=== PATIENT | female | born 2005 | race Caucasian/White ===

== ENCOUNTER 2025-02-11 01:26 | Emergency (ER) | payer MEDICAID, SELFPAY ==
[2025-02-11 01:27] VITALS: BP 145/76; PULSE 93; RESP 16; TEMP 36.5; O2SAT 99; BMI 35.9
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
[2025-02-11 02:45] VITALS: BP 136/87; PULSE 80; RESP 16; TEMP 36.5; O2SAT 100
== END 2025-02-11 02:48 | disposition home or self-care (01) ==
PROVIDERS: Emergency Provider Emergency Medicine; PCP Family Medicine; Visit Provider Emergency Medicine
DX: F41.9 Anxiety disorder, unspecified (principal); S80.812A Abrasion, left lower leg, initial encounter; Z79.899 Other long term (current) drug therapy; F17.290 Nicotine dependence, other tobacco product, uncomplicated; S00.81XA Abrasion of other part of head, initial encounter; Y09 Assault by unspecified means
CPT/HCPCS: 99282; A4216

== ENCOUNTER 2025-02-24 11:39 | Emergency (ER) | payer MEDICAID, SELFPAY ==
[2025-02-24 11:39] VITALS: BP 118/101; PULSE 111; RESP 14; TEMP 36.1; O2SAT 98; BMI 30.4
--- NOTE | 2025-02-24 11:50 | EKG12_ITS ---
Test Reason : GENERAL Blood Pressure : */* mmHG Vent. Rate : 99 BPM Atrial Rate : 99 BPM P-R Int : 154 ms QRS Dur : 94 ms QT Int : 356 ms P-R-T Axes : 53 -14 44 degrees QTcB Int : 456 ms Normal sinus rhythm Normal ECG Confirmed by Neto Mejia ([id number]), photographic editor KAIN MARTE ([id number]) on 02/25/2025 11:40:36 AM Referred By: Confirmed By: Neto Mejia
--- NOTE | 2025-02-24 11:50 | EKG12_ITS ---
Test Reason : GENERAL Blood Pressure : */* mmHG Vent. Rate : 99 BPM Atrial Rate : 99 BPM P-R Int : 154 ms QRS Dur : 94 ms QT Int : 356 ms P-R-T Axes : 53 -14 44 degrees QTcB Int : 456 ms Normal sinus rhythm Normal ECG Confirmed by Neto Mejia ([id number]), medical editor KAIN MARTE ([id number]) on 02/25/2025 11:40:36 AM Referred By: Confirmed By: Neto Mejia
[2025-02-24] MEDS: Lorazepam 2 MG/ML WCH Syringe IV (12:05)
[2025-02-24 12:38] LABS: Hematocrit 40.4 % (37-47); Hemoglobin 13.7 g/dL (12.0-15.0); Immature Granulocytes Count 0.020 X10^3/uL (0.0-0.0); Mean Corp Hgb Conc 33.9 g/dL (32-36); Mean Corpuscular Volume 85.2 fL (81-99); Mean Platelet Vol. 10.4 fl (6.2-12.0); NRBC Flagged by Analyzer 0 % (0-5); Platelet Count 334 K/mm3 (150-450); RBC Distribution Width CV 13.7 % (11.6-14.6); RBC Distribution Width SD 42.5 fl (35.1-43.9); Red Blood Count 4.74 M/mm3 (4.2-5.4); White Blood Count 9.5 K/mm3 (4.4-11.0)
[2025-02-24 13:05] LABS: Anion Gap 18 (5-15); BUN 3 mg/dL (4-19); BUN/Creat Ratio 5.3 RATIO (10-20); Calcium,Total 9.8 mg/dL (7.6-11.0); Carbon Dioxide 19.2 mmol/L (21.0-32.0); Chloride 104 mmol/L (98-108); Estimated Creatinine Clearance 181.44 ml/min (50-250); Glucose 102 mg/dL (70-99); Potassium 3.7 mmol/L (3.3-5.1)
[2025-02-24 13:39] VITALS: BP 128/90; PULSE 112; RESP 18; O2SAT 99
--- NOTE | 2025-02-24 14:00 | EX.ED.DYSGE1 ---
HPI History of Present Illness Chief Complaint: Anxiety Detail of Chief Complaint: Anxiety, total Baade paresthesia, I cannot breathe Informant: patient Onset/Context/Timing Onset: Hours (Started several hours prior to arrival) Context: Sudden Onset Timing: Continuous Quality: Total body paresthesia, anxiousness, trouble breathing and palpitations Location: Generalized Current Severity: Severe Maximum Severity: Severe Worsened by: After obtaining my history patient informed me that she wants to be honest Relieved by: Nothing Associated Symptoms Associated Symptoms: HPI narrative Narrative Narrative: Patient is a 19-year-old female. She has been drinking heavily on weekends since her sister . Today she became very anxious. She is complain of palpitations, shortness of breath. [id number] she made the comment that I cannot breathe . She has tingling in her upper and lower extremities and perioral. She denies fever, chills night sweats. She denies weight gain or weight loss. She denies heat or cold intolerance. She denies headache. Eye double vision blurred vision loss of vision. She denies chest pressure or tightness. She denies abdominal pain, nausea, vomiting or diarrhea. She denies dysuria, frequency, urgency or hematuria. After I completed my history she informed me that she wanted to be perfectly honest with me . She inform me that she did ecstasy this morning. She has done ecstasy in the past. But she is never felt like this. Prior similar symptoms: No Recent Illness/Hospitalization: No [facility] Medical History Anxiety Home Medications ?Medication ?Instructions ?Recorded ?Last Taken ?Type hydroxyzine pamoate 25 mg capsule 25 mg PO 4X/DAY PRN PRN anxiety 02/24/25 02/23/25 History paroxetine HCl 40 mg tablet 40 mg PO DAILY mood 02/24/25 02/23/25 History Allergy/AdvReac Type Severity Reaction Status Date / Time sulfamethoxazole (From Allergy Rash Verified 02/11/25 01:32 Bactrim) trimethoprim (From Bactrim) Allergy Rash Verified 02/11/25 01:32 Social History Smoking Status: Current every day smoker tobacco type: e-cigarettes ROS ROS ED Constitutional Constitutional ED: Denies chills, fever(s), subjective, sweats or weight loss Eyes Eyes: Denies blurry vision, change in vision or diplopia ENT ENT ED: Denies ear pain, rhinorrhea or sore throat Cardiovascular Cardiovascular: Reports palpitations and racing heartbeat; Denies chest pain, orthopnea or paroxysmal nocturnal dyspnea Respiratory/Chest Respiratory/Chest: Reports dyspnea; Denies cough, dyspnea on exertion, orthopnea or paroxysmal nocturnal dyspnea Gastrointestinal Gastrointestinal: Reports nausea; Denies abdominal pain, diarrhea or vomiting Musculoskeletal Musculoskeletal: Denies arthralgias, back pain or myalgias Integumentary Denies Abrasions or rash Neurologic Neurologic: Reports paresthesias RUE, RLE, LUE and LLE; Denies weakness Psychiatric Psychiatric: Reports anxiety and depression; Denies suicidal ideation or suicidal thoughts Endocrine Endocrinology: Denies cold intolerance or heat intolerance Hematologic/Lymphatic Hematologic/Lymphatic: Reports systems reviewed and no addt'l complaints, except as documented EXAM Physical Exam Const Vital Signs: 02/24/25 11:39 02/24/25 13:39 Temperature 97 F L Temperature Source Temporal Pulse Rate 111 H 112 H Respiratory Rate 14 18 Blood Pressure 118/101 H 128/90 H Blood Pressure Mean 106 102 Pulse Ox 98 99 Oxygen Delivery Method Room Air Positive well nourished and well developed General Appearance ED: well developed; Negative for cyanotic, diaphoretic, NAD or pallor HEENT Reports TM's clear and moist mucous membranes HEENT Narrative: Head is atraumatic and normocephalic. Ears normal. Nares patent. Posterior pharynx erythemic today. Uvula midline. No deviation with protrusion. Patient has bilateral Chvostek sign. Tympanic Membrane ED: Yes TM's clear Eyes PERRL and EOMs intact bilaterally General Eye ED: Negative for pale conjunctiva or scleral icterus Neck no lymphadenopathy, supple and no JVD Chest Wall inspection of chest normal and palpation of chest normal Resp normal respiratory effort and clear to auscultation bilaterally Cardio regular rhythm, S1 normal heart sound, S2 normal heart sound and no murmurs Rate: tachycardic GI normal to inspection, nondistended, normoactive bowel sounds, non-tender, non-distended and no masses; Negative for hepatosplenomegaly Palpation: soft Back/Spine no CVA tenderness Extremity normal to inspection Extremity Narrative: Patient has multiple bruises. She is uncertain how she got the bruises. They do not appear to be new bruises. General Extremety ED: Negative for edema or tenderness General Extremity: Negative for edema Neuro oriented x3, CN's II-XII intact bilaterally and no sensory deficits noted Neuro Narrative: Feroz patient is hyperreflexic with nonsustained clonus at the ankles of 6-10 beats. Sensorium / Orientation: alert Motor Exam: strength 5/5 throughout Psych Mood & Affect: anxious Skin no rashes or lesions noted, no wounds and skin turgor normal Skin Narrative: Multiple bruises and abrasions of varying age lower extremities. General Skin Exam: elasticity normal; Negative for jaundice or pallor MDM MDM MDM Narrative Medical decision making narrative: Patient's symptoms are consistent with hyperventilation most likely due to ecstasy use. Will obtain electrolyte panel to assess calcium and sodium potassium. Will obtain CBC since she appears pale to assess H&H. She was placed on a monitor. She was treated with lorazepam since we do not have IV Valium. Benzodiazepines are considered the drug of choice for treatment of sympathomimetic toxicity. Lab Data Attestation: I reviewed the patient's lab results. Lab results narrative: CBC is unremarkable. Basic metabolic panel reveals a mild anion gap acidosis. Glucose is 102. Labs: Laboratory Results - last 24 hr 02/24/25 12:01 WBC 9.5 RBC 4.74 Hgb 13.7 Hct 40.4 MCV 85.2 MCH 28.9 MCHC 33.9 RDW Std Deviation 42.5 RDW Coeff of Licha 13.7 Plt Count 334 MPV 10.4 Immature Gran % (Auto) 0.200 Neut % (Auto) 67.4 Lymph % (Auto) 27.1 Wetzel % (Auto) 4.4 Eos % (Auto) 0.4 Baso % (Auto) 0.5 Absolute Neuts (auto) 6.4 Absolute Lymphs (auto) 2.56 Nucleated RBC % 0 Sodium 141 Potassium 3.7 Chloride 104 Carbon Dioxide 19.2 L Anion Gap 18 H BUN 3 L Creatinine 0.54 L Estim Creat Clear Calc 181.44 Est GFR (MDRD) Non-Af 134 BUN/Creatinine Ratio 5.3 L Glucose 102 H Calcium 9.8 EKG Initial EKG: Attestation: I personally reviewed and interpreted this EKG as follows: Interpretation: Sinus Rhythm (Rate is 99. The EKG is normal. SD was 154 ms. Cures duration 94 ms. QT duration 3 and 56 ms. [place] is normal.) Treatment and Re-Evaluation :: Patient was reassessed at 1337. She was better. She stated she was offered medicine for anxiety when she was seen here approximately a week ago. Will review her prior records. I reviewed Dr. Tonny Saldaña's note authored February 11. He offered her an Ativan pill in the emergency department. He did not offer her an Ativan prescription. 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
--- NOTE | 2025-02-24 14:19 | CM.ED ---
Social Work SW entered room, introduced self to patient and explained role within [facility]. Patient receptive to visit. Patient stated that she does not currently have a counselor and would be interested establishing services. Counseling list provided to patient along with information for Cynthia Cardona. No further needs identified at this time. Nery Gannon, CAR WORKER, [employer]
--- NOTE | 2025-02-24 14:19 | CM.ED ---
Social Work SW entered room, introduced self to patient and explained role within [facility]. Patient receptive to visit. Patient stated that she does not currently have a counselor and would be interested establishing services. Counseling list provided to patient along with information for Cynthia Cardona. No further needs identified at this time. Nery Gannon, REFERRAL AGENT, [employer]
[2025-02-24 14:29] VITALS: BP 124/79; PULSE 72; RESP 18; TEMP 36.4; O2SAT 99
== END 2025-02-24 14:30 | disposition home or self-care (01) ==
PROVIDERS: Emergency Provider Emergency Medicine; PCP Family Medicine; Visit Provider Emergency Medicine
DX: R06.4 Hyperventilation (principal); F41.9 Anxiety disorder, unspecified; F32.A Depression, unspecified; F15.90 Other stimulant use, unspecified, uncomplicated; R00.0 Tachycardia, unspecified; Z79.899 Other long term (current) drug therapy
CPT/HCPCS: 80048; 85025; 93005; 96374; 99284; A4216

== ENCOUNTER 2025-03-03 21:34 | Emergency (ER) | payer MEDICAID, SELFPAY ==
[2025-03-03 21:34] VITALS: BP 132/92; PULSE 89; RESP 16; TEMP 36.8; O2SAT 98; BMI 31.5
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
[2025-03-03] MEDS: 0.9% Normal Saline (1000mL) 1,000 ML 1000 ML IV (23:00)
[2025-03-03 23:10] LABS: Hematocrit 40.3 % (37-47); Hemoglobin 13.3 g/dL (12.0-15.0); Immature Granulocytes Count 0.060 X10^3/uL (0.0-0.0); Mean Corp Hgb Conc 33.0 g/dL (32-36); Mean Corpuscular Volume 86.5 fL (81-99); Mean Platelet Vol. 10.0 fl (6.2-12.0); NRBC Flagged by Analyzer 0 % (0-5); Platelet Count 345 K/mm3 (150-450); RBC Distribution Width CV 13.6 % (11.6-14.6); RBC Distribution Width SD 43.4 fl (35.1-43.9); Red Blood Count 4.66 M/mm3 (4.2-5.4); White Blood Count 14.0 K/mm3 (4.4-11.0)
[2025-03-03 23:33] LABS: Internal QC Validated? YES +Cl - CLEAR BKGD; Pregnancy, Serum, hCG Quali. NEGATIVE Negative; Record Kit Lot#, Serum Preg. 962302
[2025-03-03 23:37] LABS: Alcohol, Blood (Medical)-Serum < 10.1 mg/dL (<=10.0)
[2025-03-03 23:38] LABS: Anion Gap 14 (5-15); BUN 6 mg/dL (4-19); BUN/Creat Ratio 10.3 RATIO (10-20); Calcium,Total 9.9 mg/dL (7.6-11.0); Carbon Dioxide 23.1 mmol/L (21.0-32.0); Chloride 100 mmol/L (98-108); Estimated Creatinine Clearance 178.27 ml/min (50-250); Glucose 98 mg/dL (70-99); Potassium 3.6 mmol/L (3.3-5.1)
[2025-03-03 23:55] VITALS: BP 126/92; PULSE 85; RESP 16; TEMP 36.6; O2SAT 99
== END 2025-03-04 00:01 | disposition home or self-care (01) ==
PROVIDERS: Emergency Provider Emergency Medicine; PCP Family Medicine; Visit Provider Emergency Medicine
DX: F41.9 Anxiety disorder, unspecified (principal); R20.2 Paresthesia of skin; R06.02 Shortness of breath; F17.290 Nicotine dependence, other tobacco product, uncomplicated
CPT/HCPCS: 80048; 82077; 84703; 85025; 96361; 96374; 99283; A4216

== ENCOUNTER 2025-03-17 00:12 | Emergency (ER) | payer MEDICAID, SELFPAY ==
[2025-03-17 00:13] VITALS: BP 134/94; PULSE 122; RESP 20; TEMP 37; O2SAT 99; BMI 31.2
[2025-03-17] MEDS: hydrOXYzine PAM 25 MG Capsule PO (00:53)
--- NOTE | 2025-03-17 01:16 | EX.ED.VIS.PS ---
HPI HPI - Psych History of Present Illness Chief Complaint: Anxiety Informant: patient Narrative Narrative: Patient is a 19-year-old female with history of anxiety (on paroxetine as well as hydroxyzine as needed) follows with primary care presenting for panic attack. Patient states that she was drinking earlier today and thinks that triggered a panic attack. She started to feel very anxious then started feel like she was getting numb in her face and her hand started to cramp up. She tried to take hydroxyzine however something it spilled in her purse and the pills were all swollen up. She came in for further evaluation because she did not know what else to do. She denies any HI or SI. Lives at home with her mother and states she feel safe at home. No other complaints or concerns at this time. PFSH PFSH Medical History Anxiety Home Medications ?Medication ?Instructions ?Recorded ?Last Taken ?Type hydroxyzine pamoate 25 mg capsule 25 mg PO 4X/DAY PRN PRN anxiety 02/24/25 02/23/25 History paroxetine HCl 40 mg tablet 40 mg PO DAILY mood 02/24/25 02/23/25 History hydroxyzine pamoate 25 mg capsule 25 mg PO Q6H PRN anxiety #20 caps 03/17/25 Unknown Rx (Vistaril) Allergy/AdvReac Type Severity Reaction Status Date / Time sulfamethoxazole (From Allergy Rash Verified 03/17/25 00:12 Bactrim) trimethoprim (From Bactrim) Allergy Rash Verified 03/17/25 00:12 Surgical History Hx of tonsillectomy Social History Smoking Status: Current every day smoker tobacco type: e-cigarettes ROS ROS ED Constitutional Constitutional ED: Denies chills or fever(s) Eyes Eyes: Denies change in vision Cardiovascular Cardiovascular: Denies chest pain Respiratory/Chest Respiratory/Chest: Reports dyspnea Gastrointestinal Gastrointestinal: Denies vomiting Integumentary Denies rash Neurologic Neurologic: Reports paresthesias; Denies weakness Psychiatric Psychiatric: Reports anxiety; Denies suicidal ideation or suicidal thoughts EXAM Physical Exam Const Vital Signs: 03/17/25 00:13 03/17/25 02:26 Temperature 98.6 F 98.0 F Temperature Source Oral Pulse Rate 122 H 70 Respiratory Rate 20 H 18 Blood Pressure 134/94 H 130/74 H Blood Pressure Mean 107 92 Pulse Ox 99 100 Oxygen Delivery Method Room Air Positive well nourished and well developed General Appearance ED: well developed and NAD HEENT Reports moist mucous membranes Neck supple Resp normal respiratory effort and clear to auscultation bilaterally Cardio Rate: tachycardic Rhythm: regular rhythm GI non-tender and non-distended Extremity normal to inspection General Extremety ED: Negative for edema General Extremity: Negative for edema Neuro oriented x3 Sensorium / Orientation: alert Motor Exam: muscle tone normal throughout; Negative for general weakness Psych thought process normal, cooperative, affect normal and activity/motor behavior normal Appearance: disheveled Attitude: engaged Activity / Motor Behavior: appropriate eye contact Speech: normal speech Mood & Affect: anxious Thought Content: normal thought content, No suicidality, No homicidality and No delusion(s) Attention / Concentration: attention grossly intact Memory / Cognition: memory grossly intact Insight: insight good Judgement: fair Skin Lesions: no lesions Rashes: no rashes MDM MDM MDM Narrative Medical decision making narrative: Patient evaluated for panic attack. Likely triggered from drinking earlier today with underlying anxiety. Patient is given a dose of hydroxyzine in the emergency room. She does not voice any HI or SI and I think it safe to go home with outpatient follow-up. Given information for the counseling center. Is given a refill of her hydroxyzine. Given return precautions. States has been compliant with her paroxetine. Counseled on avoiding excessive alcohol use. Patient verbalized agreement understand this plan. Did discuss if she starts hyperventilating at home she could try breathing into a brown paper bag to help prevent the associated carpopedal spasm Discharge Plan Triage Chief Complaint: Anxiety ED Provider: Susu Vasquez Dx/Rx/DC Orders Clinical Impression: Generalized anxiety disorder with panic attacks Instructions: ED Panic Attack Prescriptions: New hydroxyzine pamoate [Vistaril] 25 mg capsule 25 mg PO Q6H PRN (Reason: anxiety) Qty: 20 0RF No Action paroxetine HCl 40 mg tablet 40 mg PO DAILY hydroxyzine pamoate 25 mg capsule 25 mg PO 4X/DAY PRN PRN (Reason: anxiety) Primary Care Provider: Constanza Winslow Referrals: Counseling,Center [Group of Physicians] - Constanza Winslow, [Primary Care Provider] - Activity Restrictions/Additional Instructions: Avoid excessive alcohol use. This can make panic attacks worse. Follow-up with your family doctor as well as the counseling center. Print Language: Kosovan Disposition Disposition: Home, Self Care Discharge Date/Time: 03/17/25 02:28
--- OUTSIDE RECORDS SUMMARY | 2025-03-17 01:22 | XMS RPT_ITS | CCD ---
Author Organization [facility] Care Team Providers Care Banquet Pilot Name Role Phone LEISA ESQUEDA DO Primary Care Physician JOSH MENDOZA, DR MIXON Attending Unavailaretha e DHEERAJ SCHNEIDER, LEISA Primary Care Unavailable KAJAL MENDOZA, ANDRZEJ Kruger Attending Unavail able LEISA ESQUEDA DO Primary Care Unavailable BINH COBB DO Attending Unavailable LEISA ESQUEDA DO Primary Care Unavailable BRIGITTE MENDOZA, PEACE Arias Attending Unavailable LEISA ESQUEDA DO Primary Care Unavailable LEISA ESQUEDA DO Primary Care Physician [phone] Tonny Vallejo MD Emergency Provider Dr. Leisa Esqueda DO Primary Care Provider [phone] DR DOMENICA OROZCO DO Attending Unavailable LEISA ESQUEDA DO Primary Care Unavailable ARCENIO MENDOZA, FERNANDO Lauren Attending Unavailable LEISA ESQUEDA DO Primary Care Unavailable ADALGISA SINGH MD Attending Unavailable LEISA ESQUEDA DO Primary Care Unavailable Dr. Tonny Vallejo MD Attending Provider Dr. Gutierrez Yee MD Emergency Provider Dr. Gutierrez Yee MD Attending Provider Dr. Alex Marino DO Emergency Provider [phone] Tonny Vallejo Attending Unavailable Leisa Esqueda Primary Care Unavailable Gutierrez Yee Attending Unavailable Leisa Esqueda Primary Care Unavailable Leisa Esqueda Primary Care Unavailable Alex Marino Attending Unavailable Allergies Allergy Classification Reported Allergen(s) Allergy Type Date of Onset Reaction(s) Facility (7 sources) Sulfamethoxazole / Trimethoprim; Translations: [sulfamethoxazole-tr imethoprim] Drug Allergy Rash [facility] (3 sources) Sulfamethoxazole Drug Allergy 5 [facility] (3 sources) Trimethoprim Drug Allergy 5 [facility] (1 source) Sulfamethoxazole Drug Allergy 5 [facility] (1 source) Trimethoprim Drug Allergy 5 [facility] Medications Current Medications Medication Drug Class(es) Dates Sig (Normalized) Sig (Original) dicyclomine hydrochloride 10 mg oral capsule (1 source) Anticholinergic Start: 05-16-2021 dicyclomine 10 mg oral capsule 0 Refill(s) Start Date: 05/16/21 Status: Ordered diphenhydrAMINE hydrochloride 25 mg oral capsule (1 source) Histamine-1 Receptor Antagonist Start: 07-15-2023 End: 07-25-2023 diphenhydrAMINE 25 mg oral capsule Dose : 25 mg = 1 cap(s), Oral, TID, PRN for allergy symptoms, X 10 day(s), # 30 cap(s), 0 Refill(s), 07/25/23 12:56:00 AM EST Start Date: 07/15/23 Stop Date: 07/25/23 Status: Ordered doxycycline hyclate 100 mg oral capsule (1 source) Tetracycline-class Drug Start: 05-16-2021 doxycycline hyclate 100 mg oral capsule 0 Refill(s), 47.7 Start Date: 05/16/21 Status: Ordered hydrOXYzine pamoate 25 mg oral capsule (7 sources) Antihistamine Start: 02-24-2025 take 1 capsule by mouth four times daily as needed for anxiety Hydroxyzine Pamoate 25 mg capsule Active 25 mg PO 4 TIMES DAILY NEEDED as needed for anxiety February 24, 2025 12:00am Start: 02-11-2025 End: 02-24-2025 take 1 tablet by mouth three times daily as needed for anxiety Hydroxyzine Hcl 25 mg tablet Discontinued 25 mg PO THREE TIMES A DAY as needed for anxiety February 11, 2025 12:00am February 24, 2025 11:44am Start: 01-23-2025 Vistaril 25 mg oral capsule Dose : 25 mg = 1 cap(s), Oral, QID, PRN as needed for anxiety, # 120 cap(s), 1 Refill(s), Pharmacy: [facility]/pharmacy #[id number], Anxiety, 166, cm, 01/23/25 13:59:00 EDT, Height, kg, 01/23/25 13:59:00 EDT, Dosing Weight Start Date: 01/23/25 Status: Ordered Quantity: 120.0 Unit: cap(s) Repeat number: 2 Indications: Anxiety disorder, unspecified; Start: 10-30-2024 Vistaril 25 mg oral capsule Dose : 25 mg = 1 cap(s), Oral, QID, PRN as needed for anxiety, # 120 cap(s), 1 Refill(s), Pharmacy: [facility]/pharmacy #[id number], Anxiety, 166, cm, 10/30/24 12:33:00 EDT, Height, kg, 10/30/24 12:33:00 EDT, Dosing Weight Start Date: 10/30/24 Status: Ordered Quantity: 120.0 Unit: cap(s) Repeat number: 2 Indications: Anxiety disorder, unspecified; metoclopramide 10 mg oral tablet (1 source) Dopamine-2 Receptor Antagonist Start: 05-16-2021 End: 05-26-2021 Reglan 10 mg oral tablet Dose : 10 mg = 1 tab(s), Oral, QID, X 10 day(s), # 40 tab(s), 0 Refill(s), 05/26/21 15:54:00 EST, Vomiting Start Date: 05/16/21 Stop Date: 05/26/21 Status: Ordered metroNIDAZOLE 500 mg oral tablet (1 source) Nitroimidazole Antimicrobial Start: 05-16-2021 metroNIDAZOLE 500 mg oral tablet 0 Refill(s), 47.7 Start Date: 05/16/21 Status: Ordered omeprazole 20 mg delayed release oral capsule (3 sources) Proton Pump Inhibitor Start: 09-03-2021 omeprazole 20 mg oral delayed release capsule Dose : 20 mg = 1 cap(s), Oral, qDay, # 30 cap(s), 2 Refill(s), [facility]: [facility] GERD (gastroesophageal reflux disease), 166, cm, 09/03/21 13:27:00 EST, Height, kg, 09/03/21 13:27:00 EST, Dosing Weight Start Date: 09/03/21 Status: Ordered ondansetron 4 mg oral tablet (1 source) Serotonin-3 Receptor Antagonist Start: 05-16-2021 ondansetron 4 mg oral tablet 0 Refill(s) Start Date: 05/16/21 Status: Ordered PARoxetine hydrochloride 40 mg oral tablet (8 sources) Serotonin Reuptake Inhibitor Start: 02-24-2025 take 1 tablet by mouth once daily Paroxetine Hcl 40 mg tablet Active 40 mg PO DAILY February 24, 2025 12:00am mood Start: 02-11-2025 End: 02-24-2025 take 1 tablet by mouth once daily Paroxetine Hcl 20 mg tablet Discontinued 20 mg PO DAILY February 11, 2025 12:00am February 24, 2025 11:44am Start: 01-23-2025 Paxil 40 mg or al tablet Dose : 40 mg = 1 tab(s), Oral, qDay, # 30 tab(s), 2 Refill(s), Pharmacy: [facility]/pharmacy #[id number], Recurrent major depression Anxiety, 166, cm, 01/23/25 13:59:00 EDT, Height, kg, 01/23/25 13:59:00 EDT, Dosing Weight Start Date: 01/23/25 Status: Ordered Quantity: 30.0 Unit: tab(s) Repeat number: 3 Indications: Anxiety disorder, unspecified; Major depressive disorder, recurrent, unspecified; Start: 11-13-2024 Paxil 20 mg or al tablet Dose : 20 mg = 1 tab(s), Oral, qDay, Start 20 mg tablet after completing 14-day course of 10 mg tablet, # 30 tab(s), 2 Refill(s), Pharmacy: [facility]/pharmacy #[id number], Recurrent major depression Anxiety, 166, cm, 10/30/24 12:33:00 EDT, Height, kg, 10/30/24 12:33:00 EDT, Dosing Weight Start Date: 11/13/24 Status: Ordered Quantity: 30.0 Unit: tab(s) Repeat number: 3 Indications: Major depressive disorder, recurrent, unspecified; Anxiety disorder, unspecified; Start: 10-30-2024 End: 11-13-2024 Paxil 10 mg oral tablet Dose : 10 mg = 1 tab(s), Oral, qDay, Complete 14-day course prior to initiating 20 mg tablet, # 14 tab(s), 0 Refill(s), Pharmacy: [facility]/pharmacy #[id number], Recurrent major depression Anxiety, 166, cm, 10/30/24 12:33:00 EDT, Height, kg, 10/30/24 12:33:00 EDT, Dosing Weight Start Date: 10/30/24 Stop Date: 11/13/24 Status: Ordered Quantity: 14.0 Unit: tab(s) Repeat number: 1 Indications: Major depressive disorder, recurrent, unspecified; Anxiety disorder, unspecified; predniSONE 50 mg oral tablet (1 source) Start: 07-15-2023 End: 07-20-2023 predniSONE 50 mg oral tablet Dose : 50 mg = 1 tab(s), Oral, qDay, Take with food, X 5 day(s), # 5 tab(s), 0 Refill(s), 07/20/23 6:00:00 PM EST Start Date: 07/15/23 Stop Date: 07/20/23 Status: Ordered sertraline 50 mg oral tablet (4 sources) Serotonin Reuptake Inhibitor Start: 09-03-2021 sertraline 50 mg ora l tablet Dose : 50 mg = 1 tab(s), Oral, qDay, take 1 tablet by mouth once daily, # 30 tab(s), 2 Refill(s), [facility]acy: [facility], Anxiety, 166, cm, 09/03/21 13:27:00 EST, Height, kg, 09/03/21 13:27:00 EST, Dosing Weight Start Date: 09/03/21 Status: Ordered Start: 12-02-2020 take 1 tablet by dominic th once daily sertraline 50 mg oral tablet take 1 tablet by mouth once daily Start Date: 12/02/20 Status: Ordered Completed/Discontinued Medications Medication Drug Class(es) Dates Sig (Normalized) Sig (Original) penicillin v potassium 500 mg oral tablet (4 sources) Start: 02-09-2025 End: 02-24-2025 take 1 tablet by mouth every six hours Penicillin V Potassium 500 mg tablet Discontinued 500 mg PO EVERY 6 HOURS February 11, 2025 12:00am February 24, 2025 11:58am Problems Problem Classification Problem Date Documented Da te Episodic/Chronic Alcohol-related disorders (2 sources) Binge drinker; Translations: [Alcohol abuse, uncomplicated] 02-24-2025 Chronic Allergic reactions (1 source) Allergic disposition; Translations: [Allergy, unspecified, initial encounter] Onset: 07-15-2023 Episodic Anxiety disorders (14 sources) Anxiety; Translations: [Anxiety disorder] Onset: 09-26-2023 02-14-2019 Chronic Cardiac dysrhythmias (2 sources) ECG: sinus tachycardia; Translations: [Tachycardia, unspecified] 02-24-2025 Episodic Fluid and electrolyte disorders (1 source) Hypokalemia; Translations: [Hypokalemia] Onset: 09-20-2023 Episodic Miscellaneous mental health disorders (2 sources) Psychogenic hyperventilation; 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] 02-24-2025 Chronic Miscellaneous mental health disorders (1 source) Emotional state finding; Translations: [Other symptoms and signs involving emotional state] Onset: 09-20-2023 Episodic Mood disorders (4 sources) Recurrent major depression; Translations: [Depressive disorder] 10-11-2023 Chronic Mycoses (7 sources) Tinea corporis 11-05-2019 Episodic Nausea and vomiting (1 source) Vomiting; Translations: [Vomiting, unspecified] Onset: 05-16-2021 Episodic Nutritional deficiencies (2 sources) Vitamin D deficiency 02-21-2024 Chronic Open wounds of head; neck; and trunk (2 sources) Laceration of lip ; Translations: [Laceration without foreign body of lip, initial encounter] Onset: 02-09-2025 Episodic Other injuries and conditions due to external causes (3 sources) Abrasion and/or friction burn of multiple sites; Translations: [Unspecified multiple injuries, initial encounter] 02-11-2025 Episodic Other lower respiratory disease (1 source) Dyspnea; Translations: [Dyspnea, unspecified] Onset: 09-26-2023 Episodic Other nutritional; endocrine; and metabolic disorders (1 source) Body mass index 30+ - obesity; Translations: [Obesity, unspecified] 03-03-2025 Chronic Other nutritional; endocrine; and metabolic disorders (6 sources) Abnormal weight loss 09-03-2021 Episodic Other screening for suspected conditions (not mental disorders or infectious disease) (2 sources) Viral screening status 02-21-2024 Episodic Other skin disorders (7 sources) Eruption 11-05-2019 Episodic Residual codes; unclassified (1 source) Nicotine-filled electronic cigarette user; Translations: [Tobacco use] 03-03-2025 Episodic Substance-related disorders (3 sources) H/O: recreational drug use; Translations: [Hallucinogen abuse, uncomplicated] 01-23-2025 Chronic Unclassified (7 sources) Decreased body mass index 12-02-2020 Unclassified (18 sources) Patient encounter status 09-03-2021 Viral infection (7 sources) Herpes simplex 02-22-2019 Episodic Results Test Name Value Interpretation Reference Range Facility Absolute lymphocyte countOrd ered By: Alex Marino on 03-03-2025 Lymphocytes Auto (Unsp spec) [#/Vol] 2.53 10*3/uL 0.83-4.51 [facility] Absolute neutrophil countOrd ered By: Alex Marino on 03-03-2025 Neutrophils (Bld) [#/Vol] 10.5 10*3/uL High 2.0-7.7 [facility] Alcohol, Blood (Medical)-Ser umon 03-03-2025 SERUM ETOH < 10.1 Normal <=10.0 [facility] Comment on above: Result Comment: This test is for medical purposes only. The legal definition of intoxication varies according to local law. Performed By: #### L 700.6800, L501.9100, L500.2500, L100.0100 #### [facility] [address] [place], [address] Anion gap in Serum or Plasma Ordered By: Alex Marino on 03-03-2025 Anion gap [Moles/Vol] 14 mmol/L 5-15 [facility] Automated lymphocyte count a s percentage of total leukocytesOrdered By: Alex Marnio on 03-03-2025 Lymphocytes/100 WBC Auto (Unsp spec) 18.0 % Low 19-41 [facility] BUN/creatinine ratioOrdered By: Alex Marino on 03-03-2025 Urea nitrogen/Creatinine [Mass ratio] 10.3 mg/mg - [facility] Basic Metabolic Profile (BMP )on 03-03-2025 BUN/CRE 10.3 RATIO Normal 05-05 [facility] Comment on above: Performed By: #### L 700.6800, L501.9100, L500.2500, L100.0100 #### [facility] [address] [place], [address] Calcium [Mass/Vol] 9.9 mg/dL Normal 7.6-11.0 [facility] Comment on above: Performed By: #### L 700.6800, L501.9100, L500.2500, L100.0100 #### [facility] [address] [place], [address] Chloride [Moles/Vol] 100 mmol/L Normal 98-108 [facility] Comment on above: Performed By: #### L 700.6800, L501.9100, L500.2500, L100.0100 #### [facility] [address] [place], [address] CO2 [Moles/Vol] 23.1 mmol/L Normal 21.0-32.0 [facility] Comment on above: Performed By: #### L 700.6800, L501.9100, L500.2500, L100.0100 #### [facility] [address] [place], [address] Creatinine [Mass/Vol] 0.56 mg/dL Low 0.70-1.20 [facility] Comment on above: Performed By: #### L 700.6800, L501.9100, L500.2500, L100.0100 #### [facility] [address] [place], [address] ECRCL 178.27 ml/min Normal 50-250 [facility] Comment on above: Performed By: #### L 700.6800, L501.9100, L500.2500, L100.0100 #### [facility] [address] [place], [address] GAP 14 Normal 5-15 [facility] Comment on above: Performed By: #### L 700.6800, L501.9100, L500.2500, L100.0100 #### [facility] [address] [place], [address] GFR/1.73 sq M.predicted among non-blacks MDRD (S/P/Bld) [Vol rate/Area] 133 mL/min/{1.73_m2} Normal >60 [facility] Comment on above: Result Comment: mL/m in/1.73m2 CKD-EPI Creatinine Equation (2020) Performed By: #### L 700.6800, L501.9100, L500.2500, L100.0100 #### [facility] [address] [place], [address] Glucose [Mass/Vol] 98 mg/dL Normal 70-99 [facility] Comment on above: Performed By: #### L 700.6800, L501.9100, L500.2500, L100.0100 #### [facility] [address] [place], [address] Potassium [Moles/Vol] 3.6 mmol/L Normal 3.3-5.1 [facility] Comment on above: Performed By: #### L 700.6800, L501.9100, L500.2500, L100.0100 #### [facility] [address] [place], [address] Sodium [Moles/Vol] 137 mmol/L Normal 133-145 [facility] Comment on above: Performed By: #### L 700.6800, L501.9100, L500.2500, L100.0100 #### [facility] [address] [place], [address] Urea nitrogen [Mass/Vol] 6 mg/dL Normal 4-19 [facility] Comment on above: Performed By: #### L 700.6800, L501.9100, L500.2500, L100.0100 #### [facility] [address] [place], [address] Basophil percentageOrdered B y: Alex Marino on 03-03-2025 Basophils/100 WBC (Bld) 0.4 % 0-1 [facility] CBC W/Diff, Automatedon 02-14 Absolute Lymph 2.53 X10 3/uL Normal 0.83-4.51 [facility] Comment on above: Performed By: #### L 700.6800, L501.9100, L500.2500, L100.0100 #### [facility] [address] [place], [address] Absolute Neut 10.5 X10 3/uL High 2.0-7.7 [facility] Comment on above: Performed By: #### L 700.6800, L501.9100, L500.2500, L100.0100 #### [facility] [address] [place], [address] Basophils/100 WBC (Bld) 0.4 % Normal 0-1 [facility] Comment on above: Performed By: #### L 700.6800, L501.9100, L500.2500, L100.0100 #### [facility] [address] [place], [address] Eosinophils/100 WBC (Bld) 0.6 % Normal 0-5 [facility] Comment on above: Performed By: #### L 700.6800, L501.9100, L500.2500, L100.0100 #### [facility] [address] [place], [address] Erythrocyte distribution width (RBC) [Ratio] 13.6 % Normal 11.6-14.6 [facility] Comment on above: Performed By: #### L 700.6800, L501.9100, L500.2500, L100.0100 #### [facility] [address] [place], [address] Hematocrit (Bld) [Volume fraction] 40.3 % Normal 37-47 [facility] Comment on above: Performed By: #### L 700.6800, L501.9100, L500.2500, L100.0100 #### [facility] [address] [place], [address] Hemoglobin (Bld) [Mass/Vol] 13.3 g/dL Normal 12.0-15.0 [facility] Comment on above: Performed By: #### L 700.6800, L501.9100, L500.2500, L100.0100 #### [facility] [address] [place], [address] IG% 0.400 Normal 0.0-0.9 [facility] Comment on above: Result Comment: IG% - Immature Granulocytes (promyelocytes, myelocytes and metamyelocytes) > 1% indicates that a LEFT SHIFT is Present. Performed By: #### L 700.6800, L501.9100, L500.2500, L100.0100 #### [facility] [address] [place], [address] Lymphocytes/100 WBC (Bld) 18.0 % Low 19-41 [facility] Comment on above: Performed By: #### L 700.6800, L501.9100, L500.2500, L100.0100 #### [facility] [address] [place], [address] MCH (RBC) [Entitic mass] 28.5 pg Normal 27.0-32.0 [facility] Comment on above: Performed By: #### L 700.6800, L501.9100, L500.2500, L100.0100 #### [facility] [address] [place], [address] MCHC (RBC) [Mass/Vol] 33.0 g/dL Normal 32-36 [facility] Comment on above: Performed By: #### L 700.6800, L501.9100, L500.2500, L100.0100 #### [facility] [address] [place], [address] MCV (RBC) [Entitic vol] 86.5 fL Normal 81-99 [facility] Comment on above: Performed By: #### L 700.6800, L501.9100, L500.2500, L100.0100 #### [facility] [address] [place], [address] Monocytes/100 WBC (Bld) 5.9 % Normal 0-10 [facility] Comment on above: Performed By: #### L 700.6800, L501.9100, L500.2500, L100.0100 #### [facility] [address] [place], [address] Neutrophils/100 WBC (Bld) 74.7 % High 47-70 [facility] Comment on above: Performed By: #### L 700.6800, L501.9100, L500.2500, L100.0100 #### [facility] [address] [place], [address] Nucleated RBC (Bld) [#/Vol] 0 10*3/uL Normal 0-5 [facility] Comment on above: Performed By: #### L 700.6800, L501.9100, L500.2500, L100.0100 #### [facility] [address] [place], [address] Platelet mean volume (Bld) [Entitic vol] 10.0 fL Normal 6.2-12.0 [facility] Comment on above: Performed By: #### L 700.6800, L501.9100, L500.2500, L100.0100 #### [facility] [address] [place], [address] Platelets (Bld) [#/Vol] 345 10*3/uL Normal 150-450 [facility] Comment on above: Performed By: #### L 700.6800, L501.9100, L500.2500, L100.0100 #### [facility] [address] [place], [address] RBC (Bld) [#/Vol] 4.66 10*6/uL Normal 4.2-5.4 [facility] Comment on above: Performed By: #### L 700.6800, L501.9100, L500.2500, L100.0100 #### [facility] [address] [place], [address] RDW SD 43.4 fl Normal 35.1-43.9 [facility] Comment on above: Performed By: #### L 700.6800, L501.9100, L500.2500, L100.0100 #### [facility] [address] [place], [address] WBC (Bld) [#/Vol] 14.0 10*3/uL High 4.4-11.0 [facility] Comment on above: Performed By: #### L 700.6800, L501.9100, L500.2500, L100.0100 #### [facility] [address] [place], [address] Carbon dioxide, total [Moles /volume] in Central venous bloodOrdered By: Alex Marino on 03-03-2025 CO2 [Moles/Vol] 23.1 mmol/L 21.0-32.0 [facility] Chloride assayOrdered By: Ihsan Marino on 03-03-2025 Chloride [Moles/Vol] 100 mmol/L 98-108 [facility] Emergency Department Summary on 03-03-2025 Emergency Department Summary [facility] Medical Records Department [address] [place] [address] Emergency Department Summary 03/03/25 MR#: [id number] Acct: [id number] Name: GERARDO ATKINS [place] Rep #: [id number] : 2005 19 From: Alex Marino DO PCP: Dr. Leisa Esqueda DO Status:DEP ER Location: ED HPI History of Present Illness Chief Complaint: Anxiety Informant: patient Onset/Context/Timing Onset: Today and Hours (1) Context: Sudden Onset Timing: Continuous Quality: Tingling Location: Bilateral hands, forearms, and face Worsened by: Nothing Relieved by: Nothing Narrative Narrative: Patient presents with anxiety attack that began approximately 1 hour prior to arrival. Patient states her friend was driving and she was riding in the car when this began. Patient admits to some tingling over her hands, forearms, and face. Patient states nothing makes it better and nothing makes it worse. Patient states she has been to the emergency department twice for this in the past month. Patient states she has an appointment on 03/06/2025 with her primary care physician for follow-up for this. Patient admits to some shortness of breath. Patient denies any nausea or vomiting. Patient denies any fevers or chills. Patient denies any blurry vision or double vision. Prior similar symptoms: Yes PFSH PFSH Medical History (Updated 03/03/25 @ 23:[address] Alex Marino DO) Anxiety Home Medications ???Medication ???Instructions ???Recorded ???Last Taken ???Type hydroxyzine pamoate 25 mg capsule 25 mg PO 4X/DAY PRN PRN anxiety 0 02/24/25 02/23/25 History paroxetine HCl 40 mg tablet 40 mg PO DAILY mood 02/24/2502/23 History Allergy/AdvReac Type Severity Reaction Status Date / Time sulfamethoxazole (From Allergy Rash Verified 03/03/25 21:36 Bactrim) trimethoprim (From Bactrim) Allergy Rash Verified 03/03/25 21:36 Surgical History (Updated 03/03/25 @ 22:[address] Alex Marino DO) Hx of tonsillectomy Social History Smoking Status: Current every day smoker tobacco type: e-cigarettes ROS ROS ED Constitutional Constitutional ED: Denies chills or fever(s) Eyes Eyes: Denies blurry vision or change in vision ENT ENT ED: Denies rhinorrhea or sore throat Cardiovascular Cardiovascular: Denies chest pain or palpitations Respiratory/Chest Respiratory/Chest: Reports dyspnea; Denies cough Gastrointestinal Gastrointestinal: Denies nausea or vomiting Genitourinary Genitourinary ED: Denies dysuria or hematuria Musculoskeletal Musculoskeletal: Denies back pain or neck pain Integumentary Denies abscess or rash Neurologic Neurologic: Denies headache(s) or weakness Psychiatric Psychiatric: Reports anxiety; Denies suicidal ideation or suicidal thoughts Allergic/Immunologic Allergic/Immunologic ED: Denies mouth swelling or urticaria EXAM Physical Exam Const Vital Signs: 03/03/25 21:34 Temperature 98.2 F Temperature Source Oral Pulse Rate 89 Respiratory Rate 16 Blood Pressure 132/92 H Blood Pressure Mean 105 Pulse Ox 98 Oxygen Delivery Method Room Air Positive well nourished and well developed Constitutional Narrative: BMI is 31.6. General Appearance ED: well developed and NAD HEENT Reports moist mucous membranes Neck supple and no JVD Resp normal respiratory effort and clear to auscultation bilaterally Cardio regular rate and regular rhythm GI non-tender and non-distended Palpation: soft Neuro oriented x3, CN's II-XII intact bilaterally and no sensory deficits noted Sensorium / Orientation: alert Motor Exam: strength 5/5 throughout Psych mental status grossly normal MDM MDM MDM Narrative Medical decision making narrative: Differential diagnosis includes acute anxiety, electrolyte abnormality, dehydration, and hyperventilation syndrome. CBC will be obtained to assess for leukocytosis and anemia. Basic metabolic profile will be obtained to assess for electrolyte abnormality and renal function. Serum alcohol level will be obtained to assess for alcohol intoxication. Serum hCG will be obtained to assess for . History Record Review Additional record(s) reviewed:: Prior ED visit and Prior labs Lab Data Attestation: I reviewed the patient's lab results. Lab results narrative: CBC was reviewed. There is a mild leukocytosis of 14.0. Basic metabolic profile was reviewed and was within normal limits. Serum hCG was reviewed and was negative. Serum alcohol level was reviewed and was less than 10.1. Labs: Laboratory Results - last 24 hr 03/03/25 22:58 WBC 14.0 H RBC 4.66 Hgb 13.3 Hct 40.3 MCV 86.5 MCH 28.5 MCHC 33.0 RDW Std Deviation 43.4 RDW Coeff of Licha 13.6 Plt Count 345 MPV 1 (more content not included)... Normal [facility] Eosinophil percentageOrdered By: Alex Marino on 03-03-2025 Eosinophils/100 WBC (Bld) 0.6 % 0-5 [facility] Erythrocyte distribution wid th ratioOrdered By: Alex Marino on 03-03-2025 Erythrocyte distribution width (RBC) [Ratio] 13.6 % 11.6-14.6 [facility] Erythrocyte distribution wid th standard deviationOrdered By: Alex Marino on 03-03-2025 Erythrocyte distribution width (RBC) [Ratio] 43.4 fl 35.1-43.9 [facility] Glomerular filtration rate ( GFR) estimation/1.73 sq m using serum, plasma, or whole bOrdered By: Alex Marino on 03-03-2025 GFR/1.73 sq M.predicted among non-blacks MDRD (S/P/Bld) [Vol rate/Area] 133 mL/min/{1.73_m2} >60 [facility] Comment on above: mL/min/1.73m2 CKD-EP I Creatinine Equation (2020) Hematocrit Auto (Bld) [Volum e fraction]Ordered By: Alex Marino 03-03-2025 Hematocrit (Bld) [Volume fraction] 40.3 % 37-47 [facility] Hemoglobin measurementOrdere d By: Alex Marino 03-03-2025 Hemoglobin (Bld) [Mass/Vol] 13.3 g/dL 12.0-15.0 [facility] Immature granulocytes/100 WB C Auto (Bld)Ordered By: Alex Marino 03-03-2025 Immature granulocytes/100 WBC (Bld) 0.400 % 0.0-0.9 [facility] Comment on above: IG% - Immature Granu locytes (promyelocytes, myelocytes and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 according to patient size and/or exam, and an iterative reconstruction algorithm. FINDINGS: The orbital rims, zygomatic arches and the grace of the maxillary sinuses are intact. The mandible is intact and the temporomandibular joints are properly seated. There is an impacted tooth in the left mandible. The superficial soft tissues are unremarkable in appearance. IMPRESSION: No acute fracture. Interpreted by: Kyler Colon MD Preliminary Report By: Kyler Colon MD Electronically signed By Kyler Colon MD Dictated Date: 02/09/2025 11:03:42 AM Prelim Date: 02/09/2025 11:05:28 AM Sign Date: 02/09/2025 11:05:28 AM Ordering Provider: [facility] CT SPINE CERVICAL W/O IVORYA STokamran 02-09-2025 CT SPINE CERVICAL W/O CONTRAST ORIGINAL HISTORY: Fall COMPARISON: No TECHNIQUE: Cervical spine CT with sagittal and coronal reconstructions. This exam was performed according to our departmental dose optimization program, and includes the following measures where applicable: automated exposure control, adjustment of the mAs and/or kVp according to patient size and/or exam, and an iterative reconstruction algorithm. FINDINGS: There are no acute fractures or dislocations. There is mild reversal of the normal cervical lordosis. The individual vertebral bodies are intact. Prevertebral soft tissues are unremarkable in appearance. IMPRESSION: No acute fracture. Interpreted by: Kyler Colon MD Preliminary Report By: Kyler Colon MD Electronically signed By Kyler Colon MD Dictated Date: 02/09/2025 12:19:48 PM Prelim Date: 02/09/2025 12:20:38 PM Sign Date: 02/09/2025 12:20:38 PM Ordering Provider: [facility] DIMERon 01-15-2025 D-Dimer <200 Normal 0-230 [facility] Comment on above: Result Comment: DDN: Results reported in D-DU ng/mL. Negative for D-dimer. DVT/PE is highly unlikely. Note: False negative results may be seen in patients on anticoagulant therapy. The result of the D-Dimer test should be evaluated in the context of all the clinical and laboratory data available. In those instances where the laboratory result does not agree with the clinical evaluation, additional tests should be performed accordingly. If the D-Dimer result is used to exclude DVT or PE, the recommended cutoff value is less than 230 ng/mL. The D-Dimer result should not be used alone to rule in DVT/PE, but should be used in conjunction with a clinical pretest probability (PTP)assessment model to exclude venous thromboembolism (VTE) in patients suspected of deep venous thrombosis (DVT) and pulmonary embolism (PE). Performed By: #### D RUDOLPH #### [address] [address] LABORATORYOrdered By: SYSTEM SYSTEM on 01-15-2025 Fibrin D-dimer DDU (PPP) [Mass/Vol] ng/mL D-DU Normal 0 - 230 ng/mL D-DU AO [facility] Comment on above: Result Comment: DDN: Results reported in D-DU ng/mL. Negative for D-dimer. DVT/PE is highly unlikely. Note: False negative results may be seen in patients on anticoagulant therapy. Interpretive Data: T he result of the D-Dimer test should be evaluated in the context of all the clinical and laboratory data available. In those instances where the laboratory result does not agree with the clinical evaluation, additional tests should be performed accordingly. If the D-Dimer result is used to exclude DVT or PE, the recommended cutoff value is less than 230 ng/mL. The D-Dimer result should not be used alone to rule in DVT/PE, but should be used in conjunction with a clinical pretest probability (PTP)assessment model to exclude venous thromboembolism (VTE) in patients suspected of deep venous thrombosis (DVT) and pulmonary embolism (PE). XR CHEST 2 VIEWSon 5 XR CHEST 2 VIEWS ORIGINAL HISTORY: Chest pain COMPARISON: 26 September 2023 FINDINGS: The lungs and pleural spaces are clear. The cardiac silhouette is within normal limits. The pulmonary vasculature is within normal limits. IMPRESSION: Clear lungs. Interpreted by: Kyler Colon MD Preliminary Report By: Kyler Colon MD Electronically signed By Kyler Colon MD Dictated Date: 01/15/2025 10:10:24 AM Prelim Date: 01/15/2025 10:10:39 AM Sign Date: 01/15/2025 10:10:39 AM Ordering Provider: FERNANDO RG Interpreted by: Kyler Colon MD Preliminary Report By: Kyler Colon MD Electronically signed By Kyler Colon MD Dictated Date: 01/15/2025 10:10:24 AM Prelim Date: 01/15/2025 10:10:39 AM Sign Date: 01/15/2025 10:10:39 AM Ordering Provider: FERNANDO Guzman [facility] .Auto Diffon 09-29-2024 Basophil, Absolute 0.0 10 3/mcL Normal 0.0-0.2 [facility] Comment on above: Performed By: #### M DW, HCGQ, ABOGEL, ADIFF, ANEU, CBC #### [address] [address] Basophils/100 WBC (Bld) 0.2 % Normal 0.0-2.5 [facility] Comment on above: Performed By: #### M DW, HCGQ, ABOGEL, ADIFF, ANEU, CBC #### [address] [address] Eosinophil, Absolute 0.1 10 3/mcL Normal 0.0-0.7 [facility] Comment on above: Performed By: #### M DW, HCGQ, ABOGEL, ADIFF, ANEU, CBC #### [address] [address] Eosinophils/100 WBC (Bld) 1.0 % Normal 0.0-7.0 [facility] Comment on above: Performed By: #### M DW, HCGQ, ABOGEL, ADIFF, ANEU, CBC #### [address] [address] Lymphocyte, Absolute 1.5 10 3/mcL Normal 0.9-4.3 [facility] Comment on above: Performed By: #### M DW, HCGQ, ABOGEL, ADIFF, ANEU, CBC #### [address] [address] Lymphocytes/100 WBC (Bld) 13.5 % Low 20.0-40.0 [facility] Comment on above: Performed By: #### M DW, HCGQ, ABOGEL, ADIFF, ANEU, CBC #### [address] [address] Monocyte, Absolute 0.4 10 3/mcL Normal 0.1-1.4 [facility] Comment on above: Performed By: #### M DW, HCGQ, ABOGEL, ADIFF, ANEU, CBC #### [address] [address] Monocytes/100 WBC (Bld) 4.0 % Normal 2.0-13.0 [facility] Comment on above: Performed By: #### M DW, HCGQ, ABOGEL, ADIFF, ANEU, CBC #### [address] [address] Neutrophils/100 WBC (Bld) 81.3 % High 50.0-75.0 [facility] Comment on above: Performed By: #### M DW, HCGQ, ABOGEL, ADIFF, ANEU, CBC #### [address] [address] .MDWon 09-29-2024 Monocyte Distribution Width 18.83 Normal 0.00-20.00 [facility] Comment on above: Result Comment: For ED adult patients suspected of sepsis, MDW<=20.0 does not rule out sepsis or risk of sepsis Performed By: #### M DW, HCGQ, ABOGEL, ADIFF, ANEU, CBC #### [address] [address] .NEUABSon 09-29-2024 Neutrophil, Absolute 8.8 10 3/mcL High 2.3-8.1 [facility] Comment on above: Performed By: #### M DW, HCGQ, ABOGEL, ADIFF, ANEU, CBC #### [address] [address] ABO/Rh (Gel)on 09-29-2024 ABO/Rh Interp Positive Invalid Interpretation Code [facility] Comment on above: Performed By: #### M DW, HCGQ, ABOGEL, ADIFF, ANEU, CBC #### [address] [address] CBCon 09-29-2024 Erythrocyte distribution width (RBC) [Ratio] 14.0 % Normal 11.5-15.5 [facility] Comment on above: Performed By: #### M DW, HCGQ, ABOGEL, ADIFF, ANEU, CBC #### [place] [address] Hematocrit (Bld) [Volume fraction] 42.0 % Normal 34.0-46.0 [facility] Comment on above: Performed By: #### M DW, HCGQ, ABOGEL, ADIFF, ANEU, CBC #### [address] [address] Hgb 14.1 G/dL Normal 12.0-16.0 [facility] Comment on above: Performed By: #### M DW, HCGQ, ABOGEL, ADIFF, ANEU, CBC #### [address] [address] MCH (RBC) [Entitic mass] 28.7 pg Normal 27.0-33.0 [facility] Comment on above: Performed By: #### M DW, HCGQ, ABOGEL, ADIFF, ANEU, CBC #### [address] [address] MCHC 33.5 G/dL Normal 32.0-36.0 [facility] Comment on above: Performed By: #### M DW, HCGQ, ABOGEL, ADIFF, ANEU, CBC #### [address] [address] MCV (RBC) [Entitic vol] 85.5 fL Normal 80.0-99.0 [facility] Comment on above: Performed By: #### M DW, HCGQ, ABOGEL, ADIFF, ANEU, CBC #### [address] [address] Platelet 180 10 3/mcL Normal 150-450 [facility] Comment on above: Performed By: #### M DW, HCGQ, ABOGEL, ADIFF, ANEU, CBC #### [address] [address] Platelet mean volume (Bld) [Entitic vol] 9.4 fL Normal 6.6-10.5 [facility] Comment on above: Performed By: #### M DW, HCGQ, ABOGEL, ADIFF, ANEU, CBC #### [address] [address] RBC 4.92 10 6/mcL Normal 4.10-5.30 [facility] Comment on above: Performed By: #### M DW, HCGQ, ABOGEL, ADIFF, ANEU, CBC #### [address] [address] WBC 10.9 10 3/mcL High 4.5-10.8 [facility] Comment on above: Performed By: #### M DW, HCGQ, ABOGEL, ADIFF, ANEU, CBC #### [address] [address] HCGQon 09-29-2024 hCG, quantitative <1.0 Normal [facility] Comment on above: Result Comment: HCG Levels with Gestation age: 0.2- 1 week. . . . . . . . . . . . . . . 5 - 50 mIU/mL 1-2 weeks . . . . . . . . . . . . . . . 50 - 500 mIU/mL 2-3 weeks . . . . . . . . . . . . . . . 100 - 5,000 mIU/ml 3-4 weeks . . . . . . . . . . . . . . . 500 - 10,000 mIU/mL 4-5 weeks . . . . . . . . . . . . . . . 1,000 - 5,000 mIU/mL 5-6 weeks . . . . . . . . . . . . . . . 10,000 - 100,000 mIU/mL 6-8 weeks . . . . . . . . . . . . . . . 15,000 - 200,000 mIU/mL 2-3 months . . . . . . . . . . . . . . . 10,000 - 100,000 mIU/mL Performed By: #### M DW, HCGQ, ABOGEL, ADIFF, ANEU, CBC #### [address] [address] PREGUon 09-29-2024 HCG ( test) Ql (U) Negative Normal [facility] Comment on above: Performed By: #### P REGU #### [address] [address] test (u) int Not detected Invalid Interpretation Code [facility] Comment on above: Performed By: #### P REGU #### [address] [address] DIMERon 09-28-2023 D-Dimer <200 Normal 0-230 [facility] ([place]) Comment on above: Result Comment: DDN: Results reported in D-DU ng/mL. Negative for D-dimer. DVT/PE is highly unlikely. Note: False negative results may be seen in patients on anticoagulant therapy. The result of the D-Dimer test should be evaluated in the context of all the clinical and laboratory data available. In those instances where the laboratory result does not agree with the clinical evaluation, additional tests should be performed accordingly. If the D-Dimer result is used to exclude DVT or PE, the recommended cutoff value is less than 230 ng/mL. The D-Dimer result should not be used alone to rule in DVT/PE, but should be used in conjunction with a clinical pretest probability (PTP)assessment model to exclude venous thromboembolism (VTE) in outpatients suspected of deep venous thrombosis (DVT) and pulmonary embolism (PE). Performed By: #### D RUDOLPH, TSH, FT4 #### [address] [address] FT4on 09-28-2023 Free T4 [Mass/Vol] 1.11 ng/dL Normal 0.76-1.46 [facility] ([place]) Comment on above: Performed By: #### D RUDOLPH, TSH, FT4 #### [address] [address] LABORATORYOrdered By: Eunice Still on 09-28-2023 Fibrin D-dimer DDU (PPP) [Mass/Vol] ng/mL D-DU Normal 0 - 230 ng/mL D-DU AO [facility] Comment on above: Result Comment: DDN: Results reported in D-DU ng/mL. Negative for D-dimer. DVT/PE is highly unlikely. Note: False negative results may be seen in patients on anticoagulant therapy. Interpretive Data: T he result of the D-Dimer test should be evaluated in the context of all the clinical and laboratory data available. In those instances where the laboratory result does not agree with the clinical evaluation, additional tests should be performed accordingly. If the D-Dimer result is used to exclude DVT or PE, the recommended cutoff value is less than 230 ng/mL. The D-Dimer result should not be used alone to rule in DVT/PE, but should be used in conjunction with a clinical pretest probability (PTP)assessment model to exclude venous thromboembolism (VTE) in outpatients suspected of deep venous thrombosis (DVT) and pulmonary embolism (PE). LABORATORYOrdered By: SYSTEM SYSTEM on 09-28-2023 Free T4 [Mass/Vol] 1.11 ng/dL Normal 0.76 - 1. 46 ng/dL AO ADM SS TSH Qn 0.45 m[IU]/L Normal 0.36 - 3.74 mcIU/mL AO ADM SS TSHon 09-28-2023 TSH Qn 0.45 m[IU]/L Normal 0.36-3.74 [facility] ([place]) Comment on above: Performed By: #### D RUDOLPH, TSH, FT4 #### [address] [address] .Auto Diffon 09-26-2023 Basophil, Absolute 0.1 10 3/mcL Normal 0.0-0.2 [facility] ([place]) Comment on above: Performed By: #### B MP, ANEU, GFR, MDW, CBC, ADIFF #### [address] [address] Basophils/100 WBC (Bld) 0.6 % Normal 0.0-2.5 A [facility] ([place]) Comment on above: Performed By: #### B MP, ANEU, GFR, MDW, CBC, ADIFF #### [address] [address] Eosinophil, Absolute 0.1 10 3/mcL Normal 0.0-0.4 [facility] ([place]) Comment on above: Performed By: #### B MP, ANEU, GFR, MDW, CBC, ADIFF #### [address] [address] Eosinophils/100 WBC (Bld) 1.3 % Normal 0.0-7.0 [facility] ([place]) Comment on above: Performed By: #### B MP, ANEU, GFR, MDW, CBC, ADIFF #### [address] [address] Lymphocyte, Absolute 3.6 10 3/mcL Normal 0.8-3.9 [facility] ([place]) Comment on above: Performed By: #### B MP, ANEU, GFR, MDW, CBC, ADIFF #### [address] [address] Lymphocytes/100 WBC (Bld) 42.6 % Normal 10.0-50.0 [facility] ([place]) Comment on above: Performed By: #### B MP, ANEU, GFR, MDW, CBC, ADIFF #### [address] [address] Monocyte, Absolute 0.4 10 3/mcL Normal 0.2-1.0 [facility] ([place]) Comment on above: Performed By: #### B MP, ANEU, GFR, MDW, CBC, ADIFF #### [address] [address] Monocytes/100 WBC (Bld) 4.6 % Normal 1.7-13.0 [facility] ([place]) Comment on above: Performed By: #### B MP, ANEU, GFR, MDW, CBC, ADIFF #### [address] [address] Neutrophils/100 WBC (Bld) 50.9 % Normal 37.0-80.0 [facility] ([place]) Comment on above: Performed By: #### B MP, ANEU, GFR, MDW, CBC, ADIFF #### [address] [address] .GFRon 09-26-2023 GFR 158 ml/min/1.73sqm Normal [facility] ([place]) Comment on above: Result Comment: GFR Population mean for , Non- Americans Ages 20-29 = 116 mL/min/1.73 sq.m. Ages 30-39 = 107 mL/min/1.73 sq.m. Ages 40-49 = 99 mL/min/1.73 sq.m. Ages 50-59 = 93 mL/min/1.73 sq.m. Ages 60-69 = 85 mL/min/1.73 sq.m. Ages 70+ = 75 mL/min/1.73 sq.m. Chronic Kidney Disease: Less than 60 mL/min/1.73 square meters End Stage Renal Disease: Less than 15 mL/min/1.73 square meters Performed By: #### B MP, ANEU, GFR, MDW, CBC, ADIFF #### [address] [address] GFR Non- 130 ml/min/1.73sqm Normal [facility] ([place]) Comment on above: Result Comment: GFR Population mean for , Non- Americans Ages 20-29 = 116 mL/min/1.73 sq.m. Ages 30-39 = 107 mL/min/1.73 sq.m. Ages 40-49 = 99 mL/min/1.73 sq.m. Ages 50-59 = 93 mL/min/1.73 sq.m. Ages 60-69 = 85 mL/min/1.73 sq.m. Ages 70+ = 75 mL/min/1.73 sq.m. Chronic Kidney Disease: Less than 60 mL/min/1.73 square meters End Stage Renal Disease: Less than 15 mL/min/1.73 square meters Performed By: #### B MP, ANEU, GFR, MDW, CBC, ADIFF #### [address] [address] .MDWon 09-26-2023 Monocyte Distribution Width 19.99 Normal 0.00-20.00 [facility] ([place]) Comment on above: Result Comment: For ED adult patients suspected of sepsis, MDW<=20.0 does not rule out sepsis or risk of sepsis Performed By: #### B MP, ANEU, GFR, MDW, CBC, ADIFF #### [address] [address] .NEUABSon 09-26-2023 Neutrophil, Absolute 4.3 10 3/mcL Normal 2.9-6.2 [facility] ([place]) Comment on above: Performed By: #### B MP, ANEU, GFR, MDW, CBC, ADIFF #### [address] [address] BMPon 09-26-2023 BUN/Creatinine Ratio 14 ratio Normal 7-27 [facility] ([place]) Comment on above: Performed By: #### B MP, ANEU, GFR, MDW, CBC, ADIFF #### [address] [address] Calcium [Mass/Vol] 9.4 mg/dL Normal 8.4-10.2 [facility] ([place]) Comment on above: Performed By: #### B MP, ANEU, GFR, MDW, CBC, ADIFF #### [address] [address] Chloride [Moles/Vol] 104 mmol/L Normal 98-107 [facility] ([place]) Comment on above: Performed By: #### B MP, ANEU, GFR, MDW, CBC, ADIFF #### [address] [address] CO2 [Moles/Vol] 23 mmol/L Normal 22-29 [facility] ([place]) Comment on above: Performed By: #### B MP, ANEU, GFR, MDW, CBC, ADIFF #### [address] [address] Creatinine [Mass/Vol] 0.59 mg/dL Normal 0.55-1.02 [facility] ([place]) Comment on above: Performed By: #### B MP, ANEU, GFR, MDW, CBC, ADIFF #### [address] [address] Electrolyte Balance 14.0 mEq/L Normal 4.0-15.0 [facility] ([place]) Comment on above: Performed By: #### B MP, ANEU, GFR, MDW, CBC, ADIFF #### [address] [address] Glucose [Mass/Vol] 109 mg/dL High 70-105 [facility] ([place]) Comment on above: Performed By: #### B MP, ANEU, GFR, MDW, CBC, ADIFF #### [address] [address] Potassium [Moles/Vol] 3.5 mmol/L Normal 3.5-5.1 [facility] ([place]) Comment on above: Performed By: #### B MP, ANEU, GFR, MDW, CBC, ADIFF #### [address] [address] Sodium [Moles/Vol] 141 mmol/L Normal 136-145 [facility] ([place]) Comment on above: Performed By: #### B MP, ANEU, GFR, MDW, CBC, ADIFF #### [address] [address] Urea nitrogen [Mass/Vol] 8 mg/dL Normal 7-18 [facility] ([place]) Comment on above: Performed By: #### B MP, ANEU, GFR, MDW, CBC, ADIFF #### [address] [address] CBCon 09-26-2023 Erythrocyte distribution width (RBC) [Ratio] 12.9 % Normal 11.5-14.5 [facility] ([place]) Comment on above: Performed By: #### B MP, ANEU, GFR, MDW, CBC, ADIFF #### [address] [address] Hematocrit (Bld) [Volume fraction] 42.3 % Normal 37.0-47.0 [facility] ([place]) Comment on above: Performed By: #### B MP, ANEU, GFR, MDW, CBC, ADIFF #### [address] [address] Hgb 14.8 G/dL Normal 12.0-16.0 [facility] ([place]) Comment on above: Performed By: #### B MP, ANEU, GFR, MDW, CBC, ADIFF #### [address] [address] MCH (RBC) [Entitic mass] 32.3 pg High 27.0-31.2 [facility] ([place]) Comment on above: Performed By: #### B MP, ANEU, GFR, MDW, CBC, ADIFF #### [address] [address] MCHC 35.1 G/dL Normal 33.0-37.0 [facility] ([place]) Comment on above: Performed By: #### B MP, ANEU, GFR, MDW, CBC, ADIFF #### [address] [address] MCV (RBC) [Entitic vol] 91.9 fL Normal 80.0-94.0 A [facility] ([place]) Comment on above: Performed By: #### B MP, ANEU, GFR, MDW, CBC, ADIFF #### [address] [address] Platelet 177 10 3/mcL Normal 130-400 [facility] ([place]) Comment on above: Performed By: #### B MP, ANEU, GFR, MDW, CBC, ADIFF #### [address] [address] Platelet mean volume (Bld) [Entitic vol] 9.6 fL Normal 7.4-10.4 [facility] ([place]) Comment on above: Performed By: #### B MP, ANEU, GFR, MDW, CBC, ADIFF #### [place] [address] RBC 4.60 10 6/mcL Normal 4.20-5.40 [facility] ([place]) Comment on above: Performed By: #### B MP, ANEU, GFR, MDW, CBC, ADIFF #### [place] [address] WBC 8.4 10 3/mcL Normal 4.6-10.8 [facility] ([place]) Comment on above: Performed By: #### B MP, ANEU, GFR, MDW, CBC, ADIFF #### [place] [address] CVFLURVon 09-26-2023 FLU A PCR Negative Normal Negative [facility] ([place]) Comment on above: Performed By: #### C VFLURV #### [place] [address] FLU B PCR Negative Normal Negative [facility] ([place]) Comment on above: Performed By: #### C VFLURV #### [place] [address] RSV PCR Negative Normal Negative [facility] ([place]) Comment on above: Performed By: #### C VFLURV #### [place] [address] SARS-CoV-2 (COVID-19) RNA LIVAN+probe Ql (Unsp spec) Negative Normal Negative [facility] ([place]) Comment on above: Result Comment: Resu lts from the Xpert Xpress CoV-2/Flu/RSV plus test should be correlated with the clinical history, epidemiological data, and other data available to the clinical evaluating the patient. Performance of the Xpert Xpress CoV-2/Flu/RSV plus test has only been established in nasopharyngeal swab specimen. Erroneous test results might occur from improper specimen collection, failure to follow the recommended sample collection, handling and storage procedures, technical error, or sample mix-up. False negative results may occur if a virus is present at a level below the analytical limit of detection. Viral nucleic acid may persist in vivo, independent of virus viability. Detection of analyte target(s) does not imply that the corresponding virus(es) are infectious or are the causative agents for clinical symptoms. Recent patient exposure to FluMist or other live attenuated influenza vaccines may cause inaccurate positive results. Performed By: #### C VFLURV #### [place] [address] [place], [place] [address] LABORATORYOrdered By: Eunice Still on 09-26-2023 Appearance (U) Clear (09/26/23 4:51 AM) Normal Clear AO Auto Urine SS Bilirubin Ql (U) Negative (09/26/23 4:51 AM) Normal Negative AO Auto Urine SS Color (U) Light yellow Invalid Interpretation Code AO Auto Urine SS Glucose Test strip (U) [Mass/Vol] Negative Normal Negative AO Auto Urine SS HCG ( test) Ql Negative (09/26/23 4:51 AM) Normal AO Manual Urine SS Hemoglobin Auto test strip (U) [Mass/Vol] Negative (09/26/23 4:51 AM) Normal Negative AO Auto Urine SS Ketones Ql (U) 15 mg/dL Invalid Interpretation Code Negative AO Auto Urine SS test (u) int Not detected Invalid Interpretation Code AO Manual Urine SS UA Leuk Est Negative (09/26/23 4:51 AM) Normal Negative AO Auto Urine SS UA Nitrite Negative (09/26/23 4:51 AM) Normal Negative AO Auto Urine SS UA pH 7.5 (09/26/23 4:51 AM) Normal 5.0 - 8.0 AO Auto Urine SS UA Protein Negative Normal Negative AO Auto Urine SS UA Spec Grav 1.020 (09/26/23 4:51 AM) Normal 1.015-1.025 AO Auto Urine SS UA Specimen Type Clean Catch (09/26/23 4:51 AM) Normal AO Auto Urine SS UA Urobilinogen 0.2 E.U./dL Normal 0.2-1.0 AO Auto Urine SS FLUAV RNA LIVAN+probe Ql (Resp) Negative (09/26/23 4:34 AM) Normal Negative AO Auto Urine SS FLUBV RNA LIVAN+probe Ql (Resp) Negative (09/26/23 4:34 AM) Normal Negative AO Auto Urine SS RSV RNA LIVAN+probe Ql (Resp) Negative (09/26/23 4:34 AM) Normal Negative AO Auto Urine SS SARS-CoV-2 (COVID-19) RNA LIVAN+probe Ql (Resp) Negative 2 (09/26/23 4:34 AM) Normal Negative AO Auto Urine SS Comment on above: Interpretive Data: R esults from the Xpert Xpress CoV-2/Flu/RSV plus test should be correlated with the clinical history, epidemiological data, and other data available to the clinical evaluating the patient. Performance of the Xpert Xpress CoV-2/Flu/RSV plus test has only been established in nasopharyngeal swab specimen. Erroneous test results might occur from improper specimen collection, failure to follow the recommended sample collection, handling and storage procedures, technical error, or sample mix-up. False negative results may occur if a virus is present at a level below the analytical limit of detection. Viral nucleic acid may persist in vivo, independent of virus viability. Detection of analyte target(s) does not imply that the corresponding virus(es) are infectious or are the causative agents for clinical symptoms. Recent patient exposure to FluMist or other live attenuated influenza vaccines may cause inaccurate positive results. LABORATORYOrdered By: SYSTEM SYSTEM on 09-26-2023 Basophil, Absolute 0.1 103/mcL Normal 0.0 - 0.2 10^3/mcL AO Workflow SS Basophils/100 WBC (Bld) 0.6 % Normal 0.0 - 2.5 % AO Workflow SS Calcium [Mass/Vol] 9.4 mg/dL Normal 8.4 - 10. 2 mg/dL AO ADM SS Chloride [Moles/Vol] 104 mmol/L Normal 98 - 10 7 mmol/L AO ADM SS CO2 [Moles/Vol] 23 mmol/L Normal 22 - 29 mmol/L AO ADM SS Creatinine [Mass/Vol] 0.59 mg/dL Normal 0.55 - 1.02 mg/dL AO ADM SS Electrolyte Balance 14.0 mEq/L Normal 4.0 - 15 .0 mEq/L AO ADM SS Eosinophil, Absolute 0.1 103/mcL Normal 0.0 - 0 .4 10^3/mcL AO Workflow SS Eosinophils/100 WBC (Bld) 1.3 % Normal 0.0 - 7.0 % AO Workflow SS Erythrocyte distribution width (RBC) [Ratio] 12.9 % Normal 11.5 - 14.5 % AO Workflow SS GFR/1.73 sq M.predicted among blacks MDRD (S/P/Bld) [Vol rate/Area] 158 ml/min/1.73sqm Invalid Interpretation Code AO Chemistry S Comment on above: Interpretive Data: GFR Population mean for , Non- Americans Ages 20-29 = 116 mL/min/1.73 sq.m. Ages 30-39 = 107 mL/min/1.73 sq.m. Ages 40-49 = 99 mL/min/1.73 sq.m. Ages 50-59 = 93 mL/min/1.73 sq.m. Ages 60-69 = 85 mL/min/1.73 sq.m. Ages 70+ = 75 mL/min/1.73 sq.m. Chronic Kidney Disease: Less than 60 mL/min/1.73 square meters End Stage Renal Disease: Less than 15 mL/min/1.73 square meters GFR/1.73 sq M.predicted among non-blacks MDRD (S/P/Bld) [Vol rate/Area] 130 ml/min/1.73sqm Invalid Interpretation Code AO Chemistry S Comment on above: Interpretive Data: GFR Population mean for , Non- Americans Ages 20-29 = 116 mL/min/1.73 sq.m. Ages 30-39 = 107 mL/min/1.73 sq.m. Ages 40-49 = 99 mL/min/1.73 sq.m. Ages 50-59 = 93 mL/min/1.73 sq.m. Ages 60-69 = 85 mL/min/1.73 sq.m. Ages 70+ = 75 mL/min/1.73 sq.m. Chronic Kidney Disease: Less than 60 mL/min/1.73 square meters End Stage Renal Disease: Less than 15 mL/min/1.73 square meters Glucose [Mass/Vol] 109 mg/dL High 70 - 105 mg/dL AO ADM SS Hematocrit (Bld) [Volume fraction] 42.3 % Normal 37.0 - 47.0 % AO Workflow SS Hemoglobin (Bld) [Mass/Vol] 14.8 G/dL Normal 12.0 - 16.0 G/dL AO Workflow SS Lymphocyte, Absolute 3.6 103/mcL Normal 0.8 - 3 .9 10^3/mcL AO Workflow SS Lymphocytes/100 WBC (Bld) 42.6 % Normal 10.0 - 50.0 % AO Workflow SS MCH (RBC) [Entitic mass] 32.3 pg High 27.0 - 31.2 pg AO Workflow SS MCHC 35.1 G/dL Normal 33.0 - 37.0 G/dL AO Workflow SS MCV (RBC) [Entitic vol] 91.9 fL Normal 80.0 - 94.0 fL AO Workflow SS Monocyte distribution width Auto (Bld) [Entitic vol] 19.99 1 Normal 0.00 - 20.00 AO Workflow SS Comment on above: Result Comment: For ED adult patients suspected of sepsis, MDW<=20.0 does not rule out sepsis or risk of sepsis Monocyte, Absolute 0.4 103/mcL Normal 0.2 - 1.0 10^3/mcL AO Workflow SS Monocytes/100 WBC (Bld) 4.6 % Normal 1.7 - 13.0 % AO Workflow SS Neutrophil, Absolute 4.3 103/mcL Normal 2.9 - 6 .2 10^3/mcL AO Workflow SS Neutrophils/100 WBC (Bld) 50.9 % Normal 37.0 - 80.0 % AO Workflow SS Platelet mean volume (Bld) [Entitic vol] 9.6 fL Normal 7.4 - 10.4 fL AO Workflow SS Platelets (Bld) [#/Vol] 177 103/mcL Normal 130 - 400 10^3/mcL AO Workflow SS Potassium [Moles/Vol] 3.5 mmol/L Normal 3.5 - 5.1 mmol/L AO ADM SS RBC (Bld) [#/Vol] 4.60 106/mcL Normal 4.20 - 5.4 0 10^6/mcL AO Workflow SS Sodium [Moles/Vol] 141 mmol/L Normal 136 - 145 mmol/L AO ADM SS Urea nitrogen [Mass/Vol] 8 mg/dL Normal 7 - 18 mg/dL AO ADM SS Urea nitrogen/Creatinine [Mass ratio] 14 ratio Normal 7 - 27 ratio AO ADM SS WBC (Bld) [#/Vol] 8.4 103/mcL Normal 4.6 - 10.8 10^3/mcL AO Workflow SS PREGUon 09-26-2023 HCG ( test) Ql (U) Negative Normal [facility] ([place]) Comment on above: Performed By: #### D RUDOLPH, TSH, FT4 #### [address] [address] test (u) int Not detected Invalid Interpretation Code [facility] ([place]) Comment on above: Performed By: #### D RUDOLPH, TSH, FT4 #### [place] [address] [address] UAon 09-26-2023 Color (U) Light yellow Normal [facility] ([place]) Comment on above: Performed By: #### D RUDOLPH, TSH, FT4 #### [place] [address] [address] Glucose (U) [Mass/Vol] Negative Normal Negative [facility] ([place]) Comment on above: Performed By: #### Lan RUDOLPH, TSH, FT4 #### [place] [address] [address] Ketones Ql (U) 15 mg/dL Abnormal Negative [facility] ([place]) Comment on above: Performed By: #### Lan RUDOLPH, TSH, FT4 #### [place] [address] [address] UA Appear Clear Normal Clear [facility] ([place]) Comment on above: Performed By: #### Lan RUDOLPH, TSH, FT4 #### [place] [address] [address] UA Blood Negative Normal Negative [facility] ([place]) Comment on above: Performed By: #### D RUDOLPH, TSH, FT4 #### [place] [address] [address] UA Leuk Est Negative Normal Negative [facility] ([place]) Comment on above: Performed By: #### D RUDOLPH, TSH, FT4 #### [place] [address] [address] UA Nitrite Negative Normal Negative [facility] ([place]) Comment on above: Performed By: #### D RUDOLPH, TSH, FT4 #### [place] [address] [address] UA pH 7.5 Normal 5.0 - 8.0 [facility] ([place]) Comment on above: Performed By: #### D RUDOLPH, TSH, FT4 #### [place] [address] [address] UA Protein Negative Normal Negative [facility] ([place]) Comment on above: Performed By: #### D RUDOLPH TSH, FT4 #### [place] [address] [place], [place] [address] UA Spec Grav 1.020 Normal 1.015-1.025 [facility] ([place]) Comment on above: Performed By: #### Lan GALDAMEZ TSH, FT4 #### [place] [address] [address] UA Specimen Type Clean Catch Normal [facility] ([place]) Comment on above: Performed By: #### Lan GALDAMEZ TSH, FT4 #### [place] [address] [address] UA Urobilinogen 0.2 E.U./dL Normal 0.2-1.0 [facility] ([place]) Comment on above: Performed By: #### Lan GALDAMEZ TSH, FT4 #### [place] [address] [address] Urobilinogen (U) [Mass/Vol] Negative Normal Negative [facility] ([place]) Comment on above: Performed By: #### Lan GALDAMEZ TSH, FT4 #### [place] [address] [address] XR CHEST 2 VIEWSon 4 XR CHEST 2 VIEWS ORIGINAL EXAMINATION: TWO XRAY VIEWS OF THE CHEST09/26/2023 4:55 am COMPARISON: Chest radiograph 02/24/2021 HISTORY: ORDERING SYSTEM PROVIDED HISTORY: Reason for Exam: Shortness of breath FINDINGS: The cardiomediastinal silhouette is stable. No focal consolidation or pulmonary edema. No pneumothorax or large volume pleural effusion. No acute osseous abnormalities. IMPRESSION: No acute radiographic findings. I have personally reviewed the images of this examination, and agree with the resident's findings and interpretation. Interpreted by: Bj Tavarez MD Preliminary Report By: Kathya Valencia Electronically signed By Bj Tavarez MD Dictated Date: 09/26/2023 4:58:30 AM Prelim Date: 09/26/2023 4:59:44 AM Sign Date: 09/26/2023 5:04:55 AM Ordering Provider: PEACE BRIGGS Normal [facility] ([place]) .GFRon 09-20-2023 GFR 119 ml/min/1.73sqm Normal [facility] ([place]) Comment on above: Result Comment: GFR Population mean for , Non- Americans Ages 20-29 = 116 mL/min/1.73 sq.m. Ages 30-39 = 107 mL/min/1.73 sq.m. Ages 40-49 = 99 mL/min/1.73 sq.m. Ages 50-59 = 93 mL/min/1.73 sq.m. Ages 60-69 = 85 mL/min/1.73 sq.m. Ages 70+ = 75 mL/min/1.73 sq.m. Chronic Kidney Disease: Less than 60 mL/min/1.73 square meters End Stage Renal Disease: Less than 15 mL/min/1.73 square meters Performed By: #### Lan GALDAMEZ TSH, FT4 #### [place] [address] [address] GFR Non- 99 ml/min/1.73sqm Normal [facility] ([place]) Comment on above: Result Comment: GFR Population mean for , Non- Americans Ages 20-29 = 116 mL/min/1.73 sq.m. Ages 30-39 = 107 mL/min/1.73 sq.m. Ages 40-49 = 99 mL/min/1.73 sq.m. Ages 50-59 = 93 mL/min/1.73 sq.m. Ages 60-69 = 85 mL/min/1.73 sq.m. Ages 70+ = 75 mL/min/1.73 sq.m. Chronic Kidney Disease: Less than 60 mL/min/1.73 square meters End Stage Renal Disease: Less than 15 mL/min/1.73 square meters Performed By: #### Lan GALDAMEZ TSH, FT4 #### [place] [address] [address] BMPon 09-20-2023 BUN/Creatinine Ratio 8 ratio Normal 7-27 [facility] ([place]) Comment on above: Performed By: #### D RUDOLPH, TSH, FT4 #### [address] [address] Calcium [Mass/Vol] 9.3 mg/dL Normal 8.4-10.2 [facility] ([place]) Comment on above: Performed By: #### Lan RUDOLPH, TSH, FT4 #### [address] [address] Chloride [Moles/Vol] 100 mmol/L Normal 98-107 [facility] ([place]) Comment on above: Performed By: #### Lan RUDOLPH, TSH, FT4 #### [address] [address] CO2 [Moles/Vol] 22 mmol/L Normal 22-29 [facility] ([place]) Comment on above: Performed By: #### Lan RUDOLPH, TSH, FT4 #### [address] [address] Creatinine [Mass/Vol] 0.75 mg/dL Normal 0.55-1.02 [facility] ([place]) Comment on above: Performed By: #### Lan BENAVIDESER, TSH, FT4 #### [address] [address] Electrolyte Balance 14.0 mEq/L Normal 4.0-15.0 [facility] ([place]) Comment on above: Performed By: #### Lan RUDOLPH, TSH, FT4 #### [address] [address] Glucose [Mass/Vol] 139 mg/dL High 70-105 [facility] ([place]) Comment on above: Performed By: #### Lan RUDOLPH, TSH, FT4 #### [address] [address] Potassium [Moles/Vol] 3.0 mmol/L Low 3.5-5.1 [facility] ([place]) Comment on above: Performed By: #### Lan RUDOLPH, TSH, FT4 #### [address] [address] Sodium [Moles/Vol] 136 mmol/L Normal 136-145 [facility] ([place]) Comment on above: Performed By: #### D RUDOLPH, TSH, FT4 #### [place] [address] [place], [place] [address] Urea nitrogen [Mass/Vol] 6 mg/dL Low 7-18 [facility] ([place]) Comment on above: Performed By: #### D RUDOLPH, TSH, FT4 #### [place] [place], [place] [address] LABORATORYOrdered By: SYSTEM SYSTEM on 09-20-2023 Calcium [Mass/Vol] 9.3 mg/dL Normal 8.4 - 10. 2 mg/dL AO ADM SS Chloride [Moles/Vol] 100 mmol/L Normal 98 - 10 7 mmol/L AO ADM SS CO2 [Moles/Vol] 22 mmol/L Normal 22 - 29 mmol/L AO ADM SS Creatinine [Mass/Vol] 0.75 mg/dL Normal 0.55 - 1.02 mg/dL AO ADM SS Electrolyte Balance 14.0 mEq/L Normal 4.0 - 15 .0 mEq/L AO ADM SS GFR/1.73 sq M.predicted among blacks MDRD (S/P/Bld) [Vol rate/Area] 119 ml/min/1.73sqm Invalid Interpretation Code AO Chemistry S Comment on above: Interpretive Data: GFR Population mean for , Non- Americans Ages 20-29 = 116 mL/min/1.73 sq.m. Ages 30-39 = 107 mL/min/1.73 sq.m. Ages 40-49 = 99 mL/min/1.73 sq.m. Ages 50-59 = 93 mL/min/1.73 sq.m. Ages 60-69 = 85 mL/min/1.73 sq.m. Ages 70+ = 75 mL/min/1.73 sq.m. Chronic Kidney Disease: Less than 60 mL/min/1.73 square meters End Stage Renal Disease: Less than 15 mL/min/1.73 square meters GFR/1.73 sq M.predicted among non-blacks MDRD (S/P/Bld) [Vol rate/Area] 99 ml/min/1.73sqm Invalid Interpretation Code AO Chemistry S Comment on above: Interpretive Data: GFR Population mean for , Non- Americans Ages 20-29 = 116 mL/min/1.73 sq.m. Ages 30-39 = 107 mL/min/1.73 sq.m. Ages 40-49 = 99 mL/min/1.73 sq.m. Ages 50-59 = 93 mL/min/1.73 sq.m. Ages 60-69 = 85 mL/min/1.73 sq.m. Ages 70+ = 75 mL/min/1.73 sq.m. Chronic Kidney Disease: Less than 60 mL/min/1.73 square meters End Stage Renal Disease: Less than 15 mL/min/1.73 square meters Glucose [Mass/Vol] 139 mg/dL High 70 - 105 mg/dL AO ADM SS Potassium [Moles/Vol] 3.0 mmol/L Low 3.5 - 5.1 mmol/L AO ADM SS Sodium [Moles/Vol] 136 mmol/L Normal 136 - 145 mmol/L AO ADM SS Urea nitrogen [Mass/Vol] 6 mg/dL Low 7 - 18 mg/dL AO ADM SS Urea nitrogen/Creatinine [Mass ratio] 8 ratio Normal 7 - 27 ratio AO ADM SS LABORATORYOrdered By: Niya Moore on 05-16-2021 Appearance (U) Slightly Cloudy *ABN* (05/16/21 1:19 PM) Invalid Interpretation Code Clear AO Auto Urine SS Bacteria LM.HPF (Urine sed) [#/Area] Trace /HPF Invalid Interpretation Code AO Auto Urine SS Bilirubin Ql (U) Negative (05/16/21 1:19 PM) Invalid Interpretation Code Negative AO Auto Urine SS Color (U) Yellow (05/16/21 1:19 PM) Invalid Interpretation Code AO Auto Urine SS Glucose Test strip (U) [Mass/Vol] Negative Invalid Interpretation Code Negativemg/ dL AO Auto Urine SS HCG ( test) Ql Negative (05/16/21 1:19 PM) Invalid Interpretation Code AO Manual Urine SS Hemoglobin Auto test strip (U) [Mass/Vol] Trace *ABN* (05/16/21 1:19 PM) Invalid Interpretation Code Negative AO Auto Urine SS Ketones Ql (U) >=160 mg/dL Invalid Interpretation Code Negativemg/ dL AO Auto Urine SS test (u) int Not detected Invalid Interpretation Code AO Manual Urine SS UA Leuk Est Negative (05/16/21 1:19 PM) Invalid Interpretation Code Negative AO Auto Urine SS UA Mucous 1+ /HPF Invalid Interpretation Code AO Auto Urine SS UA Nitrite Negative (05/16/21 1:19 PM) Invalid Interpretation Code Negative AO Auto Urine SS UA pH 7.0 (05/16/21 1:19 PM) Invalid Interpretation Code 5.0 - 8.0 AO Auto Urine SS UA Protein 100 mg/dL Invalid Interpretation Code Negativemg/ dL AO Auto Urine SS UA RBC 0-5 /HPF Invalid Interpretation Code None Seen/HPF AO Auto Urine SS UA Spec Grav >=1.030 *ABN* (05/16/21 1:19 PM) Invalid Interpretation Code 1.015-1.025 AO Auto Urine SS UA Specimen Type Clean Catch (05/16/21 1:19 PM) Invalid Interpretation Code AO Auto Urine SS UA Squam Epithelial 5-10 /HPF Invalid Interpretation Code None Seen/HPF AO Auto Urine SS UA Urobilinogen 1.0 E.U./dL Invalid Interpretation Code 0.2-1.0E.U. /dL AO Auto Urine SS WBC LM.HPF (Urine sed) [#/Area] 5-10 /HPF Invalid Interpretation Code None Seen/HPF AO Auto Urine SS Albumin BCP dye [Mass/Vol] 4.3 G/dL Invalid Interpretation Code 3.5 - 5.0 G/dL AO ADM SS Albumin/Globulin [Mass ratio] 1.5 {ratio} Invalid Interpretation Code 1.1 - 2.5 ratio AO ADM SS ALP [Catalytic activity/Vol] 68 U/L Invalid Interpretation Code 40 - 135 U/L AO ADM SS ALT With P-5'-P [Catalytic activity/Vol] 54 U/L Invalid Interpretation Code 14 - 59 U/L AO ADM SS AST With P-5'-P [Catalytic activity/Vol] 28 U/L Invalid Interpretation Code 10 - 40 U/L AO ADM SS Basophil, Absolute 0.00 103/mcL Invalid Interpretation Code 0.00 - 0.19 10^3/mcL AO Auto Heme SS Basophils/100 WBC (Bld) 0.2 % Invalid Interpretation Code 0.0 - 2.5 % AO Auto Heme SS Bilirubin [Mass/Vol] 0.5 mg/dL Invalid Interpretation Code 0.2 - 1.0 mg/dL AO ADM SS Calcium [Mass/Vol] 9.3 mg/dL Invalid Interpretation Code 8.4 - 10.2 mg/dL AO ADM SS Chloride [Moles/Vol] 102 mmol/L Invalid Interpretation Code 98 - 107 mmol/L AO ADM SS CO2 [Moles/Vol] 22 mmol/L Invalid Interpretation Code 22 - 29 mmol/L AO ADM SS Creatinine [Mass/Vol] 0.71 mg/dL Invalid Interpretation Code 0.55 - 1.02 mg/dL AO ADM SS Electrolyte Balance 15.0 mEq/L Invalid Interpretation Code AO ADM SS Eosinophil, Absolute 0.00 103/mcL Invalid Interpretation Code 0.00 - 0.40 10^3/mcL AO Auto Heme SS Eosinophils/100 WBC (Bld) 0.1 % Invalid Interpretation Code 0.0 - 7.0 % AO Auto Heme SS Erythrocyte distribution width (RBC) [Ratio] 12.8 % Invalid Interpretation Code 11.5 - 14.5 % AO Auto Heme SS Globulin 2.9 G/dL Invalid Interpretation Code AO ADM SS Glucose [Mass/Vol] 148 mg/dL Invalid Interpretation Code 70 - 105 mg/dL AO ADM SS Hematocrit (Bld) [Volume fraction] 43.0 % Invalid Interpretation Code 37.0 - 47.0 % AO Auto Heme SS Hemoglobin (Bld) [Mass/Vol] 14.6 G/dL Invalid Interpretation Code 12.0 - 16.0 G/dL AO Auto Heme SS Lipase [Catalytic activity/Vol] 58 U/L Invalid Interpretation Code 73 - 393 U/L AO ADM SS Lymphocyte, Absolute 1.00 103/mcL Invalid Interpretation Code 0.77 - 3.85 10^3/mcL AO Auto Heme SS Lymphocytes/100 WBC (Bld) 11.6 % Invalid Interpretation Code 10.0 - 50.0 % AO Auto Heme SS MCH (RBC) [Entitic mass] 32.0 pg Invalid Interpretation Code 27.0 - 31.2 pg AO Auto Heme SS MCHC (RBC) [Mass/Vol] 34.1 G/dL Invalid Interpretation Code 33.0 - 37.0 G/dL AO Auto Heme SS MCV (RBC) [Entitic vol] 94.0 fL Invalid Interpretation Code 80.0 - 94.0 fL AO Auto Heme SS Monocyte, Absolute 0.40 103/mcL Invalid Interpretation Code 0.15 - 1.00 10^3/mcL AO Auto Heme SS Monocytes/100 WBC (Bld) 4.5 % Invalid Interpretation Code 1.7 - 13.0 % AO Auto Heme SS Neutrophil, Absolute 7.00 103/mcL Invalid Interpretation Code 2.85 - 6.16 10^3/mcL AO Auto Heme SS Neutrophils/100 WBC (Bld) 83.6 % Invalid Interpretation Code 37.0 - 80.0 % AO Auto Heme SS Platelet mean volume (Bld) [Entitic vol] 10.1 fL Invalid Interpretation Code 7.4 - 10.4 fL AO Auto Heme SS Platelets (Bld) [#/Vol] 160 103/mcL Invalid Interpretation Code 130 - 400 10^3/mcL AO Auto Heme SS Potassium [Moles/Vol] 3.8 mmol/L Invalid Interpretation Code 3.5 - 5.1 mmol/L AO ADM SS Protein [Mass/Vol] 7.2 G/dL Invalid Interpretation Code 6.4 - 8.2 G/dL AO ADM SS RBC (Bld) [#/Vol] 4.57 106/mcL Invalid Interpretation Code 4.20 - 5.40 10^6/mcL AO Auto Heme SS Sodium [Moles/Vol] 139 mmol/L Invalid Interpretation Code 136 - 145 mmol/L AO ADM SS Urea nitrogen [Mass/Vol] 8 mg/dL Invalid Interpretation Code 7 - 18 mg/dL AO ADM SS Urea nitrogen/Creatinine [Mass ratio] 11 ratio Invalid Interpretation Code 7 - 27 ratio AO ADM SS WBC (Bld) [#/Vol] 8.40 103/mcL Invalid Interpretation Code 4.60 - 10.80 10^3/mcL AO Auto Heme SS LABORATORYOrdered By: SYSTEM SYSTEM on 05-16-2021 GFR 130 ml/min/1.73sqm Invalid Interpretation Code AO Chemistry S GFR Non- 107 ml/min/1.73sqm Invalid Interpretation Code AO Chemistry S CNPNon 04-23-2018 [id number] GERARDO MILLER ( ) 03 [facility] Time Provider [id number]/8/18 TALAT GARCIA (RN) 2EPP During your visit today, we recorded the following information about you:Allergies As of Date: 04/23/2018 Noted Allergy Reactionenvironmental [Other] 02/08/2008 2 - RashDate Reviewed: 02/26/2016Reviewed by: Annamaria Weathers LPN - Fully AssessedReason for Visit: Breast Feeding [1541]Prescriptions as of 04/23/2018 Sig: FLUTICASONE 50 MCG/ACTUATION * Use 1 [place] in each nostril o*Problem List As Of Date 04/23/2018 Noted Resolved Environmental allergies [Z91.09] INVALID FOR* Status:Closed by TALAT GARCIA on 04/23/18 [facility] Vital Signs Date Time Vital Sign Value Performing Clinician Facility 03-03-2025 23:55-0400 Body temperature 98 [degF] Dr. Tonny Vallejo MD Work Phone: [phone] [place] [address] 03-03-2025 23:55-0400 Diastolic blood pressure 92 mm[Hg] Dr. Tonny Vallejo MD Work Phone: [phone] [place] [address] 03-03-2025 23:55-0400 Heart rate 85 /min Dr. Tnony Vallejo MD Work Phone: 2([phone] [place] [address] 03-03-2025 23:55-0400 Respiratory rate 16 /min Dr. Tonny Vallejo MD Work Phone: [phone] [address] 03-03-2025 23:55-0400 SaO2% (BldA) [Mass fraction] 99 % Dr. Tonny Vallejo MD Work Phone: [phone] [place] [address] 03-03-2025 23:55-0400 Systolic blood pressure 126 mm[Hg] Dr. Tonny Vallejo MD Work Phone: [phone] [address] 03-03-2025 21:34-0400 Body height 167.[address] Tonny Vallejo MD Work Phone: [facility] 03-03-2025 21:34-0400 Body mass index (BMI) [Ratio] 31.5 kg/m2 Dr. Tonny Vallejo MD Work Phone: [phone] [place] [address] 03-03-2025 21:34-0400 Body weight 88.[address] Tonny Vallejo MD Work Phone: [phone] [place] [address] 02-24-2025 14:29-0400 Body temperature 97.6 [degF] Dr. Tonny Vallejo MD Work Phone: 4(673)054-580529 [place] [address] 02-24-2025 14:29-0400 Diastolic blood pressure 79 mm[Hg] Dr. Tonny Vallejo MD Work Phone: 1(496)707-426529 [place] [address] 02-24-2025 14:29-0400 Heart rate 72 /min Dr. Tonny Vallejo MD Work Phone: 0(713)146-436829 [place] [address] 02-24-2025 14:29-0400 Respiratory rate 18 /min Dr. Tonny Vallejo MD Work Phone: 3(325)100-281429 [place] [address] 02-24-2025 14:29-0400 SaO2% (BldA) [Mass fraction] 99 % Dr. Tonny Vallejo MD Work Phone: 1(786)772-036729 [place] [address] 02-24-2025 14:29-0400 Systolic blood pressure 124 mm[Hg] Dr. Tonny Vallejo MD Work Phone: 6(375)931-720073 [place] [address] 02-24-2025 11:39-0400 Body height 167.[address] Tonny Vallejo MD Work Phone: 4(212)507-899729 [place] [address] 02-24-2025 11:39-0400 Body mass index (BMI) [Ratio] 30.4 kg/m2 Dr. Tonny Vallejo MD Work Phone: 0(448)972-957973 [place] [address] 02-24-2025 11:39-0400 Body weight 85.[address] Tonny Vallejo MD Work Phone: 0(111)268-521173 [place] [address] 02-11-2025 02:45-0400 Body temperature 97.7 [degF] Dr. Tonny Vallejo MD Work Phone: 0(729)366-872973 [place] [address] 02-11-2025 02:45-0400 Diastolic blood pressure 87 mm[Hg] Dr. Tonny Vallejo MD Work Phone: 5(738)084-784973 [place] [address] 02-11-2025 02:45-0400 Heart rate 80 /min Dr. Tonny Vallejo MD Work Phone: 7(247)944-814273 [place] [address] 02-11-2025 02:45-0400 Respiratory rate 16 /min Dr. Tonny Vallejo MD Work Phone: 9(190)597-034373 [place] [address] 02-11-2025 02:45-0400 SaO2% (BldA) [Mass fraction] 100 % Dr. Tonny Vallejo MD Work Phone: 5(300)933-621773 [place] [address] 02-11-2025 02:45-0400 Systolic blood pressure 136 mm[Hg] Dr. Tonny Vallejo MD Work Phone: 1(617)825-200629 [place] [address] 02-11-2025 01:27-0400 Body height 165.[address] Tonny Vallejo MD Work Phone: 6(506)142-188029 [place] [address] 02-11-2025 01:27-0400 Body mass index (BMI) [Ratio] 35.9 kg/m2 Dr. Tonny Vallejo MD Work Phone: 6(547)925-487273 [place] [address] 02-11-2025 01:27-0400 Body weight 98.[address] Tonny Vallejo MD Work Phone: 7(680)625-015373 [place] [address] 09-28-2023 03:29-0400 Diastolic blood pressure 74 mm[Hg] DR APURVA MORENO MD [facility] 09-28-2023 03:29-0400 Heart rate 80 /min DR APURVA MORENO MD [facility] 09-28-2023 03:29-0400 Respiratory rate 19 /min DR APURVA MORENO MD [facility] 09-28-2023 03:29-0400 Systolic blood pressure 116 mm[Hg] DR APURVA MORENO MD [facility] 09-28-2023 02:06-0400 Body height 162.[address] APURVA MORENO MD [facility] 09-28-2023 02:06-0400 Body temperature 97.88 [degF] DR APURVA MORENO MD [facility] 09-28-2023 02:06-0400 Body weight 54.[address] APURVA MORENO MD [facility] 09-28-2023 02:06-0400 Diastolic Blood Pressure Non-Invasive 78 mm[Hg] DR APURVA MORENO MD [facility] 09-28-2023 02:06-0400 Heart rate 86 /min DR APURVA MORENO MD [facility] 09-28-2023 02:06-0400 Respiratory rate 18 /min DR APURVA MORENO MD [facility] 09-28-2023 02:06-0400 Systolic Blood Pressure Non-Invasive 132 mm[Hg] DR APURVA MORENO MD [facility] 09-26-2023 04:04-0400 Blood Pressure Location PEACE BRIGGS MD [facility] 09-26-2023 04:04-0400 Blood Pressure Method PEACE BRIGGS MD [facility] 09-26-2023 04:04-0400 Body height 162.6 cm PEACE BRIGGS MD [facility] 09-26-2023 04:04-0400 Body temperature 99.86 [degF] PEACE BRIGGS MD [facility] 09-26-2023 04:04-0400 Body weight 54.5 kg PEACE BRIGGS MD [facility] 09-26-2023 04:04-0400 Diastolic Blood Pressure Non-Invasive 70 mm[Hg] PEACE BRIGGS MD [facility] 09-26-2023 04:04-0400 Heart rate 95 /min PEACE BRIGGS MD [facility] 09-26-2023 04:04-0400 Respiratory rate 20 /min PEACE BRIGGS MD [facility] 09-26-2023 04:04-0400 Systolic Blood Pressure Non-Invasive 116 mm[Hg] PEACE BRIGGS MD [facility] 09-20-2023 02:42-0500 Blood Pressure Cuff Size BINH REICHFIELD DO [facility] 09-20-2023 02:42-0500 Blood Pressure Location BINH REICHFIELD DO [facility] 09-20-2023 02:42-0500 Blood Pressure Method BINH REICHFIELD D O [facility] 09-20-2023 02:42-0500 Diastolic Blood Pressure Non-Invasive 84 mm[Hg] BINH REICHFIELD DO [facility] 09-20-2023 02:42-0500 Heart rate 74 /min BINH REICHFIELD DO [facility] 09-20-2023 02:42-0500 Respiratory rate 18 /min BINH REICHFIELD DO [facility] 09-20-2023 02:42-0500 Systolic Blood Pressure Non-Invasive 121 mm[Hg] BINH REICHFIELD DO [facility] 09-20-2023 02:13-0500 Heart rate 108 /min BINH REICHFIELD DO [facility] 09-20-2023 02:09-0500 Blood Pressure Cuff Size BINH REICHFIELD DO [facility] 09-20-2023 02:09-0500 Blood Pressure Location BINH REICHFIELD DO [facility] 09-20-2023 02:09-0500 Blood Pressure Method BINH REICHFIELD D O [facility] 09-20-2023 02:09-0500 Body height 162.6 cm BINH REICHFIELD DO [facility] 09-20-2023 02:09-0500 Body temperature 98.42 [degF] BINH REICHFIELD DO [facility] 09-20-2023 02:09-0500 Body weight 56.8 kg BINH REICHFIELD DO [facility] 09-20-2023 02:09-0500 Diastolic Blood Pressure Non-Invasive 81 mm[Hg] BINH REICHFIELD DO [facility] 09-20-2023 02:09-0500 Heart rate 132 /min BINH REICHFIELD DO [facility] 09-20-2023 02:09-0500 Reason For Taking VItal Signs BINH REICHFIELD DO [facility] 09-20-2023 02:09-0500 Respiratory rate 20 /min BINH REICHFIELD DO [facility] 09-20-2023 02:09-0500 Systolic Blood Pressure Non-Invasive 127 mm[Hg] BINH REICHFIELD DO [facility] 07-15-2023 01:04-0500 Heart rate 104 /min ANDRZEJ RDZ MD [facility] 07-15-2023 01:04-0500 Respiratory rate 16 /min ANDRZEJ RDZ MD [facility] 07-15-2023 00:51-0500 Blood Pressure Location ANDRZEJ RDZ MD [facility] 07-15-2023 00:51-0500 Blood Pressure Method ANDRZEJ RDZ MD [facility] 07-15-2023 00:51-0500 Body height 165.1 cm ANDRZEJ RDZ MD [facility] 07-15-2023 00:51-0500 Body temperature 98.42 [degF] ANDRZEJ RDZ MD [facility] 07-15-2023 00:51-0500 Body weight 54.5 kg ANDRZEJ RDZ MD [facility] 07-15-2023 00:51-0500 Diastolic Blood Pressure Non-Invasive 95 mm[Hg] ANDRZEJ RDZ MD [facility] 07-15-2023 00:51-0500 Heart rate 140 /min ANDRZEJ RDZ MD [facility] 07-15-2023 00:51-0500 Respiratory rate 18 /min ANDRZEJ RDZ MD [facility] 07-15-2023 00:51-0500 Systolic Blood Pressure Non-Invasive 134 mm[Hg] ANDRZEJ RDZ MD [facility] 05-16-2021 10:51-0400 Body temperature 98.24 [degF] PHILL NEFF MD [facility] 05-16-2021 10:51-0400 Diastolic blood pressure 76 mm[Hg] PHILL NEFF MD [facility] 05-16-2021 10:51-0400 Heart rate 76 /min PHILL NEFF MD [facility] 05-16-2021 10:51-0400 Systolic blood pressure 117 mm[Hg] PHILL NEFF MD [facility] Encounters Encounter Date Encounter Type Care Provider Facility Start: 03-03-2025 End: 03-04-2025 Emergency department patient visit Dr. Tonny Vallejo MD Work Phone: -Emergency Department Work Phone: Start: 02-24-2025 End: 02-24-2025 Emergency department patient visit Dr. Tonny Vallejo MD Work Phone: -Emergency Department Work Phone: Start: 02-11-2025 End: 02-11-2025 Emergency department patient visit Dr. Tonny Valeljo MD Work Phone: -Emergency Department Work Phone: Start: 02-09-2025 End: 02-09-2025 Emergency department patient visit DR DOMENICA OROZCO DO [facility] Start: 01-15-2025 End: 01-15-2025 Emergency department patient visit FERNANDO RG MD [facility] Start: 09-29-2024 End: 09-29-2024 Emergency department patient visit ADALGISA SINGH MD Facility:[facility] Start: 09-28-2023 End: 09-28-2023 Emergency department patient visit DR APURVA MORENO MD Facility:[facility] Start: 09-28-2023 End: 09-28-2023 Emergency department patient visit DR APURVA MORENO MD [facility] Start: 09-26-2023 End: 09-26-2023 Emergency department patient visit PEACE BRIGGS MD Facility:[facility] Start: 09-26-2023 End: 09-26-2023 Emergency department patient visit PEACE BRIGGS MD [facility] Start: 09-20-2023 End: 09-20-2023 Emergency department patient visit BINH COBB DO Facility:[facility] Start: 09-20-2023 End: 09-20-2023 [facility] Start: 07-15-2023 End: 07-15-2023 Emergency department patient visit ANDRZEJ RDZ MD Facility:[facility] Start: 07-15-2023 End: 07-15-2023 Emergency department patient visit ANDRZEJ RDZ MD [facility] Start: 05-16-2021 End: 05-16-2021 Emergency department patient visit PHILL NEFF MD [facility] Procedures Date Procedure Procedure Detail Performing Clinician Start: 03-03-[address] Tonny Vallejo MD Work Phone: Start: 02-24-[address] Tonny Vallejo MD Work Phone: Start: 05-03-2007 Tonsillectomy and adenoidectomy PHILL NEFF MD Plan of Treatment Date Care Activity Detail Author Start: 03-03-2025 [facility] Start: 02-24-2025 [facility] Start: 02-24-2025 [facility] Start: 02-11-2025 [facility] Patient Education [facility] Work Phone: Immunizations Immunization Date Immunization Notes Care Provider Fa cility 02-16-2017 Human Papillomavirus Quadval PHILL NEFF MD [facility] 01-06-2016 Human Papillomavirus Quadval PHILL NEFF MD [facility] 08-03-2015 diphtheria, tetanus toxoids and acellular pertussis vaccine, unspecified formulation PHILL NEFF MD [facility] 08-03-2015 poliovirus vaccine, inactivated PHILL NEFF MD [facility] 05-27-2015 diphtheria, tetanus toxoids and acellular pertussis vaccine, unspecified formulation PHILL NEFF MD [facility] 05-27-2015 Human Papillomavirus Quadval PHILL NEFF MD [facility] 05-27-2015 influenza virus vacc ine, unspecified formulation ANDRZEJ RDZ MD [facility] 05-27-2015 meningococcal polysaccharide (groups A, C, Y and W-135) diphtheria toxoid conjugate vaccine (MCV4P) PHILL NEFF MD [facility] 05-27-2015 tetanus toxoid, redu lauryn diphtheria toxoid, and acellular pertussis vaccine, adsorbed PHILL NEFF MD [facility] 05-01-2014 influenza virus vacc ine, unspecified formulation ANDRZEJ RDZ MD [facility] 04-07-2012 influenza virus vacc ine, unspecified formulation ANDRZEJ RDZ MD [facility] 06-08-2010 influenza virus vacc ine, unspecified formulation ANDRZEJ RDZ MD [facility] 03-26-2008 diphtheria, tetanus toxoids and acellular pertussis vaccine, unspecified formulation PHILL NEFF MD [facility] 03-26-2008 hepatitis A vaccine, pediatric dosage, unspecified formulation PHILL NEFF MD [facility] 03-26-2008 poliovirus vaccine, inactivated PHILL NEFF MD [facility] 04-16-2007 hepatitis A vaccine, pediatric dosage, unspecified formulation PHILL NEFF MD [facility] 03-17-2007 hepatitis A vaccine, pediatric dosage, unspecified formulation ANDRZEJ RDZ MD [facility] 03-17-2007 varicella virus vaccine BLANCO NEFF MD [facility] 08-03-2005 diphtheria, tetanus toxoids and acellular pertussis vaccine, unspecified formulation PHILL NEFF MD [facility] 08-03-2005 pneumococcal conjuga te vaccine, 13 valent PHILL NEFF MD [facility] 12-20-2004 diphtheria, tetanus toxoids and acellular pertussis vaccine, unspecified formulation PHILL NEFF MD [facility] 12-20-2004 hepatitis B vaccine, adult dosage PHILL NEFF MD [facility] 12-20-2004 hepatitis B vaccine, unspecified formulation PHILL NEFF MD [facility] 12-20-2004 poliovirus vaccine, inactivated PHILL NEFF MD [facility] 10-25-2004 measles/mumps/rubell a virus vaccine PHILL NEFF MD [facility] 09-01-2004 diphtheria, tetanus toxoids and acellular pertussis vaccine, unspecified formulation PHILL NEFF MD [facility] 09-01-2004 haemophilus influenz ae type b conjugate and Hepatitis B vaccine PHILL NEFF MD [facility] 09-01-2004 haemophilus influenz ae type b vaccine, PRP-T conjugate PHILL NEFF MD [facility] 09-01-2004 hepatitis B pediatri c vaccine PHILL NEFF MD [facility] 09-01-2004 hepatitis B vaccine, unspecified formulation PHILL NEFF MD [facility] 09-01-2004 measles/mumps/rubell a virus vaccine PHILL NEFF MD [facility] 09-01-2004 poliovirus vaccine, inactivated PHILL NEFF MD [facility] 09-01-2004 varicella virus vaccine BLANCO NEFF MD [facility] 2003 diphtheria, tetanus toxoids and acellular pertussis vaccine, unspecified formulation PHILL NEFF MD [facility] 2003 haemophilus influenz ae type b conjugate and Hepatitis B vaccine PHILL NEFF MD [facility] 2003 haemophilus influenz ae type b vaccine, PRP-T conjugate PHILL NEFF MD [facility] 2003 hepatitis B pediatri c vaccine PHILL NEFF MD [facility] 2003 hepatitis B vaccine, unspecified formulation PHILL NEFF MD [facility] 2003 pneumococcal conjuga te vaccine, 13 valent PHILL NEFF MD [facility] 2003 poliovirus vaccine, inactivated PHILL NEFF MD [facility] Payers Date Payer Category Payer Self-pay 2023 Unknown [id number] 2020 Medicaid [id number] 2003 Unknown [id number] 2.16. [id number] 2003 Unknown [id number] 2.16. [id number] 1948 Unknown [id number] 2.16.8 [id number] 1948 Unknown [id number] 2.16.8 [id number] 1948 Unknown [id number] 2.16.8 [id number] 1948 Unknown [id number] 2.16.8 [id number] 1948 Unknown [id number] 2.16.8 [id number] Unknown [id number] 2.16.8 [id number] Unknown [id number] 2.16.8 [id number] Unknown [id number] 2.16.8 [id number] Social History Date Type Detail Facility Tobacco Nicotine Use: Va ping Product in Last 90 Days. Exposure to Tobacco Smoke Lives in non-smoking home. Type: Electronic Cigarettes (Vaping). [facility] Start: 2005 Sex Assigned At Female A [facility] Tobacco smoking status [facility] Start: 01-09-2019 Sex Female (finding) [facility] Start: 02-11-2025 End: 03-03-2025 Tobacco smoking status [facility]IS Smokes tobacco daily (finding) [facility] Functional Status Date Assessment Result Facility 09-28-2023 Functional Status Independent [facility] 09-28-2023 Functional Status [facility] 09-26-2023 Functional Status [facility] 09-26-2023 Functional Status Standard Safet y ID band on, Allergy Band on, Call device within reach, Bed in low position, Wheels locked, Upper/Half-Length side-rails up, personal items within reach, Bedside Cart Locked [facility] 09-20-2023 Functional Status Independent [facility] 09-20-2023 Functional Status Awake, Resting [facility] 07-15-2023 Functional Status ID band on, Call device within reach, Bed in low position, Wheels locked, personal items within reach, Bedside Cart Locked [facility] Mental Status Date Assessment Result Facility 09-28-2023 Mental Status Orientation Oriented x 4 [facility] 09-28-2023 [facility] 09-26-2023 Mental Status Orientation Oriented x 4 [facility] 09-26-[address] [facility] 09-20-2023 Mental Status Orientation Oriented x 4 [facility] 09-20-2023 Mental [facility] 07-15-2023 Mental Status Oriented x 4 [facility] Clinical Notes 05-16-2021 to 02-24-2025 Note Date & Type Note Facility 02-24-2025 Discharge summary [facility] 02-24-2025 Discharge summary Note Date/Time February 24, 2025 2:11pm [facility] Medical Records Department [address] [place] [address] Emergency Department Summary 02/24/25 MR#: [id number] Acct: [id number] Name: GERARDO ATKINS Rep #:[id number] : 2005 19 From: Gutierrez Yee MD PCP: Dr. Leisa Esqueda DO Status:REG ER Location: ED HPI History of Present Illness Chief Complaint: Anxiety Detail of Chief Complaint: Anxiety, total Baade paresthesia, I cannot breathe Informant: patient Onset/Context/Timing Onset: Hours (Started several hours prior to arrival) Context: Sudden Onset Timing: Continuous Quality: Total body paresthesia, anxiousness, trouble breathing and palpitations Location: Generalized Current Severity: Severe Maximum Severity: Severe Worsened by: After obtaining my history patient informed me that she wants to behonest Relieved by: Nothing Associated Symptoms Associated Symptoms: HPI narrative Narrative Narrative: Patient is a 19-year-old female. She has been drinking heavily on weekends since her sister . Today she became very anxious. She is complain of palpitations, shortness of breath. [id number] she made the comment that I cannot breathe . She has tingling in her upper and lower extremities and perioral. She denies fever, chills night sweats. She denies weight gain or weight loss. She denies heat or cold intolerance. She denies headache. Eye double vision blurred vision loss of vision. She denies chest pressure or tightness. She denies abdominal pain, nausea, vomiting or diarrhea. She deniesdysuria, frequency, urgency or hematuria. After I completed my history she informed me that she wanted to be perfectly honest with me . She inform me that she did ecstasy this morning. She has done ecstasy in the past. But she is never felt like this. Prior similar symptoms: No Recent Illness/Hospitalization: No PFSH PFS Medical History Anxiety Home Medications ?Medication ?Instructions ?Recorded ?Last Taken ?Type hydroxyzine pamoate 25 mg capsule 25 mg PO 4X/DAY PRN PRN anxiety 02/24/2502/23 History paroxetine HCl 40 mg tablet 40 mg PO DAILY mood 02/23/25 History Allergy/AdvReac Type Severity Reaction Status Date / Time sulfamethoxazole (From Allergy Rash Verified 02/11/25 01:32 Bactrim) trimethoprim (From Bactrim) Allergy Rash Verified 02/11/25 01:32 Social History Smoking Status: Current every day smoker tobacco type: e-cigarettes ROS ROS ED Constitutional Constitutional ED: Denies chills, fever(s), subjective, sweats or weight loss Eyes Eyes: Denies blurry vision, change in vision or diplopia ENT ENT ED: Denies ear pain, rhinorrhea or sore throat Cardiovascular Cardiovascular: Reports palpitations and racing heartbeat; Denies chest pain, orthopnea or paroxysmal nocturnal dyspnea Respiratory/Chest Respiratory/Chest: Reports dyspnea; Denies cough, dyspnea on exertion, orthopneaor paroxysmal nocturnal dyspnea Gastrointestinal Gastrointestinal: Reports nausea; Denies abdominal pain, diarrhea or vomiting Musculoskeletal Musculoskeletal: Denies arthralgias, back pain or myalgias Integumentary Denies Abrasions or rash Neurologic Neurologic: Reports paresthesias RUE, RLE, LUE and LLE; Denies weakness Psychiatric Psychiatric: Reports anxiety and depression; Denies suicidal ideation or suicidal thoughts Endocrine Endocrinology: Denies cold intolerance or heat intolerance Hematologic/Lymphatic Hematologic/Lymphatic: Reports systems reviewed and no addt'l complaints, exceptas documented EXAM Physical Exam Const Vital Signs: 02/24/25 11:39 02/24/25 13:39 Temperature 97 F L Temperature Source Temporal Pulse Rate 111 H 112 H Respiratory Rate 14 18 Blood Pressure 118/101 H 128/90 H Blood Pressure Mean 106 102 Pulse Ox 98 99 Oxygen Delivery Method Room Air Positive well nourished and well developed General Appearance ED: well developed; Negative for cyanotic, diaphoretic, NAD or pallor HEENT Reports TM's clear and moist mucous membranes HEENT Narrative: Head is atraumatic and normocephalic. Ears normal. Nares patent. Posterior pharynx erythemic today. Uvula midline. No deviation with protrusion. Patienthas bilateral Chvostek sign. Tympanic Membrane ED: Yes TM's clear Eyes PERRL and EOMs intact bilaterally General Eye ED: Negative for pale conjunctiva or scleral icterus Neck no lymphadenopathy, supple and no JVD Chest Wall inspection of chest normal and palpation of chest normal Resp normal respiratory effort and clear to auscultation bilaterally Cardio regular rhythm, S1 normal heart sound, S2 normal heart sound and no murmurs Rate: tachycardic GI normal to inspection, nondistended, normoactive bowel sounds, non-tender, non-distended and no masses; Negative for hepatosplenomegaly Palpation: soft Back/Spine no CVA tenderness Extremity normal to inspection Extremity Narrative: Patient has multiple bruises. She is uncertain how she got the bruises. They do not appear to be new bruises. General Extremety ED: Negative for edema or tenderness General Extremity: Negative for edema Neuro oriented x3, CN's II-XII intact bilaterally and no sensory deficits noted Neuro Narrative: Feroz patient is hyperreflexic with nonsustained clonus at the ankles of 6-10 beats. Sensorium / Orientation: alert Motor Exam: strength 5/5 throughout Psych Mood & Affect: anxious Skin no rashes or lesions noted, no wounds and skin turgor normal Skin Narrative: Multiple bruises and abrasions of varying age lower extremities. General Skin Exam: elasticity normal; Negative for jaundice or pallor MDM MDM MDM Narrative Medical decision making narrative: Patient's symptoms are consistent with hyperventilation most likely due to ecstasy use. Will obtain electrolyte panel to assess calcium and sodium potassium. Will obtain CBC since she appears pale to assess H&H. She was placed on a monitor. She was treated with lorazepam since we do not have IV Valium. Benzodiazepines are considered the drug of choice for treatment of sympathomimetic toxicity. Lab Data Attestation: I reviewed the patient's lab results. Lab results narrative: CBC is unremarkable. Basic metabolic panel reveals a mild anion gap acidosis. Glucose is 102. Labs: Laboratory Results - last 24 hr 02/24/25 12:01 WBC 9.5 RBC 4.74 Hgb 13.7 Hct 40.4 MCV 85.2 MCH 28.9 MCHC 33.9 RDW Std Deviation 42.5 RDW Coeff of Licha 13.7 Plt Count 334 MPV 10.4 Immature Gran % (Auto) 0.200 Neut % (Auto) 67.4 Lymph % (Auto) 27.1 Chaves % (Auto) 4.4 Eos % (Auto) 0.4 Baso % (Auto) 0.5 Absolute Neuts (auto) 6.4 Absolute Lymphs (auto) 2.56 Nucleated RBC % 0 Sodium 141 Potassium 3.7 Chloride 104 Carbon Dioxide 19.2 L Anion Gap 18 H BUN 3 L Creatinine 0.54 L Estim Creat Clear Calc 181.44 Est GFR (MDRD) Non-Af 134 BUN/Creatinine Ratio 5.3 L Glucose 102 H Calcium 9.8 EKG Initial EKG: Attestation: I personally reviewed and interpreted this EKG as follows: Interpretation: Sinus Rhythm (Rate is 99. The EKG is normal. MD was 154 ms. Cures duration 94 ms. QT duration 3 and 56 ms. Tucker is normal.) Treatment and Re-Evaluation :: Patient was reassessed at 1337. She was better. She stated she was offered medicine for anxiety when she was seen here approximately a week ago. Will review her prior records. I reviewed Dr. Tonny Saldaña's note authored February 11. He offered her an Ativan pill in the emergency department. He did not offer her an Ativan prescription. Discharge Plan Triage Chief Complaint: Anxiety ED Provider: Gutierrez Yee Dx/Rx/DC Orders Clinical Impression: Acute hyperventilation syndrome, Ecstasy use disorder, mild, Sinus tachycardia seen on registered nurse cardiac, Alcohol consumption binge drinking, Depression Instructions: ED Drug Abuse, ED Hyperventilation Syndrome Prescriptions: No Action paroxetine HCl 40 mg tablet 40 mg PO DAILY hydroxyzine pamoate 25 mg capsule 25 mg PO 4X/DAY PRN PRN (Reason: anxiety) Primary Care Provider: Leisa Esqueda Referrals: Leisa Esqueda DO [Primary Care Provider] - 1 Week [facility] [Non-Staff] - As soon as possible Print Language: Indonesian Disposition Disposition: Home, Self Care What to do if you have Problems For any increased pain, shortness of breath, bleeding, nausea or vomiting, chestpain, or any unexpected problems, contact your Primary Care Provider. Call [facility] ([phone]) or report to the closest Emergency Room. Call 911 if necessary. 02/24/25 1411 <Electronically signed by Gutierrez Yee MD> Cosigner Signature (if applicable): CC: Dr. Leisa Esqueda DO ~ Signed [facility] Work Phone: [phone] Hospital Discharge instructions Patient Education 02/09/2025 11:14:00 Laceration: All Closures Laceration: All Closures A laceration is a cut through the skin. This will usually require stitches (sutures) or kwame if it is deep. Minor cuts may be treated with a surgical tape closure or skin glue. Home care Your healthcare provider may prescribe an antibiotic. This is to help prevent infection. Follow allinstructions for taking this medicine. Take the medicine every day until it is gone or you are toldto stop. You should not have any left over. The healthcare provider may prescribe medicines for pain. If no pain medicines were prescribed, youcan use robp-lxu-iosxyvt pain medicines. Follow instructions for taking any pain medicines. (Note: If you have chronic liver or kidney disease, or ever had a stomach ulcer or gastrointestinal bleeding, talk with your doctor before using these medicines.) Follow the healthcare provider s instructions on how to care for the cut. Keep the wound clean and dry. Do not get the wound wet until you are told it is OK to do so. If thearea gets wet, gently pat it dry with a clean cloth. Replace the wet bandage with a dry one. If a bandage was applied and it becomes wet or dirty, replace it. Otherwise, leave it in place for the first 24 hours. Caring for sutures or kwame: Once you no longer need to keep them dry, clean the wound daily. First, remove the bandage. Then wash the area gently with soap and warm water, or as directed by the healthcare provider. Use a wet cotton swab to loosen and remove any blood or crust that forms. After cleaning, apply a thin layer of antibiotic ointment if advised. Then put on a new bandage unless you a re told not to. Caring for skin glue: Don t put apply liquid, ointment, or cream on the wound while the glue is in place. Avoid activities that cause heavy sweating. Protect the wound from sunlight. Do not scratch, rub, or pick at the adhesive film. Do not place tape directly over the film. The glue should peel off within 5 to 10 days. Caring for surgical tape: Keep the area dry. If it gets wet, blot it dry with a clean towel. Surgical tape usually falls off within 7 to 10 days. If it has not fallen off after 10 days, you can take it off yourself. Put mineral oil or petroleum jelly on a cotton ball and gently rub the tape until it is removed. Once you can get the wound wet, you may shower as usual but do not soak the wound in water (no tub baths or swimming) Even with proper treatment, a wound infection may sometimes occur. Check the wound daily for signs of infection listed below. Scalp wounds During the first 2 days, you may carefully rinse your hair in the shower to remove blood, glass or dirt particles. After two days, you may shower and shampoo your hair normally. Do not soak your scalp in the tub or go swimming until the stitches or kwame have been removed. Talk with your healthcare provider before applying any antibiotic ointment to the wound. Mouth wounds Eat soft foods to reduce pain. If the cut is inside of your mouth, clean by rinsing after each mealand at bedtime with a mixture of equal parts water and hydrogen peroxide (do not swallow!). Or, youcan use a cotton swab to directly apply hydrogen peroxide onto the cut. You may also be prescribed a chlorhexidine solution to rise with. Mouth wounds can be painful when eating. You may use an nojc-knt-jiuvgpr local numbing solution for pain relief. If this is not available, you may use any numbing solution intended for teething babies. You may apply this directly to the sores with a cotton-tip swab or with your finger. Follow-up care Follow up with your healthcare provider as advised. Ask your healthcare provider how long sutures should be left in place. Be sure to return for suture removal as directed. If dissolving stitches were used in the mouth, these should fall out or dissolve without the need for removal. If tape closures were used, remove them yourself when your provider recommends if they have not fallen off on their own. If skin glue was used, the film will wear off by itself. Generally, you should keep healing wounds out of direct sunlight for the first couple of months to try to lessen scarring. When to seek medical advice Call your healthcare provider right away if any of these occur: Signs of infection, including increasing pain in the wound, increasing wound redness or swelling, or pus or bad odor coming from the wound Fever of 100.4 F (38. C) or higher, or as directed by your healthcare provider Stitches or kwame come apart or fall out or surgical tape falls off before 7 days Wound edges reopen Wound changes colors Numbness around the wound after any numbing medicine should have worn off Decreased movement around the injured area Call 911 Call 911 if you can't control the wound bleeding with direct pressure. [id number] [employer]. [address] [place] [address], [place] [address]. All rights reserved. This information is not intended as a substitute for professional medical care. Always follow yourhealthcare professional's instructions. Follow Up Care 02/09/2025 09:42:13 With:Dental Referral List Address: When:2-4 days With:LEISA ESQUEDA DO Address: [address] [place] [phone] When:2-4 days [facility] 07-27-2025 Note Discharge Instructions Thank you for allowing [facility] to assist you with your healthcare needs. The following is importantdischarge information regarding your hospital visit. Diagnosis from Today's Visit Laceration of lip What to Do Next Instructions from Your Care Team No qualifying data available. Post Acute Orders No qualifying data available. You Need to Schedule the Following Appointments Follow Up with Dental Referral List When:Within 2-4 days Follow Up with LEISA ESQUEDA DO When:Within 2-4 days Where:[address] [place] [phone] Allergies Bactrim Rash Medications Please ask your primary doctor or pharmacist before taking any other medication not listed, including over the counter drugs, herbal medications, vitamins and or supplements as they may interact withyour home medications. What How Much When Why Instructions Last Dose New penicillin V potassium (penicillin V potassium 500 mg oral tablet) 1 tab(s) by mouth Four (4) times a day Duration: 7 Days take with a probiotic Printed Prescription Unchanged hydrOXYzine (Vistaril 25 mg oral capsule) 1 cap by mouth Four (4) times a day as needed for as needed for anxiety Anxiety Unchanged PARoxetine (Paxil 40 mg oral tablet) 1 tab(s) by mouth Once a day Recurrent major depression Anxiety Please take this list to your next doctor s visit. Bring all medications you take, including over the counter medications, herbals and other supplements with you to your doctor s visit. Patients and families are reminded to discard old lists and to update any records with all medication providers or retail pharmacies. Education Materials Laceration: All Closures A laceration is a cut through the skin. This will usually require stitches (sutures) or kwame if it is deep. Minor cuts may be treated with a surgical tape closure or skin glue. Home care Your healthcare provider may prescribe an antibiotic. This is to help prevent infection. Follow allinstructions for taking this medicine. Take the medicine every day until it is gone or you are toldto stop. You should not have any left over. The healthcare provider may prescribe medicines for pain. If no pain medicines were prescribed, youcan use yvwd-tvh-msoaspz pain medicines. Follow instructions for taking any pain medicines. (Note: If you have chronic liver or kidney disease, or ever had a stomach ulcer or gastrointestinal bleeding, talk with your doctor before using these medicines.) Follow the healthcare provider s instructions on how to care for the cut. Keep the wound clean and dry. Do not get the wound wet until you are told it is OK to do so. If thearea gets wet, gently pat it dry with a clean cloth. Replace the wet bandage with a dry one. If a bandage was applied and it becomes wet or dirty, replace it. Otherwise, leave it in place for the first 24 hours. Caring for sutures or kwame: Once you no longer need to keep them dry, clean the wound daily. First, remove the bandage. Then wash the area gently with soap and warm water, or as directed by the healthcare provider. Use a wet cotton swab to loosen and remove any blood or crust that forms. After cleaning, apply a thin layer of antibiotic ointment if advised. Then put on a new bandage unless you a re told not to. Caring for skin glue: Don t put apply liquid, ointment, or cream on the wound while the glue is in place. Avoid activities that cause heavy sweating. Protect the wound from sunlight. Do not scratch, rub, or pick at the adhesive film. Do not place tape directly over the film. The glue should peel off within 5 to 10 days. Caring for surgical tape: Keep the area dry. If it gets wet, blot it dry with a clean towel. Surgical tape usually falls off within 7 to 10 days. If it has not fallen off after 10 days, you can take it off yourself. Put mineral oil or petroleum jelly on a cotton ball and gently rub the tape until it is removed. Once you can get the wound wet, you may shower as usual but do not soak the wound in water (no tub baths or swimming) Even with proper treatment, a wound infection may sometimes occur. Check the wound daily for signs of infection listed below. Scalp wounds During the first 2 days, you may carefully rinse your hair in the shower to remove blood, glass or dirt particles. After two days, you may shower and shampoo your hair normally. Do not soak your scalp in the tub or go swimming until the stitches or kwame have been removed. Talk with your healthcare provider before applying any antibiotic ointment to the wound. Mouth wounds Eat soft foods to reduce pain. If the cut is inside of your mouth, clean by rinsing after each mealand at bedtime with a mixture of equal parts water and hydrogen peroxide (do not swallow!). Or, youcan use a cotton swab to directly apply hydrogen peroxide onto the cut. You may also be prescribed a chlorhexidine solution to rise with. Mouth wounds can be painful when eating. You may use an fwpw-dwr-oltglkw local numbing solution for pain relief. If this is not available, you may use any numbing solution intended for teething babies. You may apply this directly to the sores with a cotton-tip swab or with your finger. Follow-up care Follow up with your healthcare provider as advised. Ask your healthcare provider how long sutures should be left in place. Be sure to return for suture removal as directed. If dissolving stitches were used in the mouth, these should fall out or dissolve without the need for removal. If tape closures were used, remove them yourself when your provider recommends if they have not fallen off on their own. If skin glue was used, the film will wear off by itself. Generally, you should keep healing wounds out of direct sunlight for the first couple of months to try to lessen scarring. When to seek medical advice Call your healthcare provider right away if any of these occur: Signs of infection, including increasing pain in the wound, increasing wound redness or swelling, or pus or bad odor coming from the wound Fever of 100.4 F (38. C) or higher, or as directed by your healthcare provider Stitches or kwame come apart or fall out or surgical tape falls off before 7 days Wound edges reopen Wound changes colors Numbness around the wound after any numbing medicine should have worn off Decreased movement around the injured area Call 911 Call 911 if you can't control the wound bleeding with direct pressure. [phone] [employer]. [address] [place] [address]. All rights reserved. This information is not intended as a substitute for professional medical care. Always follow yourhealthcare professional's instructions. Additional Information VACCINATE! IT SAVES LIVES! Members of the community who have not yet received the COVID-19 vaccine and would like to receive it can visit one of [facility] vaccine clinics. There are many vaccine clinic locations within the [facility]. For locations and available times, please visit www.[email or web address].[place].gov/. It is important to note that some COVID mobile vaccine clinics are held outdoors and may be canceled in rainy or stormy conditions. To learn more about pediatric vaccinations (ages 5-11), we invite you to visit the [employer] [facility] webpage. [email or web address].org/pages/[email or web address]-Agzmf-Lpdhvhfhnmq-Oszmyhahap-Njcon-Rlv stions.htmlTo learn more about the COVID-19 vaccine, we invite you to visit the CDC website for a list of frequently asked questions. https://www.cdc.gov/coronavirus/2019-ncov/vaccines/faq.html [email or web address] Patient Portal Access Instructions: Stay connected with your healthcare team and access your personal medical information anytime with the [employer] Patient Portal. If you would like a full copy of your medical records please contact the [facility] Medical Records Department Monday through Monday between 8a.m. and 4:30p.m. Please follow the directions below to access the portal: 1.Access the email account you provided upon registration to the hospital.2.Look for an invitation email from [facility].3.Open the email and access the invitation link: Accept Invitation to [facility]4.Fill in the required coe to create your account. Sign into [email or web address] with your username and password that you created in the above steps to stay up to date. You can then view a summary of results, a summary of your visits, and the ability to download your summaries to your computer or send the information securely to a physician. Remember that your healthcare information is confidential, so carefully consider who you will allow to register on the [email or web address] Patient Portal for access to your information. You can also access the [email or web address] Patient Portal on the [employer] shyla. Simply click on Health Records under [employer] and then click on the [employer] logo. HOW TO SAFELY DISPOSE OF PRESCRIPTION MEDICATIONS Please use one of the following methods to safely dispose of your unused medications. 1.Use a drug disposal kit: the drug disposal pouch allows you to safely discard your old and unuseddrugs. Ask your nurse to give you one when you are discharged.2.Visit a local take-back location: Many local pharmacies and police departments have programs that collect old and unwanted prescriptiondrugs. Call your local pharmacy or go to http://[employer]Zmags/4D9Mr2t to find one close to you.3.Make use of household items: Use cat litter or old coffee grounds to dispose medications if other options arenot available. Mix your drugs with these household products, seal them in an airtight container andthrow it into the garbage. Call [facility]: [phone] to be sure your drugs can be disposed of in this way. Some medicines may require a different approach.4.Never flush your medications down the toilet. IF YOU HAVE BEEN PRESCRIBED AN OPIOIDS FOR PAIN If you have been prescribed an opioid (such as hydrocodone, oxycodone or morphine), it is critical to understand the possible side effects and risks of opioid pain medications. Even when taken as directed, opioids can have several side effects including: Tolerance, meaning you might need to take more of a medication for the same pain relief. Nausea, vomiting and/or constipation. Sleepiness, dizziness, dry mouth, confusion, depression or itching. Physical dependence, meaning you have withdrawal symptoms when a medication is stopped ? this can develop within a few days. KNOW YOUR RESPONSIBILITIES It is important to know exactly how much and how often to take the opioid pain medications you are prescribed. Never take opioids in higher amounts or more often than prescribed. Do not combine opioids with alcohol or other drugs that cause drowsiness, such as benzodiazepines, also known as benzos,including diazepam and alprazolam, muscle relaxants or sleep aids. Never sell or share prescriptionopioids. This is illegal. Store opioids in a secure place and out of reach of others (including children, family, friends and visitors). The last page(s) of this document has been signed and retained as a CHART COPY Signatures Patient Education Materials Laceration: All Closures Medication Leaflets My discharge plan and instructions have been reviewed and explained to me and I,ATKINSJEANNETTEIE Miguel understand my current condition and have read and understand these discharge instructions. I have received a written copy of the plan/instructions. If I have questions, I am aware that I should contact my doctor. Patient/Miner Helper Signature: Date/Time: Relationship to Patient: Witness Name/Signature: Date/Time: [facility]07-27-2025 Note* Exam Date Time Procedure Performing Provider Status 02/09/25 11:[address] Maxillofacial w/o Contrast KYLER COLON MD; Auth (Verified) [id number] ORIGINAL HISTORY: Fall COMPARISON: No TECHNIQUE: CT of the head through the facial bones with sagittal and coronal reconstructions. This exam was performed according to our departmental dose optimization program, and includes the following measures where applicable: automated exposure control, adjustment of the mAs and/or kVp according to patient size and/or exam, and an iterative reconstruction algorithm. FINDINGS: The orbital rims, zygomatic arches and the grace of the maxillary sinuses are intact. The mandible is intact and the temporomandibular joints are properly seated. There is an impacted tooth in the left mandible. The superficial soft tissues are unremarkable in appearance. IMPRESSION: No acute fracture. Interpreted by: Kyler Colon MD Preliminary Report By: Kyler Colon MD Electronically signed By Kyler Colon MD Dictated Date: 02/09/2025 11:03:42 AM Prelim Date: 02/09/2025 11:05:28 AM Sign Date: 02/09/2025 11:05:28 AM Ordering Provider: [facility]07-27-2025 Note* Exam Date Time Procedure Performing Provider Status 02/09/25 11:[address] Spine Cervical w/o Contrast KYLER COLON MD; Auth (Verified) [id number] ORIGINAL HISTORY: Fall COMPARISON: No TECHNIQUE: Cervical spine CT with sagittal and coronal reconstructions. This exam was performed according to our departmental dose optimization program, and includes the following measures where applicable: automated exposure control, adjustment of the mAs and/or kVp according to patient size and/or exam, and an iterative reconstruction algorithm. FINDINGS: There are no acute fractures or dislocations. There is mild reversal of the normal cervical lordosis. The individual vertebral bodies are intact. Prevertebral soft tissues are unremarkable in appearance. IMPRESSION: No acute fracture. Interpreted by: Kyler Colon MD Preliminary Report By: Kyler Colon MD Electronically signed By Kyler Colon MD Dictated Date: 02/09/2025 12:19:48 PM Prelim Date: 02/09/2025 12:20:38 PM Sign Date: 02/09/2025 12:20:38 PM Ordering Provider: [facility]07-27-2025 Note* Exam Date Time Procedure Performing Provider Status 02/09/25 10:[address] Head or Brain w/o Contrast KYLER COLON MD; Auth (Verified) [id number] ORIGINAL HISTORY: Fall COMPARISON: No TECHNIQUE: Routine noncontrast head CT, with sagittal and coronal reconstructions. This exam was performed according to our departmental dose optimization program, and includes the following measures where applicable: automated exposure control, adjustment of the mAs and/or kVp according to patient size and/or exam, and an iterative reconstruction algorithm. FINDINGS: The study is mildly limited by improper technique. Otherwise, the ventricles and sulci are normal in size and configuration. No abnormal intra or extra-axial fluid collections are seen. Rosas-white matter differentiation is incompletely evaluated but no abnormalities are seen. The calvaria and the bones of the base of the skull are intact. IMPRESSION: Mildly limited but otherwise unremarkable examination. Interpreted by: Kyler Colon MD Preliminary Report By: Kyler Colon MD Electronically signed By Kyler Colon MD Dictated Date: 02/09/2025 11:01:52 AM Prelim Date: 02/09/2025 11:03:39 AM Sign Date: 02/09/2025 11:03:39 AM [facility]ing [facility]07-02-2025 Hospital Discharge instructions Patient Education 01/15/2025 10:55:26 Anxiety Reaction Anxiety Reaction Anxiety is the feeling we all get when we think something bad might happen. It is a normal responseto stress and usually causes only a mild reaction. When anxiety becomes more severe, it can interfere with daily life. In some cases, you may not even be aware of what it is you re anxious about. There may also be a genetic link or it may be a learned behavior in the home. Both psychological and physical triggers cause stress reaction. It's often a response to fear or emotional stress, real or imagined. This stress may come from home, family, work, or social relationships. During an anxiety reaction, you may feel: Helpless Nervous Depressed Irritable Your body may show signs of anxiety in many ways. You may experience: Dry mouth Shakiness Dizziness Weakness Trouble breathing Breathing fast (hyperventilating) Chest pressure Sweating Headache Nausea Diarrhea Tiredness Inability to sleep Sexual problems Home care Try to locate the sources of stress in your life. They may not be obvious. These may include: oDaily hassles of life (such as traffic jams, missed appointments, or car troubles) oMajor life changes, both good (new baby or job promotion) and bad (loss of job or loss of loved one) oOverload: feeling that you have too many responsibilities and can't take care of all of them at once oFeeling helpless or feeling that your problems are beyond what you re able to solve Notice how your body reacts to stress. Learn to listen to your body signals. This will help you take action before the stress becomes severe. When you can, do something about the source of your stress. (Avoid hassles, limit the amount of change that happens in your life at one time and take a break when you feel overloaded). Unfortunately, many stressful situations can't be avoided. It is necessary to learn how to better manage stress. There are many proven methods that will reduce your anxiety. These include simple things like exercise, good nutrition, and adequate rest. Also, there are certain techniques that are helpful: oRelaxation oBreathing exercises oVisualization oBiofeedback oMeditation For more information about this, consult your healthcare provider or go to a local bookstore and review the many books and tapes available on this subject. Follow-up care If you feel that your anxiety is not responding to self-help measures, contact your healthcare provider or make an appointment with a counselor. You may need short-term psychological counseling and temporary medicine to help you manage stress. Call 911 Call 911 if any of these happen: Trouble breathing Confusion Drowsiness or trouble wakening Fainting or loss of consciousness Rapid heart rate Seizure New chest pain that becomes more severe, lasts longer, or spreads into your shoulder, arm, neck, jaw, or back When to seek medical advice Call your healthcare provider right away if any of these happen: Your symptoms get worse Severe headache not relieved by rest and mild pain reliever [id number] [employer]. [address] [place] [address]. All rights reserved. This information is not intended as a substitute for professional medical care. Always follow yourhealthcare professional's instructions. Follow Up Care 01/15/2025 09:28:26 With:LEISA ESQUEDA DO Address: [address] [place] [phone] When:2-4 days [facility] 07-02-2025 Note Discharge Instructions Thank you for allowing [facility] to assist you with your healthcare needs. The following is importantdischarge information regarding your hospital visit. What to Do Next Instructions from Your Care Team No qualifying data available. Post Acute Orders No qualifying data available. You Need to Schedule the Following Appointments Follow Up with LEISA ESQUEDA DO When:Within 2-4 days Where:[address] [place] [phone] Allergies Bactrim Rash Medications Please ask your primary doctor or pharmacist before taking any other medication not listed, including over the counter drugs, herbal medications, vitamins and or supplements as they may interact withyour home medications. What How Much When Why Instructions Last Dose Unchanged hydrOXYzine (Vistaril 25 mg oral capsule) 1 cap by mouth Four (4) times a day as needed for as needed for anxiety Anxiety Unchanged PARoxetine (Paxil 10 mg oral tablet) 1 tab(s) by mouth Once a day Recurrent major depression Anxiety Duration: 14 Days Complete 14-day course prior to initiating 20 mg tablet Unchanged PARoxetine (Paxil 20 mg oral tablet) 1 tab(s) by mouth Once a day Recurrent major depression Anxiety Start 20 mg tablet after completing 14-day course of 10 mg tablet Please take this list to your next doctor s visit. Bring all medications you take, including over the counter medications, herbals and other supplements with you to your doctor s visit. Patients and families are reminded to discard old lists and to update any records with all medication providers or retail pharmacies. Education Materials Anxiety Reaction Anxiety is the feeling we all get when we think something bad might happen. It is a normal responseto stress and usually causes only a mild reaction. When anxiety becomes more severe, it can interfere with daily life. In some cases, you may not even be aware of what it is you re anxious about. There may also be a genetic link or it may be a learned behavior in the home. Both psychological and physical triggers cause stress reaction. It's often a response to fear or emotional stress, real or imagined. This stress may come from home, family, work, or social relationships. During an anxiety reaction, you may feel: Helpless Nervous Depressed Irritable Your body may show signs of anxiety in many ways. You may experience: Dry mouth Shakiness Dizziness Weakness Trouble breathing Breathing fast (hyperventilating) Chest pressure Sweating Headache Nausea Diarrhea Tiredness Inability to sleep Sexual problems Home care Try to locate the sources of stress in your life. They may not be obvious. These may include: oDaily hassles of life (such as traffic jams, missed appointments, or car troubles) oMajor life changes, both good (new baby or job promotion) and bad (loss of job or loss of loved one) oOverload: feeling that you have too many responsibilities and can't take care of all of them at once oFeeling helpless or feeling that your problems are beyond what you re able to solve Notice how your body reacts to stress. Learn to listen to your body signals. This will help you take action before the stress becomes severe. When you can, do something about the source of your stress. (Avoid hassles, limit the amount of change that happens in your life at one time and take a break when you feel overloaded). Unfortunately, many stressful situations can't be avoided. It is necessary to learn how to better manage stress. There are many proven methods that will reduce your anxiety. These include simple things like exercise, good nutrition, and adequate rest. Also, there are certain techniques that are helpful: oRelaxation oBreathing exercises oVisualization oBiofeedback oMeditation For more information about this, consult your healthcare provider or go to a local bookstore and review the many books and tapes available on this subject. Follow-up care If you feel that your anxiety is not responding to self-help measures, contact your healthcare provider or make an appointment with a counselor. You may need short-term psychological counseling and temporary medicine to help you manage stress. Call 911 Call 911 if any of these happen: Trouble breathing Confusion Drowsiness or trouble wakening Fainting or loss of consciousness Rapid heart rate Seizure New chest pain that becomes more severe, lasts longer, or spreads into your shoulder, arm, neck, jaw, or back When to seek medical advice Call your healthcare provider right away if any of these happen: Your symptoms get worse Severe headache not relieved by rest and mild pain reliever [id number] [employer]. [address] [place] [address]. All rights reserved. This information is not intended as a substitute for professional medical care. Always follow yourhealthcare professional's instructions. Additional Information VACCINATE! IT SAVES LIVES! Members of the community who have not yet received the COVID-19 vaccine and would like to receive it can visit one of [facility] vaccine clinics. There are many vaccine clinic locations within the [facility]. For locations and available times, please visit www.[email or web address].[email or web address]/. It is important to note that some COVID mobile vaccine clinics are held outdoors and may be canceled in rainy or stormy conditions. To learn more about pediatric vaccinations (ages 5-11), we invite you to visit the [facility] webpage. [email or web address]/[email or web address]-Spzbdzbkxus-Vymwffqwzm-Bcgwl-[email or web address] stions.htmlTo learn more about the COVID-19 vaccine, we invite you to visit the CDC website for a list of frequently asked questions. https://www.cdc.gov/coronavirus/2019-ncov/vaccines/faq.html [facility] Patient Portal Access Instructions: Stay connected with your healthcare team and access your personal medical information anytime with the [employer] Patient Portal. If you would like a full copy of your medical records please contact the [facility] Medical Records Department Monday through Monday between 8a.m. and 4:30p.m. Please follow the directions below to access the portal: 1.Access the email account you provided upon registration to the [facility].2.Look for an invitation email from [facility].3.Open the email and access the invitation link: Accept Invitation to [employer] [facility]4.Fill in the required coe to create your account. Sign into [email or web address].[employer] with your username and password that you created in the above steps to stay up to date. You can then view a summary of results, a summary of your visits, and the ability to download your summaries to your computer or send the information securely to a physician. Remember that your healthcare information is confidential, so carefully consider who you will allow to register on the [employer] [facility] Patient Portal for access to your information. You can also access the [employer] [facility] Patient Portal on the [employer] shyla. Simply click on Health Records under [employer] and then click on the [employer] logo. HOW TO SAFELY DISPOSE OF PRESCRIPTION MEDICATIONS Please use one of the following methods to safely dispose of your unused medications. 1.Use a drug disposal kit: the drug disposal pouch allows you to safely discard your old and unuseddrugs. Ask your nurse to give you one when you are discharged.2.Visit a local take-back location: Many local pharmacies and police departments have programs that collect old and unwanted prescriptiondrugs. Call your local pharmacy or go to http://[employer]Zmags/4E7Mf1m to find one close to you.3.Make use of household items: Use cat litter or old coffee grounds to dispose medications if other options arenot available. Mix your drugs with these household products, seal them in an airtight container andthrow it into the garbage. Call [facility]: [phone] to be sure your drugs can be disposed of in this way. Some medicines may require a different approach.4.Never flush your medications down the toilet. IF YOU HAVE BEEN PRESCRIBED AN OPIOIDS FOR PAIN If you have been prescribed an opioid (such as hydrocodone, oxycodone or morphine), it is critical to understand the possible side effects and risks of opioid pain medications. Even when taken as directed, opioids can have several side effects including: Tolerance, meaning you might need to take more of a medication for the same pain relief. Nausea, vomiting and/or constipation. Sleepiness, dizziness, dry mouth, confusion, depression or itching. Physical dependence, meaning you have withdrawal symptoms when a medication is stopped ? this can develop within a few days. KNOW YOUR RESPONSIBILITIES It is important to know exactly how much and how often to take the opioid pain medications you are prescribed. Never take opioids in higher amounts or more often than prescribed. Do not combine opioids with alcohol or other drugs that cause drowsiness, such as benzodiazepines, also known as benzos,including diazepam and alprazolam, muscle relaxants or sleep aids. Never sell or share prescriptionopioids. This is illegal. Store opioids in a secure place and out of reach of others (including children, family, friends and visitors). The last page(s) of this document has been signed and retained as a CHART COPY Signatures Patient Education Materials Anxiety Reaction Medication Leaflets My discharge plan and instructions have been reviewed and explained to me and I,GERARDO ATKINS understand my current condition and have read and understand these discharge instructions. I have received a written copy of the plan/instructions. If I have questions, I am aware that I should contact my doctor. Patient/Miner Helper Signature: Date/Time: Relationship to Patient: Witness Name/Signature: Date/Time: [facility]07-02-2025 Note* Exam Date Time Procedure Performing Provider Status 01/15/25 10:07 AM XR Chest 2 Views KYLER COLON MD; Au th (Verified) [id number] ORIGINAL HISTORY: Chest pain COMPARISON: 26 September 2023 FINDINGS: The lungs and pleural spaces are clear. The cardiac silhouette is within normal limits. The pulmonary vasculature is within normal limits. IMPRESSION: Clear lungs. Interpreted by: Kyler Colon MD Preliminary Report By: Kyler Colon MD Electronically signed By Kyler Colon MD Dictated Date: 01/15/2025 10:10:24 AM Prelim Date: 01/15/2025 10:10:39 AM Sign Date: 01/15/2025 10:10:39 AM Ordering Provider: FERNANDO RG Interpreted by: Kyler Colon MD Preliminary Report By: Kyler Colon MD Electronically signed By Kyler Colon MD Dictated Date: 01/15/2025 10:10:24 AM Prelim Date: 01/15/2025 10:10:39 AM Sign Date: 01/15/2025 10:10:39 AM Ordering Provider: FERNANDO RG [facility]07-02-2025 Note* Exam Date Time Procedure Performing Provider Status 01/15/25 9:56 AM EKG [ED AO] - CV FERNANDO RG MD; Auth (Verified) ECG Final Report Sinus rhythm Left axis deviation Electronic Signature: FERNANDO RG MD 01/15/2025 10:10:46 [facility]03-14-2024 Hospital Discharge instructions Patient Education 09/28/2023 03:21:47 Panic Attack Panic Attack A panic attack is an extreme fear reaction that comes on for no clear reason. There is often a fearthat something terrible will happen or that you may . The attack may last a few minutes up to a few hours. Between attacks, things will seem quite normal. This condition has a psychological cause and can be treated with the help of a therapist or psychiatrist. Medicine can be very helpful for this problem. Panic attacks usually come on suddenly, reaches a peak within minutes, and includes at least 4 of these symptoms: Palpitations, pounding heart, or accelerated heart rate Sweating Chills or heat sensations Trembling or shaking Sensations of shortness of breath or smothering Feelings of choking Chest pain or discomfort Nausea or abdominal distress Feeling dizzy, unsteady, light-headed, or faint Numbness or tingling sensations Fear of dying Fear of going crazy or of losing control Feelings of unreality, strangeness, or detachment from the environment Many of these symptoms can be linked to physical problems, so it is sometimes necessary to rule outconditions like thyroid disorders, heart disease, gastrointestinal problems, and others. They can also start as physical symptoms, but psychologically we may react to them in a fearful way, worseningthe way we react and feel. Home care Try to find the sources of stress in your life. They may not be obvious. These may include: oDaily hassles of life which pile up (traffic jams, missed appointments, car troubles). oMajor life changes, both good (new baby, job promotion) and bad (loss of job, loss of loved one). oFeeling that you have too many responsibilities and can't take care of everything at once. oHelplessness: feeling like your problems are too much for you to handle. Notice how your body reacts to stress. Learn to listen to your body signals so that you can take action before the stress becomes severe. Try to be aware of what you were doing before the reaction started; this may give you clues to things that can trigger a reaction. It may be situations in your life, or what you were doing at the time. When possible, avoid or reduce the cause of stress. Avoid hassles, limit the amount of change that is happening in your life at one time or take a break when you feel overloaded. Unfortunately, you can't stay away from many stressful situations. So you need to learn how to manage stress better. Many proven methods will reduce your anxiety. These include simple things like exercise, good nutrition, and adequate rest. Also, there are certain techniques that are helpful: relaxation and breathing exercises, visualization, biofeedback, meditation, or simply taking time-out to clear your mind. For more information about this, ask your doctor or go to a local bookstore and review the many books and tapes available on this subject. Follow-up care Follow-up with your healthcare provider, or as advised. Call 911 Call 911 if you: Have suicidal thoughts, a suicide plan, and the means to carry out the plan Have serious thoughts of hurting someone else Have trouble breathing Are very confused Feel very drowsy or have trouble awakening Faint or lose consciousness Have new chest pain that becomes more severe, lasts longer, or spreads into your shoulder, arm, neck, jaw, or back Have a very rapid or irregular heartbeat Have a seizure When to seek medical advice Call your healthcare provider right away if any of these occur: Worsening of your symptoms to the point of feeling [id number] Feeling that you may try to harm yourself or another Can't sleep or eat for 3 days in a row Increased pain with breathing Increasing feeling of weakness or dizziness Cough with dark colored sputum (phlegm) or blood Fever of 100.4 F (38 C) or higher, or as directed by your healthcare provider Swelling, pain, or redness in one leg Requests by family or friends for you to seek help for your symptoms [id number] [employer]. [address] [place] [address]. All rights reserved. This information is not intended as a substitute for professional medical care. Always follow yourhealthcare professional's instructions. Follow Up Care 09/28/2023 01:59:22 With:LEISA ESQUEDA Address: [address] [place] [phone] Business (1) When:1-2 days [facility] 03-14-2024 Note Discharge Instructions Thank you for allowing [facility] to assist you with your healthcare needs. The following is importantdischarge information regarding your hospital visit. Diagnosis from Today's Visit Anxiety Panic attack SOB - Shortness of breath What to Do Next Instructions from Your Care Team No qualifying data available. Post Acute Orders No qualifying data available. You Need to Schedule the Following Appointments Follow Up with LEISA ESQUEDA When Within 1-2 days Where: [address] [place] [phone]- [phone] Business (1) Allergies Bactrim (Rash) Medications Please ask your primary doctor or pharmacist before taking any other medication not listed, including over the counter drugs, herbal medications, vitamins and or supplements as they may interact withyour home medications. What How Much When Why Instructions Last Dose Unchanged omeprazole (omeprazole 20 mg oral delayed release capsule) 1 cap by mouth Once a day GERD (gastroesophageal reflux disease) Unchanged sertraline (sertraline 50 mg oral tablet) 1 tab(s) by mouth Once a day Anxiety take 1 tablet by mouth once daily Please take this list to your next doctor s visit. Bring all medications you take, including over the counter medications, herbals and other supplements with you to your doctor s visit. Patients and families are reminded to discard old lists and to update any records with all medication providers or retail pharmacies. Education Materials Panic Attack A panic attack is an extreme fear reaction that comes on for no clear reason. There is often a fearthat something terrible will happen or that you may . The attack may last a few minutes up to a few hours. Between attacks, things will seem quite normal. This condition has a psychological cause and can be treated with the help of a therapist or psychiatrist. Medicine can be very helpful for this problem. Panic attacks usually come on suddenly, reaches a peak within minutes, and includes at least 4 of these symptoms: Palpitations, pounding heart, or accelerated heart rate Sweating Chills or heat sensations Trembling or shaking Sensations of shortness of breath or smothering Feelings of choking Chest pain or discomfort Nausea or abdominal distress Feeling dizzy, unsteady, light-headed, or faint Numbness or tingling sensations Fear of dying Fear of going crazy or of losing control Feelings of unreality, strangeness, or detachment from the environment Many of these symptoms can be linked to physical problems, so it is sometimes necessary to rule outconditions like thyroid disorders, heart disease, gastrointestinal problems, and others. They can also start as physical symptoms, but psychologically we may react to them in a fearful way, worseningthe way we react and feel. Home care Try to find the sources of stress in your life. They may not be obvious. These may include: oDaily hassles of life which pile up (traffic jams, missed appointments, car troubles). oMajor life changes, both good (new baby, job promotion) and bad (loss of job, loss of loved one). oFeeling that you have too many responsibilities and can't take care of everything at once. oHelplessness: feeling like your problems are too much for you to handle. Notice how your body reacts to stress. Learn to listen to your body signals so that you can take action before the stress becomes severe. Try to be aware of what you were doing before the reaction started; this may give you clues to things that can trigger a reaction. It may be situations in your life, or what you were doing at the time. When possible, avoid or reduce the cause of stress. Avoid hassles, limit the amount of change that is happening in your life at one time or take a break when you feel overloaded. Unfortunately, you can't stay away from many stressful situations. So you need to learn how to manage stress better. Many proven methods will reduce your anxiety. These include simple things like exercise, good nutrition, and adequate rest. Also, there are certain techniques that are helpful: relaxation and breathing exercises, visualization, biofeedback, meditation, or simply taking time-out to clear your mind. For more information about this, ask your doctor or go to a local bookstore and review the many books and tapes available on this subject. Follow-up care Follow-up with your healthcare provider, or as advised. Call 911 Call 911 if you: Have suicidal thoughts, a suicide plan, and the means to carry out the plan Have serious thoughts of hurting someone else Have trouble breathing Are very confused Feel very drowsy or have trouble awakening Faint or lose consciousness Have new chest pain that becomes more severe, lasts longer, or spreads into your shoulder, arm, neck, jaw, or back Have a very rapid or irregular heartbeat Have a seizure When to seek medical advice Call your healthcare provider right away if any of these occur: Worsening of your symptoms to the point of feeling [id number] Feeling that you may try to harm yourself or another Can't sleep or eat for 3 days in a row Increased pain with breathing Increasing feeling of weakness or dizziness Cough with dark colored sputum (phlegm) or blood Fever of 100.4 F (38 C) or higher, or as directed by your healthcare provider Swelling, pain, or redness in one leg Requests by family or friends for you to seek help for your symptoms [phone] [employer]. [address] [place] [address]. All rights reserved. This information is not intended as a substitute for professional medical care. Always follow yourhealthcare professional's instructions. Additional Information VACCINATE! IT SAVES LIVES! Members of the community who have not yet received the COVID-19 vaccine and would like to receive it can visit one of [facility] vaccine clinics. There are many vaccine clinic locations within the [facility]. For locations and available times, please visit [email or web address] It is important to note that some COVID mobile vaccine clinics are held outdoors and may be canceled in rainy or stormy conditions. To learn more about pediatric vaccinations (ages 5-11), we invite you to visit the [facility] webpage. [email or web address] [email or web address] learn more about the COVID-19 vaccine, we invite you to visit the CDC website for a list of frequently asked questions. https://www.cdc.gov/coronavirus/2019-ncov/vaccines/faq.html [facility] Patient Portal Access Instructions: Stay connected with your healthcare team and access your personal medical information anytime with the [facility] Patient Portal. If you would like a full copy of your medical records please contact the [facility] Medical Records Department Monday through Monday between 8a.m. and 4:30p.m. Please follow the directions below to access the portal: 1.Access the email account you provided upon registration to the [facility].2.Look for an invitation email from [facility].3.Open the email and access the invitation link: Accept Invitation to [facility]4.Fill in the required coe to create your account. Sign into [email or web address] with your username and password that you created in the above steps to stay up to date. You can then view a summary of results, a summary of your visits, and the ability to download your summaries to your computer or send the information securely to a physician. Remember that your healthcare information is confidential, so carefully consider who you will allow to register on the [facility] Patient Portal for access to your information. You can also access the [facility] Patient Portal on the NetDocuments. Simply click on Health Records under Nutzvieh[employer] and then click on the SourceThought logo. HOW TO SAFELY DISPOSE OF PRESCRIPTION MEDICATIONS Please use one of the following methods to safely dispose of your unused medications. 1.Use a drug disposal kit: the drug disposal pouch allows you to safely discard your old and unuseddrugs. Ask your nurse to give you one when you are discharged.2.Visit a local take-back location: Many local pharmacies and police departments have programs that collect old and unwanted prescriptiondrugs. Call your local pharmacy or go to http://[employer]Zmags/6Z6Lj9d to find one close to you.3.Make use of household items: Use cat litter or old coffee grounds to dispose medications if other options arenot available. Mix your drugs with these household products, seal them in an airtight container andthrow it into the garbage. Call [facility]: [phone] to be sure your drugs can be disposed of in this way. Some medicines may require a different approach.4.Never flush your medications down the toilet. IF YOU HAVE BEEN PRESCRIBED AN OPIOIDS FOR PAIN If you have been prescribed an opioid (such as hydrocodone, oxycodone or morphine), it is critical to understand the possible side effects and risks of opioid pain medications. Even when taken as directed, opioids can have several side effects including: Tolerance, meaning you might need to take more of a medication for the same pain relief. Nausea, vomiting and/or constipation. Sleepiness, dizziness, dry mouth, confusion, depression or itching. Physical dependence, meaning you have withdrawal symptoms when a medication is stopped ? this can develop within a few days. KNOW YOUR RESPONSIBILITIES It is important to know exactly how much and how often to take the opioid pain medications you are prescribed. Never take opioids in higher amounts or more often than prescribed. Do not combine opioids with alcohol or other drugs that cause drowsiness, such as benzodiazepines, also known as benzos,including diazepam and alprazolam, muscle relaxants or sleep aids. Never sell or share prescriptionopioids. This is illegal. Store opioids in a secure place and out of reach of others (including children, family, friends and visitors). The last page(s) of this document has been signed and retained as a CHART COPY Signatures Patient Education Materials Panic Attack Medication Leaflets My discharge plan and instructions have been reviewed and explained to me and I,GERARDO ATKINS understand my current condition and have read and understand these discharge instructions. I have received a written copy of the plan/instructions. If I have questions, I am aware that I should contact my doctor. Patient/Miner Helper Signature: Date/Time: Relationship to Patient: Witness Name/Signature: Date/Time: [facility]03-12-2024 Hospital Discharge instructions Patient Education 09/26/2023 05:59:19 Shortness of Breath (Dyspnea) Shortness of Breath (Dyspnea) Shortness of breath is the feeling that you can't catch your breath or get enough air. It is also known as dyspnea. Dyspnea can be caused by many different conditions. They include: Acute asthma attack Worsening of chronic lung diseases such as chronic bronchitis and emphysema Heart failure. This is when weak heart muscle allows extra fluid to collect in the lungs. Panic attacks or anxiety. Fear can cause rapid breathing (hyperventilation). Pneumonia, or an infection in the lung tissue Exposure to toxic substances, fumes, smoke, or certain medicines Blood clot in the lung (pulmonary embolism). This is often from a piece of blood clot in a deep vein of the leg (deep vein thrombosis) that breaks off and travels to the lungs. Heart attack or heart-related chest pain (angina) Anemia Collapsed lung (pneumothorax) Dehydration Based on your visit today, the exact cause of your shortness of breath is not certain. Your tests don t show any of the serious causes of dyspnea. You may need other tests to find out if you have a serious problem. It s important to watch for any new symptoms or symptoms that get worse. Follow up with your healthcare provider as directed. Home care Follow these tips to take care of yourself at home: When your symptoms are better, go back to your usual activities. If you smoke, you should stop. Join a quit-smoking program or ask your healthcare provider for help. Eat a healthy diet and get plenty of sleep. Get regular exercise. Talk with your healthcare provider before starting to exercise, especially ifyou have other medical problems. Cut down on the amount of caffeine and stimulants you consume. Follow-up care Follow up with your healthcare provider, or as advised. If tests were done, you will be told if your treatment needs to be changed. You can call as directed for the results. If an X-ray was taken, a specialist will review it. You will be notified of any new findings that may affect your care. Call 911 Shortness of breath may be a sign of a serious medical problem. For example, it may be a problem with your heart or lungs. Call 911 if you have worsening shortness of breath or trouble breathing, especially with any of the symptoms below: Confusion or difficulty waking Fainting or loss of consciousness. Fast or irregular heartbeat Coughing up blood Pain in your chest, arm, shoulder, neck, or upper back Sweating When to seek medical advice Call your healthcare provider right away if any of these occur: Slight shortness of breath or wheezing Redness, pain or swelling in your leg, arm, or other body area Swelling in both legs or ankles Fast weight gain Dizziness or weakness Fever of 100.4 F (38 C) or higher, or as directed by your healthcare provider [id number] [employer]. [address] [place] [address]. All rights reserved. This information is not intended as a substitute for professional medical care. Always follow [facility] professional's instructions. 09/26/2023 05:59:18 Anxiety Reaction Anxiety Reaction Anxiety is the feeling we all get when we think something bad might happen. It is a normal responseto stress and usually causes only a mild reaction. When anxiety becomes more severe, it can interfere with daily life. In some cases, you may not even be aware of what it is you re anxious about. There may also be a genetic link or it may be a learned behavior in the home. Both psychological and physical triggers cause stress reaction. It's often a response to fear or emotional stress, real or imagined. This stress may come from home, family, work, or social relationships. During an anxiety reaction, you may feel: Helpless Nervous Depressed Irritable Your body may show signs of anxiety in many ways. You may experience: Dry mouth Shakiness Dizziness Weakness Trouble breathing Breathing fast (hyperventilating) Chest pressure Sweating Headache Nausea Diarrhea Tiredness Inability to sleep Sexual problems Home care Try to locate the sources of stress in your life. They may not be obvious. These may include: oDaily hassles of life (such as traffic jams, missed appointments, or car troubles) oMajor life changes, both good (new baby or job promotion) and bad (loss of job or loss of loved one) oOverload: feeling that you have too many responsibilities and can't take care of all of them at once oFeeling helpless or feeling that your problems are beyond what you re able to solve Notice how your body reacts to stress. Learn to listen to your body signals. This will help you take action before the stress becomes severe. When you can, do something about the source of your stress. (Avoid hassles, limit the amount of change that happens in your life at one time and take a break when you feel overloaded). Unfortunately, many stressful situations can't be avoided. It is necessary to learn how to better manage stress. There are many proven methods that will reduce your anxiety. These include simple things like exercise, good nutrition, and adequate rest. Also, there are certain techniques that are helpful: oRelaxation oBreathing exercises oVisualization oBiofeedback oMeditation For more information about this, consult your healthcare provider or go to a local bookstore and review the many books and tapes available on this subject. Follow-up care If you feel that your anxiety is not responding to self-help measures, contact your healthcare provider or make an appointment with a counselor. You may need short-term psychological counseling and temporary medicine to help you manage stress. Call 911 Call 911 if any of these happen: Trouble breathing Confusion Drowsiness or trouble wakening Fainting or loss of consciousness Rapid heart rate Seizure New chest pain that becomes more severe, lasts longer, or spreads into your shoulder, arm, neck, jaw, or back When to seek medical advice Call your healthcare provider right away if any of these happen: Your symptoms get worse Severe headache not relieved by rest and mild pain reliever [id number] [employer]. [address] [place] [address], [place] [address]. All rights reserved. This information is not intended as a substitute for professional medical care. Always follow yourhealthcare professional's instructions. Follow Up Care 09/26/2023 04:02:02 With:LEISA ESQUEDA DO Address: [address] [place] [id number] [phone] When:2-4 days [facility] 03-12-2024 Note Discharge Instructions Thank you for allowing [facility] to assist you with your healthcare needs. The following is importantdischarge information regarding your hospital visit. Diagnosis from Today's Visit Anxiety Shortness of breath SOB - Shortness of breath What to Do Next Instructions from Your Care Team No qualifying data available. Post Acute Orders No qualifying data available. You Need to Schedule the Following Appointments Follow Up with LEISA ESQUEDA DO When Within 2-4 days Where: [address] [place] [id number] [phone] Allergies Bactrim (Rash) Medications Please ask your primary doctor or pharmacist before taking any other medication not listed, including over the counter drugs, herbal medications, vitamins and or supplements as they may interact withyour home medications. What How Much When Why Instructions Last Dose Unchanged omeprazole (omeprazole 20 mg oral delayed release capsule) 1 cap by mouth Once a day GERD (gastroesophageal reflux disease) Unchanged sertraline (sertraline 50 mg oral tablet) 1 tab(s) by mouth Once a day Anxiety take 1 tablet by mouth once daily Please take this list to your next doctor s visit. Bring all medications you take, including over the counter medications, herbals and other supplements with you to your doctor s visit. Patients and families are reminded to discard old lists and to update any records with all medication providers or retail pharmacies. Education Materials Shortness of Breath (Dyspnea) Shortness of breath is the feeling that you can't catch your breath or get enough air. It is also known as dyspnea. Dyspnea can be caused by many different conditions. They include: Acute asthma attack Worsening of chronic lung diseases such as chronic bronchitis and emphysema Heart failure. This is when weak heart muscle allows extra fluid to collect in the lungs. Panic attacks or anxiety. Fear can cause rapid breathing (hyperventilation). Pneumonia, or an infection in the lung tissue Exposure to toxic substances, fumes, smoke, or certain medicines Blood clot in the lung (pulmonary embolism). This is often from a piece of blood clot in a deep vein of the leg (deep vein thrombosis) that breaks off and travels to the lungs. Heart attack or heart-related chest pain (angina) Anemia Collapsed lung (pneumothorax) Dehydration Based on your visit today, the exact cause of your shortness of breath is not certain. Your tests don t show any of the serious causes of dyspnea. You may need other tests to find out if you have a serious problem. It s important to watch for any new symptoms or symptoms that get worse. Follow up with your healthcare provider as directed. Home care Follow these tips to take care of yourself at home: When your symptoms are better, go back to your usual activities. If you smoke, you should stop. Join a quit-smoking program or ask your healthcare provider for help. Eat a healthy diet and get plenty of sleep. Get regular exercise. Talk with your healthcare provider before starting to exercise, especially ifyou have other medical problems. Cut down on the amount of caffeine and stimulants you consume. Follow-up care Follow up with your healthcare provider, or as advised. If tests were done, you will be told if your treatment needs to be changed. You can call as directed for the results. If an X-ray was taken, a specialist will review it. You will be notified of any new findings that may affect your care. Call 911 Shortness of breath may be a sign of a serious medical problem. For example, it may be a problem with your heart or lungs. Call 911 if you have worsening shortness of breath or trouble breathing, especially with any of the symptoms below: Confusion or difficulty waking Fainting or loss of consciousness. Fast or irregular heartbeat Coughing up blood Pain in your chest, arm, shoulder, neck, or upper back Sweating When to seek medical advice Call your healthcare provider right away if any of these occur: Slight shortness of breath or wheezing Redness, pain or swelling in your leg, arm, or other body area Swelling in both legs or ankles Fast weight gain Dizziness or weakness Fever of 100.4 F (38 C) or higher, or as directed by your healthcare provider [id number] [employer]. [address] [place] [address], [place] [address]. All rights reserved. This information is not intended as a substitute for professional medical care. Always follow yourhealthcare professional's instructions. Anxiety Reaction Anxiety is the feeling we all get when we think something bad might happen. It is a normal responseto stress and usually causes only a mild reaction. When anxiety becomes more severe, it can interfere with daily life. In some cases, you may not even be aware of what it is you re anxious about. There may also be a genetic link or it may be a learned behavior in the home. Both psychological and physical triggers cause stress reaction. It's often a response to fear or emotional stress, real or imagined. This stress may come from home, family, work, or social relationships. During an anxiety reaction, you may feel: Helpless Nervous Depressed Irritable Your body may show signs of anxiety in many ways. You may experience: Dry mouth Shakiness Dizziness Weakness Trouble breathing Breathing fast (hyperventilating) Chest pressure Sweating Headache Nausea Diarrhea Tiredness Inability to sleep Sexual problems Home care Try to locate the sources of stress in your life. They may not be obvious. These may include: oDaily hassles of life (such as traffic jams, missed appointments, or car troubles) oMajor life changes, both good (new baby or job promotion) and bad (loss of job or loss of loved one) oOverload: feeling that you have too many responsibilities and can't take care of all of them at once oFeeling helpless or feeling that your problems are beyond what you re able to solve Notice how your body reacts to stress. Learn to listen to your body signals. This will help you take action before the stress becomes severe. When you can, do something about the source of your stress. (Avoid hassles, limit the amount of change that happens in your life at one time and take a break when you feel overloaded). Unfortunately, many stressful situations can't be avoided. It is necessary to learn how to better manage stress. There are many proven methods that will reduce your anxiety. These include simple things like exercise, good nutrition, and adequate rest. Also, there are certain techniques that are helpful: oRelaxation oBreathing exercises oVisualization oBiofeedback oMeditation For more information about this, consult your healthcare provider or go to a local bookstore and review the many books and tapes available on this subject. Follow-up care If you feel that your anxiety is not responding to self-help measures, contact your healthcare provider or make an appointment with a counselor. You may need short-term psychological counseling and temporary medicine to help you manage stress. Call 911 Call 911 if any of these happen: Trouble breathing Confusion Drowsiness or trouble wakening Fainting or loss of consciousness Rapid heart rate Seizure New chest pain that becomes more severe, lasts longer, or spreads into your shoulder, arm, neck, jaw, or back When to seek medical advice Call your healthcare provider right away if any of these happen: Your symptoms get worse Severe headache not relieved by rest and mild pain reliever [id number] [employer]. [address] [place] [address]. All rights reserved. This information is not intended as a substitute for professional medical care. Always follow yourhealthcare professional's instructions. Additional Information VACCINATE! IT SAVES LIVES! Members of the community who have not yet received the COVID-19 vaccine and would like to receive it can visit one of [facility] vaccine clinics. There are many vaccine clinic locations within the [facility]. For locations and available times, please visit [email or web address] It is important to note that some COVID mobile vaccine clinics are held outdoors and may be canceled in rainy or stormy conditions. To learn more about pediatric vaccinations (ages 5-11), we invite you to visit the [facility] webpage. [email or web address] learn more about the COVID-19 vaccine, we invite you to visit the CDC website for a list of frequently asked questions. https://www.cdc.gov/coronavirus/2019-ncov/vaccines/faq.html [email or web address] Patient Portal Access Instructions: Stay connected with your healthcare team and access your personal medical information anytime with the [email or web address] Patient Portal. If you would like a full copy of your medical records please contact the [facility] Medical Records Department Monday through Monday between 8a.m. and 4:30p.m. Please follow the directions below to access the portal: 1.Access the email account you provided upon registration to the [facility].2.Look for an invitation email from [facility].3.Open the email and access the invitation link: Accept Invitation to [facility]4.Fill in the required coe to create your account. Sign into [email or web address] with your username and password that you created in the above steps to stay up to date. You can then view a summary of results, a summary of your visits, and the ability to download your summaries to your computer or send the information securely to a physician. Remember that your healthcare information is confidential, so carefully consider who you will allow to register on the [facility] Patient Portal for access to your information. You can also access the [facility] Patient Portal on the [employer] shyla. Simply click on Health Records under [employer] and then click on the [facility] logo. HOW TO SAFELY DISPOSE OF PRESCRIPTION MEDICATIONS Please use one of the following methods to safely dispose of your unused medications. 1.Use a drug disposal kit: the drug disposal pouch allows you to safely discard your old and unuseddrugs. Ask your nurse to give you one when you are discharged.2.Visit a local take-back location: Many local pharmacies and police departments have programs that collect old and unwanted prescriptiondrugs. Call your local pharmacy or go to http://bit.Zmags/0K6Ic5d to find one close to you.3.Make use of household items: Use cat litter or old coffee grounds to dispose medications if other options arenot available. Mix your drugs with these household products, seal them in an airtight container andthrow it into the garbage. Call [facility]: [phone] to be sure your drugs can be disposed of in this way. Some medicines may require a different approach.4.Never flush your medications down the toilet. IF YOU HAVE BEEN PRESCRIBED AN OPIOIDS FOR PAIN If you have been prescribed an opioid (such as hydrocodone, oxycodone or morphine), it is critical to understand the possible side effects and risks of opioid pain medications. Even when taken as directed, opioids can have several side effects including: Tolerance, meaning you might need to take more of a medication for the same pain relief. Nausea, vomiting and/or constipation. Sleepiness, dizziness, dry mouth, confusion, depression or itching. Physical dependence, meaning you have withdrawal symptoms when a medication is stopped ? this can develop within a few days. KNOW YOUR RESPONSIBILITIES It is important to know exactly how much and how often to take the opioid pain medications you are prescribed. Never take opioids in higher amounts or more often than prescribed. Do not combine opioids with alcohol or other drugs that cause drowsiness, such as benzodiazepines, also known as benzos,including diazepam and alprazolam, muscle relaxants or sleep aids. Never sell or share prescriptionopioids. This is illegal. Store opioids in a secure place and out of reach of others (including children, family, friends and visitors). The last page(s) of this document has been signed and retained as a CHART COPY Signatures Patient Education Materials Shortness of Breath (Dyspnea) Anxiety Reaction Medication Leaflets My discharge plan and instructions have been reviewed and explained to me and I,GERARDO ATKINS understand my current condition and have read and understand these discharge instructions. I have received a written copy of the plan/instructions. If I have questions, I am aware that I should contact my doctor. Patient/Miner Helper Signature: Date/Time: Relationship to Patient: Witness Name/Signature: Date/Time: [facility]03-12-2024 Note ORIGINAL EXAMINATION: TWO XRAY VIEWS OF THE CHEST09/26/2023 4:55 am COMPARISON: Chest radiograph 02/24/2021 HISTORY: ORDERING SYSTEM PROVIDED HISTORY: Reason for Exam: Shortness of breath FINDINGS: The cardiomediastinal silhouette is stable. No focal consolidation or pulmonary edema. No pneumothorax or large volume pleural effusion. No acute osseous abnormalities. IMPRESSION: No acute radiographic findings. I have personally reviewed the images of this examination, and agree with the resident's findings and interpretation. Interpreted by: Bj Tavarez MD Preliminary Report By: Kathya Valencia Electronically signed By Bj Tavarez MD Dictated Date: 09/26/2023 4:58:30 AM Prelim Date: 09/26/2023 4:59:44 AM Sign Date: 09/26/2023 5:04:55 AM [facility]ing [facility] Note Sinus rhythm Left axis deviation Electronic Signature: PEACE BRIGGS MD 09/26/2023 04:43:53[facility] 03-06-2024 Hospital Discharge instructions Patient Education 09/20/2023 02:13:17 Paraesthesias Paraesthesias Paraesthesia is a burning or prickling sensation that is sometimes felt in the hands, arms, legs orfeet. It can also occur in other parts of the body. It can also feel like tingling or numbness, skin crawling, or itching. The feeling is not comfortable, but it is not painful. (The pins and needles feeling that happens when a foot or hand falls asleep is a temporary paraesthesia.) Paraesthesias that last or come and go may be caused by medical issues that need to be treated. These include stroke, a bulging disk pressing on a nerve, a trapped nerve, vitamin deficiencies, uncontrolled diabetes, alcohol abuse, or even certain medicines. Tests are often done. These tests may include blood tests, X-ray, CT (computerized tomography) scan, nerve conduction studies (NCS), or a muscle test (electromyography). Depending on the cause, treatment may include physical therapy. Home care Tell your healthcare provider about all medicines you take. This includes prescription and zvef-sua-kwpqidp medicines, vitamins, and herbs. Ask if any of the medicines may be causing your problems. Don't make any changes to prescription medicines without talking to your healthcare provider first. You may be prescribed medicines to help relieve the tingling feeling or for pain. Take all medicines as directed. A numb hand or foot may be more prone to injury. To help protect it: oAlways use oven mitts. oTest water with an unaffected hand or foot. oUse caution when trimming nails. File sharp areas. oWear shoes that fit well to avoid pressure points, blisters, and ulcers. oInspect your hands and feet carefully (including the soles of your feet and between your toes) daily. If you see red areas, sores, or other problems, tell your healthcare provider. Follow-up care Follow up with your doctor, or as advised. You may need further testing or evaluation. When to seek medical advice Call your healthcare provider right away if any of the following occur: Numbness or weakness of the face, one arm, or one leg Slurred speech, confusion, trouble speaking, walking, or seeing Severe headache, fainting spell, dizziness, or seizure Chest, arm, neck, or upper back pain Loss of bladder or bowel control Open wound with redness, swelling, or pus [id number] [employer]. [address] [place] [address]. All rights reserved. This information is not intended as a substitute for professional medical care. Always follow [facility] professional's instructions. 09/20/2023 02:13:10 MDMA Drug Screen (Urine) MDMA Drug Screen (Urine) Does this test have other names? MDMA urine screening test What is this test? This is a urine test to screen for MDMA, the abbreviation for methylenedioxymethamphetamine (QGXA-udj-jx-FZU-ad-jb-CDNQ-iy-KYZ-tuh-meen). This is a street drug also called Ecstasy. It's a popular drug at raves, dance clubs, and high school parties. Street names for MDMA include E, Shamika, XTC, Rob, clarity, Lauren, lover's speed, and essence. MDMA comes in capsules or tablets. It can also be crushed and snorted or smoked as a powder. MDMA makes the user feel euphoria, emotional warmth and empathy, and a sense of closeness and intimacy. It also reduces normal sexual inhibitions. At typical doses, side effects include nausea, agitation, rapid heartbeat, and high blood pressure. In rare cases, it can bring on life-threatening increases in blood pressure and heart rate. It can also lead to: Seizures Delirium Dehydration Hyperthermia, or dangerously elevated body temperature The hallucinogenic effects of MDMA usually last 3 to 5 hours. But the drug can be found in your urine for longer than that, especially if you are a regular user. This test shows if you have used MDMAin the last 1 to 3 days by finding it in your urine. Drug abuse is a common problem at many workplaces, schools, and sports organizations. It's so widespread that some employers regularly require testing when you apply for a job. Some athletic associations, courts, and drug abuse treatment centers also require drug testing. Why do I need this test? You may need this test if an employer requires you as a job applicant to take this test. Athletes in professional and amateur sports are usually tested for drug use. So are people who have gone to rehab centers to overcome addiction. Emergency rooms often do a drug test if you're injured or unconscious, or a victim of date rape, orthe healthcare staff suspects that you have overdosed. What other tests might I have along with this test? Especially in the case of a suspected drug overdose, your healthcare provider may order other tests. These include: Fingerstick glucose Acetaminophen and salicylate levels Electrocardiogram test People with very high levels of this drug in their system may also have tests to find out if it's causing other problems in their bodies. These include: Serum electrolytes and serum osmolality tests to measure chemicals in your blood Creatine kinase Myoglobin, found in the urine Serum creatinine Serum aminotransferase concentrations Blood-clotting and other coagulation tests, such as activated partial thromboplastin time, prothrombin time, international normalized ratio, platelet count, and D-dimer What do my test results mean? Some drug tests are very sensitive and show a positive result even if you have only a small amount of MDMA in your body. It's possible to get a false-positive. This means the test result is positive even if you do not use MDMA. Talk with your healthcare provider about whether the prescription and ujrq-vka-xcdvhty (OTC) medicines you take could cause a false-positive test result. If your test results are uncertain, your healthcare provider may order a more sensitive test for MDMA. All results from a screening test should be confirmed by a certified lab. How is the test done? The test is done with a blood sample. A needle is used to draw blood from a vein in your arm or hand. Does this test pose any risks? This test poses no known risks. What might affect my test results? Certain prescription and OTC medicines may also give a positive test result. These include pseudoephedrine and certain antidepressants. Tell your healthcare provider if you are taking or using anything that could affect your results. One disadvantage to urine drug tests is that people have found ways to cheat the test. So their test shows a negative result that should be positive because of drug use. Another disadvantage is that surveillance to prevent cheating is intrusive. Some testers insist on being present while people provide a urine sample. This can be embarrassing. Labs can also run tests on the sample to determine whether the sample is valid or if it has been tampered with. How do I get ready for this test? You don't have to prepare for this test. Be sure your healthcare provider knows about all medicines, herbs, vitamins, and supplements you are taking. This includes medicines that don't need a prescription and any illicit drugs you may use. [phone] [employer]. [address] [place] [address]. All rights reserved. This information is not intended as a substitute for professional medical care. Always follow yourhealthcare professional's instructions. Follow Up Care 09/20/2023 02:02:00 With:Go to emergency room if symptoms worsen Address:Unknown When:2-4 days With:LEISA ESQUEDA DO Address: [address] [place] [phone] When:2-4 days [facility] 03-06-2024 Note Discharge Instructions Thank you for allowing [facility] to assist you with your healthcare needs. The following is importantdischarge information regarding your hospital visit. Diagnosis from Today's Visit Ecstasy Hypokalemia Medical screening exam What to Do Next Instructions from Your Care Team Do not take any illicit substances. Drink plenty fluids stay well-hydrated your potassium was low at 3.0 and replaced here. Follow-up with your primary care provider. Return the emergency department if experience worsening symptoms or any other care concern. No qualifying data available. Post Acute Orders No qualifying data available. You Need to Schedule the Following Appointments Follow Up with Go to emergency room if symptoms worsen When Within 2-4 days Follow Up with LEISA ESQUEDA DO When Within 2-4 days Where: [address] [facility] [place] [phone]- [phone] Allergies Bactrim (Rash) Medications Please ask your primary doctor or pharmacist before taking any other medication not listed, including over the counter drugs, herbal medications, vitamins and or supplements as they may interact withyour home medications. What How Much When Why Instructions Last Dose Unchanged omeprazole (omeprazole 20 mg oral delayed release capsule) 1 cap by mouth Once a day GERD (gastroesophageal reflux disease) Unchanged sertraline (sertraline 50 mg oral tablet) 1 tab(s) by mouth Once a day Anxiety take 1 tablet by mouth once daily Please take this list to your next doctor s visit. Bring all medications you take, including over the counter medications, herbals and other supplements with you to your doctor s visit. Patients and families are reminded to discard old lists and to update any records with all medication providers or retail pharmacies. Education Materials Paraesthesias Paraesthesia is a burning or prickling sensation that is sometimes felt in the hands, arms, legs orfeet. It can also occur in other parts of the body. It can also feel like tingling or numbness, skin crawling, or itching. The feeling is not comfortable, but it is not painful. (The pins and needles feeling that happens when a foot or hand falls asleep is a temporary paraesthesia.) Paraesthesias that last or come and go may be caused by medical issues that need to be treated. These include stroke, a bulging disk pressing on a nerve, a trapped nerve, vitamin deficiencies, uncontrolled diabetes, alcohol abuse, or even certain medicines. Tests are often done. These tests may include blood tests, X-ray, CT (computerized tomography) scan, nerve conduction studies (NCS), or a muscle test (electromyography). Depending on the cause, treatment may include physical therapy. Home care Tell your healthcare provider about all medicines you take. This includes prescription and khms-kjj-oxgueco medicines, vitamins, and herbs. Ask if any of the medicines may be causing your problems. Don't make any changes to prescription medicines without talking to your healthcare provider first. You may be prescribed medicines to help relieve the tingling feeling or for pain. Take all medicines as directed. A numb hand or foot may be more prone to injury. To help protect it: oAlways use oven mitts. oTest water with an unaffected hand or foot. oUse caution when trimming nails. File sharp areas. oWear shoes that fit well to avoid pressure points, blisters, and ulcers. oInspect your hands and feet carefully (including the soles of your feet and between your toes) daily. If you see red areas, sores, or other problems, tell your healthcare provider. Follow-up care Follow up with your doctor, or as advised. You may need further testing or evaluation. When to seek medical advice Call your healthcare provider right away if any of the following occur: Numbness or weakness of the face, one arm, or one leg Slurred speech, confusion, trouble speaking, walking, or seeing Severe headache, fainting spell, dizziness, or seizure Chest, arm, neck, or upper back pain Loss of bladder or bowel control Open wound with redness, swelling, or pus [phone] [employer]. [address] [place] [address]. All rights reserved. This information is not intended as a substitute for professional medical care. Always follow yourhealthcare professional's instructions. MDMA Drug Screen (Urine) Does this test have other names? MDMA urine screening test What is this test? This is a urine test to screen for MDMA, the abbreviation for methylenedioxymethamphetamine (BJZM-qng-tk-SDV-kf-gu-JNGH-bb-SKO-tuh-meen). This is a street drug also called Ecstasy. It's a popular drug at raves, dance clubs, and high school parties. Street names for MDMA include E, Shamika, XTC, Rob, clarity, Lauren, lover's speed, and essence. MDMA comes in capsules or tablets. It can also be crushed and snorted or smoked as a powder. MDMA makes the user feel euphoria, emotional warmth and empathy, and a sense of closeness and intimacy. It also reduces normal sexual inhibitions. At typical doses, side effects include nausea, agitation, rapid heartbeat, and high blood pressure. In rare cases, it can bring on life-threatening increases in blood pressure and heart rate. It can also lead to: Seizures Delirium Dehydration Hyperthermia, or dangerously elevated body temperature The hallucinogenic effects of MDMA usually last 3 to 5 hours. But the drug can be found in your urine for longer than that, especially if you are a regular user. This test shows if you have used MDMAin the last 1 to 3 days by finding it in your urine. Drug abuse is a common problem at many workplaces, schools, and sports organizations. It's so widespread that some employers regularly require testing when you apply for a job. Some athletic associations, courts, and drug abuse treatment centers also require drug testing. Why do I need this test? You may need this test if an employer requires you as a job applicant to take this test. Athletes in professional and amateur sports are usually tested for drug use. So are people who have gone to rehab centers to overcome addiction. Emergency rooms often do a drug test if you're injured or unconscious, or a victim of date rape, orthe healthcare staff suspects that you have overdosed. What other tests might I have along with this test? Especially in the case of a suspected drug overdose, your healthcare provider may order other tests. These include: Fingerstick glucose Acetaminophen and salicylate levels Electrocardiogram test People with very high levels of this drug in their system may also have tests to find out if it's causing other problems in their bodies. These include: Serum electrolytes and serum osmolality tests to measure chemicals in your blood Creatine kinase Myoglobin, found in the urine Serum creatinine Serum aminotransferase concentrations Blood-clotting and other coagulation tests, such as activated partial thromboplastin time, prothrombin time, international normalized ratio, platelet count, and D-dimer What do my test results mean? Some drug tests are very sensitive and show a positive result even if you have only a small amount of MDMA in your body. It's possible to get a false-positive. This means the test result is positive even if you do not use MDMA. Talk with your healthcare provider about whether the prescription and ohjg-ywp-nsksasz (OTC) medicines you take could cause a false-positive test result. If your test results are uncertain, your healthcare provider may order a more sensitive test for MDMA. All results from a screening test should be confirmed by a certified lab. How is the test done? The test is done with a blood sample. A needle is used to draw blood from a vein in your arm or hand. Does this test pose any risks? This test poses no known risks. What might affect my test results? Certain prescription and OTC medicines may also give a positive test result. These include pseudoephedrine and certain antidepressants. Tell your healthcare provider if you are taking or using anything that could affect your results. One disadvantage to urine drug tests is that people have found ways to cheat the test. So their test shows a negative result that should be positive because of drug use. Another disadvantage is that surveillance to prevent cheating is intrusive. Some testers insist on being present while people provide a urine sample. This can be embarrassing. Labs can also run tests on the sample to determine whether the sample is valid or if it has been tampered with. How do I get ready for this test? You don't have to prepare for this test. Be sure your healthcare provider knows about all medicines, herbs, vitamins, and supplements you are taking. This includes medicines that don't need a prescription and any illicit drugs you may use. [phone] [employer]. [address] [place] [address]. All rights reserved. This information is not intended as a substitute for professional medical care. Always follow yourhealthcare professional's instructions. Additional Information VACCINATE! IT SAVES LIVES! Members of the community who have not yet received the COVID-19 vaccine and would like to receive it can visit one of [facility] vaccine clinics. There are many vaccine clinic locations within the [facility]. For locations and available times, please visit [email or web address] It is important to note that some COVID mobile vaccine clinics are held outdoors and may be canceled in rainy or stormy conditions. To learn more about pediatric vaccinations (ages 5-11), we invite you to visit the [facility] webpage. [email or web address]/[email or web address]-Iwdxlziaps-[email or web address] stions.htmlTo learn more about the COVID-19 vaccine, we invite you to visit the CDC website for a list of frequently asked questions. https://www.cdc.gov/coronavirus/2019-ncov/vaccines/faq.html [facility] Patient Portal Access Instructions: Stay connected with your healthcare team and access your personal medical information anytime with the [employer] Patient Portal. If you would like a full copy of your medical records please contact the [facility] Medical Records Department Monday through Monday between 8a.m. and 4:30p.m. Please follow the directions below to access the portal: 1.Access the email account you provided upon registration to the [facility].2.Look for an invitation email from [facility].3.Open the email and access the invitation link: Accept Invitation to [facility]4.Fill in the required coe to create your account. Sign into [email or web address] with your username and password that you created in the above steps to stay up to date. You can then view a summary of results, a summary of your visits, and the ability to download your summaries to your computer or send the information securely to a physician. Remember that your healthcare information is confidential, so carefully consider who you will allow to register on the [employer] Patient Portal for access to your information. You can also access the [employer] [facility] Patient Portal on the [employer]. Simply click on Health Records under [employer] and then click on the [employer] logo. HOW TO SAFELY DISPOSE OF PRESCRIPTION MEDICATIONS Please use one of the following methods to safely dispose of your unused medications. 1.Use a drug disposal kit: the drug disposal pouch allows you to safely discard your old and unuseddrugs. Ask your nurse to give you one when you are discharged.2.Visit a local take-back location: Many local pharmacies and police departments have programs that collect old and unwanted prescriptiondrugs. Call your local pharmacy or go to http://[employer]Zmags/0V9Yd2m to find one close to you.3.Make use of household items: Use cat litter or old coffee grounds to dispose medications if other options arenot available. Mix your drugs with these household products, seal them in an airtight container andthrow it into the garbage. Call [facility]: [phone] to be sure your drugs can be disposed of in this way. Some medicines may require a different approach.4.Never flush your medications down the toilet. IF YOU HAVE BEEN PRESCRIBED AN OPIOIDS FOR PAIN If you have been prescribed an opioid (such as hydrocodone, oxycodone or morphine), it is critical to understand the possible side effects and risks of opioid pain medications. Even when taken as directed, opioids can have several side effects including: Tolerance, meaning you might need to take more of a medication for the same pain relief. Nausea, vomiting and/or constipation. Sleepiness, dizziness, dry mouth, confusion, depression or itching. Physical dependence, meaning you have withdrawal symptoms when a medication is stopped ? this can develop within a few days. KNOW YOUR RESPONSIBILITIES It is important to know exactly how much and how often to take the opioid pain medications you are prescribed. Never take opioids in higher amounts or more often than prescribed. Do not combine opioids with alcohol or other drugs that cause drowsiness, such as benzodiazepines, also known as benzos,including diazepam and alprazolam, muscle relaxants or sleep aids. Never sell or share prescriptionopioids. This is illegal. Store opioids in a secure place and out of reach of others (including children, family, friends and visitors). The last page(s) of this document has been signed and retained as a CHART COPY Signatures Patient Education Materials Paraesthesias MDMA Drug Screen (Urine) Medication Leaflets My discharge plan and instructions have been reviewed and explained to me and I,GERARDO ATKINS understand my current condition and have read and understand these discharge instructions. I have received a written copy of the plan/instructions. If I have questions, I am aware that I should contact my doctor. Patient/Miner Helper Signature: Date/Time: Relationship to Patient: Witness Name/Signature: Date/Time: [facility]03-06-2024 NoteSinus rhythm LAD, consider left anterior fascicular block Electronic Signature: BINH COBB DO 09/20/2023 02:24:13[facility] 12-30-2023 Hospital Discharge instructions Patient Education 07/15/2023 00:56:43 Allergic Reaction, Other (General) General Allergic Reactions An allergic reaction is a set of symptoms caused by an allergen. An allergen is something that causes a person s immune system to react. When a person comes in contact with an allergen, it causes thebody to release chemicals. These include the chemical histamine. Histamine causes swelling and itching. It may affect the entire body. This is called a general allergic reaction. Often symptoms affect only 1 part of the body. This is called a local allergic reaction. You are having an allergic reaction. Almost anything can cause one. Different people are allergic to different things. It is usually something that you ate or swallowed, came into contact with by getting or putting it on your skin or clothes, or something you breathed in the air. This can be very annoying and sometimes scary. Most of us think of allergic reactions when we have a rash or itchy skin. Symptoms can include: Itching of the eyes, nose, and roof of the mouth Runny or stuffy nose Watery eyes Sneezing or coughing A blocked feeling in the ear Red, itchy rash called hives Red and purple spots Rash, redness, welts, blisters Itching, burning, stinging, pain Dry, flaky, cracking, scaly skin Severe symptoms include: Swelling of the face, lips, or other parts of the body Hoarse voice Trouble swallowing, feeling like your throat is closing Trouble breathing, wheezing Nausea, vomiting, diarrhea, stomach cramps Feeling faint or lightheaded, rapid heart rate Sometimes the cause may be obvious. But there are so many things that can cause a reaction that youmay not be able to figure out. The most important things to help find your allergen are: Remembering when it started What you were doing at the time or just before that Any activities you were involved in Any new products or contacts Below are some common causes. But remember that almost anything can cause a reaction. You may not even be aware that you came into contact with one of these things: Dust, mold, pollen Plants (common ones are poison boris and poison oak, but there are many others) Animals Foods such as shrimp, shellfish, peanuts, milk products, gluten, and eggs. Also food colorings, flavorings, and additives. Insect bites or stings such as bees, mosquitos, fleas, ticks Medicines such as penicillin, sulfa medicines, amoxicillin, aspirin, and ibuprofen. But any medicine can cause a reaction. Jewelry such as nickel or gold. This can be new, or something you ve worn for a while, including zippers and buttons. Latex such as in gloves, clothes, toys, balloons, or some tapes. Some people allergic to latex may also have problems with foods like bananas, avocados, kiwi, papaya, or chestnuts. Lotions, perfumes, cosmetics, soaps, shampoos, skincare products, nail products Chemicals or dyes in clothing, linen, inclined railway operator, hair dyes, soaps, iodine Many viruses and common colds can cause a rash that is not an allergic reaction. Sometimes it is hard to tell the difference between allergies, sensitivity, or an intolerance to something. This is especially true with food. Many things can cause diarrhea, vomiting, stomach cramps, and skin irritation. Home care The goal of treatment is to help relieve the symptoms and get you feeling better. The rash will usually fade over several days. But it can sometimes last a couple of weeks. Over the next couple of days, there may be times when it is gets a little worse, and then better again. Here are some things to do: If you know what you are allergic to, stay away from it. Future reactions could be worse than this one. Avoid tight clothing and anything that heats up your skin (hot showers or baths, direct sunlight). Heat will make itching worse. An ice pack will relieve local areas of intense itching and redness. To make an ice pack, put ice cubes in a plastic bag that seals at the top. Wrap it in a thin, clean towel. Don t put the ice directly on the skin because it can damage the skin. Oral diphenhydramine is an evcp-rra-ihylevq antihistamine sold at pharmacy and grocery stores. Unless a prescription antihistamine was given, diphenhydramine may be used to reduce itching if large areas of the skin are involved. It may make you sleepy. So be careful using it in the daytime or when going to school, working, or driving. Note: Don t use diphenhydramine if you have glaucoma or if youare a man with trouble urinating due to an enlarged prostate. There are other antihistamines that won t make you so sleepy. These are good choices for daytime use. Ask your pharmacist for suggestions. Don t use diphenhydramine cream on your skin. It can cause a further reaction in some people. To help prevent an infection, don't scratch the affected area. Scratching may worsen the reaction and damage your skin. It can also lead to an infection. Always check the affected for signs of an infection. Call your healthcare provider and ask what you can use to help decrease the itching. To decrease allergic reactions, try the following: Use heat-steam to clean your home Use high-efficiency particulate (HEPA) vacuums and filters Stay away from food and pet triggers Kill any cockroaches Clean your house often Follow-up care Follow up with your healthcare provider, or as advised. If you had a severe reaction today, or if you have had several mild to medium allergic reactions in the past, ask your provider about allergy testing. This can help you find out what you are allergic to. If your reaction included dizziness, fainting, or trouble breathing or swallowing, ask your provider about carrying auto- injectable epinephrine. Call 911 Call 911 if any of these occur: Trouble breathing or swallowing, wheezing Cool, moist, pale skin Shortness of breath Hoarse voice or trouble speaking Confused Very drowsy or trouble awakening Fainting or loss of consciousness Rapid heart rate Feeling of dizziness or weakness or a sudden drop in blood pressure Feeling of doom Feeling lightheaded Severe nausea or vomiting, or diarrhea Seizure Swelling in the face, eyelids, lips, mouth, throat or tongue Drooling When to seek medical advice Call your healthcare provider right away if any of these occur: Spreading areas of itching, redness or swelling Nausea or stomach cramps or abdominal pain Continuing or recurring symptoms Spreading areas of redness, swelling, or itching Signs of infection at the affected site: oSpreading redness oIncreased pain or swelling oFluid or colored drainage from the site oFever of 100.4 F (38 C) or above lasting for 24 to 48 hours, or as directed by your provider [id number] [employer]. [address] [place] [address]. All rights reserved. This information is not intended as a substitute for professional medical care. Always follow yourhealthcare professional's instructions. Follow Up Care 07/15/2023 00:43:33 With:LEISA ESQUEDA DO Address: [address] [place] [phone] When:2-4 days [facility] 12-30-2023 Note Discharge Instructions Thank you for allowing [facility] to assist you with your healthcare needs. The following is importantdischarge information regarding your hospital visit. Diagnosis from Today's Visit Allergic reaction Rash What to Do Next Instructions from Your Care Team No qualifying data available. Post Acute Orders No qualifying data available. You Need to Schedule the Following Appointments Follow Up with LEISA ESQUEDA DO When Within 2-4 days Where: [address] [place] [id number] [phone] Allergies Bactrim (Rash) Medications Please ask your primary doctor or pharmacist before taking any other medication not listed, including over the counter drugs, herbal medications, vitamins and or supplements as they may interact withyour home medications. What How Much When Why Instructions Last Dose New diphenhydrAMINE (diphenhydrAMINE 25 mg oral capsule) 1 cap by mouth Three (3) times a day as needed for for allergy symptoms Duration: 10 Days Printed Prescription New predniSONE (predniSONE 50 mg oral tablet) 1 tab(s) by mouth Once a day Duration: 5 Days Take with food Printed Prescription Unchanged omeprazole (omeprazole 20 mg oral delayed release capsule) 1 cap by mouth Once a day GERD (gastroesophageal reflux disease) Unchanged sertraline (sertraline 50 mg oral tablet) 1 tab(s) by mouth Once a day Anxiety take 1 tablet by mouth once daily Please take this list to your next doctor s visit. Bring all medications you take, including over the counter medications, herbals and other supplements with you to your doctor s visit. Patients and families are reminded to discard old lists and to update any records with all medication providers or retail pharmacies. Medication Leaflets diphenhydramine (DYE fen RL kwan) Allergy (Diphenhydramine HCl), Allergy Relief (Diphenhydramine HCl), Banophen, Benadryl, Benadryl Allergy, Benadryl Children's Allergy, Benadryl Children's Allergy Fastmelt, Benadryl Children's Dye Free, Benadryl DF, Benadryl Dye Free Allergy, Benadryl Fastmelt, Benadryl Ultratab, Children's Allergy, Children's Allergy Relief, Childrens Dye-Free Allergy Relief, Compoz Nighttime Sleep Aid, Diphedryl, Diphenhist, Dormin, Sandra-Dryl, Kindermed Kids' Allergy, M-Dryl, Nytol QuickCaps, Scot-Tussin Allergy Relief Formula, Siladryl Allergy, Silphen Cough, Simply Sleep, Sleep-ettes D, Sleepinal, Sominex, Sominex Maximum Strength, Twilite, Unisom Sleep Gels, Unisom Sleepgels Maximum Strength, Unisom Sl eepMelts, Valu-Dryl, Z-Sleep, ZzzQuil What is the most important information I should know about diphenhydramine? Use this medicine exactly as directed. Taking too much diphenhydramine can lead to serious heart problems, seizures, coma, or . Do not use this medicine to make a child sleepy. Diphenhydramine sleep aid medicine is not for use in children younger than 12 years old. What is diphenhydramine? Diphenhydramine is an antihistamine that is used to treat sneezing, runny nose, watery eyes, hives,skin rash, itching, and other cold or allergy symptoms. Diphenhydramine is also used to treat motion sickness, to induce sleep, and to treat certain symptoms of Parkinson's disease. Diphenhydramine sleep aid medicine is not for use in children younger than 12 years old. There are many brands and forms of diphenhydramine available. Not all brands are listed on this leaflet. Diphenhydramine may also be used for purposes not listed in this medication guide. What should I discuss with my healthcare provider before taking diphenhydramine? You should not use diphenhydramine if you are allergic to it. Ask a doctor or pharmacist if this medicine is safe to use if you have ever had: an enlarged prostate or urination problems; asthma, chronic obstructive pulmonary disease (COPD), or other breathing disorder; glaucoma; or a thyroid disorder. Ask a doctor before using this medicine if you are or . Diphenhydramine may slow breast milk production. How should I take diphenhydramine? Use exactly as directed on the label, or as prescribed by your doctor. Diphenhydramine is only for short-term use until your symptoms clear up. Taking too much diphenhydramine can lead to serious heart problems, seizures, coma, or . Always follow directions on the medicine label about giving diphenhydramine to a child. Do not use the medicine only to make a child sleepy. can occur from the misuse of antihistamines in very young children. For motion sickness, take diphenhydramine 30 minutes before you will be in a situation that causes you motion sickness (such as a long car ride, airplane or boat travel, amusement park rides, etc). Continue taking diphenhydramine with meals and at bedtime for the rest of the time you will be in a motion-sickness situation. As a sleep aid, take diphenhydramine within 30 minutes before bedtime. You must chew the chewable tablet before you swallow it. Measure liquid medicine carefully. Use the dosing syringe provided, or use a medicine dose-measuring device (not a kitchen spoon). Remove an orally disintegrating tablet from the package only when you are ready to take the medicine. Place the tablet in your mouth and allow it to dissolve, without chewing. Swallow several times as the tablet dissolves. Call your doctor if the condition you are treating with diphenhydramine does not improve, or if youhave a fever with a headache, cough, or skin rash. Do not use diphenhydramine for longer than 2 weeks to treat sleep problems, or longer than 7 days to treat cold or allergy symptoms. This medicine can affect the results of allergy skin tests. Tell any doctor who treats you that youare using diphenhydramine. Store at room temperature away from moisture and heat. What happens if I miss a dose? Since diphenhydramine is used when needed, you may not be on a dosing schedule. Skip any missed dose if it's almost time for your next dose. Do not use two doses at one time. What happens if I overdose? Seek emergency medical attention or call the Poison Help line at . An overdose of diphenhydramine can be fatal. Overdose symptoms may include vomiting, confusion, severe drowsiness, ringing in your ears, no urination, very dry eyes and mouth, dilated pupils, fast heartbeats, tremor, agitation, hallucinations, or seizure. What should I avoid while taking diphenhydramine? Avoid driving or hazardous activity until you know how this medicine will affect you. Your reactions could be impaired. Drinking alcohol can increase certain side effects of diphenhydramine. Ask a doctor or pharmacist before using any other medicine that may contain diphenhydramine. This includes medicines for sleep, cold/allergy symptoms, or anti-itch medicine used on the skin. Using too much diphenhydramine may lead to a fatal overdose. What are the possible side effects of diphenhydramine? Get emergency medical help if you have signs of an allergic reaction: hives; difficult breathing; swelling of your face, lips, tongue, or throat. Stop using diphenhydramine and call your doctor at once if you have: severe drowsiness; or painful or difficult urination. Side effects such as dry mouth, constipation, and confusion may be more likely in older adults. Common side effects may include: drowsiness; dry eyes, blurred vision; dry mouth, nose, or throat; decreased urination; constipation; feeling restless or excited (especially in children); or day-time drowsiness or 'hangover' feeling after night-time use. This is not a complete list of side effects and others may occur. Call your doctor for medical advice about side effects. You may report side effects to FDA at 7-400-VDB-8647. What other drugs will affect diphenhydramine? Ask a doctor or pharmacist before using diphenhydramine with any other medicines, especially drugs that can cause drowsiness (such as opioid medication, sleep medicine, a muscle relaxer, or medicine for anxiety or seizures). Tell your doctor about all your current medicines and any medicine you start or stop using. This includes prescription and bbyj-uyj-pzcjidx medicines, vitamins, and herbal products. Not all possible interactions are listed here. Where can I get more information? Your pharmacist can provide more information about diphenhydramine. Remember, keep this and all other medicines out of the reach of children, never share your medicines with others, and use this medication only for the indication prescribed. Every effort has been made to ensure that the information provided by [employer]. ('[employer]') is accurate, up-to-date, and complete, but no guarantee is made to that effect. Drug information contained herein may be time sensitive. [employer] information has been compiled for use by healthcare practitioners and consumers in the [place] and therefore [employer] does not warrant that uses outside of the [place] are appropriate, unless specifically indicated otherwise. [employer] drug information does not endorse drugs, diagnose patients or recommend therapy. [employer] drug information isan informational resource designed to assist licensed healthcare practitioners in caring for their p atients and/or to serve consumers viewing this service as a supplement to, and not a substitute for, the expertise, skill, knowledge and judgment of healthcare practitioners. The absence of a warningfor a given drug or drug combination in no way should be construed to indicate that the drug or drug combination is safe, effective or appropriate for any given patient. [employer] does not assume any responsibility for any aspect of healthcare administered with the aid of information [employer] provides. The information contained herein is not intended to cover all possible uses, directions, precautions, warnings, drug interactions, allergic reactions, or adverse effects. If you have questions about the drugs you are taking, check with your doctor, nurse or pharmacist. Copyright 0478-0759 [employer]. Version: 9.. Revision Date: 02/14/2023. prednisone (PRED antelmo Degroot What is the most important information I should know about prednisone? You should not use prednisone if you have a fungal infection anywhere in your body. You should not stop using prednisone suddenly. Follow your doctor's instructions about tapering your dose. What is prednisone? Prednisone is a steroid that reduces inflammation in the body, and also suppresses your immune system. Prednisone is used to treat many different conditions such as hormonal disorders, skin diseases, arthritis, lupus, psoriasis, allergic conditions, ulcerative colitis, Crohn's disease, eye diseases, lung diseases, asthma, tuberculosis, blood cell disorders, kidney disorders, leukemia, lymphoma, multi ple sclerosis, organ transplant rejection, swelling from a brain tumor or injury. Prednisone may also be used for purposes not listed in this medication guide. What should I discuss with my healthcare provider before taking prednisone? You should not use prednisone if you are allergic to it, or if you have a fungal infection anywherein your body. Steroid medication can weaken your immune system, making it easier for you to get an infection or worsening an infection you already have. Tell your doctor about any illness or infection you've had within the past several weeks. Tell your doctor if you have ever had: heart problems, high blood pressure, or a heart attack; glaucoma or cataracts; herpes infection of the eyes; past or present tuberculosis; a parasite infection that causes diarrhea (such as threadworms); any illness that causes diarrhea; underactive thyroid; diabetes; a stomach ulcer, diverticulitis; a colostomy or ileostomy; osteoporosis or low bone mineral density (steroid medication can increase your risk of bone loss); low levels of calcium or potassium in your blood; cirrhosis or other liver disease; mental illness or psychosis; or a muscle disorder such as myasthenia gravis. Long-term use of steroids may lead to bone loss (osteoporosis), especially if you smoke or drink alcohol, if you do not exercise, or if you do not get enough vitamin D or calcium in your diet. It is not known whether this medicine will harm an unborn baby. Tell your doctor if you are or plan to become . You should not breastfeed while using prednisone. How should I take prednisone? Follow all directions on your prescription label and read all medication guides or instruction sheets. Your doctor may occasionally change your dose. Use the medicine exactly as directed. Prednisone is taken daily or every other day, depending on the condition being treated. You may need to take the medicine at a certain time of day. Follow your doctor's instructions about when and how often to take this medicine. Take with food if prednisone upsets your stomach. Measure liquid medicine carefully. Use the dosing syringe provided, or use a medicine dose-measuring device (not a kitchen spoon). Swallow the delayed-release tablet whole and do not crush, chew, or break it. Prednisone can weaken (suppress) your immune system, and you may get an infection more easily. [place]our doctor if you have signs of infection (fever, weakness, cold or flu symptoms, skin sores, diarrhea, frequent or recurring illness). If you have major surgery or a severe injury or infection, your prednisone dose needs may change. Make sure any doctor caring for you knows you are using this medicine. If you use this medicine long-term, you may need medical tests and vision exams. In case of emergency, wear or carry medical identification to let others know you use a steroid. You should not stop using prednisone suddenly. Follow your doctor's instructions about tapering your dose. Store at room temperature away from moisture, heat, and light. What happens if I miss a dose? Take the medicine as soon as you can, but skip the missed dose if it is almost time for your next dose. Do not take two doses at one time. What happens if I overdose? Seek emergency medical attention or call the Poison Help line at . High doses or long-term use of prednisone can lead to thinning skin, easy bruising, changes in bodyfat (especially in your face, neck, back, and waist), increased acne or facial hair, menstrual problems, impotence, or loss of interest in sex. What should I avoid while taking prednisone? Do not receive a 'live' vaccine while using prednisone. The vaccine may not work as well and may not fully protect you from disease. Live vaccines include measles, mumps, rubella (MMR), polio, rotavirus, typhoid, yellow fever, varicella (chickenpox), zoster (shingles), and nasal flu (influenza) vaccine. Avoid being near people who are sick or have infections. Call your doctor for preventive treatment if you are exposed to chickenpox or measles. These conditions can be serious or even fatal in peoplewho are using steroid medicine. Avoid drinking alcohol. What are the possible side effects of prednisone? Get emergency medical help if you have signs of an allergic reaction: hives; difficult breathing; swelling of your face, lips, tongue, or throat. Call your doctor at once if you have: muscle pain or weakness; blurred vision, tunnel vision, eye pain, or seeing halos around lights; severe depression, changes in personality, unusual thoughts or behavior; bloody or tarry stools, coughing up blood or vomit that looks like coffee grounds; swelling, rapid weight gain, feeling short of breath; irregular heartbeats; severe headache, pounding in your neck or ears; decreased adrenal gland hormones--muscle weakness, tiredness, diarrhea, nausea, menstrual changes, skin discoloration, craving salty foods, and feeling light- headed; or low potassium level--leg cramps, constipation, irregular heartbeats, fluttering in your chest, increased thirst or urination, numbness or tingling, muscle weakness or limp feeling. Prednisone can affect growth in children. Tell your doctor if your child is not growing at a normalrate while using this medicine. Common side effects may include: weight gain (especially in your face or your upper back and torso); increased appetite; mood changes, trouble sleeping; changes in your menstrual periods; problems with memory or thought; muscle or joint pain; weakness; headache, dizziness, spinning sensation; nausea, bloating, loss of appetite; slow wound healing; or acne, increased sweating, thinning skin, bruising, pinpoint spots under your skin. This is not a complete list of side effects and others may occur. Call your doctor for medical advice about side effects. You may report side effects to FDA at 1-578-SYT-6723. What other drugs will affect prednisone? Sometimes it is not safe to use certain medications at the same time. Some drugs can affect your blood levels of other drugs you take, which may increase side effects or make the medications less effective. Tell your doctor about all your current medicines. Many drugs can affect prednisone, especially: bupropion; cyclosporine; digoxin; ketoconazole; an antibiotic; control pills or hormone replacement therapy; a diuretic or 'water pill'; insulin or oral diabetes medicine; a blood thinner--warfarin, Coumadin, Jantoven; or NSAIDs (nonsteroidal anti-inflammatory drugs)--aspirin, ibuprofen (Advil, Motrin), naproxen (Aleve), celecoxib, diclofenac, indomethacin, meloxicam, and others. This list is not complete and many other drugs may affect prednisone. This includes prescription and wqsq-ayq-zchzela medicines, vitamins, and herbal products. Not all possible drug interactions are listed here. Where can I get more information? Your pharmacist can provide more information about prednisone. Remember, keep this and all other medicines out of the reach of children, never share your medicines with others, and use this medication only for the indication prescribed. Every effort has been made to ensure that the information provided by [employer]. ('[employer]') is accurate, up-to-date, and complete, but no guarantee is made to that effect. Drug information contained herein may be time sensitive. [employer] information has been compiled for use by healthcare practitioners and consumers in the [place] and therefore [employer] does not warrant that uses outside of the [place] are appropriate, unless specifically indicated otherwise. [employer] drug information does not endorse drugs, diagnose patients or recommend therapy. [employer] drug information isan informational resource designed to assist licensed healthcare practitioners in caring for their p atients and/or to serve consumers viewing this service as a supplement to, and not a substitute for, the expertise, skill, knowledge and judgment of healthcare practitioners. The absence of a warningfor a given drug or drug combination in no way should be construed to indicate that the drug or drug combination is safe, effective or appropriate for any given patient. [employer] does not assume any responsibility for any aspect of healthcare administered with the aid of information [employer] provides. The information contained herein is not intended to cover all possible uses, directions, precautions, warnings, drug interactions, allergic reactions, or adverse effects. If you have questions about the drugs you are taking, check with your doctor, nurse or pharmacist. Copyright 9446-2500 [employer]. Version: 10.. Revision Date: 10/11/2018. Education Materials General Allergic Reactions An allergic reaction is a set of symptoms caused by an allergen. An allergen is something that causes a person s immune system to react. When a person comes in contact with an allergen, it causes thebody to release chemicals. These include the chemical histamine. Histamine causes swelling and itching. It may affect the entire body. This is called a general allergic reaction. Often symptoms affect only 1 part of the body. This is called a local allergic reaction. You are having an allergic reaction. Almost anything can cause one. Different people are allergic to different things. It is usually something that you ate or swallowed, came into contact with by getting or putting it on your skin or clothes, or something you breathed in the air. This can be very annoying and sometimes scary. Most of us think of allergic reactions when we have a rash or itchy skin. Symptoms can include: Itching of the eyes, nose, and roof of the mouth Runny or stuffy nose Watery eyes Sneezing or coughing A blocked feeling in the ear Red, itchy rash called hives Red and purple spots Rash, redness, welts, blisters Itching, burning, stinging, pain Dry, flaky, cracking, scaly skin Severe symptoms include: Swelling of the face, lips, or other parts of the body Hoarse voice Trouble swallowing, feeling like your throat is closing Trouble breathing, wheezing Nausea, vomiting, diarrhea, stomach cramps Feeling faint or lightheaded, rapid heart rate Sometimes the cause may be obvious. But there are so many things that can cause a reaction that youmay not be able to figure out. The most important things to help find your allergen are: Remembering when it started What you were doing at the time or just before that Any activities you were involved in Any new products or contacts Below are some common causes. But remember that almost anything can cause a reaction. You may not even be aware that you came into contact with one of these things: Dust, mold, pollen Plants (common ones are poison boris and poison oak, but there are many others) Animals Foods such as shrimp, shellfish, peanuts, milk products, gluten, and eggs. Also food colorings, flavorings, and additives. Insect bites or stings such as bees, mosquitos, fleas, ticks Medicines such as penicillin, sulfa medicines, amoxicillin, aspirin, and ibuprofen. But any medicine can cause a reaction. Jewelry such as nickel or gold. This can be new, or something you ve worn for a while, including zippers and buttons. Latex such as in gloves, clothes, toys, balloons, or some tapes. Some people allergic to latex may also have problems with foods like bananas, avocados, kiwi, papaya, or chestnuts. Lotions, perfumes, cosmetics, soaps, shampoos, skincare products, nail products Chemicals or dyes in clothing, linen, inclined railway operator, hair dyes, soaps, iodine Many viruses and common colds can cause a rash that is not an allergic reaction. Sometimes it is hard to tell the difference between allergies, sensitivity, or an intolerance to something. This is especially true with food. Many things can cause diarrhea, vomiting, stomach cramps, and skin irritation. Home care The goal of treatment is to help relieve the symptoms and get you feeling better. The rash will usually fade over several days. But it can sometimes last a couple of weeks. Over the next couple of days, there may be times when it is gets a little worse, and then better again. Here are some things to do: If you know what you are allergic to, stay away from it. Future reactions could be worse than this one. Avoid tight clothing and anything that heats up your skin (hot showers or baths, direct sunlight). Heat will make itching worse. An ice pack will relieve local areas of intense itching and redness. To make an ice pack, put ice cubes in a plastic bag that seals at the top. Wrap it in a thin, clean towel. Don t put the ice directly on the skin because it can damage the skin. Oral diphenhydramine is an xhof-wei-jerzgno antihistamine sold at pharmacy and grocery stores. Unless a prescription antihistamine was given, diphenhydramine may be used to reduce itching if large areas of the skin are involved. It may make you sleepy. So be careful using it in the daytime or when going to school, working, or driving. Note: Don t use diphenhydramine if you have glaucoma or if youare a man with trouble urinating due to an enlarged prostate. There are other antihistamines that won t make you so sleepy. These are good choices for daytime use. Ask your pharmacist for suggestions. Don t use diphenhydramine cream on your skin. It can cause a further reaction in some people. To help prevent an infection, don't scratch the affected area. Scratching may worsen the reaction and damage your skin. It can also lead to an infection. Always check the affected for signs of an infection. Call your healthcare provider and ask what you can use to help decrease the itching. To decrease allergic reactions, try the following: Use heat-steam to clean your home Use high-efficiency particulate (HEPA) vacuums and filters Stay away from food and pet triggers Kill any cockroaches Clean your house often Follow-up care Follow up with your healthcare provider, or as advised. If you had a severe reaction today, or if you have had several mild to medium allergic reactions in the past, ask your provider about allergy testing. This can help you find out what you are allergic to. If your reaction included dizziness, fainting, or trouble breathing or swallowing, ask your provider about carrying auto- injectable epinephrine. Call 911 Call 911 if any of these occur: Trouble breathing or swallowing, wheezing Cool, moist, pale skin Shortness of breath Hoarse voice or trouble speaking Confused Very drowsy or trouble awakening Fainting or loss of consciousness Rapid heart rate Feeling of dizziness or weakness or a sudden drop in blood pressure Feeling of doom Feeling lightheaded Severe nausea or vomiting, or diarrhea Seizure Swelling in the face, eyelids, lips, mouth, throat or tongue Drooling When to seek medical advice Call your healthcare provider right away if any of these occur: Spreading areas of itching, redness or swelling Nausea or stomach cramps or abdominal pain Continuing or recurring symptoms Spreading areas of redness, swelling, or itching Signs of infection at the affected site: oSpreading redness oIncreased pain or swelling oFluid or colored drainage from the site oFever of 100.4 F (38 C) or above lasting for 24 to 48 hours, or as directed by your provider [id number] [employer]. [address] [place] [address]. All rights reserved. This information is not intended as a substitute for professional medical care. Always follow yourhealthcare professional's instructions. Additional Information VACCINATE! IT SAVES LIVES! Members of the community who have not yet received the COVID-19 vaccine and would like to receive it can visit one of [facility] vaccine clinics. There are many vaccine clinic locations within the [facility]. For locations and available times, please visit [email or web address] It is important to note that some COVID mobile vaccine clinics are held outdoors and may be canceled in rainy or stormy conditions. To learn more about pediatric vaccinations (ages 5-11), we invite you to visit the [facility] webpage. [email or web address]/[email or web address] [email or web address] learn more about the COVID-19 vaccine, we invite you to visit the CDC website for a list of frequently asked questions. https://www.cdc.gov/coronavirus/2019-ncov/vaccines/faq.html [facility] Patient Portal Access Instructions: Stay connected with your healthcare team and access your personal medical information anytime with the [facility] Patient Portal. If you would like a full copy of your medical records please contact the [facility] Medical Records Department Monday through Monday between 8a.m. and 4:30p.m. Please follow the directions below to access the portal: 1.Access the email account you provided upon registration to the [facility].2.Look for an invitation email from [facility].3.Open the email and access the invitation link: Accept Invitation to [facility]4.Fill in the required coe to create your account. Sign into [email or web address] with your username and password that you created in the above steps to stay up to date. You can then view a summary of results, a summary of your visits, and the ability to download your summaries to your computer or send the information securely to a physician. Remember that your healthcare information is confidential, so carefully consider who you will allow to register on the [facility] Patient Portal for access to your information. You can also access the [facility] Patient Portal on the [employer] shyla. Simply click on Health Records under [employer] and then click on the [employer] logo. HOW TO SAFELY DISPOSE OF PRESCRIPTION MEDICATIONS Please use one of the following methods to safely dispose of your unused medications. 1.Use a drug disposal kit: the drug disposal pouch allows you to safely discard your old and unuseddrugs. Ask your nurse to give you one when you are discharged.2.Visit a local take-back location: Many local pharmacies and police departments have programs that collect old and unwanted prescriptiondrugs. Call your local pharmacy or go to http://bit.Zmags/3K5Tk5l to find one close to you.3.Make use of household items: Use cat litter or old coffee grounds to dispose medications if other options arenot available. Mix your drugs with these household products, seal them in an airtight container andthrow it into the garbage. Call [facility]: [phone] to be sure your drugs can be disposed of in this way. Some medicines may require a different approach.4.Never flush your medications down the toilet. IF YOU HAVE BEEN PRESCRIBED AN OPIOIDS FOR PAIN If you have been prescribed an opioid (such as hydrocodone, oxycodone or morphine), it is critical to understand the possible side effects and risks of opioid pain medications. Even when taken as directed, opioids can have several side effects including: Tolerance, meaning you might need to take more of a medication for the same pain relief. Nausea, vomiting and/or constipation. Sleepiness, dizziness, dry mouth, confusion, depression or itching. Physical dependence, meaning you have withdrawal symptoms when a medication is stopped ? this can develop within a few days. KNOW YOUR RESPONSIBILITIES It is important to know exactly how much and how often to take the opioid pain medications you are prescribed. Never take opioids in higher amounts or more often than prescribed. Do not combine opioids with alcohol or other drugs that cause drowsiness, such as benzodiazepines, also known as benzos,including diazepam and alprazolam, muscle relaxants or sleep aids. Never sell or share prescriptionopioids. This is illegal. Store opioids in a secure place and out of reach of others (including children, family, friends and visitors). The last page(s) of this document has been signed and retained as a CHART COPY Signatures Patient Education Materials Allergic Reaction, Other (General) Medication Leaflets diphenhydramine, prednisone My discharge plan and instructions have been reviewed and explained to me and I,GERARDO ATKINS understand my current condition and have read and understand these discharge instructions. I have received a written copy of the plan/instructions. If I have questions, I am aware that I should contact my doctor. Patient/Miner Helper Signature: Date/Time: Relationship to Patient: Witness Name/Signature: Date/Time: [facility]10-31-2021 Hospital Discharge instructions Patient Education 05/16/2021 15:55:21 Abdominal Pain, Unknown Cause, (Female) Unknown Causes of Abdominal Pain (Female) The exact cause of your belly (abdominal) pain is not clear. This does not mean that this is something to worry about. Everyone likes to know the exact cause of the problem. But sometimes with belly pain, there is no clear-cut cause, and this could be a good thing. The good news is that your symptoms can be treated, and you will feel better. Your condition does not seem serious now. But sometimes the signs of a serious problem may take more time to appear. For this reason, it is important for you to watch for any new symptoms, problems, or worsening of your condition. Over the next few days, the abdominal pain may come and go. Or it may be constant. Other common symptoms can include nausea and vomiting. Sometimes it can be difficult to tell if you feel nauseous. You may just feel bad and not connect that feeling to nausea. Constipation, diarrhea, and a fever maygo along with the pain. The pain may continue even if treated correctly over the following days. Depending on how things go, sometimes the cause can become clear and may need more or different treatment. Additional evaluations, medicines, or tests may also be needed. Home care Your healthcare provider may prescribe medicine for pain, symptoms, or an infection. Follow the healthcare provider's instructions for taking these medicines. General care Rest as much as you can until your next exam. No strenuous activities. Try to find positions that ease discomfort. A small pillow placed on the abdomen may help relieve pain. Something warm on your abdomen (such as a heating pad) may help, but be careful not to burn yourself. Diet Don t force yourself to eat, especially if having cramps, vomiting, or diarrhea. Water is important so you don't get dehydrated. Soup may also be good. Sports drinks may also help,especially if they are not too acidic. Don't drink sugary drinks as this can make things worse. Take liquids in small amounts. Don t guzzle them. Caffeine sometimes makes the pain and cramping worse. Don t take dairy products if you have vomiting or diarrhea. Don't eat large amounts at a time. Wait a few minutes between bites. Eat a diet low in fiber (called a low-residue diet). Foods allowed include refined breads, white rice, fruit and vegetable juices without pulp, tender meats. These foods will pass more easily throughthe intestine. Don t have whole-grain foods, whole fruits and vegetables, meats, seeds and nuts, fried or fatty foods, dairy, alcohol and spicy foods until your symptoms go away. Follow-up care Follow up with your healthcare provider, or as advised, if your pain does not begin to improve in the next 24 hours. Call 911 Call 911 if any of these occur: Trouble breathing Confusion Fainting or loss of consciousness Rapid heart rate Seizure When to seek medical advice Call your healthcare provider right away if any of these occur: Pain gets worse or moves to the right lower abdomen New or worsening vomiting or diarrhea Swelling of the abdomen Unable to pass stool for more than 3 days Fever of 100.4 F (38 C) or higher, or as directed by your healthcare provider. Blood in vomit or bowel movements (dark red or black color) Yellow color of eyes and skin (jaundice) Weakness, dizziness Chest, arm, back, neck, or jaw pain Unexpected vaginal bleeding or missed period Can't keep down liquids or water and you are getting dehydrated [id number] [employer]. [address] [place] [address]. All rights reserved. This information is not intended as a substitute for professional medical care. Always follow yourhealthcare professional's instructions. 05/16/2021 15:55:06 VOMITING (6y-Adult) Vomiting [6Yr-Adult] Vomiting is a common symptom that may be due to different causes. These include gastroenteritis (stomach flu), food poisoning and gastritis. There are other more serious causes of vomiting which may be hard to diagnose early in the illness. Therefore, it is important to watch for the warning signs listed below. The main danger from repeated vomiting is dehydration. This is due to excess loss of water and minerals from the body. When this occurs, body fluids must be replaced. Home Care: If symptoms are severe, rest at home for the next 24 hours. You may use acetaminophen (Tylenol) or ibuprofen (Motrin, Advil) to control fever, unless another medicine was prescribed. [NOTE : If you have chronic liver or kidney disease or ever had a stomach ulcer or GI bleeding, talk with your doctor before using these medicines.] (Aspirin should never be used in anyone under 18 years of age who is ill with a fever. It may cause severe liver damage.) Avoid tobacco and alcohol use, which may worsen your symptoms. If medicines for vomiting were prescribed, take as directed. Once vomiting stops, then follow these guidelines: During The First 12-24 Hours follow the diet below: FRUIT JUICES: Apple, grape juice, clear fruit drinks, and electrolyte replacement drinks. BEVERAGES: Soft drinks without caffeine; mineral water (plain or flavored), decaffeinated tea and coffee. SOUPS: Clear broth, consomm and bouillon DESSERTS: Plain gelatin, popsicles and fruit juice bars. As you feel better, you may add 6-8 ouncesof yogurt per day. During The Next 24 Hours you may add the following to the above: Hot cereal, plain toast, bread, rolls, crackers Plain noodles, rice, mashed potatoes, chicken noodle or rice soup Unsweetened canned fruit (avoid pineapple), bananas Limit caffeine and chocolate. No spices or seasonings except salt. During The Next 24 Hours Gradually resume a normal diet, as you feel better and your symptoms lessen. Follow Up with your doctor as advised if you are not improving over the next 2-3 days. Get Prompt Medical Attention if any of the following occur: Constant right-sided lower abdominal pain or increasing general abdominal pain Continued vomiting (unable to keep liquids down) for 24 hours Frequent diarrhea (more than 5 times a day); blood (red or black color) or mucus in diarrhea Reduced urine output or extreme thirst Weakness, dizziness or fainting Unusually drowsy or confused Fever of 100.4 F (38 C) oral or higher, not better with fever medication Yellow color of the eyes or skin [id number] [employer]. [address] [place] [id number]. All rights reserved. This information is not intended as a substitute for professional medical care. Always follow yourhealthcare professional's instructions. 05/16/2021 15:55:02 DIET, Vomiting or Diarrhea [6yr-Adult] Diet for Vomiting or Diarrhea (Adult) Once the vomiting stops, then... During the first 12 to 24 hours follow the diet below: BEVERAGES: Plain water, sport drinks like Gatorade, soft drinks without caffeine; mineral water (plain or flavored); clear fruit juices, decaffeinated tea and coffee. SOUPS: Clear broth, consomm , and bouillon DESSERTS: Plain gelatin (Jell-O), popsicles and fruit juice bars. As you feel better, you may add 6-8 oz of yogurt per day. During the next 24 hours you may add the following to the above: Hot cereal, plain toast, bread, rolls, crackers Plain noodles, rice, mashed potatoes, chicken noodle or rice soup Unsweetened canned fruit (avoid pineapple), bananas Limit fat intake to less than 15 grams per day by avoiding margarine, butter, oils, mayonnaise, sauces, gravies, fried foods, peanut butter, meat, poultry, and fish. Limit fiber; avoid raw or cooked vegetables, fresh fruits (except bananas), and bran cereals. Limit caffeine and chocolate. No spices or seasonings except salt. During the next 24 hours Gradually resume a normal diet, as you feel better and your symptoms lessen. 0471-[address] [employer] [place] [address]. All rights reserved. This information is not intended as a substitute for professional medical care. Always follow yourhealthcare professional's instructions. Follow Up Care 05/16/2021 10:41:04 With:LEISA ESQUEDA DO Address: When:2-4 days With:Go to emergency room if symptoms worsen Address:Unknown When:2-4 days [facility] 10-31-2021 Evaluation + Plan note Diagnostic Tests Pending * Urine Culture 05/16/21 [facility] Evaluation + Plan note Future Appointments Appointment Date:09/28/2023 11:00:00 AM Scheduled Provider:LEISA ESQUEDA DO Location:[facility] Appointment Type:PC OV ED Follow Up [facility] Evaluation + Plan note Future Appointments Appointment Date:09/29/2023 02:00:00 PM Scheduled Provider:LEISA ESQUEDA DO Location:[facility] Appointment Type:PC OV [facility] Evaluation + Plan note Future Appointments Appointment Date:01/23/2025 02:00:00 PM Scheduled Provider:LEISA ESQUEDA DO Location:[facility] Appointment Type:PC OV ED Follow Up Future Scheduled Tests Laboratory* Thyroid Stimulating Hormone 02/21/24 * Lipid Profile 02/21/24 * Hepatitis C Antibody IgG 02/21/24 * Vitamin D Level 02/21/24 * Complete Metabolic Panel 02/21/24 Radiology* US OB Limited 09/30/24 [facility] Evaluation + Plan note Future Appointments Appointment Date:03/06/2025 12:30:00 PM Scheduled Provider:LEISA ESQUEDA DO Location:[facility] Appointment Type:PC OV Future Scheduled Tests Laboratory* Thyroid Stimulating Hormone 02/21/24 * Lipid Profile 02/21/24 * Hepatitis C Antibody IgG 02/21/24 * Vitamin D Level 02/21/24 * Complete Metabolic Panel 02/21/24 Radiology* US OB Limited 09/30/24 [facility] Evaluation noteNo assessment information available [facility] Work Phone: Hospital course Narrative No data available for this section [facility] Reason for referral (narrative)No reason for referral [facility] Work [facility]: Summary Purpose Family History No Family History Records Found No data available for this section No data available for this section No data available for this section No data available for this section No Family History Records Found No data available for this section No data available for this section No Family History Records FoundNo Family History Records Found Advance Directives No Advanced Directives Records Found Advance Directive Response Recorded Date/ Time Do you have a Healthcare Power of Counselor Nurses' Association? No February 11, 2025 1:30am Advance Directive Response Recorded Date/ Time Do you have a Healthcare Power of Counsel[employer]? No February 24, 2025 11:48am Do you have a Healthcare Power of Counsel[employer]? No February 11, 2025 1:30am Advance Directive Response Recorded Date/ Time Do you have a Healthcare Power of Counsel[employer]? No February 24, 2025 11:48am Do you have a Healthcare Power of Counsel[employer]? No March 03, 2025 10:25pm Do you have a Healthcare Power of Counsel[employer]? No February 11, 2025 1:30am Chief Complaint and Reason for Visit Chief Complaint Admit Date ANXIETY February 11, 2025 1:26 am Chief Complaint Admit Date ANXIETY February 11, 2025 1:26 am ANXIETY February 24, 2025 11 :39am Chief Complaint Admit Date ANXIETY February 11, 2025 1:26 am ANXIETY February 24, 2025 11 :39am ANXITEY March 03, 2025 9: 34pm Additional Source Comments INFORMATION SOURCE (unrecogn ized section and content) DATE CREATED AUTHOR 05/18/2018 [facility] DATE CREATED AUTHOR AUTHOR'S ORGANIZ ATION 10/02/2023 [facility] ([place]) DATE CREATED AUTHOR AUTHOR'S ORGANIZ ATION 02/17/2025 [facility] DATE CREATED AUTHOR AUTHOR'S ORGANIZ ATION 03/10/2025 [facility] Patient Care team informatio n (unrecognized section and content) Team Status: Active Member Role/Relationship Status Dates Dr. Leisa Esqueda DO Primary Care Provider Active Team Status: Inactive Member Role/Relationship Status Dates Dr. Tonny Vallejo MD Emergency Provider Active Start: February 11, 2025 End: February 11, 2025 Dr. Leisa Esqueda DO Primary Care Provider Active Start: February 11, 2025 End: February 11, 2025 Team Status: Inactive Member Role/Relationship Status Dates Dr. Tonny Vallejo MD Attending Provider Active Start: February 11, 2025 End: February 11, 2025 Dr. Tonny Vallejo MD Emergency Provider Active Start: February 11, 2025 End: February 11, 2025 Dr. Leisa Esqueda DO Primary Care Provider Active Start: February 11, 2025 End: February 11, 2025 Team Status: Inactive Member Role/Relationship Status Dates Dr. Leisa Esqueda DO Primary Care Provider Active Start: February 24, 2025 End: February 24, 2025 Dr. Gutierrez Yee MD Emergency Provider Active Sta rt: February 24, 2025 End: February 24, 2025 Team Status: Inactive Member Role/Relationship Status Dates Dr. Leisa Esqueda DO Primary Care Provider Active Start: February 24, 2025 End: February 24, 2025 Dr. Gutierrez Yee MD Attending Provider Active Sta rt: February 24, 2025 End: February 24, 2025 Dr. Gutierrez Yee MD Emergency Provider Active Sta rt: February 24, 2025 End: February 24, 2025 Team Status: Inactive Member Role/Relationship Status Dates Dr. Leisa Esqueda , Primary Care Provider Active Start: March 03, 2025 End: March 04, 2025 Dr. Alex Marino DO Emergency Provider Active Start: March 03, 2025 End: March 04, 2025 Goals (unrecognized section and content) Goals may be documented in a n alternate section FOR RECORDS PERTAINING TO PATIENTS WHO ARE OR HAVE BEEN ENROLLED IN A CHEMICAL DEPENDENCY/SUBSTANCEABUSE PROGRAM, SOME INFORMATION MAY BE OMITTED. This clinical summary was aggregated from multiple sources. Caution should be exercised in using it in the provision of clinical care. This summary normalizes information from multiple sources, and as a consequence, information in this document may materially change the coding, format and clinical context of patient data. In addition, data may be omitted in some cases. CLINICAL DECISIONS SHOULD BE BASED ON THE PRIMARY CLINICAL RECORDS. [facility] [employer] [facility]. provides no warranty or guarantee of the accuracy or completeness of information in this document.
[2025-03-17 02:26] VITALS: BP 130/74; PULSE 70; RESP 18; TEMP 36.7; O2SAT 100
== END 2025-03-17 02:28 | disposition home or self-care (01) ==
PROVIDERS: Emergency Provider Emergency Medicine; PCP Family Medicine; Visit Provider Emergency Medicine
DX: F41.0 Panic disorder [episodic paroxysmal anxiety] (principal); F41.1 Generalized anxiety disorder; Z79.899 Other long term (current) drug therapy; F17.290 Nicotine dependence, other tobacco product, uncomplicated
CPT/HCPCS: 99282

== ENCOUNTER 2025-04-28 23:51 | Emergency (ER) | payer MEDICAID, SELFPAY ==
[2025-04-28 23:52] VITALS: BP 133/96; PULSE 146; RESP 24; TEMP 36.6; O2SAT 99; BMI 32.5
--- NOTE | 2025-04-29 00:43 | EX.ED.DYSGE1 ---
HPI History of Present Illness Chief Complaint: Anxiety Informant: patient Narrative Narrative: Patient is a 20-year-old female with past medical history of anxiety. She states she takes paroxetine daily and hydroxyzine for breakthrough symptoms. She states that this evening she did use meth and after doing so began to feel like her heart was racing and her anxiety was worsening. She states that she took hydroxyzine without any symptom improvement. She states symptoms are improving but not gone and secondary to this she comes in for evaluation. She admits to the methamphetamine use but states there is no excessive nicotine or caffeine use. PFSH PFS Medical History Anxiety Home Medications ?Medication ?Instructions ?Recorded ?Last Taken ?Type hydroxyzine pamoate 25 mg capsule 25 mg PO 4X/DAY PRN PRN anxiety 02/24/25 02/23/25 History paroxetine HCl 40 mg tablet 40 mg PO DAILY mood 02/24/25 02/23/25 History hydroxyzine pamoate 25 mg capsule 25 mg PO Q6H PRN anxiety #20 caps 03/17/25 Unknown Rx (Vistaril) Allergy/AdvReac Type Severity Reaction Status Date / Time sulfamethoxazole (From Allergy Rash Verified 04/28/25 23:52 Bactrim) trimethoprim (From Bactrim) Allergy Rash Verified 04/28/25 23:52 Surgical History Hx of tonsillectomy Social History Smoking Status: Current every day smoker tobacco type: e-cigarettes ROS ROS ED Constitutional Constitutional ED: Denies chills or fever(s) Eyes Eyes: Denies blurry vision or change in vision ENT ENT ED: Denies sore throat Cardiovascular Cardiovascular: Reports palpitations and racing heartbeat; Denies chest pain Respiratory/Chest Respiratory/Chest: Denies cough or dyspnea Gastrointestinal Gastrointestinal: Denies abdominal pain, diarrhea, nausea or vomiting Genitourinary Genitourinary ED: Denies dysuria Musculoskeletal Musculoskeletal: Denies myalgias Integumentary Denies rash Neurologic Neurologic: Reports paresthesias; Denies headache(s) Psychiatric Psychiatric: Reports anxiety; Denies suicidal ideation or suicidal thoughts Hematologic/Lymphatic Hematologic/Lymphatic: Denies easy bleeding or easy bruising EXAM Physical Exam Const Vital Signs: 04/28/25 23:52 04/29/25 00:50 Temperature 98 F 98.0 F Temperature Source Temporal Pulse Rate 146 H 110 H Respiratory Rate 24 H 18 Blood Pressure 133/96 H 128/60 H Blood Pressure Mean 108 82 Pulse Ox 99 100 Oxygen Delivery Method Room Air Positive well nourished and well developed General Appearance ED: well developed; Negative for pallor HEENT HEENT Narrative: Normocephalic atraumatic No tongue or lip swelling no oral lesions no airway edema or compromise Eyes PERRL and EOMs intact bilaterally General Eye ED: Negative for scleral icterus Neck supple and no JVD Resp normal respiratory effort and clear to auscultation bilaterally Resp Narrative: No nasal flaring retractions tachypnea accessory muscle use or stridor noted Cardio regular rhythm Rate: tachycardic and other Other Details: Tachycardic rate with regular rhythm Radial and carotid pulses are equal and symmetric GI normal to inspection, nondistended, normoactive bowel sounds, non-tender, non-distended and no masses Auscultation: normoactive bowel sounds Palpation: soft Extremity normal to inspection Extremity Narrative: No asymmetric edema no pitting edema negative Homans' sign bilaterally Neuro oriented x3, CN's II-XII intact bilaterally and no sensory deficits noted Neuro Narrative: GCS of 15 Cranial nerves II through XII are grossly intact without focal neurologic deficit No pronator drift no dysmetria no truncal ataxia NIH stroke scale score of 0 Sensorium / Orientation: alert Motor Exam: strength 5/5 throughout Psych Psych Narrative: Positive anxious affect without homicidal or suicidal ideation Mood & Affect: anxious Skin no rashes or lesions noted and no wounds General Skin Exam: Negative for jaundice or pallor MDM MDM MDM Narrative Medical decision making narrative: Patient arrived to the ER tachycardic and mildly tachypneic but otherwise with stable vitals and no signs of hypoxia. She has a known history of anxiety and states she did use methamphetamine prior to the onset of her symptoms. The fact that she reported paresthesias and contractures would correlate with hyperventilation. At this time she has had spontaneous improvement of symptoms. And vital signs are improved. We discussed placing an IV given IV hydration and checking basic labs such as blood volume and electrolytes and thyroid marker to rule out any other potential causes as well as an EKG. the patient's rate is still tachycardic but it is regular going against A-fib or a flutter. She states she feels like she needs something stronger than her hydroxyzine to calm down. Therefore I provided IM Ativan. On reevaluation she reports improvement of symptoms. She is not homicidal or suicidal so there is no need for psychiatric evaluation. Therefore with a cause for her breakthrough anxiety and the methamphetamine and improvement of symptoms with time as well as medication I do not feel need for further workup and she is otherwise safe for discharge. History & Record Review Discussion w/independent historian: Patient and Friend Discharge Plan Triage Chief Complaint: Anxiety ED Provider: David Morris Dx/Rx/DC Orders Clinical Impression: Anxiety reaction, Methamphetamine use Instructions: ED Anxiety Reaction Prescriptions: No Action paroxetine HCl 40 mg tablet 40 mg PO DAILY hydroxyzine pamoate 25 mg capsule 25 mg PO 4X/DAY PRN PRN (Reason: anxiety) hydroxyzine pamoate [Vistaril] 25 mg capsule 25 mg PO Q6H PRN (Reason: anxiety) Qty: 20 0RF Primary Care Provider: Constanza Winslow Referrals: Constanza Winslow DO [Primary Care Provider, Medical] Activity Restrictions/Additional Instructions: Your history and exam is consistent with anxiety exacerbation. Your fast breathing caused you to blow off a waste product of carbon dioxide which led to numbness and tingling and contracture. Please continue all of your home medication as directed by your doctor. The symptoms that you had this evening will resolve with time. Return to the ER should you have any further concerns Print Language: Montenegrin Disposition Disposition: Home, Self Care Discharge Date/Time: 04/29/25 00:51
[2025-04-29 00:50] VITALS: BP 128/60; PULSE 110; RESP 18; TEMP 36.7; O2SAT 100
== END 2025-04-29 00:51 | disposition home or self-care (01) ==
PROVIDERS: Emergency Provider Emergency Medicine; PCP Family Medicine; Visit Provider Emergency Medicine
DX: F41.1 Generalized anxiety disorder (principal); F15.90 Other stimulant use, unspecified, uncomplicated; Z79.899 Other long term (current) drug therapy; F17.290 Nicotine dependence, other tobacco product, uncomplicated
CPT/HCPCS: 96372; 99282

== ENCOUNTER 2025-06-05 13:48 | Emergency (ER) | payer MEDICAID, SELFPAY ==
[2025-06-05 13:49] VITALS: BP 106/83; PULSE 105; RESP 16; TEMP 36.6; O2SAT 97; BMI 32.5
--- NOTE | 2025-06-05 14:27 | EX.ED.VIS.UR ---
HPI HPI - URI History of Present Illness Chief Complaint: Cold Sx Narrative Narrative: 20-year-old female past medical history of anxiety presents for evaluation of cold symptoms/URI that she has had for the last week. She states it started out with a very bad sore throat which has improved. She has had nasal congestion and rhinorrhea as well. However, over the last few days, she has developed hoarseness of her voice. She has an occasional cough, denies any fevers or chills, no nausea or vomiting. No difficulty breathing. She states that she works in a [place] and cannot be sick when she is around patients. She presents for evaluation of her upper respiratory infection type symptoms that have been ongoing for at least a week. ROS ROS ED ROS Narrative Review of systems positive for sore throat, hoarse voice, runny nose and nasal congestion. No fevers or chills, no nausea or vomiting, no other symptoms. PFSH PFSH Medical History Anxiety Home Medications Medication Instructions Recorded Last Taken Type hydroxyzine pamoate 25 mg capsule 25 mg PO 4X/DAY PRN PRN anxiety 02/24/25 02/23/25 History paroxetine HCl 40 mg tablet 40 mg PO DAILY mood 02/24/25 02/23/25 History hydroxyzine pamoate 25 mg capsule 25 mg PO Q6H PRN anxiety #20 caps 03/17/25 Unknown Rx (Vistaril) Allergy/AdvReac Type Severity Reaction Status Date / Time buspirone (From BuSpar) Allergy Hives Verified 06/05/25 13:51 sulfamethoxazole (From Allergy Rash Verified 06/05/25 13:51 Bactrim) trimethoprim (From Bactrim) Allergy Rash Verified 06/05/25 13:51 Surgical History Hx of tonsillectomy Social History Smoking Status: Current every day smoker tobacco type: e-cigarettes EXAM Physical Exam Narrative Exam Narrative: Afebrile. Vital signs noted. Nontoxic-appearing. Cardiovascular examination reveals a regular rate and rhythm on my examination. Lungs are clear to auscultation bilaterally. Abdomen soft and nontender with positive bowel sounds. Neurological examination nonfocal, nonlateralizing. HEENT examination does show hoarse voice consistent with laryngitis. Minimal pharyngeal erythema. Airway patent, no drooling or trismus. Neck soft and supple without meningismus. Full range of motion without pain. Const Vital Signs: 06/05/25 13:49 Temperature 98 F Temperature Source Temporal Pulse Rate 105 H Respiratory Rate 16 Blood Pressure 106/83 H Blood Pressure Mean 90 Pulse Ox 97 Oxygen Delivery Method Room Air MDM MDM MDM Narrative Medical decision making narrative: The differential diagnosis includes but not limited to COVID versus influenza versus viral syndrome versus strep pharyngitis with laryngitis versus postnasal drip causing her symptoms as well. She is afebrile here. I do feel that given her continued upper respiratory infection type symptoms that she should continue [id number] medications. She was swabbed for strep in the event that she would require antibiotics but she states that her sore throat is improving. 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 I reviewed her respiratory swabs and she is negative for COVID, influenza, and RSV. Rapid strep is negative. I do not feel she needs antibiotics. Treatment be symptomatic with [id number] medications and voice rest. She was written a note to be off work for Monday and Monday and follow-up with her primary care provider in 3 to 5 days if not improving. Disposition is discharged home in stable condition. History & Record Review Discussion w/independent historian: Patient Discharge Plan Triage Chief Complaint: Cold Sx ED Provider: Juvenal Doshi Dx/Rx/DC Orders Clinical Impression: URI (upper respiratory infection), Laryngitis Instructions: ED Laryngitis, ED URI, Viral, No Abx (Adult) Prescriptions: No Action paroxetine HCl 40 mg tablet 40 mg PO DAILY hydroxyzine pamoate 25 mg capsule 25 mg PO 4X/DAY PRN PRN (Reason: anxiety) hydroxyzine pamoate [Vistaril] 25 mg capsule 25 mg PO Q6H PRN (Reason: anxiety) Qty: 20 0RF Stand Alone Forms: ED Work / School Excuse Primary Care Provider: Constanza Winslow Referrals: Constanza Winslow, [Primary Care Provider, Medical] - 3-5 Days if not improving Activity Restrictions/Additional Instructions: Continue [id number] medications as needed for pain. Return with new or worsening symptoms. Follow-up with your primary care provider. Print Language: Malaysian Disposition Disposition: Home, Self Care
[2025-06-05 15:30] VITALS: BP 121/78; PULSE 71; RESP 16; TEMP 37.2; O2SAT 99
--- OUTSIDE RECORDS SUMMARY | 2025-06-05 19:12 | XMS RPT_ITS | CCD ---
Author Organization [facility] Care Team Providers Care Gold Marker Name Role Phone LEISA WINSLOW DO Primary Care Physician [phone] JOSH MENDOZA, DR MIXON Attending Unavailaretha e LEISA WINSLOW DO Primary Care Unavailable KAJAL MENDOZA, ANDRZEJ Kruger Attending Unavail able LEISA WINSLOW DO Primary Care Unavailable BINH COBB DO Attending Unavailable LEISA WINSLOW DO Primary Care Unavailable BRIGITTE MENDOZA, PEACE Arias Attending Unavailable NAYLA SCHNEIDER, LEISA Primary Care Unavailable LEISA WINSLOW DO Primary Care Physician [phone] Dr. Tonny Vallejo MD Emergency Provider Dr. Leisa Winslow DO Primary Care Provider [phone] Dr. Tonny Vallejo MD Attending Provider Dr. Gutierrez Yee MD Emergency Provider Dr. Gutierrez Yee MD Attending Provider Dr. Alex Marino DO Emergency Provider Dr. Alex Marino DO Attending Provider Dr. Susu Vasquez DO Emergency Provider Leisa Winslow Primary Care Unavailable Susu Vasquez Attending Unavailable Leisa Winslow Primary Care Unavailable David Morris Attending Unavailable Nayla Leisa Primary Care Unavailable Alex Marino Attending Unavailable Tonny Vallejo Attending Unavailable NaylaLeisa burger Primary Care Unavailable Leisa Winslow Primary Care Unavailable Gutierrez Yee Attending Unavailable LEISA WINSLOW DO Primary Care Unavailable GABRIELA MENDOZA, DR JOSEPH Chaudhary Attending ADALGISA Abebe MD Attending Unavailable NAYLA SCHNEIDER, LEISA Primary Care Unavailable NAYLA SCHNEIDER, LEISA Primary Care Unavailable OMKAR RG Attending Unavailable NAYLA SCHNEIDER, LEISA Primary Care Unavailable ERNESTO SCHNEIDER, DR DOMENICA Russ Attending Unavailable Genevieve MENDOZA, Dr. Lancaster Attending Physician Genevieve MENDOZA, Dr. Lancaster Emergency Department Phys ician Nayla SCHNEIDER, Dr. Apodaca Primary Care Physician Joselito MENDOZA, Dr. Whitley Attending Physician Joselito MENDOZA, Dr. Whitley Emergency Department Physician Ned SCHNEIDER, Dr. Johnson Attending Physician Ned SCHNEIDER, Dr. Johnson Emergency Department Physi faby Godpete SCHNEIDER, Dr. Cristobal Attending Physician Dr. Susu Vasquez DO Emergency Department Physi faby Arturo SCHNEIDER, Dr. Hernandez Attending Physician Dr. David Morris DO Emergency Department Physic damien OMKAR BARONE Admitting Unavailable OMKAR BARONE Attending Unavailable OMKAR BARONE Primary Care Unavailable JALYN ANDERSON DO Attending Unavailable JALYN ANDERSON DO Primary Care Unavailable JALYN ANDERSON DO Admitting Unavailable Allergies Allergy Classification Reported Allergen(s) Allergy Type Date of Onset Reaction(s) Facility (8 sources) Sulfamethoxazole / Trimethoprim; Translations: [sulfamethoxazole-tr imethoprim] Drug Allergy [facility] (5 sources) Sulfamethoxazole Drug Allergy 5 [facility] (5 sources) Trimethoprim Drug Allergy 5 [facility] (1 source) Sulfamethoxazole Drug Allergy 5 [facility] (1 source) Trimethoprim Drug Allergy 5 [facility] Medications Current Medications Medication Drug Class(es) Dates Sig (Normalized) Sig (Original) busPIRone hydrochloride 7.5 mg oral tablet (1 source) Start: 05-02-2025 busPIRone 7.5 mg oral tablet Dose : 7.5 mg = 1 tab(s), Oral, BID, # 180 tab(s), 0 Refill(s), Pharmacy: [facility]/pharmacy #[id number], Anxiety, 166, cm, 01/23/25 13:59:00 EDT, Height, kg, 05/02/25 9:57:00 EDT, Dosing Weight Start Date: 05/02/25 Status: Ordered Medication Dispense Status: Completed Quantity: 180.0 Unit: tab(s) Total Allowed Fills: 1 Fills Dispensed: 0 Indications: Anxiety disorder, unspecified; dicyclomine hydrochloride 10 mg oral capsule (1 [...] Ordered hydrOXYzine pamoate 25 mg oral capsule (14 sources) Antihistamine Start: 05-02-2025 Vistaril 25 mg oral capsule Dose : 25 mg = 1 cap(s), Oral, QID, PRN as needed for anxiety, # 120 cap(s), 1 Refill(s), Pharmacy: [facility]/pharmacy #[id number], Anxiety, 166, cm, 01/23/25 13:59:00 EDT, Height, kg, 05/02/25 9:57:00 EDT, Dosing Weight Start Date: 05/02/25 Status: Ordered Medication Dispense Status: Completed Quantity: 120.0 Unit: cap(s) Total Allowed Fills: 2 Fills Dispensed: 0 Indications: Anxiety disorder, unspecified; Start: 03-17-2025 take 1 capsule by mo ut every six hours as needed for anxiety Start: 02-24-2025 take 1 capsule by mo uth four times daily as needed for anxiety Start: 02-11-2025 End: 02-24-2025 take 1 tablet [...] anxiety, # 120 cap(s), 1 Refill(s), Pharmacy: [facility]/pharmacy #[id number], Anxiety, 166, cm, 01/23/25 13:59:00 EDT, Height, kg, 01/23/25 13:59:00 EDT, Dosing Weight Start Date: 01/23/25 Status: Ordered Quantity: 120.0 Unit: cap(s) Repeat number: 2 Indications: Anxiety disorder, unspecified; Start: 10-30-2024 Vistaril 25 mg oral capsule Dose : 25 mg = 1 cap(s), Oral, QID, PRN as needed for anxiety, # 120 cap(s), 1 Refill(s), Pharmacy: [facility]/pharmacy #[id number], Anxiety, 166, cm, 10/30/24 12:33:00 EDT, [...] (3 sources) Proton Pump Inhibitor Start: 09-03-2021 omeprazo le 20 mg oral delayed release capsule Dose : 20 mg = 1 cap(s), Oral, qDay, # 30 cap(s), 2 Refill(s), Pharmacy: [facility], GERD (gastroesophageal reflux disease), 166, cm, 09/03/21 13:27:00 EST, Height, kg, 09/03/21 13:27:00 EST, Dosing Weight Start Date: 09/03/21 Status: Ordered ondansetron 4 mg oral tablet (1 source) Serotonin-3 Receptor Antagonist Start: 05-16-2021 ondansetron 4 mg ora l tablet 0 Refill(s) Start Date: 05/16/21 Status: Ordered PARoxetine hydrochloride 40 mg oral tablet (13 sources) Serotonin Reuptake Inhibitor Start: 05-02-2025 Paxil 40 mg oral tablet Dose : 40 mg = 1 tab(s), Oral, qDay, # 30 tab(s), 1 Refill(s), Pharmacy: [facility]/pharmacy #[id number], Recurrent major depression Anxiety, 166, cm, 01/23/25 13:59:00 EDT, Height, kg, 05/02/25 9:57:00 EDT, Dosing Weight Start Date: 05/02/25 Status: Ordered Medication Dispense Status: Completed Quantity: 30.0 Unit: tab(s) Total Allowed Fills: 2 Fills Dispensed: 0 Indications: Anxiety disorder, unspecified; Major depressive disorder, recurrent, unspecified; Start: 02-24-2025 take 1 tablet by dominic th once daily Start: 02-11-2025 End: 02-24-2025 take 1 tablet by mouth once daily Paroxetine Hcl 20 mg tablet Discontinued 20 mg PO DAILY February 11, 2025 12:00am February 24, 2025 11:44am Start: 01-23-2025 Paxil 40 mg or al tablet Dose : 40 mg = 1 tab(s), Oral, qDay, # 30 tab(s), 2 Refill(s), [id number], Recurrent major depression Anxiety, 166, cm, [...] tablet, # 30 tab(s), 2 Refill(s), [id number], Recurrent major depression Anxiety, 166, cm, [...] tablet, # 14 tab(s), 0 Refill(s), [id number], Recurrent major depression Anxiety, 166, cm, [...] daily, # 30 tab(s), 2 Refill(s), Pharmacy: [address] Anxiety, 166, cm, 09/03/21 13:27:00 EST, Height, kg, 09/03/21 13:27:00 EST, Dosing Weight Start Date: 09/03/21 Status: Ordered Start: 12-02-2020 take 1 tablet by dominic th once daily sertraline 50 mg oral tablet take 1 tablet by mouth once daily Start Date: 12/02/20 Status: Ordered Completed/Discontinued Medications Medication Drug Class(es) Dates Sig (Normalized) Sig (Original) penicillin v potassium 500 mg oral tablet (6 sources) Start: 02-09-2025 End: 02-24-2025 take 1 tablet by mouth every six hours Penicillin V Potassium 500 mg tablet Discontinued 500 mg PO EVERY 6 HOURS February 11, 2025 12:00am February 24, 2025 11:58am Problems Active Problems Problem Classification Problem Date Documented Da te Episodic/Chronic Alcohol-related disorders (4 sources) Binge drinker; Translations: [Alcohol abuse, uncomplicated] 02-24-2025 Chronic Allergic reactions (2 sources) Allergic disposition; Translations: [Allergy, unspecified, initial encounter] Onset: 07-15-2023 Episodic Anxiety disorders (20 sources) Anxiety; Translations: [Anxiety disorder] Onset: 09-26-2023 02-14-2019 Chronic Cardiac dysrhythmias (4 sources) ECG: sinus tachycardia; Translations: [Tachycardia, unspecified] 02-24-2025 Episodic Fluid and electrolyte disorders (1 source) Hypokalemia; Translations: [Hypokalemia] Onset: 09-20-2023 Episodic Miscellaneous mental health disorders (4 sources) Psychogenic hyperventilation; 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] 02-24-2025 Chronic Miscellaneous mental health disorders (1 source) Emotional state finding; Translations: [Other symptoms and signs involving emotional state] Onset: 09-20-2023 Episodic Mood disorders (7 sources) Recurrent major depression; Translations: [Depressive disorder] 10-11-2023 Chronic Mycoses (8 sources) Tinea corporis 11-05-2019 Episodic Nausea and vomiting (1 source) Vomiting; Translations: [Vomiting, unspecified] Onset: 05-16-2021 Episodic Nutritional deficiencies (3 sources) Vitamin D deficiency 02-21-2024 Chronic Other infections; including parasitic (1 source) Trichomonal cystitis and urethritis; Translations: [Trichomonal cystitis and urethritis] Onset: 05-06-2025 Episodic Other injuries and conditions due to external causes (5 sources) Abrasion and/or friction burn of multiple sites; Translations: [Unspecified multiple injuries, initial encounter] 02-11-2025 Episodic Other lower respiratory disease (1 source) Dyspnea; Translations: [Dyspnea, unspecified] Onset: 09-26-2023 Episodic Other nutritional; endocrine; and metabolic disorders (3 sources) Body mass index 30+ - obesity; Translations: [Obesity, unspecified] 03-03-2025 Chronic Other nutritional; endocrine; and metabolic disorders (7 sources) Abnormal weight loss 09-03-2021 Episodic Other screening for suspected conditions (not mental disorders or infectious disease) (3 sources) Viral screening status 02-21-2024 Episodic Other skin disorders (8 sources) Eruption 11-05-2019 Episodic Residual codes; unclassified (3 sources) Nicotine-filled electronic cigarette user; Translations: [Tobacco use] 03-03-2025 Episodic Substance-related disorders (7 sources) H/O: recreational drug use; Translations: [Hallucinogen abuse, uncomplicated] Onset: 05-06-2025 01-23-2025 Chronic Substance-related disorders (1 source) Illicit medication use; Translations: [Other stimulant use, unspecified, uncomplicated] 05-07-2025 Episodic Unclassified (8 sources) Decreased body mass index 12-02-2020 Unclassified (20 sources) Patient encounter status 09-03-2021 Urinary tract infections (1 source) Cystitis, unspecified with hematuria; Translations: [Cystitis, unspecified with hematuria] Onset: 05-06-2025 Episodic Viral infection (8 sources) Herpes simplex 02-22-2019 Episodic Past or Other Problems Problem Classification Problem Date Documented Da te Episodic/Chronic Open wounds of head; neck; and trunk (2 sources) Laceration of lip ; Translations: [Laceration without foreign body of lip, initial encounter] Onset: 02-09-2025 Episodic Results Test Name Value Interpretation Reference Range Facility URINE CULTURE [CCL]on 2024 Bacteria identified Cx Nom (U) URCUL See Results Below See Below CULTURE, URINE No growth (<1,000 CFU/ml) SOURCE: Urine (Nonspecific) [facility] [place] [address] Syed Garcia III, M.D. [id number] SEND TO IC NO Normal [facility] Comment on above: Performed By: #### 2 [id number] ####[facility],[address] [place] [address] Bacteria Ur Culton 5 Bacteria identified Cx Nom (U) CULTURE, URINE: No growth (<1,000 CFU/ml) Normal [facility] Comment on above: Performed By: #### 6 30-4 #### [facility] CLIA [id number] [address] [place] [address] [place] CBC + DIFFon 05-11-2025 Baso # 0.02 x10EE3/UL Normal 0.00 - 0.10 [facility] Comment on above: Performed By: #### 2 08944 #### [place] [id number] Basophils/100 WBC (Bld) 0.2 % Normal 0.0 - 2.0 [facility] Comment on above: Performed By: #### 2 57356 #### [facility],[address] [place], [place] [id number] CBC + DIFF Normal [facility] Comment on above: Result Comment: CBC- COMPLETE BLOOD COUNT Performed By: #### 2 22631 #### [facility],[address] [place], [place] [id number] EO # 0.15 x10EE3/UL Normal 0.00 - 0.50 [facility] Comment on above: Performed By: #### 2 07182 #### [place] [address] Eosinophils/100 WBC (Bld) 1.3 % Normal 0.0 - 7.0 [facility] Comment on above: Performed By: #### 2 51969 #### [facility],[address] [place] [address] Erythrocyte distribution width (RBC) [Ratio] 14.3 % Normal 12.0 - 15.6 [facility] Comment on above: Performed By: #### 2 36782 #### [place] [address] Hematocrit (Bld) [Volume fraction] 37.5 % Normal 34.0 - 46.0 [facility] Comment on above: Performed By: #### 2 48566 #### [place] [address] Hemoglobin (Bld) [Mass/Vol] 12.9 g/dL Normal 12.0 - 16.0 [facility] Comment on above: Performed By: #### 2 63409 #### [place] [address] Lymph # 3.19 x10EE3/UL High 0.80 - 2.80 [facility] Comment on above: Performed By: #### 2 17657 #### [place] [address] Lymphocytes/100 WBC (Bld) 28.1 % Normal 20.0 - 45.0 [facility] Comment on above: Performed By: #### 2 42982 #### [place] [address] MANUAL DIFF N/A Normal [facility] Comment on above: Performed By: #### 2 81039 #### [place] [address] MCH (RBC) [Entitic mass] 29 pg Normal 27 - 33 [facility] Comment on above: Performed By: #### 2 13377 #### [facility],[address] [place] [address] MCHC 34 X10 3 Normal 32 - 36 [facility] Comment on above: Performed By: #### 2 40985 #### [facility],[address] [place] [address] MCV (RBC) [Entitic vol] 84 fL Normal 80 - 99 [facility] Comment on above: Performed By: #### 2 43350 #### [facility],[address] [place] [address] Davison # 0.48 x10EE3/UL Normal 0.20 - 1.00 [facility] Comment on above: Performed By: #### 2 31590 #### [facility],[address] [place] [address] MONOS % 4.2 % Normal 0.0 - 10.0 [facility] Comment on above: Performed By: #### 2 22490 #### [facility],[address] [place], [place] [id number] Morphology Jairo (Bld) [Interp] N/A Normal [facility] Comment on above: Performed By: #### 2 10387 #### [facility],[address] [place] [address] Neut # 7.51 x10EE3/UL High 1.50 - 7.10 [facility] Comment on above: Performed By: #### 2 79096 #### [place] [address] Neutrophils/100 WBC (Bld) 66.2 % Normal 46.0 - 76.0 [facility] Comment on above: Performed By: #### 2 90150 #### [place] [address] PLATELET 299 x10EE3/UL Normal 150 - 450 [facility] Comment on above: Performed By: #### 2 18434 #### [facility],[address] [place] [address] Platelet mean volume (Bld) [Entitic vol] 8.9 fL Normal 6.6 - 10.5 [facility] Comment on above: Result Comment: AUTO MATED DIFFERENTIAL Performed By: #### 2 24504 #### [facility],[address] [place] [address] RBC 4.46 x 10EE6/UL Normal 4.10 - 5.30 [facility] Comment on above: Performed By: #### 2 35249 #### [facility],[address] [place] [address] WBC 11.4 x 10EE3/UL High 4.5 - 10.8 [facility] Comment on above: Performed By: #### 2 51696 #### [facility],[address] [place] [address] CMP with eGFRon 05-11-2025 AGE 20 years Normal [facility] Comment on above: Performed By: #### 2 13966 #### [facility],[address] [place] [address] Albumin [Mass/Vol] 3.5 g/dL Normal 3.4 - 5.0 [facility] Comment on above: Performed By: #### 2 55335 #### [facility],[address] [place], [place] [address] Albumin/Globulin [Mass ratio] 1.0 {ratio} Normal 0.9 - 1.6 [facility] Comment on above: Performed By: #### 2 61581 #### [facility],[address] [place] [address] ALK PHOS 100 U/L Normal 46 - 116 [facility] Comment on above: Performed By: #### 2 99036 #### [facility],[address] [place] [address] ALT [Catalytic activity/Vol] 24 U/L Normal 16 - 63 [facility] Comment on above: Performed By: #### 2 93775 #### [facility],[address] [place], [place] [id number] Anion gap [Moles/Vol] 17 mmol/L Normal 10 - 20 [facility] Comment on above: Performed By: #### 2 33593 #### [facility],[address] [place] [address] AST [Catalytic activity/Vol] 24 U/L Normal 13 - 39 [facility] Comment on above: Performed By: #### 2 85292 #### [facility],[address] [place] [address] B/C RATIO 14 ratio Normal 0 - 30 [facility] Comment on above: Performed By: #### 2 80624 #### [facility],[address] [place], [place] [id number] Bilirubin [Mass/Vol] 0.2 mg/dL Normal 0.2 - 1.0 [facility] Comment on above: Performed By: #### 2 21579 #### [facility],[address] [place], [place] [id number] Calcium [Mass/Vol] 9.1 mg/dL Normal 8.5 - 10.1 [facility] Comment on above: Performed By: #### 2 49311 #### [facility],[address] [place], [place] [id number] Chloride [Moles/Vol] 105 mmol/L Normal 98 - 107 [facility] Comment on above: Performed By: #### 2 45422 #### [facility],[address] [place] [address] CMP with eGFR Normal [facility] Comment on above: Result Comment: COMP REHENSIVE METABOLIC PANEL Performed By: #### 2 10839 #### [facility],[address] [place] [address] CO2 [Moles/Vol] 22.4 mmol/L Normal 21.0 - 32.0 [facility] Comment on above: Performed By: #### 2 65988 #### [facility],[address] [place] [address] Creatinine [Mass/Vol] 0.76 mg/dL Normal 0.55 - 1.02 [facility] Comment on above: Performed By: #### 2 05831 #### [facility],[address] [place] [address]79 GFR/1.73 sq M.predicted among non-blacks MDRD (S/P/Bld) [Vol rate/Area] mL/min/{1.73_m2} Normal 60 - 999 [facility] Comment on above: Performed By: #### 2 14292 #### [facility],[address] [place] [address] Result Comment: ACCO RDING TO THE NATIONAL KIDNEY DISEASE EDUCATION PROGRAM(NKDE), A NORMAL eGFR IS A VALUE GREATER THAN OR EQUAL TO 60 ML/MIN/1.73 SQ METERS. CHRONIC KIDNEY DISEASE: <60mL/MIN/1.73 SQ METERS KIDNEY FAILURE: <15mL/MIN/1.73 SQ METERS THIS TEST SHOULD ONLY BE USED FOR PATIENTS 18 YEARS OF AGE AND OLDER. Globulin (S) [Mass/Vol] 3.4 g/dL Normal 1.5 - 3.8 [facility] Comment on above: Performed By: #### 2 86909 #### [facility],[address] [place] [address] Glucose [Mass/Vol] 114 mg/dL High 74 - 106 [facility] Comment on above: Performed By: #### 2 37240 #### [facility],[address] [place] [address] Potassium [Moles/Vol] 3.8 mmol/L Normal 3.5 - 5.1 [facility] Comment on above: Performed By: #### 2 41594 #### [facility],[address] [place] [address] 12686 Protein [Mass/Vol] 6.9 g/dL Normal 6.4 - 8.2 [facility] Comment on above: Performed By: #### 2 66752 #### [facility],[address] [place] [address]01 Sodium [Moles/Vol] 141 mmol/L Normal 136 - 145 [facility] Comment on above: Performed By: #### 2 40035 #### [facility],[address] [place] [address]10 Urea nitrogen [Mass/Vol] 11 mg/dL Normal 7 - 18 [facility] Comment on above: Performed By: #### 2 60791 #### [facility],[address] [place] [address] ED MED ADMINISTRATION DETAIL on 05-11-2025 ED MED ADMINISTRATION DETAIL [employer] - GERARDO ATKINS, : 2005, , Medication Administration Record [address] [place] [id number] 05/11/2025 Patient: GERARDO ATKINS Sex: Female : 2005 Age: 20y MEASUREMENTS: Wt: 86.2 kg, Ht/Chetan: 66.0 in, BMI: 30.67 ALLERGIES: Bactrim, BuSpar Medication Ordered Medication Administration Date/Time IV NS 0.9 % 01:14 05/11 IV NS 0.9 % 1000 mL started in bag#1 1000 Started 1000 mL at 999 mL at 999 mL/hr over 1 hour(s) via Site# 1. Allergies 01:14 05/11/2025 mL/hr (NOW x1) verified and confirmed 5 rights. IV patency established. IV Diane Pak R.N. site checked: no pain, redness, or swelling. IV flushed Stopped thoroughly pre-medication administration. Information 02:24 05/11/2025 reviewed with patient including reason for taking this Diane Pak R.N. medication. Verbalizes understanding. Completed per Scanned protocol. - 01:15 Diane Pak R.N. 02:24 05/11 Medication Discontinued: bag #1 infused. Total amount infused: 1000 mL. IV patency established. IV site checked: no pain, redness, or swelling. IV flushed thoroughly post-medication administration. - 02:24 Diane Pak R.N. 1 of 2 [employer] - GERARDO ATKINS, : 2005, , LORazepam 01:15 05/11 LORazepam (Ativan) IVP 1 mg given over 1 Given (Ativan) IVP 1 minute(s) via Site# 1. Allergies verified and confirmed 5 01:15 05/11/2025 mg (NOW x1) rights. IV patency established. IV site checked: no pain, Diane Pak R.N. redness, or swelling. IV flushed thoroughly pre-medication Scanned administration. Information reviewed with patient including reason for taking this medication. Verbalizes understanding. Medication Wastage: 1 mg wasted. - 01:15 Diane Pak R.N. cefTRIAXone 01:38 05/11 cefTRIAXone (Rocephin) IVPB 1gm/50ml NS 1 Started (Rocephin) IVPB g started at 100 mL/hr diluted in sodium chloride IVPB 0.9 01:38 05/11/2025 1gm/50ml NS 1 % Minibag+ 50 mL over 20 minute(s) via Site# 1. Allergies Diane Pak R.N. g diluted in verified and confirmed 5 rights. IV patency established. IV Stopped sodium chloride site checked: no pain, redness, or swelling. IV flushed 02:24 05/11/2025 IVPB 0.9 % thoroughly pre-medication administration. Information Diane aPk R.N. Minibag+ 50 mL reviewed with patient including reason for taking this Scanned at 100 mL/hr medication. Verbalizes understanding. Completed per (NOW x1) protocol. - 01:39 Diane Pak R.N. 02:24 05/11 Medication Discontinued: IV infused. Total amount infused: 50 mL. IV patency established. IV site checked: no pain, redness, or swelling. IV flushed thoroughly post-medication administration. - 02:24 Diane Pak R.N. 2 of 2 Normal [facility] ED NURSES CLINICAL NOTEon ED NURSES CLINICAL NOTE Nurse Narrative - ATKINS, GERARDO, : 2005, , [place] [address] [id number] 05/11/2025 00:09:00 Patient: GERARDO ATKINS Sex: Female : 2005 Age: 20y Disposition: Discharge to Home Disposition Decision Time: 02:24 05/11/2025 Departure Time: 02:30 05/11/2025 TRIAGE Arrived by private vehicle. Historian: (patient). Primary physician (Precious Amos). ( Pt c/o panic attack.). Triage time: 00:11 05/11/2025. Acuity: LEVEL 4. Chief Complaint: (anxiety attack). Onset. (2 hours ago). SEPSIS SCREEN: NEGATIVE. SIRS criteria negative: heart rate greater than 90. -- 00:15 05/11/25 EDT Juvenal Ayala R.N. 00:14 05/11/25. BP: 112/93 MAP: 99. HR: 102. RR: 18. O2 saturation: 99% Temperature: 98 F. Pain level now 0/10. -- 00:14 05/11/25 EDT Juvenal Ayala R.N. Measurements: 00:14 05/11/25 Wt: 86.2 kg, Ht/Chetan: 66.0 in, BMI: 30.67 -- 00:14 05/11/25 EDT Juvenal Ayala R.N. Medications: PARoxetine 40 mg tablet -- 00:16 05/11/25 BRUNOT Juvenal Ayala R.N. hydrOXYzine HCL 25 mg tablet -- 00:16 05/11/25 EDT Juvenal Ayala R.N. 1 of 4 Nurse Narrative - GERARDO ATKINS, : 2005, , Allergies: BuSpar -- 00:16 05/11/25 EDT Juvenal Ayala R.N. Bactrim -- 00:16 05/11/25 EDT Juvenal Ayala R.N. Problems: Anxiety disorder -- 00:16 05/11/25 EDT Juvenal Ayala R.N. Surgeries: Tonsillectomy -- 00:16 05/11/25 EDT Juvenal Ayala R.N. History 00:11 05/11/25. SOCIAL HX: Smoker- current status unknown. Regular vaping. Occasional alcohol use. Drug use. -- 00:15 05/11/25 EDT Juvenal Ayala R.N. 00:16 05/11/25. ABUSE ASSESSMENT: The patient answered "yes" to the question(s) "Do you feel safe in your home?" and "no" to the question(s) "Are you afraid to go home?". SELF HARM ASSESSMENT: Self harm assessment was performed. The patient answered "no" to the question(s) "Have you recently felt down, depressed, or hopeless?" and "Do you have thoughts of harming or killing yourself?". FALL RISK ASSESSMENT: Fall risk assessment completed. No risk factors identified. -- 00:16 05/11/25 EDT Juvenal Ayala R.N. 00:16 05/11/25. SOCIAL HX: The patient has not traveled outside the [place] Infectious disease exposure: No infectious disease exposure. -- 00:16 05/11/25 EDT Juvenal Ayala R.N. PHYSICAL ASSESSMENT 01:05 05/11/25. GENERAL / NEURO / PSYCH: Alert. Oriented X 4. Appears anxious. 2 of 4 Nurse Narrative - GERARDO ATKINS, : 2005, , HEENT: Pupils equal, round and reactive to light. No facial asymmetry noted. Mucous membranes are pink. RESPIRATORY: Respirations not labored. Chest nontender. Breath sounds within normal limits. CVS: Normal sinus rhythm noted. Capillary refill less than 2 seconds. Pulses within normal limits. GI / : Abdomen soft and nontender and normal bowel sounds. SKIN: Skin intact. Skin is warm and dry. Normal skin turgor. -- 01:05 05/11/25 EDT Diane Pak R.N. NURSING PROGRESS NOTES 00:36 05/11/25. 12-LEAD EKG: EKG time: (00:36 05/11/2025). 12-Lead EKG was performed by me and shown to the ED physician. -- 00:39 05/11/25 EDT Alondra Wilkins 00:59 05/11/25. Site #1 started in the left antecubital space with a 20g needle with aseptic technique and good blood return; 1 attempt. Blood drawn: rainbow set tube(s). Labeled in the presence of the patient and sent to the lab. Saline lock flushed with 5 mL saline. -- 00:59 05/11/25 EDT Diane Pak R.N. 01:14 05/11/25. IV NS 0.9 % 1000 mL started in bag#1 1000 mL at 999 mL/hr over 1 hour(s) via Site# 1. Allergies verified and confirmed 5 rights. IV patency established. IV site checked: no pain, redness, or swelling. IV flushed thoroughly pre-medication administration. Information reviewed with patient including reason for taking this medication. Verbalizes understanding. Completed per protocol. -- 01:15 05/11/25 EDT Diane Pak R.N. 01:15 05/11/25. LORazepam (Ativan) IVP 1 mg given over 1 minute(s) via Site# 1. Allergies verified and confirmed 5 rights. IV patency established. IV site checked: no pain, redness, or swelling. IV flushed thoroughly pre-medication administration. Information reviewed with patient including reason for taking this medication. Verbalizes understanding. Medication Wastage: 1 mg wasted. -- 01:15 05/11/25 EDT Diane Pak R.N. 01:38 05/11/25. cefTRIAXone (Rocephin) IVPB 1gm/50ml NS 1 g started at 100 mL/hr diluted in sodium chloride IVPB 0.9 % Minibag+ 50 mL over 20 minute(s) via Site# 1. Allergies verified and confirmed 5 rights. IV patency established. IV site checked: no pain, redness, or swelling. IV flushed thoroughly pre-medication administration. Information reviewed with patient including reason for taking this medication. Verbalizes understanding. Completed per protocol. -- 0 (more content not included)... Normal [facility] ED ORDER SHEET (CPOE ONLY)on 05-11-2025 ED ORDER SHEET (CPOE ONLY) Order Sheet - GERARDO ATKINS, : 2005, , Order Sheet [facility] [address] [place] [address] [id number] 05/11/2025 Patient: GERARDO ATKINS Sex: Female : 2005 Age: 20y MEASUREMENTS: Wt: 86.2 kg, Ht/Chetan: 66.0 in, BMI: 30.67 ALLERGIES: Bactrim, BuSpar MEDICATION/IV/DRIP/FLUI D ORDERS Acknowledge Order Description Priority Entered d Completed IV NS 0.9 %1000 mL at 999 00:25 05/11/2025 00:30 01:15 mL/hr (NOW x1) Jay MontejoO. 05/11/2025 05/11/2025 Diane Mccurdy, R.N. R.N. LORazepam (Ativan) IVP1 00:25 05/11/2025 00:30 01:15 mg (NOW x1) Jalyn Anderson D.O. 05/11/2025 05/11/2025 Diane Mccurdy, R.N. R.N. cefTRIAXone (Rocephin) 01:33 05/11/2025 01:35 01:39 IVPB 1gm/50ml NS1 g Jay MontejoOAnn 05/11/2025 05/11/2025 diluted in sodium chloride Diane Mccurdy, IVPB 0.9 % Minibag+ 50 mL R.N. R.N. at 100 mL/hr (NOW x1) LAB ORDERS Acknowledge Order Description Priority Entered d Collected Completed 1 of 3 Order Sheet - GERARDO ATKINS, : 2005, , CBC w Diff Stat Stat 00:25 00:30 00:57 05/11/2025 05/11/2025 05/11/2025 Diane Montejo R.N. Anne Rutt, R.N. D.OAnn BNP Stat Stat 00:25 00:30 00:57 05/11/2025 05/11/2025 05/11/2025 Diane Montejo R.N. Anne Rutt, R.N. D.O. CMP Stat Stat 00:25 00:30 00:57 05/11/2025 05/11/2025 05/11/2025 Diane Montejo R.N. Anne Rutt, R.N. D.O. EKG - ED Stat Stat 00:25 00:30 00:34 05/11/2025 05/11/2025 05/11/2025 Diane Montejo R.N. Anne Rutt, R.N. D.O. Troponin-I Stat Stat 00:25 00:30 00:57 05/11/2025 05/11/2025 05/11/2025 Diane Montejo R.N. Anne Rutt, R.N. D.O. Urinalysis Stat Stat 01:09 01:09 01:09 05/11/2025 05/11/2025 05/11/2025 Leonie Mccurdy R.N. Anne Rutt, R.N. Verbal Order, Auth by: Jalyn Anderson D.O. Read back and verified 2 of 3 Order Sheet - GERARDO ATKINS, : 2005, , Urine - Stat 01:09 01:09 01:09 HCG Stat 05/11/2025 05/11/2025 05/11/2025 Leonie Mccurdy R.N. Anne Rutt, R.N. Verbal Order, Auth by: Jalyn Anderson D.O. Read back and verified Urine Culture [CCL] Stat 01:33 01:35 01:35 Stat 05/11/2025 05/11/2025 05/11/2025 Diane Montejo R.N. Anne Rutt, R.N. D.O. DIAGNOSTIC STUDY ORDERS Acknowledge Order Description Priority Entered d Completed STAFF ORDERS Acknowledge Order Description Priority Entered d Collected Completed Bad Cloth Checker 00:25 00:30 00:30 05/11/2025 05/11/2025 05/11/2025 Diane Montejo R.N. Anne Rutt, R.N. D.OAnn Vital signs every 15 00:25 00:30 00:30 minutes 05/11/2025 05/11/2025 05/11/2025 Diane Montejo R.N. Anne Rutt, R.N. D.O. [Electronically signed by Jalyn Anderson D.O. (05/11/2025 03:39 EDT)] 3 of 3 Normal [facility] ED PHYSICIAN CLINICAL REPORT on 05-11-2025 ED PHYSICIAN CLINICAL REPORT Narrative - GERARDO ATKINS, : 2005, , Physician Clinical Narrative [address] [address] [id number] 05/11/2025 00:09:00 Patient: GERARDO ATKINS Sex: Female : 2005 Age: 20y Disposition: Discharge to Home Disposition Decision Time: 02:24 05/11/2025 Departure Time: 02:30 05/11/2025 Measurements Wt: 86.2 kg, Ht/Chetan: 66.0 in, BMI: 30.67 Initial Vital Sign Measured Maximiliano Time BP MAP HR RR O2Sat ETCO2 Temp n GCS RTS 00:14 112/93 99 102 18 99% 98.0 F 0 05/11/2025 Time Seen: 00:14 05/11/2025. Arrived- By private vehicle. Historian- patient. Independent historian- family. HISTORY OF PRESENT ILLNESS Chief Complaint: ANXIOUS. This started 2 hours ago. The patient has had anxiety. REVIEW OF SYSTEMS : No urinary frequency. THROAT: No sore throat. CONSTITUTIONAL: No fever or weight loss. GI: No abdominal pain, vomiting, diarrhea or black stools. CVS: No chest pain or palpitations. NEUROLOGICAL: No headache, dizziness or weakness. SKIN: No skin rash. ENDO/HEME/LYMPH: No enlarged lymph nodes. RESPIRATORY: No cough or difficulty breathing. MUSCULOSKELETAL: No joint pain. 1 of 11 Olvie - GERARDO ATKINS, : 2005, , PAST HISTORY See nurses notes. Anxiety disorder Surgeries: Tonsillectomy Medications: hydrOXYzine HCL 25 mg tablet PARoxetine 40 mg tablet Allergies: Bactrim BuSpar SOCIAL HISTORY Smoker- current status unknown. Regular vaping. Occasional alcohol use. No drug use. ADDITIONAL NOTES The nursing notes have been reviewed. PHYSICAL EXAM Appearance: Alert. Patient is in mild distress. Anxious. Eyes: Pupils equal, round and reactive to light. Neck: Normal inspection. Neck supple. CVS: Normal heart rate and rhythm. Heart sounds normal. Respiratory: Painless inspiration. Breath sounds normal. Chest nontender. Abdomen: Soft and nontender. Skin: Skin warm and dry. Extremities: Extremities exhibit normal ROM. No lower extremity edema. Psych / Neuro: Oriented X 3. No motor deficit. No sensory deficit. 2 of 11 Narrative - GERARDO ATKINS, : 2005, , LABS, X-RAYS, AND EKG 12-LEAD EKG: EKG time: 00:36 05/11/2025. Normal sinus rhythm. Rate: 82. Normal P waves. Normal QRS complex. Normal ST and T waves. The study has been interpreted contemporaneously by me. The EKG appears to be a good tracing. Interpretation time: 00:37 05/11/2025. Laboratory Tests: CBC + DIFF Final NATE: 05/11/2025 00:55:00 EDT MsgRcvd: 05/11/2025 01:18 EDT Lab Test Result Reference Status Received 05/11/2025 01:18 CBC + DIFF Final EDT CBC-COMPLETE BLOOD COUNT 11.4 x 10/UL 05/11/2025 01:18 WBC 4.5 - 10.8 Final Above high normal EDT 05/11/2025 01:18 RBC 4.46 x 10/UL 4.10 - 5.30 Final EDT 05/11/2025 01:18 HEMOGLOBIN 12.9 g/dl 12.0 - 16.0 Final EDT 05/11/2025 01:18 HEMATOCRIT 37.5 % 34.0 - 46.0 Final EDT 05/11/2025 01:18 MCV 84 fl 80 - 99 Final EDT 05/11/2025 01:18 MCH 29 pg 27 - 33 Final EDT 05/11/2025 01:18 MCHC 34 X10 3 32 - 36 Final EDT 3 of 11 Narrative - GERARDO ATKINS, : 2005, , 05/11/2025 01:18 RDW/CV 14.3 % 12.0 - 15.6 Final EDT 05/11/2025 01:18 PLATELET 299 x10/UL 150 - 450 Final EDT 05/11/2025 01:18 MPV 8.9 fl 6.6 - 10.5 Final EDT AUTOMATED DIFFERENTIAL 05/11/2025 01:18 NEUT % 66.2 % 46.0 - 76.0 Final EDT 05/11/2025 01:18 LYMPH % 28.1 % 20.0 - 45.0 Final EDT 05/11/2025 01:18 MONOS % 4.2 % 0.0 - 10.0 Final EDT 05/11/2025 01:18 EO % 1.3 % 0.0 - 7.0 Final EDT 05/11/2025 01:18 BASO % 0.2 % 0.0 - 2.0 Final EDT 3.19 x10/UL 05/11/2025 01:18 Lymph # 0.80 - 2.80 Final Above high normal EDT 7.51 x10/UL 05/11/2025 01:18 Neut # 1.50 - 7.10 Final Above high normal EDT 05/11/2025 01:18 Davison # 0.48 x10/UL 0.20 - 1.00 Final EDT 05/11/2025 01:18 EO # 0.15 x10/UL 0.00 - 0.50 Final EDT 05/11/2025 01:18 Baso # 0.02 x10/UL 0.00 - 0.10 Final EDT 4 of 11 Narrative - GERARDO ATKINS, : 2005, , 05/11/2025 01:18 MANUAL DIFF N/A New Order EDT 05/11/2025 01:18 MORPHOLOGY N/A New Order EDT URINE Final NATE: 05/11/2025 01:13:00 EDT MsgRcvd: 05/11/2025 01:26 EDT Lab Test Result Reference Status Received 05/11/2025 01:26 UR NEGATIVE NEGATIVE Final EDT 05/11/2025 01:26 INTERNAL QC PASS Final EDT EXTERNAL QC 05/11/2025 01:26 YES Final DONE? EDT Very dilute urine specimens, as indicated by a low specific gravity, may not contain medical center representative levels of hCG. If is still suspected, a first morning urine specimen should be colle (more content not included)... Normal [facility] ED SUPER BILLon 05-11-2025 ED [facility] GERARDO ATKINS, : 2005, , [place] [address] [id number] 05/11/2025 Patient: GERARDO ATKINS Sex: Female : 2005 Age: 20y Item Facility Profession Category Description Code al Code Quantity Fee Total Drugs Normal 427073 1 $0.00 $0.00 Saline 1000cc (051469) Nurse/E/M EMERGENCY 279013 1 $0.00 $0.00 DEPARTMEN T VISIT HIGH/URGEN T SEVERITY (77014-54) Nurse/IV/IM/ Drip/IVPB 993720 1 $0.00 $0.00 Infusions initial (42908) Nurse/IV/IM/ IVP 708158 1 $0.00 $0.00 Infusions additional push (38990) Grand Total $0.00 Providers 1 of 2 [facility] GERARDO ATKINS, : 2005, , Jalyn Anderson D.O. Chief Complaint ANXIOUS. Principal Diagnosis Anxiety reaction. Acute urinary tract infection with cystitis. No hematuria. ICD-10 Codes F41.1: Generalized anxiety disorder N30.90: Cystitis, unspecified without hematuria 2 of 2 Normal [facility] ED VISIT SUMMARYon ED VISIT SUMMARY Visit Overview - GERARDO ATKINS, : 2005, , Visit Overview [facility] [address] [place] [address] [id number] 05/11/2025 Patient: GERARDO ATKINS Sex: Female : 2005 Age: 20y 05/11/2025 03:39 AM EDT ED Arrival:00:09 05/11/2025 Status: Recent Travel:no EDT Language:eng Adv Directive: Isolation Status: Infectious Disease Ethnicity:N Fall Risk:no risk Exposure:no Measurements:5'6" / 167.6 Self-Harm Status:risk Sepsis Screen:negative cm 190.0 lb / 86.2 kg Chief Complaint:(2 hours ago), (anxiety attack), (Precious Dandre), and (Pt c/o panic attack.) ALLERGIES Bactrim BuSpar HOME MEDICATIONS hydrOXYzine HCL 25 mg tablet PARoxetine 40 mg tablet 1 of 3 Visit Overview - GERARDO ATKINS, : 2005, , PAST MEDICAL HISTORY / PROBLEMS Anxiety disorder See nurses notes PAST SURGICAL HISTORY Tonsillectomy SOCIAL HISTORY Smoking status: Yes Alcohol use: Yes Drug use: Yes ED COURSE MEDICATIONS GIVEN IN EMERGENCY DEPARTMENT 01:14 05/11/25 IV NS 0.9 % 1000 mL 999 mL/hr over 1 hour(s) 01:15 05/11/25 LORazepam (Ativan) IVP 1 mg over 1 minute(s) cefTRIAXone (Rocephin) IVPB 1gm/50ml NS 1 g 01:38 05/11/25 diluted in sodium chloride IVPB 0.9 % Minibag+ 50 mL 100 mL/hr over 20 minute(s) IV SITE INFORMATION INTAKE OUTPUT REASSESMENT (most recent) 01:05 05/11/25. GENERAL / NEURO / PSYCH: Alert. Oriented X 4. Appears anxious. HEENT: Pupils equal, round and reactive to light. No facial asymmetry noted. Mucous membranes are pink. RESPIRATORY: Respirations not labored. Chest nontender. Breath sounds within normal limits. CVS: Normal sinus rhythm noted. Capillary refill less than 2 seconds. Pulses within normal limits. GI / : Abdomen soft and nontender and normal bowel sounds. SKIN: Skin intact. Skin is warm and dry. Normal skin turgor. VITAL SIGNS 2 of 3 Visit Overview - GERARDO ATKINS, : 2005, , First Vitals Last Vitals Temp 00:14 05/11/25 98.0 F Temp 00:28 05/11/25 BP 00:14 05/11/25 112/93 BP 00:28 05/11/25 HR 00:14 05/11/25 102 HR 00:28 05/11/25 84 RR 00:14 05/11/25 18 RR 00:28 05/11/25 O2 Sat 00:14 05/11/25 99% O2 Sat 00:28 05/11/25 97% Pain 00:14 05/11/25 0 Pain 00:28 05/11/25 ETCO2 00:14 05/11/25 ETCO2 00:28 05/11/25 GCS 00:14 05/11/25 GCS 00:28 05/11/25 RTS 00:14 05/11/25 RTS 00:28 05/11/25 PROCEDURES NURSING INTERVENTIONS LABS / STUDIES LABS / STUDIES ORDERED BNP CBC w Diff CMP EKG - ED Troponin-I Urinalysis Urine Culture [CCL] Urine - HCG CLINICAL IMPRESSION ACUTE URINARY TRACT INFECTION WITH CYSTITIS. NO HEMATURIA ANXIETY REACTION 3 of 3 Normal [facility] ED VITALS FLOW SHEETon 05-11 ED VITALS FLOW SHEET Vitals - SA MAJO ATKINS, : 2005, , Vital Sign Flow Sheet [address] [place] [address] [id number] 05/11/2025 Patient: GERARDO ATKINS Sex: Female : 2005 Age: 20y Measurements Wt: 86.2 kg, Ht/Chetan: 66.0 in, BMI: 30.67 Measured Maximiliano Time BP MAP HR RR O2Sat ETCO2 Temp n GCS RTS 00:28 84 97% 05/11/2025 00:23 88 98% 05/11/2025 00:18 90 98% 05/11/2025 00:14 112/93 99 102 18 99% 98.0 F 0 05/11/2025 1 of 1 Normal [facility] NT-proBNPon 05-11-2025 Natriuretic peptide B (Bld) [Mass/Vol] 84 pg/mL Normal 0 - 125 [facility] Comment on above: Performed By: #### 2 [id number] #### [facility],[address] [place] [address] URINEon 05-11-2025 Beta HCG ( test) Ql (U) Negative Normal NEGATIVE [facility] Comment on above: Performed By: #### 2 [id number] #### [facility],[address] [place] [address] EXTERNAL QC DONE? YES Normal [facility] Comment on above: Result Comment: Very dilute urine specimens, as indicated by a low specific gravity, may not contain medical center representative levels of hCG. If is still suspected, a first morning urine specimen should be collected 48 hours later and tested. Performed By: #### 2 79105 #### [place] [address] INTERNAL QC PASS Normal [facility] Comment on above: Performed By: #### 2 [id number] #### [facility],[address] [place] [address] TROPONINon 05-11-2025 HS TROPONIN 4.2 pg/mL Normal 0.0 - 51.4 [facility] Comment on above: Performed By: #### 2 44075 #### [place] [address] URINALYSISon 05-11-2025 Amorphous TRACE Normal [facility] Comment on above: Performed By: #### 2 55557 ####[facility] [place] [address] Bacteria 2+ Normal [facility] Comment on above: Performed By: #### 2 18377 ####[facility],[address] [place] [address] Bilirubin Ql (U) Negative Normal NORMAL: NEGATIVE [facility] Comment on above: Performed By: #### 2 72364 ####[facility],[address] [place], [place] [id number] Casts NONE Normal [facility] Comment on above: Performed By: #### 2 40035 ####[facility],[address] [place], [place] [id number] Clarity (U) sl.cloudy Normal NORMAL: CLEAR [facility] Comment on above: Performed By: #### 2 34786 ####[facility],[address] [place], [place] [id number] Color (U) p.yel Normal NORMAL: YELLOW [facility] Comment on above: Performed By: #### 2 28511 ####[facility],[address] [place] [address] Crystals LM Nom (Urine sed) NONE Normal [facility] Comment on above: Performed By: #### 2 71824 ####[facility],[address] [place] [address] 46943 Epi Cells OCC Normal [facility] Comment on above: Performed By: #### 2 19419 ####[facility],[address] [place] [address] 65392 Glucose Ql (U) NORM Normal NORMAL: NORMAL [facility] Comment on above: Performed By: #### 2 36832 ####[facility],[address] [place] [address]30 Hemoglobin Ql (U) Negative Normal NORMAL: NEGATIVE [facility] Comment on above: Performed By: #### 2 47819 ####[facility],[address],[place] [address] Ketone 5 Abnormal NORMAL: NEGATIVE [facility] Comment on above: Performed By: #### 2 76352 ####[facility],[address] [place] [address] Leukocytes 25 Abnormal NORMAL: NEGATIVE [facility] Comment on above: Performed By: #### 2 60046 ####[facility],[address] [place] [address] Mucous NONE Normal [facility] Comment on above: Performed By: #### 2 84650 ####[facility],[address] [place] [address]50 Nitrite Ql (U) Negative Normal NORMAL: NEGATIVE [facility] Comment on above: Performed By: #### 2 34947 ####[facility],[address] [place] [address] 49121 pH (U) 8 [pH] Normal NORMAL: 5.0-8.0 [facility] Comment on above: Performed By: #### 2 61581 ####[facility],[address] [place] [address]40[address] Protein Ql (U) Negative Normal NORMAL: NEGATIVE [facility] Comment on above: Performed By: #### 2 45252 ####[facility],[address] [place] [address] 94452 Rbc 0-5 Normal 0-3/hpf [facility] Comment on above: Performed By: #### 2 42848 ####[facility],[address] [place] [address] Sp [place] 1.015 Normal NORMAL: 1.010-1.030 [facility] Comment on above: Performed By: #### 2 64313 ####[facility],[address] [place] [address] Specimen Type R Normal [facility] Comment on above: Performed By: #### 2 34555 ####[facility],[address] [place] [address] Urinalysis dipstick W Reflex Microscopic panel (U) SEE BELOW Normal [facility] Comment on above: Result Comment: MICR OSCOPIC Performed By: #### 2 90073 ####[facility],[address] [place] [address] Urobilinog NORM Normal NORMAL: NORMAL [facility] Comment on above: Performed By: #### 2 50707 ####[facility],[address] [place] [address] Wbc 1-5 Normal 0-5/hpf [facility] Comment on above: Performed By: #### 2 77979 ####[facility],[address] [place] [address] Yeast NONE Normal [facility] Comment on above: Performed By: #### 2 56666 ####[facility],[address] [place] [address] .Auto Diffon 05-08-2025 Basophil, Absolute 0.1 10 3/mcL Normal 0.0-0.3 [facility] Comment on above: Performed By: #### A DIFF, ANEU, CBC, MDW, HCGQ, ABOGEL #### [address] [address] Basophils/100 WBC (Bld) 0.8 % Normal 0.0-2.5 [facility] Comment on above: Performed By: #### A DIFF, ANEU, CBC, MDW, HCGQ, ABOGEL #### [address] [address] Eosinophil, Absolute 0.1 10 3/mcL Normal 0.0-0.7 [facility] Comment on above: Performed By: #### A DIFF, ANEU, CBC, MDW, HCGQ, ABOGEL #### [address] [address] Eosinophils/100 WBC (Bld) 0.8 % Normal 0.0-6.[address] [facility] Comment on above: Performed By: #### A DIFF, ANEU, CBC, MDW, HCGQ, ABOGEL #### [address] [address] Lymphocyte, Absolute 2.6 10 3/mcL Normal 0.9-4.3 [facility] Comment on above: Performed By: #### A DIFF, ANEU, CBC, MDW, HCGQ, ABOGEL #### [address] [address] Lymphocytes/100 WBC (Bld) 25.1 % Normal 20.0-40.[address] [facility] Comment on above: Performed By: #### A DIFF, ANEU, CBC, MDW, HCGQ, ABOGEL #### [address] [address] Monocyte, Absolute 0.7 10 3/mcL Normal 0.1-1.4 [facility] Comment on above: Performed By: #### A DIFF, ANEU, CBC, MDW, HCGQ, ABOGEL #### [address] [address] Monocytes/100 WBC (Bld) 6.8 % Normal 2.0-13.0 [facility] Comment on above: Performed By: #### A DIFF, ANEU, CBC, MDW, HCGQ, ABOGEL #### [address] [address] Neutrophils/100 WBC (Bld) 66.5 % Normal 50.0-75.[address] [facility] Comment on above: Performed By: #### A DIFF, ANEU, CBC, MDW, HCGQ, ABOGEL #### [address] [address] .GFRon 05-08-2025 GFR/1.73 sq M.predicted among non-blacks MDRD (S/P/Bld) [Vol rate/Area] mL/min/{1.73_m2} Normal [facility] Comment on above: Result Comment: Stages of Chronic Kidney Disease (CKD) Stage Description eGFR(ml/min/1.73 sq.m.) CKD 1 Normal kidney function or >=90 normal kindney function with possible kidney damage (ex. Proteinuria) CKD 2 Kidney damage with mild loss 60-89 of kidney function CKD 3a Mild to moderate loss of kidney 45-59 function CKD 3b Moderate to severe loss of 30-44 of kindey function CKD 4 Severe loss of kidney function 15-29 CKD 5 Kidney failure <15 Note: (go live 2024) the eGFR calculation was updated to the 2020 CKD-EPI creatinine equation without a race factor to calculate the eGFR results. Performed By: #### A DIFF, ANEU, CBC, MDW, HCGQ, ABOGEL #### [address] [address] .MDWon 05-08-2025 Monocyte Distribution Width 18.43 Normal 0.00-20.[address] [facility] Comment on above: Result Comment: For ED adult patients suspected of sepsis, MDW<=20.0 does not rule out sepsis or risk of sepsis Performed By: #### A DIFF, ANEU, CBC, MDW, HCGQ, ABOGEL #### [address] [address] .NEUABSon 05-08-2025 Neutrophil, Absolute 6.8 10 3/mcL Normal 2.3-8.1 [facility] Comment on above: Performed By: #### A DIFF, ANEU, CBC, MDW, HCGQ, ABOGEL #### [address] [address] BMPon 05-08-2025 BUN/Creatinine Ratio 6 ratio Low 7-27 [facility] Comment on above: Performed By: #### A DIFF, ANEU, CBC, MDW, HCGQ, ABOGEL #### [address] [address] Calcium [Mass/Vol] 9.5 mg/dL Normal 8.4-10.2 [facility] Comment on above: Performed By: #### A DIFF, ANEU, CBC, MDW, HCGQ, ABOGEL #### [address] [address] Chloride [Moles/Vol] 104 mmol/L Normal 98-107 [facility] Comment on above: Performed By: #### A DIFF, ANEU, CBC, MDW, HCGQ, ABOGEL #### [address] [address] CO2 [Moles/Vol] 21 mmol/L Low 22-[address] [facility] Comment on above: Performed By: #### A DIFF, ANEU, CBC, MDW, HCGQ, ABOGEL #### [address] [address] Creatinine [Mass/Vol] 0.66 mg/dL Normal 0.51-0.95 [facility] Comment on above: Performed By: #### A DIFF, ANEU, CBC, MDW, HCGQ, ABOGEL #### [place] [address] Electrolyte Balance 14.0 mEq/L Normal 4.0-15.0 [facility] Comment on above: Performed By: #### A DIFF, ANEU, CBC, MDW, HCGQ, ABOGEL #### [place] [address] Glucose [Mass/Vol] 112 mg/dL High 70-105 [facility] Comment on above: Performed By: #### A DIFF, ANEU, CBC, MDW, HCGQ, ABOGEL #### [address] [address] Potassium [Moles/Vol] 3.5 mmol/L Normal 3.5-5.1 [facility] Comment on above: Performed By: #### A DIFF, ANEU, CBC, MDW, HCGQ, ABOGEL #### [address] [address] Sodium [Moles/Vol] 139 mmol/L Normal 136-145 [facility] Comment on above: Performed By: #### A DIFF, ANEU, CBC, MDW, HCGQ, ABOGEL #### [address] [address] Urea nitrogen [Mass/Vol] 4 mg/dL Low 7-[address] [facility] Comment on above: Performed By: #### A DIFF, ANEU, CBC, MDW, HCGQ, ABOGEL #### [address] [address] CBCon 05-08-2025 Erythrocyte distribution width (RBC) [Ratio] 16.0 % High 11.5-15.[address] [facility] Comment on above: Performed By: #### A DIFF, ANEU, CBC, MDW, HCGQ, ABOGEL #### [address] [address] Hematocrit (Bld) [Volume fraction] 40.5 % Normal 34.0-46.[address] [facility] Comment on above: Performed By: #### A DIFF, ANEU, CBC, MDW, HCGQ, ABOGEL #### [address] [address] Hgb 13.5 G/dL Normal 12.0-16.[address] [facility] Comment on above: Performed By: #### A DIFF, ANEU, CBC, MDW, HCGQ, ABOGEL #### [address] [address] MCH (RBC) [Entitic mass] 28.5 pg Normal 27.0-33.[address] [facility] Comment on above: Performed By: #### A DIFF, ANEU, CBC, MDW, HCGQ, ABOGEL #### [address] [address] MCHC 33.4 G/dL Normal 32.0-36.[address] [facility] Comment on above: Performed By: #### A DIFF, ANEU, CBC, MDW, HCGQ, ABOGEL #### [address] [address] MCV (RBC) [Entitic vol] 85.4 fL Normal 80.0-99.0 [facility] Comment on above: Performed By: #### A DIFF, ANEU, CBC, MDW, HCGQ, ABOGEL #### [address] [address] Platelet 302 10 3/mcL Normal 150-[address] [facility] Comment on above: Performed By: #### A DIFF, ANEU, CBC, MDW, HCGQ, ABOGEL #### [address] [address] Platelet mean volume (Bld) [Entitic vol] 8.6 fL Normal 6.6-10.[address] [facility] Comment on above: Performed By: #### A DIFF, ANEU, CBC, MDW, HCGQ, ABOGEL #### [place] [id number] RBC 4.74 10 6/mcL Normal 4.10-5.[address] [facility] Comment on above: Performed By: #### A DIFF, ANEU, CBC, MDW, HCGQ, ABOGEL #### [place] [address] WBC 10.2 10 3/mcL Normal 4.5-10.[address] [facility] Comment on above: Performed By: #### A DIFF, ANEU, CBC, MDW, HCGQ, ABOGEL #### [place] [address] DIMERon 05-08-2025 D-Dimer <200 Normal 0-[address] [facility] Comment on above: Result Comment: DDN: Results [...] and pulmonary embolism (PE). Performed By: #### A DIFF, ANEU, CBC, MDW, HCGQ, ABOGEL #### [place] [address] LABORATORYOrdered By: SYSTEM SYSTEM on 05-08-2025 Basophils (Bld) [#/Vol] 0.1 103/mcL Normal 0.0 - 0.3 10^3/mcL AO Workflow SS Basophils/100 WBC (Bld) 0.8 % Normal 0.0 - 2.5 % AO Workflow SS Calcium [Mass/Vol] 9.5 mg/dL Normal 8.4 - 10. 2 mg/dL AO ADM SS Chloride [Moles/Vol] 104 mmol/L Normal 98 - 10 7 mmol/L AO ADM SS CO2 [Moles/Vol] 21 mmol/L Low 22 - 29 mmol/L AO ADM SS Creatinine [Mass/Vol] 0.66 mg/dL Normal 0.51 - 0.95 mg/dL AO ADM SS Electrolyte Balance 14.0 mEq/L Normal 4.0 - 15 .0 mEq/L AO ADM SS Eosinophil, Absolute 0.1 103/mcL Normal 0.0 - 0 .7 10^3/mcL AO Workflow SS Eosinophils/100 WBC (Bld) 0.8 % Normal 0.0 - 6.0 % AO Workflow SS Erythrocyte distribution width (RBC) [Ratio] 16.0 % High 11.5 - 15.5 % AO Workflow SS Fibrin D-dimer DDU (PPP) [Mass/Vol] ng/mL D-DU [...] venous thrombosis (DVT) and pulmonary embolism (PE). GLOMERULAR FILTRATION RATE/1.73 SQ M.PREDICTED:ARVRAT:PT:S ER/PLAS/BLD:QN:CREATINI NE-BASED FORMULA (CKD-EPI 2020) ml/min/1.73sqm Invalid Interpretation Code AO Chemistry S Comment on above: Interpretive Data: Stages of Chronic Kidney Disease (CKD) Stage Description eGFR(ml/min/1.73 sq.m.) CKD 1 Normal kidney function or >=90 normal kindney function with possible kidney damage (ex. Proteinuria) CKD 2 Kidney damage with mild loss 60-89 of kidney function CKD 3a Mild to moderate loss of kidney 45-59 function CKD 3b Moderate to severe loss of 30-44 of kindey function CKD 4 Severe loss of kidney function 15-29 CKD 5 Kidney failure <15 Note: (go live 2024) the eGFR calculation was updated to the 2020 CKD-EPI creatinine equation without a race factor to calculate the eGFR results. Glucose [Mass/Vol] 112 mg/dL High 70 - 105 mg/dL AO ADM SS Hematocrit (Bld) [Volume fraction] 40.5 % Normal 34.0 - 46.0 % AO Workflow SS Hemoglobin (Bld) [Mass/Vol] 13.5 G/dL Normal 12.0 - 16.0 G/dL AO Workflow SS Lymphocytes (Bld) [#/Vol] 2.6 103/mcL Normal 0.9 - 4.3 10^3/mcL AO Workflow SS Lymphocytes/100 WBC (Bld) 25.1 % Normal 20.0 - 40.0 % AO Workflow SS MCH (RBC) [Entitic mass] 28.5 pg Normal 27.0 - 33.0 pg AO Workflow SS MCHC 33.4 G/dL Normal 32.0 - 36.0 G/dL AO Workflow SS MCV (RBC) [Entitic vol] 85.4 fL Normal 80.0 - 99.0 fL AO Workflow SS Monocyte distribution width Auto (Bld) [Entitic vol] 18.43 1 Normal 0.00 - 20.00 AO Workflow SS Comment on above: Result Comment: For ED adult patients suspected of sepsis, MDW<=20.0 does not rule out sepsis or risk of sepsis Monocytes (Bld) [#/Vol] 0.7 103/mcL Normal 0.1 - 1.4 10^3/mcL AO Workflow SS Monocytes/100 WBC (Bld) 6.8 % Normal 2.0 - 13.0 % AO Workflow SS Neutrophils (Bld) [#/Vol] 6.8 103/mcL Normal 2.3 - 8.1 10^3/mcL AO Workflow SS Neutrophils/100 WBC (Bld) 66.5 % Normal 50.0 - 75.0 % AO Workflow SS Platelet mean volume (Bld) [Entitic vol] 8.6 fL Normal 6.6 - 10.5 fL AO Workflow SS Platelets (Bld) [#/Vol] 302 103/mcL Normal 150 - 450 10^3/mcL AO Workflow SS Potassium [Moles/Vol] 3.5 mmol/L Normal 3.5 - 5.1 mmol/L AO ADM SS RBC (Bld) [#/Vol] 4.74 106/mcL Normal 4.10 - 5.3 0 10^6/mcL AO Workflow SS Sodium [Moles/Vol] 139 mmol/L Normal 136 - 145 mmol/L AO ADM SS Troponin I.cardiac DL <= 0.01 ng/mL [Mass/Vol] ng/L Normal 0 - 51 ng/L AO ADM SS Comment on above: Interpretive Data: H igh Sensitive Troponin I Reference Ranges: Female: 0-51 ng/L Male: 0-76 ng/L Testing performed on [employer] using a homogeneous sandwich chemiluminescent immunoassay based on [employer] technology. Urea nitrogen [Mass/Vol] 4 mg/dL Low 7 - 18 mg/dL AO ADM SS Urea nitrogen/Creatinine [Mass ratio] 6 ratio Low 7 - 27 ratio AO ADM SS WBC (Bld) [#/Vol] 10.2 103/mcL Normal 4.5 - 10.8 10^3/mcL AO Workflow SS TROPHSon 05-08-2025 High Sensitivity Troponin I <4 Normal 0-[address] [facility] Comment on above: Result Comment: High Sensitive Troponin I Reference Ranges: Female: 0-51 ng/L Male: 0-76 ng/L Testing performed on [employer] using a homogeneous sandwich chemiluminescent immunoassay based on [employer] technology. Performed By: #### A DIFF, ANEU, CBC, MDW, HCGQ, ABOGEL #### [place] [address] [place], [place] [address] ED MED ADMINISTRATION DETAIL on 05-07-2025 ED MED ADMINISTRATION DETAIL [employer] - GERARDO ATKINS, : 2005, , Medication Administration Record [address] [place] [address] [id number] 05/06/2025 Patient: GERARDO ATKINS Sex: Female : 2005 Age: 20y MEASUREMENTS: Wt: 86.2 kg, Ht/Chetan: 66.0 in, BMI: 30.67 ALLERGIES: Bactrim, BuSpar Medication Ordered Medication Administration Date/Time IV NS 0.9 % 19:49 05/06 IV NS 0.9 % 1000 mL started in bag#1 1000 Started 1000 mL at 999 mL at 999 mL/hr via Site# 1. Allergies verified and 19:49 05/06/2025 mL/hr (NOW x1) confirmed 5 rights. IV patency established. IV site Micaela Booth, checked: no pain, redness, or swelling. IV flushed R.N. thoroughly pre-medication administration. Information Stopped reviewed with patient. Verbalizes understanding. - 19:49 20:49 05/06/2025 Leonie Marquez R.N. 20:49 05/06 Medication Discontinued: bag #1 completed. Scanned Total amount infused: 1000 mL. IV patency established. IV site checked: no pain, redness, or swelling. IV flushed thoroughly post-medication administration. - 23:59 Micaela Booth R.N. 1 of 2 [employer] - GERARDO ATKINS, : 2005, , IV NS 0.9 % 21:15 05/06 IV NS 0.9 % 1000 mL started in bag#2 1000 Started 1000 mL at 500 mL at 500 mL/hr via Site# 1. Allergies verified and 21:15 05/06/2025 mL/hr (NOW x1) confirmed 5 rights. Via dial-a-flow. IV patency established. Hao Cox IV site checked: no pain, redness, or swelling. IV flushed R.NAnn thoroughly pre-medication administration. Information Stopped reviewed with patient including reason for taking this 22:15 05/06/2025 medication. Verbalizes understanding. - 21:15 Kenny Zhang R.N. RAnnN. Scanned 22:15 05/06 Medication Discontinued: bag #2 completed. Total amount infused: 1000 mL. IV patency established. IV site checked: no pain, redness, or swelling. IV flushed thoroughly post-medication administration. - 23:59 Micaela Booth R.N. LORazepam 21:14 05/06 LORazepam (Ativan) IVP 1 mg given via Site# Given (Ativan) IVP 1 1. Allergies verified and confirmed 5 rights. IV patency 21:14 05/06/2025 mg (NOW x1) established. IV site checked: no pain, redness, or swelling. Hao Kenny IV flushed thoroughly pre-medication administration. IVP R.N. given by nurse. Information reviewed with patient Scanned including reason for taking this medication. Verbalizes understanding. Medication Wastage: 1 mg wasted. - 21:14 Hao Cox R.N. Keflex PO 500 21:14 05/06 Keflex PO 500 mg given. Allergies verified Given mg (NOW x1) and confirmed 5 rights. Information reviewed with patient 21:14 05/06/2025 including reason for taking this medication. Verbalizes Hao Cox, understanding. - 21:15 Hao Cox R.N. ROscar Scanned 2 of 2 Normal [facility] ED NURSES CLINICAL NOTEon ED NURSES CLINICAL NOTE Nurse Narrative - GERARDO ATKINS, : 2005, , Nurse Clinical Narrative [address] [address] [id number] 05/06/2025 19:09:00 Patient: GERARDO ATKINS Sex: Female : 2005 Age: 20y Disposition: Discharge to Home Disposition Decision Time: 23:43 05/06/2025 Departure Time: 00:00 05/07/2025 TRIAGE Arrived by private vehicle. Historian: (patient). Primary physician (nayla). Triage time: 19:24 05/06/2025. Acuity: LEVEL 3. Chief Complaint: ANXIETY. Onset: today. ( Pt states used meth for the first time today about 2 or 3 this afternoon). The patient has had anxiety. SEPSIS SCREEN: NEGATIVE. SIRS criteria negative: heart rate greater than 90. No possible sources of infection. -- 19:29 05/06/25 BRUNOT Micaela Booth R.N. 19:05/06/25. BP: 125/95 MAP: 105. HR: 144. RR: 20. O2 saturation: 100% Temperature: 97.7 F. Pain level now 0/10. -- 19:05/06/25 BRUNOT Micaela Booth R.N. Measurements: 19:05/06/25 Wt: 86.2 kg, Ht/Chetan: 66.0 in, BMI: 30.67 -- 19:05/06/25 BRUNOT Micaela Booth R.N. Medications: PARoxetine 40 mg tablet -- 19:05/06/25 BRUNOT Micaela Booth R.N. hydrOXYzine HCL 25 mg tablet -- 19:05/06/25 EDT Micaela Booth R.N. 1 of 4 Nurse Narrative - GERARDO AKTINS, : 2005, , 19:05/06/25. Preferred Pharmacy: ([facility]). -- 19:05/06/25 BRUNOT Micaela Booth R.N. Allergies: BuSpar -- 19:05/06/25 EDT Micaela Booth R.N. Bactrim -- 19:05/06/25 BRUNOT Micaela Booth R.N. Problems: Anxiety disorder -- 19:05/06/25 BRUNOT Micaela Booth R.N. Surgeries: Tonsillectomy -- 19:28 05/06/25 BRUNOT Micaela Booth R.N. History 19:24 05/06/25. SOCIAL HX: Smoker- current status unknown. Never smoker. Regular vaping. Alcohol use. Drug use: methamphetamines. Recently used drugs today. The patient has not traveled outside the [place] Infectious disease exposure: No infectious disease exposure. ABUSE ASSESSMENT: The patient answered "yes" to the question(s) "Do you feel safe in your home?" and "no" to the question(s) "Are you afraid to go home?". SELF HARM ASSESSMENT: Self harm assessment was performed. The patient answered "no" to the question(s) "Have you recently felt down, depressed, or hopeless?" and "Do you have thoughts of harming or killing yourself?". FALL RISK ASSESSMENT: Fall risk assessment completed. No risk factors identified. -- 19:29 05/06/25 EDT Micaela Booth R.N. Interventions 19:24 05/06/25. Advanced care plan discussed with patient. Patient does not have advanced directive. -- 19:05/06/25 EDT Micaela Booth R.N. 2 of 4 Nurse Narrative - GERARDO ATKINS, : 2005, , PHYSICAL ASSESSMENT 19:30 05/06/25. GENERAL / NEURO / PSYCH: Alert. Oriented X 4. Appears anxious. Speech within normal limits. Good eye contact. Patient appears well-nourished. RESPIRATORY: Respirations not labored. Breath sounds within normal limits. CVS: Cardiac rhythm: sinus tachycardia. Capillary refill less than 2 seconds. GI / : Abdomen soft and nontender. Bowel sounds within normal limits. SKIN: Skin intact. Skin is warm and dry. Skin color is within normal limits. -- 19:30 05/06/25 BRUNOT Micaela Booth R.N. NURSING PROGRESS NOTES 19:40 05/06/25. Site #1 started in the left antecubital space with a 20g needle with aseptic technique and good blood return; 2 attempts. Blood drawn: rainbow set tube(s). Labeled in the presence of the patient and sent to the lab. Saline lock flushed with 10 mL saline. -- 19:45 05/06/25 LARRY Booth R.N. 19:49 05/06/25. IV NS 0.9 % 1000 mL started in bag#1 1000 mL at 999 mL/hr via Site# 1. Allergies verified and confirmed 5 rights. IV patency established. IV site checked: no pain, redness, or swelling. IV flushed thoroughly pre-medication administration. Information reviewed with patient. Verbalizes understanding. -- 19:49 05/06/25 EDT Micaela Booth R.N. 21:12 05/06/25. NIBP monitor and pulse oximeter placed on patient. Head of bed elevated 60 degrees. Two patient identifiers checked. Call light placed in reach. Side rails up x 1. Bed placed in lowest position. Brakes of bed on. -- 22:12 05/06/25 EDT Hao Cox R.N. 21:14 05/06/25. LORazepam (Ativan) IVP 1 mg given via Site# 1. Allergies verified and confirmed 5 rights. IV patency established. IV site checked: no pain, redness, or swelling. IV flushed thoroughly pre-medication administration. IVP given by nurse. Information reviewed with patient including reason for taking this medication. Verbalizes understanding. Medication Wastage: 1 mg wasted. -- 21:14 05/06/25 EDT Hao Cox R.N. 21:14 05/06/25. Keflex PO 500 mg given. Allergies verified and confirmed 5 rights. Information reviewed with patient including (more content not included)... Normal [facility] ED ORDER SHEET (CPOE ONLY)on 05-07-2025 ED ORDER SHEET (CPOE ONLY) Order Sheet - GERARDO ATKINS, : 2005, , Order Sheet [address] [address] [id number] 05/06/2025 Patient: GERARDO ATKINS Sex: Female : 2005 Age: 20y MEASUREMENTS: Wt: 86.2 kg, Ht/Chetan: 66.0 in, BMI: 30.67 ALLERGIES: Bactrim, BuSpar MEDICATION/IV/DRIP/FLUI D ORDERS Acknowledge Order Description Priority Entered d Completed IV NS 0.9 %1000 mL at 999 19:35 05/06/2025 19:49 mL/hr (NOW x1) Omkar Barone, 05/06/2025 D.O. Micaela Booth R.N. IV NS 0.9 %1000 mL at 500 21:03 05/06/2025 21:04 21:15 mL/hr (NOW x1) Omkar Barone, 05/06/2025 05/06/2025 Leonie Mora, ROscar Reason for ordering with Benefits outweigh risks --21:03 05/06/2025 Omkar alerts: Anita Barone LORazepam (Ativan) IVP1 21:03 05/06/2025 21:04 21:14 mg (NOW x1) Omkar Barone, 05/06/2025 05/06/2025 Leonie Mora ROscar Keflex PO500 mg (NOW x1) 21:03 05/06/2025 21:04 21:15 Omkar Barone, 05/06/2025 05/06/2025 1 of 3 Order Sheet - GERARDO ATKINS, : 2005, , Lan.Leonie Abernathy, R.NAnn LAB ORDERS Acknowledge Order Description Priority Entered d Collected Completed CBC w Diff Stat Stat 19:35 19:45 19:45 05/06/2025 05/06/2025 05/06/2025 Micaela Best Reisinger, D.O. R.N. R.N. CMP Stat Stat 19:35 19:45 19:45 05/06/2025 05/06/2025 05/06/2025 Micaela Best Reisinger, D.O. R.N. R.N. Urinalysis Stat Stat 19:35 19:45 20:42 05/06/2025 05/06/2025 05/06/2025 Diane Best R.N. Reisinger, D.O. R.NAnn DIAGNOSTIC STUDY ORDERS Acknowledge Order Description Priority Entered d Completed STAFF ORDERS Acknowledge Order Description Priority Entered d Collected Completed IV Saline Lock 19:35 19:45 19:45 05/06/2025 05/06/2025 05/06/2025 Micaela Best Reisinger, D.O. R.N. R.N. 2 of 3 Order Sheet - GERARDO ATKINS, : 2005, , [Electronically signed by Omkar Barone D.O. (05/07/2025 01:57 EDT)] 3 of 3 Normal [facility] ED PHYSICIAN CLINICAL REPORT on 05-07-2025 ED PHYSICIAN CLINICAL REPORT Narrative - GERARDO ATKINS, : 2005, , Physician Clinical Narrative [place] [id number] [place] [address] [id number] 05/06/2025 19:09:00 Patient: GERARDO ATKINS Sex: Female : 2005 Age: 20y Disposition: Discharge to Home Disposition Decision Time: 23:43 05/06/2025 Departure Time: 00:00 05/07/2025 Measurements Wt: 86.2 kg, Ht/Chetan: 66.0 in, BMI: 30.67 Initial Vital Sign Measured Maximiliano Time BP MAP HR RR O2Sat ETCO2 Temp n GCS RTS 19:25 125/95 105 144 20 100% 97.7 F 0 05/06/2025 Time Seen: 19:24 05/06/2025. Arrived- By private vehicle. Historian- patient. HISTORY OF PRESENT ILLNESS Chief Complaint: ANXIOUS. This started today. (Patient came in saying she was having anxiety attack. She was tachycardic. And just very anxious she says she takes hydroxyzine when she gets anxious but just cannot control it presents to the emergency department she denied wanting herself or anybody else. And then she did tell the nurse that she did use methamphetamines for the first time today around 3:00 and this was also affecting her). Recent drug use. The patient has had anxiety. No paranoia, delusions, suicidal thoughts, self-injury inflicted or hallucinations. 1 of 10 Narrative - GERARDO ATKINS, : 2005, , REVIEW OF SYSTEMS CONSTITUTIONAL: No fever. CVS: No chest pain. NEUROLOGICAL: No headache. THROAT: No sore throat. : No urinary frequency. GI: The patient has had abdominal pain. PAST HISTORY See nurses notes. Anxiety disorder Surgeries: Tonsillectomy Medications: hydrOXYzine HCL 25 mg tablet PARoxetine 40 mg tablet Allergies: Bactrim BuSpar SOCIAL HISTORY Smoker- current status unknown. Never smoker. Regular vaping. Occasional alcohol use. Drug use: methamphetamines. ADDITIONAL NOTES The nursing notes have been reviewed. PHYSICAL EXAM Appearance: Alert. No acute distress. Anxious. Eyes: Pupils equal, round and reactive to light. Neck: Normal inspection. Neck supple. CVS: Tachycardia. Normal heart rhythm. 2 of 10 Narrative - GERARDO ATKINS, : 2005, , Respiratory: Painless inspiration. Chest nontender. Abdomen: Soft and nontender. Back: No tenderness. Skin: Skin warm and dry. Normal skin color. Normal skin turgor. Extremities: Extremities exhibit normal ROM. Psych / Neuro: Oriented X 3. Cognition normal. Thought process normal. Insight and judgement normal. Cranial nerves normal (as tested). No cerebellar findings. No motor deficit. No sensory deficit. LABS, X-RAYS, AND EKG Laboratory Tests: CBC + DIFF Final NATE: 05/06/2025 19:40:00 EDT MsgRcvd: 05/06/2025 19:55 EDT Lab Test Result Reference Status Received 05/06/2025 19:55 CBC + DIFF Final EDT CBC-COMPLETE BLOOD COUNT 05/06/2025 19:55 WBC 8.9 x 10/UL 4.5 - 10.8 Final EDT 05/06/2025 19:55 RBC 5.04 x 10/UL 4.10 - 5.30 Final EDT 05/06/2025 19:55 HEMOGLOBIN 14.6 g/dl 12.0 - 16.0 Final EDT 05/06/2025 19:55 HEMATOCRIT 41.9 % 34.0 - 46.0 Final EDT 05/06/2025 19:55 MCV 83 fl 80 - 99 Final EDT 05/06/2025 19:55 MCH 29 pg 27 - 33 Final EDT 3 of 10 Narrative - GERARDO ATKINS, : 2005, , 05/06/2025 19:55 MCHC 35 X10 3 32 - 36 Final EDT 05/06/2025 19:55 RDW/CV 14.6 % 12.0 - 15.6 Final EDT 05/06/2025 19:55 PLATELET 347 x10/UL 150 - 450 Final EDT 05/06/2025 19:55 MPV 8.4 fl 6.6 - 10.5 Final EDT AUTOMATED DIFFERENTIAL 05/06/2025 19:55 NEUT % 70.6 % 46.0 - 76.0 Final EDT 05/06/2025 19:55 LYMPH % 22.8 % 20.0 - 45.0 Final EDT 05/06/2025 19:55 MONOS % 5.7 % 0.0 - 10.0 Final EDT 05/06/2025 19:55 EO % 0.8 % 0.0 - 7.0 Final EDT 05/06/2025 19:55 BASO % 0.2 % 0.0 - 2.0 Final EDT 05/06/2025 19:55 Lymph # 2.04 x10/UL 0.80 - 2.80 Final EDT 05/06/2025 19:55 Neut # 6.31 x10/UL 1.50 - 7.10 Final EDT 05/06/2025 19:55 Davison # 0.51 x10/UL 0.20 - 1.00 Final EDT 05/06/2025 19:55 EO # 0.07 x10/UL 0.00 - 0.50 Final EDT [facility] - GERARDO ATKINS, : 2005, , 05/06/2025 19:55 Baso # 0.02 x10/UL 0.00 - 0.10 Final EDT 05/06/2025 19:55 MANUAL DIFF N/A New Order EDT 05/06/2025 19:55 MORPHOLOGY N/A New Order EDT CMP with eGFR Final NATE: 05/06/2025 19:40:00 EDT MsgRcvd: 05/06/2025 20:20 EDT Lab Test Result Reference Status Received 05/06/2025 20:20 CMP with eGFR Final EDT COMPREHENSIVE METABOLIC PANEL 05/06/2025 20:20 SODIUM 136 mmol/l 136 - 145 Final EDT 05/06/2025 20:20 POTASSIUM 3.6 mmol/L 3.5 - 5.1 Final EDT 05/06/2025 20:20 CHLORIDE 101 mmol/L 98 - 107 Final EDT 05/06/2025 20:20 (more content not included)... Normal [facility] ED SUPER BILLon 05-07-2025 ED SUPER BILL [facility] - GERARDO ATKINS, : 2005, , [place] [address] [id number] 05/06/2025 Patient: GERARDO ATKINS Sex: Female : 2005 Age: 20y Item Facility Profession Category Description Code al Code Quantity Fee Total Drugs Normal 592159 2 $0.00 $0.00 Saline 1000cc (267643) Nurse/E/M EMERGENCY 231310 1 $0.00 $0.00 DEPARTMEN T VISIT HIGH/URGEN T SEVERITY (68238-34) Nurse/IV/IM/ Hydration 992385 2 $0.00 $0.00 Infusions additional hour (09150) Nurse/IV/IM/ IVP initial 406185 1 $0.00 $0.00 Infusions (67952) Grand Total $0.00 Providers Omkar Barone D.O. 1 of 2 [facility] GERARDO ATKINS, : 2005, , Chief Complaint ANXIOUS. Principal Diagnosis Anxiety reaction. Occasional substance abuse- methamphetamines. Urethritis secondary to trichomonas. Acute urinary tract infection with cystitis and hematuria. ICD-10 Codes F41.1: Generalized anxiety disorder F15.10: Other stimulant abuse, uncomplicated N30.91: Cystitis, unspecified with hematuria A59.03: Trichomonal cystitis and urethritis 2 of 2 Normal [facility] ED VISIT SUMMARYon ED VISIT SUMMARY Visit Overview - GERARDO ATKINS, : 2005, , Visit Overview [address] [place] [address] [id number] 05/06/2025 Patient: GERARDO ATKINS Sex: Female : 2005 Age: 20y 05/07/2025 01:57 AM EDT ED Arrival:19:09 05/06/2025 Status: Recent Travel:no EDT Language:eng Adv Directive:No Isolation Status: Infectious Disease Ethnicity:N Fall Risk:no risk Exposure:no Measurements:5'6" / 167.6 Self-Harm Status:risk Sepsis Screen:negative cm 190.0 lb / 86.2 kg Chief Complaint:ANXIETY, (nayla), and (Pt states used meth for the first time today about 2 or 3 this afternoon) ALLERGIES Bactrim BuSpar HOME MEDICATIONS hydrOXYzine HCL 25 mg tablet PARoxetine 40 mg tablet 1 of 3 Visit Overview - GERARDO ATKINS, : 2005, , PAST MEDICAL HISTORY / PROBLEMS Anxiety disorder See nurses notes PAST SURGICAL HISTORY Tonsillectomy SOCIAL HISTORY Smoking status: Yes Alcohol use: Yes Drug use: Yes ED COURSE MEDICATIONS GIVEN IN EMERGENCY DEPARTMENT 19:49 05/06/25 IV NS 0.9 % 1000 mL 999 mL/hr 21:14 05/06/25 LORazepam (Ativan) IVP 1 mg 21:14 05/06/25 Keflex PO 500 mg 21:15 05/06/25 IV NS 0.9 % 1000 mL 500 mL/hr IV SITE INFORMATION INTAKE OUTPUT REASSESMENT (most recent) 22:15 05/06/25. The patient reports no complaints and the patient is calm and resting quietly. GENERAL / NEURO / PSYCH: Alert. Oriented X 4. Affect appears normal. VITAL SIGNS First Vitals Last Vitals Temp 19:25 05/06/25 97.7 F Temp 23:40 05/06/25 BP 19:05/06/25 125/95 BP 23:40 05/06/25 150/107 HR 19:05/06/25 144 HR 23:40 05/06/25 85 RR 19:25 05/06/25 20 RR 23:40 05/06/25 2 of 3 Visit Overview - GERARDO ATKINS, : 2005, , O2 Sat 19:25 05/06/25 100% O2 Sat 23:40 05/06/25 Pain 19:25 05/06/25 0 Pain 23:40 05/06/25 ETCO2 19:25 05/06/25 ETCO2 23:40 05/06/25 GCS 19:25 05/06/25 GCS 23:40 05/06/25 RTS 19:25 05/06/25 RTS 23:40 05/06/25 PROCEDURES NURSING INTERVENTIONS LABS / STUDIES LABS / STUDIES ORDERED CBC w Diff CMP Urinalysis CLINICAL IMPRESSION ACUTE URINARY TRACT INFECTION WITH CYSTITIS AND HEMATURIA ANXIETY REACTION OCCASIONAL SUBSTANCE ABUSE- METHAMPHETAMINES URETHRITIS SECONDARY TO TRICHOMONAS 3 of 3 Normal [facility] ED VITALS FLOW SHEETon 05-07 ED VITALS FLOW SHEET Vitals - SA MAJO ATKINS, : 2005, , [place] [address] [id number] 05/06/2025 Patient: GERARDO ATKINS Sex: Female : 2005 Age: 20y Measurements Wt: 86.2 kg, Ht/[place]het[place]: 66.0 in, BMI: 30.67 Measured Maximiliano Time BP MAP HR RR O2Sat ETCO2 Temp n GCS RTS 23:40 150/107 121 85 05/06/2025 23:38 89 100% 05/06/2025 23:38 143/94 110 87 05/06/2025 22:58 111 93% 05/06/2025 22:54 138/109 118 88 05/06/2025 22:53 91 100% 05/06/2025 22:48 91 97% 05/06/2025 22:43 91 100% 05/06/2025 1 of 2 Vitals - GERARDO ATKINS, : 2005, , 22:39 137/115 121 93 05/06/2025 22:38 92 96% 05/06/2025 22:33 100 95% 05/06/2025 22:28 93 99% 05/06/2025 22:24 149/119 129 98 05/06/2025 22:23 94 95% 05/06/2025 22:18 99 96% 05/06/2025 22:14 145/86 105 97 05/06/2025 22:13 101 100% 05/06/2025 19:25 125/95 105 144 20 100% 97.7 F 0 05/06/2025 2 of 2 Normal [facility] CBC + DIFFon 05-06-2025 Baso # 0.02 x10EE3/UL Normal 0.00 - 0.10 [facility] Comment on above: Performed By: #### 2 03576 #### [facility],[address] [place] [address] 95801 Basophils/100 WBC (Bld) 0.2 % Normal 0.0 - 2.0 [facility] Comment on above: Performed By: #### 2 85538 #### [facility],[address] [place] [address] CBC + DIFF Normal [facility] Comment on above: Result Comment: CBC- COMPLETE BLOOD COUNT Performed By: #### 2 [id number] #### [facility],[address] [place] [address] 53667 EO # 0.07 x10EE3/UL Normal 0.00 - 0.50 [facility] Comment on above: Performed By: #### 2 62898 #### [facility],[address] [place] [address] 81189 Eosinophils/100 WBC (Bld) 0.8 % Normal 0.0 - 7.0 [facility] Comment on above: Performed By: #### 2 43513 #### [facility],[address] [place] [address] 74199 Erythrocyte distribution width (RBC) [Ratio] 14.6 % Normal 12.0 - 15.6 [facility] Comment on above: Performed By: #### 2 28923 #### [facility],[address] [place] [address] Hematocrit (Bld) [Volume fraction] 41.9 % Normal 34.0 - 46.0 [facility] Comment on above: Performed By: #### 2 11274 #### [facility],[address] [place] [address] Hemoglobin (Bld) [Mass/Vol] 14.6 g/dL Normal 12.0 - 16.0 [facility] Comment on above: Performed By: #### 2 09729 #### [facility],[address] [place] [address] Lymph # 2.04 x10EE3/UL Normal 0.80 - 2.80 [facility] Comment on above: Performed By: #### 2 76817 #### [facility],[address] [place] [address] Lymphocytes/100 WBC (Bld) 22.8 % Normal 20.0 - 45.0 [facility] Comment on above: Performed By: #### 2 31305 #### [facility],[address] [place] [address] MANUAL DIFF N/A Normal [facility] Comment on above: Performed By: #### 2 24882 #### [facility],[address] [place] [address] MCH (RBC) [Entitic mass] 29 pg Normal 27 - 33 [facility] Comment on above: Performed By: #### 2 80985 #### [facility],[address] [place] [address] MCHC 35 X10 3 Normal 32 - 36 [facility] Comment on above: Performed By: #### 2 13952 #### [facility],[address] [place], [place] [id number] MCV (RBC) [Entitic vol] 83 fL Normal 80 - 99 [facility] Comment on above: Performed By: #### 2 00280 #### [facility],[address] [place] [address] 21268 Davison # 0.51 x10EE3/UL Normal 0.20 - 1.00 [facility] Comment on above: Performed By: #### 2 29114 #### [facility],[address] [place] [address] 22935 MONOS % 5.7 % Normal 0.0 - 10.0 [facility] Comment on above: Performed By: #### 2 44929 #### [facility],[address] [place] [address] Morphology Jairo (Bld) [Interp] N/A Normal [facility] Comment on above: Performed By: #### 2 23924 #### [facility],[address] [place] [address] Neut # 6.31 x10EE3/UL Normal 1.50 - 7.10 [facility] Comment on above: Performed By: #### 2 07366 #### [facility],[address] [place], [place] [id number] Neutrophils/100 WBC (Bld) 70.6 % Normal 46.0 - 76.0 [facility] Comment on above: Performed By: #### 2 59900 #### [facility],[address] [place], [place] [id number] PLATELET 347 x10EE3/UL Normal 150 - 450 [facility] Comment on above: Performed By: #### 2 36328 #### [facility],[address] [place] [address] 65369 Platelet mean volume (Bld) [Entitic vol] 8.4 fL Normal 6.6 - 10.5 [facility] Comment on above: Result Comment: AUTO MATED DIFFERENTIAL Performed By: #### 2 99358 #### [facility],[address],[place] [address] RBC 5.04 x 10EE6/UL Normal 4.10 - 5.30 [facility] Comment on above: Performed By: #### 2 12138 #### [facility],[address] [place] [address] 52792 WBC 8.9 x 10EE3/UL Normal 4.5 - 10.8 [facility] Comment on above: Performed By: #### 2 71605 #### [facility],[address] [place] [address] 06372 CMP with eGFRon 05-06-2025 AGE 20 years Normal [facility] Comment on above: Performed By: #### 2 02459 #### [facility],[address] [place] [address] 69183 Albumin [Mass/Vol] 4.2 g/dL Normal 3.4 - 5.0 [facility] Comment on above: Performed By: #### 2 41810 #### [facility],[address] [place] [address] Albumin/Globulin [Mass ratio] 1.1 {ratio} Normal 0.9 - 1.6 [facility] Comment on above: Performed By: #### 2 34976 #### [facility],[address] [place] [address] 51385 ALK PHOS 97 U/L Normal 46 - 116 [facility] Comment on above: Performed By: #### 2 95461 #### [facility],[address] [place] [address] 76709 ALT [Catalytic activity/Vol] 31 U/L Normal 16 - 63 [facility] Comment on above: Performed By: #### 2 32243 #### [facility],[address] [place] [address] 35945 Anion gap [Moles/Vol] 16 mmol/L Normal 10 - 20 [facility] Comment on above: Performed By: #### 2 97117 #### [facility],[address],[place] [address] AST [Catalytic activity/Vol] 19 U/L Normal 13 - 39 [facility] Comment on above: Performed By: #### 2 19576 #### [facility],[address] [place] [address] 30532 B/C RATIO 4 ratio Normal 0 - 30 [facility] Comment on above: Performed By: #### 2 47260 #### [facility],[address] [place] [address] 74337 Bilirubin [Mass/Vol] 0.3 mg/dL Normal 0.2 - 1.0 [facility] Comment on above: Performed By: #### 2 09250 #### [facility],[address] [place], [place] [phone] Calcium [Mass/Vol] 9.9 mg/dL Normal 8.5 - 10.1 [facility] Comment on above: Performed By: #### 2 96551 #### [facility],[address] [place], [place] [phone] Chloride [Moles/Vol] 101 mmol/L Normal 98 - 107 [facility] Comment on above: Performed By: #### 2 59223 #### [facility],[address] [place] [address] 70619 CMP with eGFR Normal [facility] Comment on above: Result Comment: COMP REHENSIVE METABOLIC PANEL Performed By: #### 2 17309 #### [facility],[address] [place] [address] 50283 CO2 [Moles/Vol] 23.0 mmol/L Normal 21.0 - 32.0 [facility] Comment on above: Performed By: #### 2 33918 #### [facility],[address] [place] [address] 78184 Creatinine [Mass/Vol] 0.68 mg/dL Normal 0.55 - 1.02 [facility] Comment on above: Performed By: #### 2 20980 #### [facility],[address] [place] [address] 23295 GFR/1.73 sq M.predicted among non-blacks MDRD (S/P/Bld) [Vol rate/Area] mL/min/{1.73_m2} Normal 60 - 999 [facility] Comment on above: Performed By: #### 2 92363 #### [facility],[address] [place] [address] 21578 Result Comment: ACCO RDING TO THE NATIONAL KIDNEY DISEASE EDUCATION PROGRAM(NKDE), A NORMAL eGFR IS A VALUE GREATER THAN OR EQUAL TO 60 ML/MIN/1.73 SQ METERS. CHRONIC KIDNEY DISEASE: <60mL/MIN/1.73 SQ METERS KIDNEY FAILURE: <15mL/MIN/1.73 SQ METERS THIS TEST SHOULD ONLY BE USED FOR PATIENTS 18 YEARS OF AGE AND OLDER. Globulin (S) [Mass/Vol] 3.9 g/dL High 1.5 - 3.8 [facility] Comment on above: Performed By: #### 2 55373 #### [facility],[address] [place] [address] 85865 Glucose [Mass/Vol] 94 mg/dL Normal 74 - 106 [facility] Comment on above: Performed By: #### 2 57424 #### [facility],[address] [place] [address] 78757 Potassium [Moles/Vol] 3.6 mmol/L Normal 3.5 - 5.1 [facility] Comment on above: Performed By: #### 2 28271 #### [facility],[address] [place] [address] 11075 Protein [Mass/Vol] 8.1 g/dL Normal 6.4 - 8.2 [facility] Comment on above: Performed By: #### 2 20722 #### [facility],[address] [place] [address] 44608 Sodium [Moles/Vol] 136 mmol/L Normal 136 - 145 [facility] Comment on above: Performed By: #### 2 46548 #### [facility],[address] [place] [address] 07942 Urea nitrogen [Mass/Vol] 3 mg/dL Low 7 - [facility] Comment on above: Performed By: #### 2 12409 #### [facility],[address] [place] [address] 38928 URINALYSISon 05-06-2025 Amorphous NONE Normal [facility] Comment on above: Performed By: #### 2 99529 ####[facility],[address] [place] [address] 80416 Bacteria 1+ Normal [facility] Comment on above: Performed By: #### 2 78700 ####[facility],[address] [place], [place] [phone] Bilirubin Ql (U) Negative Normal NORMAL: NEGATIVE [facility] Comment on above: Performed By: #### 2 03212 ####[facility],[address] [place], [place] [id number] Casts NONE Normal [facility] Comment on above: Performed By: #### 2 13715 ####[facility],[address] [place], [place] [address] Clarity (U) clear Normal NORMAL: CLEAR [facility] Comment on above: Performed By: #### 2 02506 ####[facility],[address] [place], [place] [id number] Color (U) p.yel Normal NORMAL: YELLOW [facility] Comment on above: Performed By: #### 2 37391 ####[facility],[address] [place] [address] 36832 Crystals LM Nom (Urine sed) NONE Normal [facility] Comment on above: Performed By: #### 2 12270 ####[facility],[address] [place] [address] 20428 Epi Cells FEW Normal [facility] Comment on above: Performed By: #### 2 01680 ####[facility],[address] [place] [address] 16083 Glucose Ql (U) NORM Normal NORMAL: NORMAL [facility] Comment on above: Performed By: #### 2 14757 ####[facility],[address] [place] [address] 25234 Hemoglobin Ql (U) Negative Normal NORMAL: NEGATIVE [facility] Comment on above: Performed By: #### 2 67549 ####[facility],[address] [place] [address] 52486 Ketone Negative Normal NORMAL: NEGATIVE [facility] Comment on above: Performed By: #### 2 30248 ####[facility],[address] [place] [address] 67269 Leukocytes 500 Abnormal NORMAL: NEGATIVE [facility] Comment on above: Performed By: #### 2 36635 ####[facility],[address] [place], [place] [id number] Mucous NONE Normal [facility] Comment on above: Performed By: #### 2 76097 ####[facility],[address] [place] [address] 41505 Nitrite Ql (U) Negative Normal NORMAL: NEGATIVE [facility] Comment on above: Performed By: #### 2 96027 ####[facility],[address] [place] [address] 25272 pH (U) 8 [pH] Normal NORMAL: 5.0-8.0 [facility] Comment on above: Performed By: #### 2 82605 ####[facility],[address] [place] [address] 47688 Protein Ql (U) 30 Abnormal NORMAL: NEGATIVE [facility] Comment on above: Performed By: #### 2 36843 ####[facility],[address] [place] [address] 06388 Rbc 0-5 Normal 0-3/hpf [facility] Comment on above: Performed By: #### 2 35838 ####[facility],[address] [place] [address] Sp [place] 1.010 Normal NORMAL: 1.010-1.030 [facility] Comment on above: Performed By: #### 2 14437 ####[facility],[address] [place] [address] Specimen Type R Normal [facility] Comment on above: Performed By: #### 2 91874 ####[facility],[address] [place] [address] Urinalysis dipstick W Reflex Microscopic panel (U) SEE BELOW Normal [facility] Comment on above: Result Comment: MICR OSCOPIC Performed By: #### 2 88623 ####[facility],[address] [place] [address] Urobilinog NORM Normal NORMAL: NORMAL [facility] Comment on above: Performed By: #### 2 25393 ####[facility],[address] [place] [address] Wbc 26-50 Normal 0-5/hpf [facility] Comment on above: Performed By: #### 2 82359 ####[facility],[address] [place] [address] Yeast NONE Normal [facility] Comment on above: Result Comment: TRIC HOMONAS VAGINALIS PRESENT Performed By: #### 2 19183 ####[facility],[address] [place] [address] Emergency Department Summary on 04-29-2025 Emergency Department Summary [facility] Medical Records Department [address] [place] [address] Emergency Department Summary 04/29/25 MR#: [id number] Acct: [id number] Name: GERARDO ATKINS [place] Rep #: [id number] : 2005 20 From: David Morris DO PCP: Dr. Leisa Winslow DO Status:DEP ER Location: ED HPI History of Present Illness Chief Complaint: Anxiety Informant: patient Narrative Narrative: Patient is a 20-year-old female with past medical history of anxiety. She states she takes paroxetine daily and hydroxyzine for breakthrough symptoms. She states that this evening she did use meth and after doing so began to feel like her heart was racing and her anxiety was worsening. She states that she took hydroxyzine without any symptom improvement. She states symptoms are improving but not gone and secondary to this she comes in for evaluation. She admits to the methamphetamine use but states there is no excessive nicotine or caffeine use. [facility] Medical History Anxiety Home Medications ???Medication ???Instructions ???Recorded ???Last Taken ???Type hydroxyzine pamoate 25 mg capsule 25 mg PO 4X/DAY PRN PRN anxiety 0 02/24/25 02/23/25 History paroxetine HCl 40 mg tablet 40 mg PO DAILY mood 02/24/2502/23 History hydroxyzine pamoate 25 mg capsule 25 mg PO Q6H PRN anxiety #20 caps 03/17/25 Unknown Rx (Vistaril) Allergy/AdvReac Type Severity Reaction Status Date / Time sulfamethoxazole (From Allergy Rash Verified 04/28/25 23:52 Bactrim) trimethoprim (From Bactrim) Allergy Rash Verified 04/28/25 23:52 Surgical History Hx of tonsillectomy Social History Smoking Status: Current every day smoker tobacco type: e-cigarettes ROS ROS ED Constitutional Constitutional ED: Denies chills or fever(s) Eyes Eyes: Denies blurry vision or change in vision ENT ENT ED: Denies sore throat Cardiovascular Cardiovascular: Reports palpitations and racing heartbeat; Denies chest pain Respiratory/Chest Respiratory/Chest: Denies cough or dyspnea Gastrointestinal Gastrointestinal: Denies abdominal pain, diarrhea, nausea or vomiting Genitourinary Genitourinary ED: Denies dysuria Musculoskeletal Musculoskeletal: Denies myalgias Integumentary Denies rash Neurologic Neurologic: Reports paresthesias; Denies headache(s) Psychiatric Psychiatric: Reports anxiety; Denies suicidal ideation or suicidal thoughts Hematologic/Lymphatic Hematologic/Lymphatic: Denies easy bleeding or easy bruising EXAM Physical Exam Const Vital Signs: 04/28/25 23:52 04/29/25 00:50 Temperature 98 F 98.0 F Temperature Source Temporal Pulse Rate 146 H 110 H Respiratory Rate 24 H 18 Blood Pressure 133/96 H 128/60 H Blood Pressure Mean 108 82 Pulse Ox 99 100 Oxygen Delivery Method Room Air Positive well nourished and well developed General Appearance ED: well developed; Negative for pallor HEENT HEENT Narrative: Normocephalic atraumatic No tongue or lip swelling no oral lesions no airway edema or compromise Eyes PERRL and EOMs intact bilaterally General Eye ED: Negative for scleral icterus Neck supple and no JVD Resp normal respiratory effort and clear to auscultation bilaterally Resp Narrative: No nasal flaring retractions tachypnea accessory muscle use or stridor noted Cardio regular rhythm Rate: tachycardic and other Other Details: Tachycardic rate with regular rhythm Radial and carotid pulses are equal and symmetric GI normal to inspection, nondistended, normoactive bowel sounds, non-tender, non-distended and no masses Auscultation: normoactive bowel sounds Palpation: soft Extremity normal to inspection Extremity Narrative: No asymmetric edema no pitting edema negative Homans' sign bilaterally Neuro oriented x3, CN's II-XII intact bilaterally and no sensory deficits noted Neuro Narrative: GCS of 15 Cranial nerves II through XII are grossly intact without focal neurologic deficit No pronator drift no dysmetria no truncal ataxia NIH stroke scale score of 0 Sensorium / Orientation: alert Motor Exam: strength 5/5 throughout Psych Psych Narrative: Positive anxious affect without homicidal or suicidal ideation Mood Affect: anxious Skin no rashes or lesions noted and no wounds General Skin Exam: Negative for jaundice or pallor MDM MDM MDM Narrative Medical decision making narrative: Patient arrived to the ER tachycardic and mildly tachypneic but otherwise with stable vitals and no signs of hypoxia. She has a known history of anxiety and states she did use methamphetamine prior to the onset of her symptoms. The fact that she reporte (more content not included)... Normal [facility] Emergency Department Summary on 03-17-2025 Emergency Department Summary [facility] Medical Records Department [address] [place] [address] Emergency Department Summary 03/17/25 MR#: [id number] Acct: [id number] Name: GERARDO ATKINS Rep #: [id number] : 2005 19 From: Susu Vasquez DO PCP: Dr. Leisa Winslow DO Status:DEP ER Location: ED HPI HPI - Psych History of Present Illness Chief Complaint: Anxiety Informant: patient Narrative Narrative: Patient is a 19-year-old female with history of anxiety (on paroxetine as well as hydroxyzine as needed) follows with primary care presenting for panic attack. Patient states that she was drinking earlier today and thinks that triggered a panic attack. She started to feel very anxious then started feel like she was getting numb in her face and her hand started to cramp up. She tried to take hydroxyzine however something it spilled in her purse and the pills were all swollen up. She came in for further evaluation because she did not know what else to do. She denies any HI or SI. Lives at home with her mother and states she feel safe at home. No other complaints or concerns at this time. [facility] Medical History Anxiety Home Medications ???Medication ???Instructions ???Recorded ???Last Taken ???Type hydroxyzine pamoate 25 mg capsule 25 mg PO 4X/DAY PRN PRN anxiety 0 02/24/25 02/23/25 History paroxetine HCl 40 mg tablet 40 mg PO DAILY mood 02/24/2502/23 History hydroxyzine pamoate 25 mg capsule 25 mg PO Q6H PRN anxiety #20 caps 03/17/25 Unknown Rx (Vistaril) Allergy/AdvReac Type Severity Reaction Status Date / Time sulfamethoxazole (From Allergy Rash Verified 03/17/25 00:12 Bactrim) trimethoprim (From Bactrim) Allergy Rash Verified 03/17/25 00:12 Surgical History Hx of tonsillectomy Social History Smoking Status: Current every day smoker tobacco type: e-cigarettes ROS ROS ED Constitutional Constitutional ED: Denies chills or fever(s) Eyes Eyes: Denies change in vision Cardiovascular Cardiovascular: Denies chest pain Respiratory/Chest Respiratory/Chest: Reports dyspnea Gastrointestinal Gastrointestinal: Denies vomiting Integumentary Denies rash Neurologic Neurologic: Reports paresthesias; Denies weakness Psychiatric Psychiatric: Reports anxiety; Denies suicidal ideation or suicidal thoughts EXAM Physical Exam Const Vital Signs: 03/17/25 00:13 03/17/25 02:26 Temperature 98.6 F 98.0 F Temperature Source Oral Pulse Rate 122 H 70 Respiratory Rate 20 H 18 Blood Pressure 134/94 H 130/74 H Blood Pressure Mean 107 92 Pulse Ox 99 100 Oxygen Delivery Method Room Air Positive well nourished and well developed General Appearance ED: well developed and NAD HEENT Reports moist mucous membranes Neck supple Resp normal respiratory effort and clear to auscultation bilaterally Cardio Rate: tachycardic Rhythm: regular rhythm GI non-tender and non-distended Extremity normal to inspection General Extremety ED: Negative for edema General Extremity: Negative for edema Neuro oriented x3 Sensorium / Orientation: alert Motor Exam: muscle tone normal throughout; Negative for general weakness Psych thought process normal, cooperative, affect normal and activity/motor behavior normal Appearance: disheveled Attitude: engaged Activity / Motor Behavior: appropriate eye contact Speech: normal speech Mood Affect: anxious Thought Content: normal thought content, No suicidality, No homicidality and No delusion(s) Attention / Concentration: attention grossly intact Memory / Cognition: memory grossly intact Insight: insight good Judgement: fair Skin Lesions: no lesions Rashes: no rashes MDM MDM MDM Narrative Medical decision making narrative: Patient evaluated for panic attack. Likely triggered from drinking earlier today with underlying anxiety. Patient is given a dose of hydroxyzine in the emergency room. She does not voice any HI or SI and I think it safe to go home with outpatient follow-up. Given information for the counseling center. Is given a refill of her hydroxyzine. Given return precautions. States has been compliant with her paroxetine. Counseled on avoiding excessive alcohol use. Patient verbalized agreement understand this plan. Did discuss if she starts hyperventilating at home she could try breathing into a brown paper bag to help prevent the associated carpopedal spasm Discharge Plan Triage Chief Complaint: Anxiety ED Provider: Susu Vasquez Dx/Rx/DC Orders Clinical Impression: Generalized anxiety disorder with panic attacks Instructions: ED Panic Attack Prescriptions: (more content not included)... Normal [facility] Absolute lymphocyte countOrd ered By: Alex Marino on 03-03-2025 Lymphocytes Auto (Unsp spec) [#/Vol] 2.53 10*3/uL 0.83-4.51 [facility] Absolute neutrophil countOrd ered By: Alex Marino on 03-03-2025 Neutrophils (Bld) [#/Vol] 10.5 10*3/uL High 2.0-7.7 [facility] Alcohol, Blood (Medical)-Ser umon 03-03-2025 SERUM ETOH < 10.1 Normal <=10.0 [facility] Comment on above: Result Comment: This test is for medical purposes only. The legal definition of intoxication varies according to local law. Performed By: #### L 700.6800, L501.9100, L500.2500, L100.0100 #### [facility] [address] [place], [place], [id number] Anion gap in Serum or Plasma Ordered By: Alex Marino on 03-03-2025 Anion gap [Moles/Vol] 14 mmol/L 5-15 [facility] Automated lymphocyte count a s percentage of total leukocytesOrdered By: Alex Marino on 03-03-2025 Lymphocytes/100 WBC Auto (Unsp spec) 18.0 % Low 19-41 [facility] BUN/creatinine ratioOrdered By: Alex Marino on 03-03-2025 Urea nitrogen/Creatinine [Mass ratio] 10.3 mg/mg 10- [facility] Basic Metabolic Profile (BMP )on 03-03-2025 BUN/CRE 10.3 RATIO Normal - [facility] Comment on above: Performed By: #### L 700.6800, L501.9100, L500.2500, L100.0100 #### [facility] [address] [place], [place], [id number] Calcium [Mass/Vol] 9.9 mg/dL Normal 7.6-11.0 [facility] Comment on above: Performed By: #### L 700.6800, L501.9100, L500.2500, L100.0100 #### [facility] [address] [place], [address] Chloride [Moles/Vol] 100 mmol/L Normal 98-108 [facility] Comment on above: Performed By: #### L 700.6800, L501.9100, L500.2500, L100.0100 #### [facility] [address] [place], [address] CO2 [Moles/Vol] 23.1 mmol/L Normal 21.0-32.0 [facility] Comment on above: Performed By: #### L 700.6800, L501.9100, L500.2500, L100.0100 #### [facility] [address] [place], [address] Creatinine [Mass/Vol] 0.56 mg/dL Low 0.70-1.20 [facility] Comment on above: Performed By: #### L 700.6800, L501.9100, L500.2500, L100.0100 #### [facility] [address] [place], [address] ECRCL 178.27 ml/min Normal 50-250 [facility] Comment on above: Performed By: #### L 700.6800, L501.9100, L500.2500, L100.0100 #### [facility] [address] [place], [address] GAP 14 Normal 5-15 [facility] Comment on above: Performed By: #### L 700.6800, L501.9100, L500.2500, L100.0100 #### [facility] [address] [place], [address] GFR/1.73 sq M.predicted among non-blacks MDRD (S/P/Bld) [Vol rate/Area] 133 mL/min/{1.73_m2} Normal >60 [facility] Comment on above: Result Comment: mL/m in/1.73m2 CKD-EPI Creatinine Equation (2020) Performed By: #### L 700.6800, L501.9100, L500.2500, L100.0100 #### [facility] [address] [place], [address] Glucose [Mass/Vol] 98 mg/dL Normal 70-99 [facility] Comment on above: Performed By: #### L 700.6800, L501.9100, L500.2500, L100.0100 #### [facility] [address] [place], [address] Potassium [Moles/Vol] 3.6 mmol/L Normal 3.3-5.1 [facility] Comment on above: Performed By: #### L 700.6800, L501.9100, L500.2500, L100.0100 #### [facility] [address] [place], [address] Sodium [Moles/Vol] 137 mmol/L Normal 133-145 [facility] Comment on above: Performed By: #### L 700.6800, L501.9100, L500.2500, L100.0100 #### [facility] [address] [place], [address] Urea nitrogen [Mass/Vol] 6 mg/dL Normal 4-19 [facility] Comment on above: Performed By: #### L 700.6800, L501.9100, L500.2500, L100.0100 #### [facility] [address] [place], [address] Basophil percentageOrdered B y: Alex Marino on 03-03-2025 Basophils/100 WBC (Bld) 0.4 % 0-1 [facility] CBC W/Diff, Automatedon 02-14 Absolute Lymph 2.53 X10 3/uL Normal 0.83-4.51 [facility] Comment on above: Performed By: #### L 700.6800, L501.9100, L500.2500, L100.0100 #### [facility] [address] [place], [address] Absolute Neut 10.5 X10 3/uL High 2.0-7.7 [facility] Comment on above: Performed By: #### L 700.6800, L501.9100, L500.2500, L100.0100 #### [facility] [address] [place], [address] Basophils/100 WBC (Bld) 0.4 % Normal 0-1 [facility] Comment on above: Performed By: #### L 700.6800, L501.9100, L500.2500, L100.0100 #### [facility] [address] [place], [address] Eosinophils/100 WBC (Bld) 0.6 % Normal 0-5 [facility] Comment on above: Performed By: #### L 700.6800, L501.9100, L500.2500, L100.0100 #### [facility] [address] [place], [address] Erythrocyte distribution width (RBC) [Ratio] 13.6 % Normal 11.6-14.6 [facility] Comment on above: Performed By: #### L 700.6800, L501.9100, L500.2500, L100.0100 #### [facility] [address] [place], [address] Hematocrit (Bld) [Volume fraction] 40.3 % Normal 37-47 [facility] Comment on above: Performed By: #### L 700.6800, L501.9100, L500.2500, L100.0100 #### [facility] [address] [place], [address] Hemoglobin (Bld) [Mass/Vol] 13.3 g/dL Normal 12.0-15.0 [facility] Comment on above: Performed By: #### L 700.6800, L501.9100, L500.2500, L100.0100 #### [facility] [address] [place], [address] IG% 0.400 Normal 0.0-0.9 [facility] Comment on above: Result Comment: IG% - Immature Granulocytes (promyelocytes, myelocytes and metamyelocytes) > 1% indicates that a LEFT SHIFT is Present. Performed By: #### L 700.6800, L501.9100, L500.2500, L100.0100 #### [facility] [address] [place], [address] Lymphocytes/100 WBC (Bld) 18.0 % Low 19-41 [facility] Comment on above: Performed By: #### L 700.6800, L501.9100, L500.2500, L100.0100 #### [facility] [address] [place], [address] MCH (RBC) [Entitic mass] 28.5 pg Normal 27.0-32.0 [facility] Comment on above: Performed By: #### L 700.6800, L501.9100, L500.2500, L100.0100 #### [facility] [address] [place], [address] MCHC (RBC) [Mass/Vol] 33.0 g/dL Normal 32-36 [facility] Comment on above: Performed By: #### L 700.6800, L501.9100, L500.2500, L100.0100 #### [facility] [address] [place], [address] MCV (RBC) [Entitic vol] 86.5 fL Normal 81-99 [facility] Comment on above: Performed By: #### L 700.6800, L501.9100, L500.2500, L100.0100 #### [facility] [address] [place], [address] Monocytes/100 WBC (Bld) 5.9 % Normal 0-10 [facility] Comment on above: Performed By: #### L 700.6800, L501.9100, L500.2500, L100.0100 #### [facility] [address] [place], [address] Neutrophils/100 WBC (Bld) 74.7 % High 47-70 [facility] Comment on above: Performed By: #### L 700.6800, L501.9100, L500.2500, L100.0100 #### [facility] [address] [place], [address] Nucleated RBC (Bld) [#/Vol] 0 10*3/uL Normal 0-5 [facility] Comment on above: Performed By: #### L 700.6800, L501.9100, L500.2500, L100.0100 #### [facility] [address] [place], [address] Platelet mean volume (Bld) [Entitic vol] 10.0 fL Normal 6.2-12.0 [facility] Comment on above: Performed By: #### L 700.6800, L501.9100, L500.2500, L100.0100 #### [facility] [address] [place], [address] Platelets (Bld) [#/Vol] 345 10*3/uL Normal 150-450 [facility] Comment on above: Performed By: #### L 700.6800, L501.9100, L500.2500, L100.0100 #### [facility] [address] [place], [address] RBC (Bld) [#/Vol] 4.66 10*6/uL Normal 4.2-5.4 [facility] Comment on above: Performed By: #### L 700.6800, L501.9100, L500.2500, L100.0100 #### [facility] [address] [place], [address] RDW SD 43.4 fl Normal 35.1-43.9 [facility] Comment on above: Performed By: #### L 700.6800, L501.9100, L500.2500, L100.0100 #### [facility] [address] [place], [address] WBC (Bld) [#/Vol] 14.0 10*3/uL High 4.4-11.0 [facility] Comment on above: Performed By: #### L 700.6800, L501.9100, L500.2500, L100.0100 #### [facility] [address] [place], [address] Carbon dioxide, total [Moles /volume] in Central venous bloodOrdered By: Alex Marino on 03-03-2025 CO2 [Moles/Vol] 23.1 mmol/L 21.0-32.0 [facility] Chloride assayOrdered By: Gab Marino on 03-03-2025 Chloride [Moles/Vol] 100 mmol/L 98-108 [facility] Emergency Department Summary on 03-03-2025 Emergency Department Summary [facility] Medical Records Department [address] [place] [address] Emergency Department Summary 03/03/25 MR#: [id number] Acct: [id number] Name: GERARDO ATKINS [place] Rep #: [id number] : 2005 19 From: Alex Marino DO PCP: Dr. Leisa Winslow, DO Status:DEP ER Location: ED HPI History [...] (Updated 03/03/25 @ 23:[address] Alex Marino, ) Anxiety Home Medications ???Medication ???Instructions ???Recorded ???Last [...] (Updated 03/03/25 @ 22:[address] Alex Marino, ) Hx of tonsillectomy Social History Smoking Status: [...] MPV 1 (more content not included)... Normal [facility] Eosinophil percentageOrdered By: Alex Marino on 03-03-2025 Eosinophils/100 WBC (Bld) 0.6 % 0-5 [facility] Erythrocyte distribution wid th ratioOrdered By: Alex Marino on 03-03-2025 Erythrocyte distribution width (RBC) [Ratio] 13.6 % 11.6-14.6 [facility] Erythrocyte distribution wid th standard deviationOrdered By: Alex Marino on 03-03-2025 Erythrocyte distribution width (RBC) [Ratio] 43.4 fl 35.1-43.9 [facility] Glomerular filtration rate ( GFR)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 ([place] Comment on above: Performed By: #### B MP, ANEU, GFR, MDW, CBC, ADIFF #### [address] [address] CO2 [Moles/Vol] 23 mmol/L Normal 22-29 [facility] ([place] Comment on above: Performed By: #### B MP, ANEU, GFR, MDW, CBC, ADIFF #### [address] [address] Creatinine [Mass/Vol] 0.59 mg/dL Normal 0.55-1.02 [facility] ([place]) Comment on above: Performed By: #### B MP, ANEU, GFR, MDW, CBC, ADIFF #### [address] [address] Electrolyte Balance 14.0 mEq/L Normal 4.0-15.0 [facility] ([place] Comment on above: Performed By: #### B MP, ANEU, GFR, MDW, CBC, ADIFF #### [address] [address] Glucose [Mass/Vol] 109 mg/dL High 70-105 [facility] ([place] Comment on above: Performed By: #### B MP, ANEU, GFR, MDW, CBC, ADIFF #### [address] [address] Potassium [Moles/Vol] 3.5 mmol/L Normal 3.5-5.1 [facility] ([place] Comment on above: Performed By: #### B MP, ANEU, GFR, MDW, CBC, ADIFF #### [address] [address] Sodium [Moles/Vol] 141 mmol/L Normal 136-145 [facility] ([place] Comment on above: Performed By: #### B MP, ANEU, GFR, MDW, CBC, ADIFF #### [address] [address] Urea nitrogen [Mass/Vol] 8 mg/dL Normal 7-18 [facility] ([place] Comment on above: Performed By: #### B MP, ANEU, GFR, MDW, CBC, ADIFF #### [address] [address] CBCon 09-26-2023 Erythrocyte distribution width (RBC) [Ratio] 12.9 % Normal 11.5-14.5 [facility] ([place] Comment on above: Performed By: #### B MP, ANEU, GFR, MDW, CBC, ADIFF #### [address] [address] Hematocrit (Bld) [Volume fraction] 42.3 % Normal 37.0-47.0 [facility] ([place] Comment on above: Performed By: #### B MP, ANEU, GFR, MDW, CBC, ADIFF #### [address] [address] Hgb 14.8 G/dL Normal 12.0-16.0 [facility] ([place] Comment on above: Performed By: #### B MP, ANEU, GFR, MDW, CBC, ADIFF #### [place] [address] MCH (RBC) [Entitic mass] 32.3 pg High 27.0-31.2 [facility] ([place] Comment on above: Performed By: #### B MP, ANEU, GFR, MDW, CBC, ADIFF #### [place] [address] MCHC 35.1 G/dL Normal 33.0-37.0 [facility] ([place] Comment on above: Performed By: #### B MP, ANEU, GFR, MDW, CBC, ADIFF #### [place] [address] MCV (RBC) [Entitic vol] 91.9 fL Normal 80.0-94.0 [facility] ([place] Comment on above: Performed By: #### B MP, ANEU, GFR, MDW, CBC, ADIFF #### [place] [address] Platelet 177 10 3/mcL Normal 130-400 [facility] ([place] Comment on above: Performed By: #### B MP, ANEU, GFR, MDW, CBC, ADIFF #### [place] [address] Platelet mean volume (Bld) [Entitic vol] 9.6 fL Normal 7.4-10.4 [facility] ([place] Comment on above: Performed By: #### B MP, ANEU, GFR, MDW, CBC, ADIFF #### [place] [address] RBC 4.60 10 6/mcL Normal 4.20-5.40 [facility] ([place] Comment on above: Performed By: #### B MP, ANEU, GFR, MDW, CBC, ADIFF #### [place] [id number] WBC 8.4 10 3/mcL Normal 4.6-10.8 [facility] ([place] Comment on above: Performed By: #### B MP, ANEU, GFR, MDW, CBC, ADIFF #### [place] [address] CVFLURVon 09-26-2023 FLU A PCR Negative Normal Negative [facility] ([place] Comment on above: Performed By: #### C VFLURV #### [place] [address] FLU B PCR Negative Normal Negative [facility] ([place] Comment on above: Performed By: #### C VFLURV #### [place] [address] RSV PCR Negative Normal Negative [facility] ([place] Comment on above: Performed By: #### C VFLURV #### [place] [address] SARS-CoV-2 (COVID-19) RNA LIVAN+probe Ql (Unsp spec) Negative Normal Negative [facility] ([place] Comment on above: Result Comment: Resu lts [...] results. Performed By: #### C VFLURV #### [place] [address] LABORATORYOrdered By: Eunice Still on 09-26-2023 Appearance [...] HCG ( test) Ql (U) Negative Normal [facility] ([place] Comment on above: Performed By: #### D RUDOLPH, TSH, FT4 #### [facility] [address] [address] test (u) int Not detected Invalid Interpretation Code [facility] ([place] Comment on above: Performed By: #### Lan BENAVIDESER, TSH, FT4 #### [address] [id number] [place], [place] [address] UAon 09-26-2023 Color (U) Light yellow Normal [facility] ([place] Comment on above: Performed By: #### Lan BENAVIDESER, TSH, FT4 #### [facility] [address] [address] Glucose (U) [Mass/Vol] Negative Normal Negative Replaced by [facility] ([place] Comment on above: Performed By: #### Lan RUDOLPH, TSH, FT4 #### [facility] [address] [address] Ketones Ql (U) 15 mg/dL Abnormal Negative [facility] ([place] Comment on above: Performed By: #### Lan RUDOLPH, TSH, FT4 #### [address] [address] UA Appear Clear Normal Clear [facility] ([place] Comment on above: Performed By: #### Lan RUDOLPH, TSH, FT4 #### [address] [address] UA Blood Negative Normal Negative [facility] ([place] Comment on above: Performed By: #### Lan RUDOLPH, TSH, FT4 #### [place] [address] UA Leuk Est Negative Normal Negative [facility] ([place] Comment on above: Performed By: #### Lan RUDOLPH, TSH, FT4 #### [facility] [address] [address] UA Nitrite Negative Normal Negative [facility] ([place] Comment on above: Performed By: #### Lan RUDOLPH, TSH, FT4 #### [facility] [place] [address] UA pH 7.5 Normal 5.0 - 8.0 [facility] ([place] Comment on above: Performed By: #### Lan RUDOLPH, TSH, FT4 #### [facility] [address] [address] UA Protein Negative Normal Negative [facility] ([place] Comment on above: Performed By: #### Lan RUDOLPH, TSH, FT4 #### [address] [address] UA Spec Grav 1.020 Normal 1.015-1.025 [facility] ([place] Comment on above: Performed By: #### D RUDOLPH, TSH, FT4 #### [address] [place], [place] [address] UA Specimen Type Clean Catch Normal [facility] ([place] Comment on above: Performed By: #### D RUDOLPH, TSH, FT4 #### [address] [place], [place] [address] UA Urobilinogen 0.2 E.U./dL Normal 0.2-1.0 [facility] ([place] Comment on above: Performed By: #### D RUDOLPH, TSH, FT4 #### [address] [place], [place] [address] Urobilinogen (U) [Mass/Vol] Negative Normal Negative [facility] ([place] Comment on above: Performed By: #### D RUDOLPH, TSH, FT4 #### [place] [place], [place] [address] XR CHEST 2 VIEWSon XR CHEST 2 VIEWS ORIGINAL EXAMINATION: TWO [...] 5:04:55 AM Ordering Provider: PEACE BRIGGS Normal [facility] ([place] .GFRon 09-20-2023 GFR 119 ml/min/1.73sqm Normal [facility] ([place] Comment on above: Result Comment: GFR Population [...] mL/min/1.73 square meters Performed By: #### Lan RUDOLPH, TSH, FT4 #### [address] [address] GFR Non- 99 ml/min/1.73sqm Normal [facility] ([place] Comment on above: Result Comment: GFR Population [...] mL/min/1.73 square meters Performed By: #### Lan RUDOLPH, TSH, FT4 #### [address] [address] BMPon 09-20-2023 BUN/Creatinine Ratio 8 ratio Normal 7-27 [facility] ([place] Comment on above: Performed By: #### Lan RUDOLPH, TSH, FT4 #### [address] [address] Calcium [Mass/Vol] 9.3 mg/dL Normal 8.4-10.2 [facility] ([place] Comment on above: Performed By: #### Lan RUDOLPH, TSH, FT4 #### [address] [address] Chloride [Moles/Vol] 100 mmol/L Normal 98-107 [facility] ([place] Comment on above: Performed By: #### ANVNEET ROJO, FT4 #### [facility] [address] [address] CO2 [Moles/Vol] 22 mmol/L Normal 22-29 [facility] ([place] Comment on above: Performed By: #### NAVNEET ROJO, FT4 #### [facility] [address] [address] Creatinine [Mass/Vol] 0.75 mg/dL Normal 0.55-1.02 [facility] ([place] Comment on above: Performed By: #### NAVNEET ROJO, FT4 #### [facility] [address] [address] Electrolyte Balance 14.0 mEq/L Normal 4.0-15.0 [facility] ([place] Comment on above: Performed By: #### NAVNEET ROJO, FT4 #### [facility] [address] [address] Glucose [Mass/Vol] 139 mg/dL High 70-105 [facility] ([place] Comment on above: Performed By: #### ANVNEET ROJO, FT4 #### [address] [address] Potassium [Moles/Vol] 3.0 mmol/L Low 3.5-5.1 [facility] ([place] Comment on above: Performed By: #### Lan GALDAMEZ TSH, FT4 #### [facility] [address] [address] Sodium [Moles/Vol] 136 mmol/L Normal 136-145 [facility] ([place] Comment on above: Performed By: #### Lan GALDAMEZ TSH, FT4 #### [facility] [address] [address] Urea nitrogen [Mass/Vol] 6 mg/dL Low 7-18 [facility] ([place] Comment on above: Performed By: #### D RUDOLPH, TSH, FT4 #### [address] [id number] [place], [place] [address] LABORATORYOrdered By: SYSTEM SYSTEM on 09-20-2023 Calcium [...] Interpretation Code AO Chemistry S CNPNon 04-23-2018 CNPN Telephone (HL2EPP) GERARDO MILLER ( ) 03 FDate Time Provider Urlkxyxrpo81/8/18 TALAT GARCIA (RN) HL2EPP During your visit today, we recorded the following information about you:Allergies As of Date: 04/23/2018 Noted Allergy Reactionenvironmental [Other] 02/08/2008 2 - RashDate Reviewed: 02/26/2016Reviewed by: Annamaria Weathers LPN - Fully AssessedReason for Visit: Breast Feeding [1541]Prescriptions as of 04/23/2018 Sig: FLUTICASONE 50 MCG/ACTUATION * Use [address] in each nostril o*Problem List As Of Date 04/23/2018 Noted Resolved Environmental allergies [Z91.09] INVALID FOR* Status:Closed by TALAT GARCIA on 04/23/18 [facility] Vital Signs Date Time Vital Sign Value Performing Clinician Facility 05-08-2025 06:03-[address] Pressure Cuff Size DR JOSEPH OCHOA MD [facility] 05-08-2025 06:03-[address] JOSEPH OCHOA MD [facility] 05-08-2025 06:03-[address] JOSEPH Arias MD [facility] 05-08-2025 06:03-0400 Diastolic Blood Pressure Non-Invasive 77 mm[Hg] DR JOSEPH OCHOA MD [facility] 05-08-2025 06:03-0400 Heart rate 94 /min DR JOSEPH OCHOA MD [facility] 05-08-2025 06:03-0400 Respiratory rate 18 /min DR JOSEPH OCHOA MD [facility] 05-08-2025 06:03-0400 Systolic Blood Pressure Non-Invasive 118 mm[Hg] DR JOSEPH OCHOA MD [facility] 05-08-2025 05:20-0400 Blood Pressure Cuff Size DR JOSPEH OCHOA MD [facility] 05-08-2025 05:20-[address] JOSEPH OCHOA MD [facility] 05-08-2025 05:20-[address] JOSEPH Arias MD [facility] 05-08-2025 05:20-0400 Diastolic Blood Pressure Non-Invasive 95 mm[Hg] DR JOSEPH OCHOA MD [facility] 05-08-2025 05:20-0400 Heart rate 97 /min DR JOSEPH OCHOA MD [facility] 05-08-2025 05:20-0400 Respiratory rate 18 /min DR JOSEPH OCHOA MD [facility] 05-08-2025 05:20-0400 Systolic Blood Pressure Non-Invasive 123 mm[Hg] DR JOSEPH OCHOA MD [facility] 05-08-2025 04:47-0400 Blood Pressure Cuff Size DR JOSEPH OCHOA MD [facility] 05-08-2025 04:47-[address] JOSEPH OCHOA MD [facility] 05-08-2025 04:47-[address] JOSEPH Arias MD [facility] 05-08-2025 04:47-0400 Diastolic Blood Pressure Non-Invasive 81 mm[Hg] DR JOSEPH OCHOA MD [facility] 05-08-2025 04:47-0400 Heart rate 106 /min DR JOSEPH OCHOA MD [facility] 05-08-2025 04:47-0400 Respiratory rate 18 /min DR JOSEPH OCHOA MD [facility] 05-08-2025 04:47-0400 Systolic Blood Pressure Non-Invasive 97 mm[Hg] DR JOSEPH OCHOA MD [facility] 05-08-2025 03:41-0400 Body height [address] JOSEPH OCHOA MD [facility] 05-08-2025 03:41-0400 Body weight 86.[address] JOSEPH OCHOA MD [facility] 04-29-2025 00:50-0400 Body temperature 98 [degF] Dr. Tonny Vallejo MD Work Phone: [facility] 04-29-2025 00:50-0400 Diastolic blood pressure 60 mm[Hg] Dr. Tonny Vallejo MD Work Phone: 5(976)185-694617 [place] [address] 04-29-2025 00:50-0400 Heart rate 110 /min Dr. Tonny Vallejo MD Work Phone: 8(968)596-933650 [place] [address] 04-29-2025 00:50-0400 Respiratory rate 18 /min Dr. Tonny Vallejo MD Work Phone: 1(713)585-597817 [place] [address] 04-29-2025 00:50-0400 SaO2% (BldA) [Mass fraction] 100 % Dr. Tonny Vallejo MD Work Phone: [facility] 04-29-2025 00:50-0400 Systolic blood pressure 128 mm[Hg] Dr. Tonny Vallejo MD Work Phone: [facility] 04-28-2025 23:52-0400 Body height 165.[address] Tonny Vallejo MD Work Phone: 5(726)902-645817 [place] [address] 04-28-2025 23:52-0400 Body mass index (BMI) [Ratio] 32.5 kg/m2 Dr. Tonny Vallejo MD Work Phone: [facility] 04-28-2025 23:52-0400 Body weight 88.[address] Tonny Vallejo MD Work Phone: 0(170)144-278517 [place] [address] 03-17-2025 02:26-0400 Body temperature 98 [degF] Dr. Tonny Vallejo MD Work Phone: 4(916)979-456825 [place] [address] 03-17-2025 02:26-0400 Diastolic blood pressure 74 mm[Hg] Dr. Tonny Vallejo MD Work Phone: 3(281)505-338525 [place] [address] 03-17-2025 02:26-0400 Heart rate 70 /min Dr. Tonny Vallejo MD Work Phone: 3(786)993-139025 [place] [address] 03-17-2025 02:26-0400 Respiratory rate 18 /min Dr. Tonny Vallejo MD Work Phone: 7(462)870-212625 [place] [address] 03-17-2025 02:26-0400 SaO2% (BldA) [Mass fraction] 100 % Dr. Tonny Vallejo MD Work Phone: 6(656)129-499925 [place] [address] 03-17-2025 02:26-0400 Systolic blood pressure 130 mm[Hg] Dr. Tonny Vallejo MD Work Phone: 3(448)791-760225 [place] [address] 03-17-2025 00:13-0400 Body height 167.[address] Tonny Vallejo MD Work Phone: 7(897)044-022525 [place] [address] 03-17-2025 00:13-0400 Body mass index (BMI) [Ratio] 31.2 kg/m2 Dr. Tonny Vallejo MD Work Phone: 0(756)709-485325 [place] [address] 03-17-2025 00:13-0400 Body weight 87.[address] Tonny Vallejo MD Work Phone: 7(739)578-369525 [place] [address] 03-03-2025 23:55-0400 Body temperature 98 [degF] Dr. Tonny Vallejo MD Work Phone: 4(314)561-112725 [place] [address] 03-03-2025 23:55-0400 Diastolic blood pressure 92 mm[Hg] Dr. Tonny Vallejo MD Work Phone: 0(419)353-871425 [place] [address] 03-03-2025 23:55-0400 Heart rate 85 /min Dr. Tonny Vallejo MD Work Phone: 7(191)201-249825 [place] [address] 03-03-2025 23:55-0400 Respiratory rate 16 /min Dr. Tonny Vallejo MD Work Phone: 6(176)411-564525 [place] [address] 03-03-2025 23:55-0400 SaO2% (BldA) [Mass fraction] 99 % Dr. Tonny Vallejo MD Work Phone: 6(237)583-080325 [place] [address] 03-03-2025 23:55-0400 Systolic blood pressure 126 mm[Hg] Dr. Tonny Vallejo MD Work Phone: 7(376)744-304125 [place] [address] 03-03-2025 21:34-0400 Body height 167.[address] Tonny Vallejo MD Work Phone: 2(778)037-624025 [place] [address] 03-03-2025 21:34-0400 Body mass index (BMI) [Ratio] 31.5 kg/m2 Dr. Tonny Vallejo MD Work Phone: 0(461)787-044525 [place] [address] 03-03-2025 21:34-0400 Body weight 88.[address] Tonny Vallejo MD Work Phone: 6(538)301-620925 [place] [address] 02-24-2025 14:29-0400 Body temperature 97.6 [degF] Dr. Tonny Vallejo MD Work Phone: 5(140)499-425325 [place] [address] 02-24-2025 14:29-0400 Diastolic blood pressure 79 mm[Hg] Dr. Tonny Vallejo MD Work Phone: 2(353)972-996125 [place] [address] 02-24-2025 14:29-0400 Heart rate 72 /min Dr. Tonny Vallejo MD Work Phone: 8(359)454-970125 [place] [address] 02-24-2025 14:29-0400 Respiratory rate 18 /min Dr. Tnony Vallejo MD Work Phone: 8(430)810-112525 [place] [address] 02-24-2025 14:29-0400 SaO2% (BldA) [Mass fraction] 99 % Dr. Tonny Vallejo MD Work Phone: 1(811)367-353425 [place] [address] 02-24-2025 14:29-0400 Systolic blood pressure 124 mm[Hg] Dr. Tonny Vallejo MD Work Phone: 5(927)744-436225 [place] [address] 02-24-2025 11:39-0400 Body height 167.[address] Tonny Vallejo MD Work Phone: 5(545)044-288625 [place] [address] 02-24-2025 11:39-0400 Body mass index (BMI) [Ratio] 30.4 kg/m2 Dr. Tonny Vallejo MD Work Phone: 7(482)828-321525 [place] [address] 02-24-2025 11:39-0400 Body weight 85.[address] Tonny Vallejo MD Work Phone: 9(191)836-969925 [place] [address] 02-11-2025 02:45-0400 Body temperature 97.7 [degF] Dr. Tonny Vallejo MD Work Phone: 7(591)006-239725 [place] [address] 02-11-2025 02:45-0400 Diastolic blood pressure 87 mm[Hg] Dr. Tonny Vallejo MD Work Phone: 4(930)209-433625 [place] [address] 02-11-2025 02:45-0400 Heart rate 80 /min Dr. Tonny Vallejo MD Work Phone: 0(140)558-417525 [place] [address] 02-11-2025 02:45-0400 Respiratory rate 16 /min Dr. Tonny Vallejo MD Work Phone: 1(554)864-984817 [place] [address] 02-11-2025 02:45-0400 SaO2% (BldA) [Mass fraction] 100 % Dr. Tonny Vallejo MD Work Phone: 2(936)243-668917 [place] [address] 02-11-2025 02:45-0400 Systolic blood pressure 136 mm[Hg] Dr. Tonny Vallejo MD Work Phone: 6(957)644-654617 [place] [address] 02-11-2025 01:27-0400 Body height 165.[address] Tonny Vallejo MD Work Phone: 0(962)313-237317 [place] [address] 02-11-2025 01:27-0400 Body mass index (BMI) [Ratio] 35.9 kg/m2 Dr. Tonny Vallejo MD Work Phone: 1(233)527-514917 [place] [address] 02-11-2025 01:27-0400 Body weight 98.[address] Tonny Vallejo MD Work Phone: 9(885)395-306325 [place] [address] 09-28-2023 03:29-0400 Diastolic blood pressure 74 mm[Hg] DR APURVA MORENO MD [facility] 09-28-2023 03:29-0400 Heart rate 80 /min DR APURVA MORENO MD [facility] 09-28-2023 03:29-0400 Respiratory rate 19 /min DR APURVA MORENO MD [facility] 09-28-2023 03:29-0400 Systolic blood pressure 116 mm[Hg] DR APURVA MORENO MD [facility] 09-28-2023 02:06-0400 Body height 162.[address] APURVA MORENO MD [facility] 09-28-2023 02:06-0400 Body temperature 97.88 [degF] DR APURVA MORENO MD [facility] 09-28-2023 02:06-0400 Body weight 54.[address] APURVA MORENO MD [facility] 09-28-2023 02:06-0400 Diastolic Blood Pressure Non-Invasive 78 mm[Hg] DR APURVA MORENO MD [facility] 09-28-2023 02:06-0400 Heart rate 86 /min DR APURVA MORENO MD [facility] 09-28-2023 02:06-0400 Respiratory rate 18 /min DR APURVA MORENO MD [facility] 09-28-2023 02:06-0400 Systolic Blood Pressure Non-Invasive 132 mm[Hg] DR APURVA MORENO MD [facility] 09-26-2023 04:04-0400 Blood Pressure Location PEACE BRIGGS MD [facility] 09-26-2023 04:04-0400 Blood Pressure Method PEACE BRIGGS MD [facility] 09-26-2023 04:04-0400 Body height 162.6 cm PEACE BRIGGS MD [facility] 09-26-2023 04:04-0400 Body temperature 99.86 [degF] PEACE BRIGGS MD [facility] 09-26-2023 04:04-0400 Body weight 54.5 kg PEACE BRIGGS MD [facility] 09-26-2023 04:04-0400 Diastolic Blood Pressure Non-Invasive 70 mm[Hg] PEACE BRIGGS MD [facility] 09-26-2023 04:04-0400 Heart rate 95 /min PEACE BRIGGS MD [facility] 09-26-2023 04:04-0400 Respiratory rate 20 /min PEACE BRIGGS MD [facility] 09-26-2023 04:04-0400 Systolic Blood Pressure Non-Invasive 116 mm[Hg] PEACE BRIGGS MD [facility] 09-20-2023 02:42-0500 Blood Pressure Cuff Size BINH REFELICIA DO [facility] 09-20-2023 02:42-0500 Blood Pressure Location BINH REICHFIELD DO [facility] 09-20-2023 02:42-0500 Blood Pressure Method BINH REFELICIA D O [facility] 09-20-2023 02:42-0500 Diastolic Blood Pressure Non-Invasive 84 mm[Hg] BINH REICHFIELD DO [facility] 09-20-2023 02:42-0500 Heart rate 74 /min BINH REICHFIELD DO [facility] 09-20-2023 02:42-0500 Respiratory rate 18 /min BINH REICHFIELD DO [facility] 09-20-2023 02:42-0500 Systolic Blood Pressure Non-Invasive 121 mm[Hg] BINH REICHFIELD DO [facility] 09-20-2023 02:13-0500 Heart rate 108 /min BINH REICHFIELD DO [facility] 09-20-2023 02:09-0500 Blood Pressure Cuff Size BINH REICHFIELD DO [facility] 09-20-2023 02:09-0500 Blood Pressure Location BINH REICHFIELD DO [facility] 09-20-2023 02:09-0500 Blood Pressure Method BINH REICHFIELD D O [facility] 09-20-2023 02:09-0500 Body height 162.6 cm BINH REICHFIELD DO [facility] 09-20-2023 02:09-0500 Body temperature 98.42 [degF] BINH REICHFIELD DO [facility] 09-20-2023 02:09-0500 Body weight 56.8 kg BINH REICHFIELD DO [facility] 09-20-2023 02:09-0500 Diastolic Blood Pressure Non-Invasive 81 mm[Hg] BINH REICHFIELD DO [facility] 09-20-2023 02:09-0500 Heart rate 132 /min BINH REICHFIELD DO [facility] 09-20-2023 02:09-0500 Reason For Taking VItal Signs BINH REICHFIELD DO [facility] 09-20-2023 02:09-0500 Respiratory rate 20 /min BINH LESLIEFIELD DO [facility] 09-20-2023 02:09-0500 Systolic Blood Pressure Non-Invasive 127 mm[Hg] BINH LESLIEFIELD DO [facility] 07-15-2023 01:04-0500 Heart rate 104 /min ANDRZEJ RDZ MD [facility] 07-15-2023 01:04-0500 Respiratory rate 16 /min ANDRZEJ RDZ MD [facility] 07-15-2023 00:51-0500 Blood Pressure Location ANDRZEJ RDZ MD [facility] 07-15-2023 00:51-0500 Blood Pressure Method ANDRZEJ RDZ MD [facility] 07-15-2023 00:51-0500 Body height 165.1 cm ANDRZEJ RDZ MD [facility] 07-15-2023 00:51-0500 Body temperature 98.42 [degF] ANDRZEJ RDZ MD [facility] 07-15-2023 00:51-0500 Body weight 54.5 kg ANDRZEJ RDZ MD [facility] 07-15-2023 00:51-0500 Diastolic Blood Pressure Non-Invasive 95 mm[Hg] ANDRZEJ RDZ MD [facility] 07-15-2023 00:51-0500 Heart rate 140 /min ANDRZEJ RDZ MD [facility] 07-15-2023 00:51-0500 Respiratory rate 18 /min ANDRZEJ RDZ MD [facility] 07-15-2023 00:51-0500 Systolic Blood Pressure Non-Invasive 134 mm[Hg] ANDRZEJ RDZ MD [facility] 05-16-2021 10:51-0400 Body temperature 98.24 [degF] PHILL NEFF MD [facility] 05-16-2021 10:51-0400 Diastolic blood pressure 76 mm[Hg] PHILL NEFF MD [facility] 05-16-2021 10:51-0400 Heart rate 76 /min PHILL NEFF MD [facility] 05-16-2021 10:51-0400 Systolic blood pressure 117 mm[Hg] PHILL NEFF MD [facility] Encounters Encounter Date Encounter Type Care Provider Facility Start: 05-11-2025 End: 05-11-2025 Emergency department patient visit JALYN BARRERA [facility] Start: 05-08-2025 End: 05-08-2025 Emergency department patient visit DR JOSEPH OCHOA MD [facility] Start: 05-06-2025 End: 05-07-2025 Emergency department patient visit OMKAR BARONE [facility] Start: 04-28-2025 End: 04-29-2025 Emergency department patient visit Leisa Nayla Facility:[facility] Start: 03-17-2025 End: 03-17-2025 Emergency department patient visit Dr. Tonny Vallejo MD Work Phone: -Emergency Department Work Phone: Start: 03-03-2025 End: 03-04-2025 Emergency department patient visit Dr. Tonny Vallejo MD Work Phone: -Emergency Department Work Phone: Start: 02-24-2025 End: 02-24-2025 Emergency department patient visit Dr. Tonny Vallejo MD Work Phone: -Emergency Department Work Phone: Start: 02-11-2025 End: 02-11-2025 Emergency department patient visit Dr. Tonny Vallejo MD Work Phone: -Emergency Department Work Phone: Start: 02-09-2025 End: 02-09-2025 Emergency department patient visit DR DOMENICA OROZCO DO [facility] Start: 01-15-2025 End: 01-15-2025 Emergency department patient visit OMKAR RG MD [facility] Start: 09-29-2024 End: 09-29-2024 Emergency department patient visit ADALGISA SINGH MD Facility:[facility] Start: 09-28-2023 End: 09-28-2023 Emergency department patient visit DR APURVA MORENO MD Facility: Start: 09-28-2023 End: 09-28-2023 Emergency department patient visit DR APURVA MORENO MD [facility] Start: 09-26-2023 End: 09-26-2023 Emergency department patient visit PEACE BRIGGS MD Facility:[facility] Start: 09-26-2023 End: 09-26-2023 Emergency department patient visit PEACE BRIGGS MD [facility] Start: 09-20-2023 End: 09-20-2023 Emergency department patient visit BINH COBB DO Facility:[facility] Start: 09-20-2023 End: 09-20-2023 Emergency department [facility] Start: 07-15-2023 End: 07-15-2023 Emergency department patient visit ANDRZEJ RDZ MD Facility:[facility] Start: 07-15-2023 End: 07-15-2023 Emergency department patient visit ANDRZEJ RDZ MD [facility] Start: 05-16-2021 End: 05-16-2021 Emergency department patient visit PHILL NEFF MD [facility] Procedures Date Procedure Procedure Detail Performing Clinician Start: 05-11-2025 Urinalysis OMKAR GONZALEZ Comment on above: Result Comment: URIN ALYSIS Performed By: [id number] ####[place] [address] Start: 05-06-2025 Urinalysis OMKAR GONZALEZ Comment on above: Result Comment: URIN ALYSIS Performed By: #### [id number] ####[place] [address] Start: 03-03-[address] Tonny Vallejo MD Work Phone: Start: 02-24-[address] Tonny Vallejo MD Work Phone: Start: 05-03-2007 Tonsillectomy and adenoidectomy PHILL NEFF MD Plan of Treatment Date Care Activity Detail Author Start: 04-29-2025 [facility] Start: 03-03-2025 [facility] Start: 02-24-2025 [facility] Start: 02-24-2025 [facility] Start: 02-11-2025 [facility] Patient Education [facility] Work Phone: Immunizations Immunization Date Immunization Notes Care Provider Fa cility 02-16-2017 Human Papillomavirus Seamusval PHILL NEFF MD [facility] 01-06-2016 Human Papillomavirus Seamusval PHILL NEFF MD [facility] 08-03-2015 diphtheria, tetanus toxoids and acellular pertussis vaccine, unspecified formulation PHILL NEFF MD [facility] 08-03-2015 poliovirus vaccine, inactivated PHILL NEFF MD [facility] 05-27-2015 diphtheria, tetanus toxoids and acellular pertussis vaccine, unspecified formulation PHILL NEFF MD [facility] 05-27-2015 Human Papillomavirus Quadval PHILL NEFF MD [facility] 05-27-2015 influenza virus vacc ine, unspecified formulation ANDRZEJ RDZ MD [facility] 05-27-2015 meningococcal polysaccharide (groups A, C, Y and W-135) diphtheria toxoid conjugate vaccine (MCV4P) PHILL NEFF MD [facility] 05-27-2015 tetanus toxoid, redu lauryn diphtheria toxoid, and acellular pertussis vaccine, adsorbed PHILL NEFF MD [facility] 05-01-2014 influenza virus vacc ine, unspecified formulation ANDRZEJ RDZ MD [facility] 04-07-2012 influenza virus vacc ine, unspecified formulation ANDRZEJ RDZ MD [facility] 06-08-2010 influenza virus vacc ine, unspecified formulation ANDRZEJ RDZ MD [facility] 03-26-2008 diphtheria, tetanus toxoids and acellular pertussis vaccine, unspecified formulation PHILL NEFF MD [facility] 03-26-2008 hepatitis A vaccine, pediatric dosage, unspecified formulation PHILL NEFF MD [facility] 03-26-2008 poliovirus vaccine, inactivated PHILL NEFF MD [facility] 04-16-2007 hepatitis A vaccine, pediatric dosage, unspecified formulation PHILL NEFF MD [facility] 03-17-2007 hepatitis A vaccine, pediatric dosage, unspecified formulation ANDRZEJ RDZ MD [facility] 03-17-2007 varicella virus vaccine BLANCO NEFF MD [facility] 08-03-2005 diphtheria, tetanus toxoids and acellular pertussis vaccine, unspecified formulation PHILL NEFF MD [facility] 08-03-2005 pneumococcal conjuga te vaccine, 13 valent PHILL NEFF MD [facility] 12-20-2004 diphtheria, tetanus toxoids and acellular pertussis vaccine, unspecified formulation PHILL NEFF MD [facility] 12-20-2004 hepatitis B vaccine, adult dosage PHILL NEFF MD [facility] 12-20-2004 hepatitis B vaccine, unspecified formulation PHILL NEFF MD [facility] 12-20-2004 poliovirus vaccine, inactivated PHILL NEFF MD [facility] 10-25-2004 measles/mumps/rubell a virus vaccine PHILL NEFF MD [facility] 09-01-2004 diphtheria, tetanus toxoids and acellular pertussis vaccine, unspecified formulation PHILL NEFF MD [facility] 09-01-2004 haemophilus influenz ae type b conjugate and Hepatitis B vaccine PHILL NEFF MD [facility] 09-01-2004 haemophilus influenz ae type b vaccine, PRP-T conjugate PHILL NEFF MD [facility] 09-01-2004 hepatitis B pediatri c vaccine PHILL NEFF MD [facility] 09-01-2004 hepatitis B vaccine, unspecified formulation PHILL NEFF MD [facility] 09-01-2004 measles/mumps/rubell a virus vaccine PHILL NEFF MD [facility] 09-01-2004 poliovirus vaccine, inactivated PHILL NEFF MD [facility] 09-01-2004 varicella virus vaccine BLANCO NEFF MD [facility] 2003 diphtheria, tetanus toxoids and acellular pertussis vaccine, unspecified formulation PHILL NEFF MD [facility] 2003 haemophilus influenz ae type b conjugate and Hepatitis B vaccine PHILL NEFF MD [facility] 2003 haemophilus influenz ae type b vaccine, PRP-T conjugate PHILL NEFF MD [facility] 2003 hepatitis B pediatri c vaccine PHILL NEFF MD [facility] 2003 hepatitis B vaccine, unspecified formulation PHILL NEFF MD [facility] 2003 pneumococcal conjuga te vaccine, 13 valent PHILL NEFF MD [facility] 2003 poliovirus vaccine, inactivated PHILL NEFF MD [facility] Payers Date Payer Category Payer Self-pay 2023 Unknown [id number] 2020 Medicaid [id number] 2003 Unknown [id number] 2.16. [id number] 2003 Unknown [id number] 2.16. [id number] 2003 Unknown [id number] 2.16. [id number] 2003 Unknown [id number] 2.16.8 [id number] 2003 Unknown [id number] 2.16.8 [id number] 1948 Unknown [id number] 2.16.8 [id number] 1948 Unknown [id number] 2.16.8 [id number] 1948 Unknown [id number] 2.16.8 [id number] 1948 Unknown [id number] 2.16.8 [id number] 1948 Unknown [id number] 2.16.8 [id number] Unknown [id number] 2.16.8 [id number] Unknown [id number] 2.16.8 [id number] Unknown [id number] 2.16.8 [id number] Unknown [id number] 2.16.8 [id number] Unknown [id number] 2.16.8 [id number] Social History Date Type Detail Facility Tobacco Nicotine Use: Va ping Product in Last 90 Days. Exposure to Tobacco Smoke Lives in non-smoking home. Type: Electronic Cigarettes (Vaping). [facility] Start: 2005 Sex Assigned At Female A [facility] Tobacco smoking status [facility] Start: 01-09-2019 Sex Female (finding) [facility] Start: 02-11-2025 End: 04-28-2025 Tobacco smoking status [facility] Smokes tobacco daily (finding) [facility] Start: 05-08-2025 Unknown (quali fier value) [facility] Sex Female [facility] Functional Status Date Assessment Result Facility 05-08-2025 Functional Status Awake [facility] 05-08-2025 Functional Status [facility] 05-08-2025 [facility] 05-08-2025 Functional Status [facility] 09-28-2023 Functional Status Independent [facility] 09-28-2023 Functional Status Independent [facility] 09-26-2023 Functional Status Independent [facility] 09-26-2023 Functional Status Standard Safet y ID band on, Allergy Band on, Call device within reach, Bed in low position, Wheels locked, Upper/Half-Length side-rails up, personal items within reach, Bedside Cart Locked [facility] 09-20-2023 Functional Status Independent [facility] 09-20-2023 Functional Status Awake, Resting [facility] 07-15-2023 Functional Status ID band on, Call device within reach, Bed in low position, Wheels locked, personal items within reach, Bedside Cart Locked [facility] Mental Status Date Assessment Result Facility 05-08-2025 Mental Status Oriented x 4 [facility] 05-08-2025 Mental Status [facility] 09-28-2023 Mental Status Orientation Oriented x 4 [facility] 09-28-2023 Mental Status [facility] 09-26-2023 Mental Status Orientation Oriented x 4 [facility] 09-26-2023 Mental Status [facility] 09-20-2023 Mental Status Orientation Oriented x 4 [facility] 09-20-2023 Mental Status [facility] 07-15-2023 Mental Status Oriented x 4 [facility] Clinical Notes 05-16-2021 to 05-08-2025 Note Date & Type Note Facility 05-08-2025 Hospital Discharg e instructions Patient Education 05/08/2025 05:45:45 Anxiety Reaction Anxiety Reaction Anxiety is the feeling we all get when we think something bad might happen. It is a normal response to stress and usually causes only a mild [...] relieved by rest and mild pain reliever [id number] [employer] [address] [facility], [place] [address]. All rights reserved. This information is not intended as a substitute for professional medical care. Always follow your healthcare professional's instructions. Follow Up Care 05/08/2025 03:35:29 With:[facility] Address: [address] [place], [place] [id number]- Business (1) When:2-4 days Comments:Return to ED if symptoms worsen With:LEISA WINSLOW DO Address: [address] [place] [address] [phone] When:2-4 days [facility] 05-08-2025 Note Discharge Instructions Thank you for allowing [facility] to assist you with your healthcare needs. The following is important discharge information regarding your hospital visit. Diagnosis from Today's Visit Anxiety attack What to Do Next Instructions from Your Care Team No qualifying data available. Post Acute Orders No qualifying data available. You Need to Schedule the Following Appointments Follow Up with [facility] When:Within 2-4 days Where:[address] [place], [place] [id number]- Business (1) Additional Information: Return to ED if symptoms worsen Follow Up with LEISA WINSLOW DO When:Within 2-4 days Where:[address] [place] [address] [phone] Allergies Bactrim Rash Medications Please ask your primary doctor or pharmacist before taking any other medication not listed, including over the counter drugs, herbal medications, vitamins and or supplements as they may interact with your home medications. What How Much When Why Instructions Last Dose Unchanged busPIRone (busPIRone 7.5 mg oral tablet) 1 tab(s) by mouth Two (2) times a day Anxiety Unchanged hydrOXYzine (Vistaril 25 mg oral capsule) [...] bad might happen. It is a normal response to stress and usually causes only a mild [...] relieved by rest and mild pain reliever [phone] [employer]. [address] [place] [address]. All rights reserved. This information is not intended as a substitute for professional medical care. Always follow your healthcare professional's instructions. Additional Information VACCINATE! IT SAVES LIVES! Members of the community who have not yet received the COVID-19 vaccine and would like to receive it can visit one of [facility] vaccine clinics. There are many vaccine clinic locations within the [facility]. For locations and available times, please visit [email or web address] It is important to note that some COVID mobile vaccine clinics are held outdoors and may be canceled in rainy or stormy conditions. To learn more about pediatric vaccinations (ages 5-11), we invite you to visit the [facility] webpage. https://www.[email or web address].[email or web address]/p ages/5282-Hakao-Sbxfxvrbghj-Freq ibrnpg-Ewwkb-Vniqynbur.html To learn more about the COVID-19 vaccine, we invite you to visit the CDC website for a list of frequently asked questions. https://www.cdc.gov/coronavirus/ 2019-ncov/vaccines/faq.html [facility] Patient Portal Access Instructions: Stay connected with your healthcare team and access your personal medical information anytime with the [facility] Patient Portal. If you would like a full copy of your medical records please contact the [facility] Medical Records Department Monday through Monday between 8a.m. and 4:30p.m. Please follow the directions below to access the portal: 1.Access the email account you provided upon registration to the [facility].2.Look for an invitation email from [facility].3.Open the email and access the invitation link: Accept Invitation to [facility]4.Fill in the required coe to create your account. To access your account, visit [facility] Standards[facility] or scan the [employer] code above. Click the blue button labeled "Access Patient Portal" and then log in with the username and password that you created in the steps above. You can then view a summary of results, a summary of your visits, and the ability to download your summaries to your computer or send the information securely to a physician. Remember that your healthcare information is confidential, so carefully consider who you will allow to register on the [facility] Patient Portal for access to your information. You can also access the [facility] Patient Portal on the [employer] Simply click on "Health Records" under "Health Data" and then click on the [employer] logo. HOW TO SAFELY DISPOSE OF PRESCRIPTION MEDICATIONS Please use one of the following methods to safely dispose of your unused medications. 1.Use a drug disposal kit: the drug disposal pouch allows you to safely discard your old and unused drugs. Ask your nurse to give you one when you are discharged.2.Visit a local take-back location: Many local pharmacies and police departments have programs that collect old and unwanted prescription drugs. Call your local pharmacy or go to http://iCAD.Hello Universe/7H2Zq0p to find one close to you.3.Make use of household items: Use cat litter or old coffee grounds to dispose medications if other options are not available. Mix your drugs with these household products, seal them in an airtight container and throw it into the garbage. Call [facility]: [phone] to be sure your drugs can be [...] drowsiness, such as benzodiazepines, also known as benzos, including diazepam and alprazolam, muscle relaxants or sleep aids. Never sell or share prescription opioids. This is illegal. Store opioids in a [...] aware that I should contact my doctor. Patient/Die Technician Signature: Date/Time: Relationship to Patient: Witness Name/Signature: Date/Time: [facility] 05-08-2025 Note Exam Date Time Procedure Performing Provider Status 05/08/25 5:06 AM EKG [ED AO] - CV MD MORGAN OCHOA MD; Auth (Verified) ECG Final Report Sinus tachycardia Left axis deviation Borderline T abnormalities, anterior leads Prolonged QT interval Electronic Signature: MD JOSEPH OCHOA MD 05/08/2025 05:17:38 [facility]10-14-2025 Discharge summary [facility] Medical Records Department [address] [place] [address] Emergency Department Summary 04/29/25 MR#: [id number] Acct: [id number] Name: GERARDO ATKINS Rep #:[id number] : 2005 20 From: David Morris DO PCP: Dr. Leisa Winslow DO Status:DEP ER Location: ED HPI History of Present Illness Chief Complaint: Anxiety Informant: patient Narrative Narrative: Patient is a 20-year-old female with past medical history of anxiety. She states she takes paroxetine daily and hydroxyzine for breakthrough symptoms. She states that this evening she did use meth and after doing so began to feel like her heart was racing and her anxiety was worsening. She states that she took hydroxyzine without any symptom improvement. She states symptoms are improving but not gone and secondary to this she comes in for evaluation. She admits to the methamphetamine use but states there is no excessive nicotine or caffeine use. [facility] Medical History Anxiety Home Medications ?Medication ?Instructions ?Recorded ?Last Taken ?Type hydroxyzine pamoate 25 mg capsule 25 mg PO 4X/DAY PRN PRN anxiety 02/24/25 02/23/25 History paroxetine HCl 40 mg tablet 40 mg PO DAILY mood 02/23/25 History hydroxyzine pamoate 25 mg capsule 25 mg PO Q6H PRN anx iety #20 caps 03/17/25 Unknown Rx (Vistaril) Allergy/AdvReac Type Severity Reaction Status Date / Time sulfamethoxazole (From Allergy Rash Verified 04/28/25 23:52 Bactrim) trimethoprim (From Bactrim) Allergy Rash Verified 04/28/25 23:52 Surgical History Hx of tonsillectomy Social History Smoking Status: Current every day smoker tobacco type: e-cigarettes ROS ROS ED Constitutional Constitutional ED: Denies chills or fever(s) Eyes Eyes: Denies blurry vision or change in vision ENT ENT ED: Denies sore throat Cardiovascular Cardiovascular: Reports palpitations and racing heartbeat; Denies chest pain Respiratory/Chest Respiratory/Chest: Denies cough or dyspnea Gastrointestinal Gastrointestinal: Denies abdominal pain, diarrhea, nausea or vomiting Genitourinary Genitourinary ED: Denies dysuria Musculoskeletal Musculoskeletal: Denies myalgias Integumentary Denies rash Neurologic Neurologic: Reports paresthesias; Denies headache(s) Psychiatric Psychiatric: Reports anxiety; Denies suicidal ideation or suicidal thoughts Hematologic/Lymphatic Hematologic/Lymphatic: Denies easy bleeding or easy bruising EXAM Physical Exam Const Vital Signs: 04/28/25 23:52 04/29/25 00:50 Temperature 98 F 98.0 F Temperature Source Temporal Pulse Rate 146 H 110 H Respiratory Rate 24 H 18 Blood Pressure 133/96 H 128/60 H Blood Pressure Mean 108 82 Pulse Ox 99 100 Oxygen Delivery Method Room Air Positive well nourished and well developed General Appearance ED: well developed; Negative for pallor HEENT HEENT Narrative: Normocephalic atraumatic No tongue or lip swelling no oral lesions no airway edema or compromise Eyes PERRL and EOMs intact bilaterally General Eye ED: Negative for scleral icterus Neck supple and no JVD Resp normal respiratory effort and clear to auscultation bilaterally Resp Narrative: No nasal flaring retractions tachypnea accessory muscle use or stridor noted Cardio regular rhythm Rate: tachycardic and other Other Details: Tachycardic rate with regular rhythm Radial and carotid pulses are equal and symmetric GI normal to inspection, nondistended, normoactive bowel sounds, non-tender, non- distended and no masses Auscultation: normoactive bowel sounds Palpation: soft Extremity normal to inspection Extremity Narrative: No asymmetric edema no pitting edema negative Homans' sign bilaterally Neuro oriented x3, CN's II-XII intact bilaterally and no sensory deficits noted Neuro Narrative: GCS of 15 Cranial nerves II through XII are grossly intact without focal neurologic deficit No pronator drift no dysmetria no truncal ataxia NIH stroke scale score of 0 Sensorium / Orientation: alert Motor Exam: strength 5/5 throughout Psych Psych Narrative: Positive anxious affect without homicidal or suicidal ideation Mood & Affect: anxious Skin no rashes or lesions noted and no wounds General Skin Exam: Negative for jaundice or pallor MDM MDM MDM Narrative Medical decision making narrative: Patient arrived to the ER tachycardic and mildly tachypneic but otherwise with stable vitals and nosigns of hypoxia. She has a known history of anxiety and states she did use methamphetamine prior to the onset of her symptoms. The factthat she reported paresthesias and contractures would correlatewith hyperventilation. At this time she has had spontaneous improvement of symptoms. And vital signs are improved. We discussed placing an IV given IV hydration and checking basic labs such as blood volume and electrolytes and thyroid markerto rule out any other potential causes as well as an EKG. the patient's rate is still tachycardic but it is regular going against A-fib or a flutter. She states she feels like she needs something stronger than her hydroxyzine to calm down. Therefore I provided IM Ativan. On reevaluation she reports improvement of symptoms. She is not homicidal or suicidal so there is no need for psychiatric evaluation. Therefore with a cause for her breakthrough anxiety andthe methamphetamine and improvement of symptoms with time as well as medication I do not feel need for further workup and she is otherwise safe for discharge. History & Record Review Discussion w/independent historian: Patient and Friend Discharge Plan Triage Chief Complaint: Anxiety ED Provider: David Morris Dx/Rx/DC Orders Clinical Impression: Anxiety reaction, Methamphetamine use Instructions: ED Anxiety Reaction Prescriptions: No Action paroxetine HCl 40 mg tablet 40 mg PO DAILY hydroxyzine pamoate 25 mg capsule 25 mg PO 4X/DAY PRN PRN (Reason: anxiety) hydroxyzine pamoate [Vistaril] 25 mg capsule 25 mg PO Q6H PRN (Reason: anxiety) Qty: 20 0RF Primary Care Provider: Leisa Winslow Referrals: Leisa Winslow DO [Primary Care Provider, Medical] Activity Restrictions/Additional Instructions: Your history and exam is consistent with anxiety exacerbation. Your fast breathing caused you to blow off a waste product of carbon dioxide which led to numbness and tingling and contracture. Please continue all of your home medication as directed by your doctor. The symptoms that you had this evening will resolve with time. Return to the ER should you have any further concerns Print Language: Trinidadian Disposition Disposition: Home, Self Care Discharge Date/Time: 04/29/25 00:51 What to do if you have Problems For any increased pain, shortness of breath, bleeding, nausea or vomiting, chestpain, or any unexpected problems, contact your Primary Care Provider. Call [facility] ([phone]) or report tothe closest Emergency Room. Call 911 if necessary. 04/29/25 0154 Cosigner Signature (if applicable): CC: Dr. Leisa Winslow DO ~ Signed [facility]08-11-2025 Discharge summary [facility] Medical Records Department [address] [place] [address] Emergency Department Summary 02/24/25 MR#: [id number] Acct: [id number] Name: GERARDO ATKINS Rep #:[id number] : 2005 19 From: Gutierrez Yee MD PCP: Dr. Leisa Winslow DO Status:REG ER Location: ED HPI History [...] is complain of palpitations, shortness of breath. Jrecai-pf-djse she made the comment that "I cannot breathe . She has tingling in her upper and lower extremities and perioral. She denies fever, chills night sweats. She denies weight gain or weight loss. She denies heat or cold intolerance. She denies headache. Eye double vision blurred vision loss of vision. Shedenies chest pressure or tightness. She denies abdominal pain, nausea, vomiting or diarrhea. She deniesdysuria, frequency, urgency or hematuria. After I completed my history she informed me that she wanted to be "perfectly honest with me ". Sheinform me that she did ecstasy this morning. She has done ecstasy in the past. But she is never felt like this. Prior similar symptoms: No Recent Illness/Hospitalization: No PFSH PFSH Medical History Anxiety Home Medications ?Medication ?Instructions [...] Ears normal. Nares patent. Posterior pharynx erythemic today.Uvula midline. No deviation with protrusion. Patienthas bilateral [...] to inspection, nondistended, normoactive bowel sounds, non-tender, non- distended and no masses; Negative for hepatosplenomegaly Palpation: [...] most likely due to ecstasy use. Will obtainelectrolyte panel to assess calcium and sodium potassium. Will obtain CBC since she appears pale toassess H&H. She was placed on a monitor. She was treated with lorazepam since we do not have IVValium. Benzodiazepines are considered the drug of choice [...] % (Auto) 67.4 Lymph % (Auto) 27.1 Davison % (Auto) 4.4 Eos % (Auto) 0.4 [...] (Rate is 99. The EKG is normal. MA was 154 ms. Cures duration 94 ms. QT duration 3 and 56 ms. [place] is normal.) Treatment and Re-Evaluation :: Patient [...] use disorder, mild, Sinus tachycardia seen on cardiac exercise physiologist, Alcohol consumption binge drinking, Depression Instructions: ED Drug Abuse, ED Hyperventilation Syndrome Prescriptions: No Action paroxetine HCl 40 mg tablet 40 mg PO DAILY hydroxyzine pamoate 25 mg capsule 25 mg PO 4X/DAY PRN PRN (Reason: anxiety) Primary Care Provider: Leisa Winslow Referrals: Leisa Winslow DO [Primary Care Provider] - 1 Week [facility] [Non-Staff] - As soon as possible Print Language: Trinidadian Disposition Disposition: Home, Self Care What to do if you have Problems For any increased pain, shortness of breath, bleeding, nausea or vomiting, chestpain, or any unexpected problems, contact your Primary Care Provider. Call [facility] ([phone]) or report tothe closest Emergency Room. Call 911 if necessary. 02/24/25 1411 Cosigner Signature (if applicable): CC: Dr. Leisa Winslow, DO ~ Signed [facility]08-11-2025 Discharge summary Author Gutierrez Yee [facility] Note Date/Time February 24, 2025 2: 11pm [facility] Medical Records Department [address] [place] [address] Emergency Department Summary 02/24/25 MR#: [id number] Acct: [id number] Name: GERARDO ATKINS Rep #:[id number] : 2005 19 From: Gutierrez Yee MD PCP: Dr. Leisa Winslow, Status:REG ER Location: ED HPI History of [...] is complain of palpitations, shortness of breath. Ujqvxi-lz-zazi she made the comment that "I cannot breathe . She has tingling in [...] informed me that she wanted to be "perfectly honest with me ". She inform me that she did ecstasy this morning. She has done ecstasy in the past. But she is never felt like this. Prior similar symptoms: No Recent Illness/Hospitalization: No PFSH PFSH Medical History Anxiety Home Medications ?Medication ?Instructions [...] % (Auto) 67.4 Lymph % (Auto) 27.1 Davison % (Auto) 4.4 Eos % (Auto) 0.4 [...] (Rate is 99. The EKG is normal. MA was 154 ms. Cures duration 94 ms. QT duration 3 and 56 ms. [place] is normal.) Treatment and Re-Evaluation :: Patient [...] use disorder, mild, Sinus tachycardia seen on cardiac exercise physiologist, Alcohol consumption binge drinking, Depression Instructions: ED Drug Abuse, ED Hyperventilation Syndrome Prescriptions: No Action paroxetine HCl 40 mg tablet 40 mg PO DAILY hydroxyzine pamoate 25 mg capsule 25 mg PO 4X/DAY PRN PRN (Reason: anxiety) Primary Care Provider: Leisa Winslow Referrals: Leisa Winlsow DO [Primary Care Provider] - 1 Week [facility] [Non-Staff] - As soon as possible Print Language: Trinidadian Disposition Disposition: Home, Self Care What to do if you have Problems For any increased pain, shortness of breath, bleeding, nausea or vomiting, chestpain, or any unexpected problems, contact your Primary Care Provider. Call [facility] ([phone]) or report to the closest Emergency Room. Call 911 if necessary. 02/24/25 1411 <Electronically signed by Gutierrez Yee MD> Cosigner Signature (if applicable): CC: Dr. Leisa Winslow, DO ~ Signed [facility] Work Phone: [phone]) 610-801307-27-2025 Hospital Discharge instructions Patient Education 02/09/2025 11:14:00 [...] no pain medicines were prescribed, youcan use bpbj-vav-wfytiuo pain medicines. Follow instructions for taking any [...] painful when eating. You may use an yxbz-zko-fjidnkl local numbing solution for pain relief. If [...] control the wound bleeding with direct pressure. [id number] [employer]. [address] [place] [address]. All rights reserved. This information is not intended as a substitute for professional medical care. Always follow yourhealthcare professional's instructions. Follow Up Care 02/09/2025 09:42:13 With:Dental Referral List Address: When:2-4 days With:LEISA WINSLOW DO Address: [address] [place] [phone]- [phone] When:2-4 days [facility] 07-27-2025 Note Discharge Instructions Thank you for allowing [facility] to assist you with your healthcare needs. The following is importantdischarge information regarding your hospital visit. Diagnosis from Today's Visit Laceration of lip What to Do Next Instructions from Your Care Team No qualifying data available. Post Acute Orders No qualifying data available. You Need to Schedule the Following Appointments Follow Up with Dental Referral List When:Within 2-4 days Follow Up with LEISA WINSLOW DO When:Within 2-4 days Where:[address] [place] [phone] Allergies Bactrim Rash Medications Please ask your [...] no pain medicines were prescribed, youcan use pxjx-jwu-nvhdnzu pain medicines. Follow instructions for taking any [...] painful when eating. You may use an rjlx-jtc-nsysutv local numbing solution for pain relief. If [...] control the wound bleeding with direct pressure. [phone] [employer]. [address] [place] [address]. All rights reserved. This information is not intended as a substitute for professional medical care. Always follow yourhealthcare professional's instructions. Additional Information VACCINATE! IT SAVES LIVES! Members of the community who have not yet received the COVID-19 vaccine and would like to receive it can visit one of [facility] vaccine clinics. There are many vaccine clinic locations within the [facility]. For locations and available times, please visit [email or web address] It is important to note that some COVID mobile vaccine clinics are held outdoors and may be canceled in rainy or stormy conditions. To learn more about pediatric vaccinations (ages 5-11), we invite you to visit the [facility] webpage. https://www.[email or web address].org/pages/6229-Vrjvx-Shsttxprfzs-Rcpomjpmql-Bqpyi-Zvz stions.htmlTo learn more about the COVID-19 vaccine, we invite you to visit the CDC website for a list of frequently asked questions. https://www.cdc.gov/coronavirus/2019-ncov/vaccines/faq.html [facility] Patient Portal Access Instructions: Stay connected with your healthcare team and access your personal medical information anytime with the [facility] Patient Portal. If you would like a full copy of your medical records please contact the [facility] Medical Records Department Monday through Monday between 8a.m. and 4:30p.m. Please follow the directions below to access the portal: 1.Access the email account you provided upon registration to the hospital.2.Look for an invitation email from [facility].3.Open the email and access the invitation link: Accept Invitation to [facility]4.Fill in the required coe to create your account. Sign into [email or web address] with your username and password that you [...] you will allow to register on the [facility] Patient Portal for access to your information. You can also access the [facility] Patient Portal on the [employer] Simply click on "Health Records" under "HealthData" and then click on the [employer] logo. [...] Call your local pharmacy or go to http://bit.ly/6D9He2q to find one close to you.3.Make use of household items: Use cat litter or old coffee grounds to dispose medications if other options arenot available. Mix your drugs with these household products, seal them in an airtight container andthrow it into the garbage. Call [facility]: [phone] to be sure your drugs can be [...] aware that I should contact my doctor. Patient/Die Technician Signature: Date/Time: Relationship to Patient: Witness Name/Signature: Date/Time: [facility]07-27-2025 Note* Exam Date Time Procedure Performing Provider Status 02/09/25 11:[address] Maxillofacial w/o Contrast KYLER COLON MD; Auth (Verified) [id number] ORIGINAL HISTORY: Fall COMPARISON: No TECHNIQUE: CT [...] Sign Date: 02/09/2025 11:05:28 AM Ordering Provider: [place] 18672-27-2025 Note* Exam Date Time Procedure Performing Provider Status 02/09/25 11:[address] Spine Cervical w/o Contrast KYLER COLON MD; Auth (Verified) [id number] ORIGINAL HISTORY: Fall COMPARISON: No TECHNIQUE: Cervical [...] Sign Date: 02/09/2025 12:20:38 PM Ordering Provider: [place] 18672-27-2025 Note* Exam Date Time Procedure Performing Provider Status 02/09/25 10:[address] Head or Brain w/o Contrast KYLER COLON MD; Auth (Verified) [id number] ORIGINAL HISTORY: Fall COMPARISON: No TECHNIQUE: Routine [...] Sign Date: 02/09/2025 11:03:39 AM Ordering Provider: [facility]07-02-2025 Hospital Discharge instructions Patient Education 01/15/2025 10:55:26 [...] relieved by rest and mild pain reliever [phone] [employer]. [address] [place] [address]. All rights reserved. This information is not intended as a substitute for professional medical care. Always follow yourhealthcare professional's instructions. Follow Up Care 01/15/2025 09:28:26 With:LEISA WINSLOW DO Address: [address] [facility] [place] [address]- [phone] When:2-4 days [facility] 07-02-2025 Note Discharge Instructions Thank you for allowing [facility] to assist you with your healthcare needs. The following is importantdischarge information regarding your hospital visit. What to Do Next Instructions from Your Care Team No qualifying data available. Post Acute Orders No qualifying data available. You Need to Schedule the Following Appointments Follow Up with LEISA WINSLOW DO When:Within 2-4 days Where:[address] [facility] [place] [address]- [phone] Allergies Bactrim Rash Medications Please ask your [...] relieved by rest and mild pain reliever [phone] [employer]. [address] [place] [address], [place] [address]. All rights reserved. This information is not intended as a substitute for professional medical care. Always follow yourhealthcare professional's instructions. Additional Information VACCINATE! IT SAVES LIVES! Members of the community who have not yet received the COVID-19 vaccine and would like to receive it can visit one of [facility] vaccine clinics. There are many vaccine clinic locations within the [facility]. For locations and available times, please visit [email or web address] It is important to note that some COVID mobile vaccine clinics are held outdoors and may be canceled in rainy or stormy conditions. To learn more about pediatric vaccinations (ages 5-11), we invite you to visit the [facility] webpage. https://www.[email or web address]/pages/[email or web address]-Ypyozxqxaww-Uomqnvpkwv-Exdsm-Wdr stions.htmlTo learn more about the COVID-19 vaccine, we invite you to visit the CDC website for a list of frequently asked questions. https://www.cdc.gov/coronavirus/2019-ncov/vaccines/faq.html [facility] Patient Portal Access Instructions: Stay connected with your healthcare team and access your personal medical information anytime with the [employer] Patient Portal. If you would like a full copy of your medical records please contact the [facility] Medical Records Department Monday through Monday between 8a.m. and 4:30p.m. Please follow the directions below to access the portal: 1.Access the email account you provided upon registration to the hospital.2.Look for an invitation email from [facility].3.Open the email and access the invitation link: Accept Invitation to [facility]4.Fill in the required coe to create your account. Sign into www.[email or web address] with your username and password that you [...] you will allow to register on the [facility] Patient Portal for access to your information. You can also access the [facility] Patient Portal on the bSafe syhla. Simply click on "Health Records" under "HealthData" and then click on the Raven logo. [...] Call your local pharmacy or go to http://iCAD.Hello Universe/[email or web address] to find one close to you.3.Make use of household items: Use cat litter or old coffee grounds to dispose medications if other options arenot available. Mix your drugs with these household products, seal them in an airtight container andthrow it into the garbage. Call [facility]: [phone] to be sure your drugs can be [...] been reviewed and explained to me and IWILBERT SADIE A understand my current condition and have read and understand these discharge instructions. I have received a written copy of the plan/instructions. If I have questions, I am aware that I should contact my doctor. Patient/Die Technician Signature: Date/Time: Relationship to Patient: Witness Name/Signature: Date/Time: [facility]07-02-2025 Note* Exam Date Time Procedure Performing Provider Status 01/15/25 10:07 AM XR Chest 2 Views KYLER COLON MD; [facility] (Verified) [id number] ORIGINAL HISTORY: Chest pain COMPARISON: 26 September [...] Sign Date: 01/15/2025 10:10:39 AM Ordering Provider: OMKAR RG Interpreted by: Kyler Colon MD Preliminary Report By: Kyler Colon MD Electronically signed By Kyler Colon MD Dictated Date: 01/15/2025 10:10:24 AM Prelim Date: 01/15/2025 10:10:39 AM Sign Date: 01/15/2025 10:10:39 AM Ordering Provider: OMKAR RG [facility]07-02-2025 Note* Exam Date Time Procedure Performing Provider Status 01/15/25 9:56 AM EKG [ED AOH] - CV OMKAR RG MD; Auth (Verified) ECG Final Report Sinus rhythm Left axis deviation Electronic Signature: OMKAR RG MD 01/15/2025 10:10:46 [facility]03-14-2024 Hospital Discharge instructions Patient Education 09/28/2023 03:21:47 [...] your symptoms to the point of feeling yey-vb-fsxkzjf Feeling that you may try to harm [...] you to seek help for your symptoms 6904-1198 [employer]. [address] [place] [address]. All rights reserved. This information is not intended as a substitute for professional medical care. Always follow yourhealthcare professional's instructions. Follow Up Care 09/28/2023 01:59:22 With:LEISA WINSLOW Address: [address] [facility] [place], [place] [phone]- [phone] Business (1) When:1-2 days [facility] 03-14-2024 Note Discharge Instructions Thank you for allowing [facility] to assist you with your healthcare needs. The following is importantdischarge information regarding your hospital visit. Diagnosis from Today's Visit Anxiety Panic attack SOB - Shortness of breath What to Do Next Instructions from Your Care Team No qualifying data available. Post Acute Orders No qualifying data available. You Need to Schedule the Following Appointments Follow Up with LEISA WINSLOW When Within 1-2 days Where: [address] [facility] [place] [address] [phone] Business (1) Allergies Bactrim (Rash) Medications Please [...] your symptoms to the point of feeling oxq-nn-wcofwln Feeling that you may try to harm [...] you to seek help for your symptoms 4503-5721 [employer]. [address] [place] [address]. All rights reserved. This information is not intended as a substitute for professional medical care. Always follow yourhealthcare professional's instructions. Additional Information VACCINATE! IT SAVES LIVES! Members of the community who have not yet received the COVID-19 vaccine and would like to receive it can visit one of [facility] vaccine clinics. There are many vaccine clinic locations within the [facility]. For locations and available times, please visit www.[email or web address]/. It is important to note that some COVID mobile vaccine clinics are held outdoors and may be canceled in rainy or stormy conditions. To learn more about pediatric vaccinations (ages 5-11), we invite you to visit the [facility] webpage. https://www.[email or web address].org/pages/8859-Eabzb-Kotwqevigdy-Nntggykzri-Vhjzz-Ddi stions.htmlTo learn more about the COVID-19 vaccine, we invite you to visit the CDC website for a list of frequently asked questions. https://www.cdc.gov/coronavirus/2019-ncov/vaccines/faq.html [facility] Patient Portal Access Instructions: Stay connected with your healthcare team and access your personal medical information anytime with the [facility] Patient Portal. If you would like a full copy of your medical records please contact the [facility] Medical Records Department Monday through Monday between 8a.m. and 4:30p.m. Please follow the directions below to access the portal: 1.Access the email account you provided upon registration to the [facility].2.Look for an invitation email from [facility].3.Open the email and access the invitation link: Accept Invitation to [facility]4.Fill in the required coe to create your account. Sign into www.[facility] with your username and password that you [...] you will allow to register on the [employer] Patient Portal for access to your information. You can also access the [facility] Patient Portal on the [employer] Simply click on "Health Records" under "emploi.[employer]Light[employer]" and then click on the Clear Standards logo. HOW TO SAFELY DISPOSE OF PRESCRIPTION [...] Call your local pharmacy or go to http://CX/8F6Fv2e to find one close to you.3.Make use of household items: Use cat litter or old coffee grounds to dispose medications if other options arenot available. Mix your drugs with these household products, seal them in an airtight container andthrow it into the garbage. Call [facility]: [phone] to be sure your drugs can be [...] aware that I should contact my doctor. Patient/Die Technician Signature: Date/Time: Relationship to Patient: Witness Name/Signature: Date/Time: [facility]03-12-2024 Hospital Discharge instructions Patient Education 09/26/2023 05:59:19 [...] or as directed by your healthcare provider [phone] [employer]. [address] [place] [address]. All rights reserved. This information is not intended as a substitute for professional medical care. Always follow yourhealthcare professional's instructions. 09/26/2023 05:59:18 Anxiety Reaction Anxiety [...] relieved by rest and mild pain reliever 1341-0963 [employer]. [address] [place] [address]. All rights reserved. This information is not intended as a substitute for professional medical care. Always follow yourhealthcare professional's instructions. Follow Up Care 09/26/2023 04:02:02 With:LEISA WINSLOW DO Address: [address] [place] [phone] [phone] When:2-4 days [facility] 03-12-2024 Note Discharge Instructions Thank you for allowing [facility] to assist you with your healthcare needs. The following is importantdischarge information regarding your hospital visit. Diagnosis from Today's Visit Anxiety Shortness of breath SOB - Shortness of breath What to Do Next Instructions from Your Care Team No qualifying data available. Post Acute Orders No qualifying data available. You Need to Schedule the Following Appointments Follow Up with LEISA WINSLOW DO When Within 2-4 days Where: [address] [place] [phone] Allergies Bactrim (Rash) Medications Please ask your [...] or as directed by your healthcare provider [phone] [employer]. [address] [place] [address]. All rights reserved. This information is not [...] relieved by rest and mild pain reliever 2907-3213 [employer]. [address] [place] [address]. All rights reserved. This information is not intended as a substitute for professional medical care. Always follow yourhealthcare professional's instructions. Additional Information VACCINATE! IT SAVES LIVES! Members of the community who have not yet received the COVID-19 vaccine and would like to receive it can visit one of [facility] vaccine clinics. There are many vaccine clinic locations within the [facility]. For locations and available times, please visit www.[email or web address]/. It is important to note that some COVID mobile vaccine clinics are held outdoors and may be canceled in rainy or stormy conditions. To learn more about pediatric vaccinations (ages 5-11), we invite you to visit the [facility] webpage. https://www.[email or web address].org/pages/4894-Joofx-Vogtvmiyefw-Artekxogde-Xancd-Siw stions.htmlTo learn more about the COVID-19 vaccine, we invite you to visit the CDC website for a list of frequently asked questions. https://www.cdc.gov/coronavirus/2019-ncov/vaccines/faq.html [facility] Patient Portal Access Instructions: Stay connected with your healthcare team and access your personal medical information anytime with the [employer] Patient Portal. If you would like a full copy of your medical records please contact the [facility] Medical Records Department Monday through Monday between 8a.m. and 4:30p.m. Please follow the directions below to access the portal: 1.Access the email account you provided upon registration to the [facility].2.Look for an invitation email from [facility].3.Open the email and access the invitation link: Accept Invitation to [facility]4.Fill in the required coe to create your account. Sign into www.[facility] with your username and password that you [...] you will allow to register on the [facility] Patient Portal for access to your information. You can also access the [facility] Patient Portal on the bSafe shyla. Simply click on "Health Records" under "HealthData" and then click on the Clear [employer] logo. HOW TO SAFELY DISPOSE OF PRESCRIPTION [...] Call your local pharmacy or go to http://bit.Hello Universe/6H0Aq0s to find one close to you.3.Make use of household items: Use cat litter or old coffee grounds to dispose medications if other options arenot available. Mix your drugs with these household products, seal them in an airtight container andthrow it into the garbage. Call [facility]: [phone] to be sure your drugs can be [...] aware that I should contact my doctor. Patient/Die Technician Signature: Date/Time: Relationship to Patient: Witness Name/Signature: Date/Time: [facility]03-12-2024 Note ORIGINAL EXAMINATION: TWO XRAY VIEWS OF [...] By: Kathya Valencia Electronically signed By Bj Tavraez MD Dictated Date: 09/26/2023 4:58:30 AM Prelim Date: 09/26/2023 4:59:44 AM Sign Date: 09/26/2023 5:04:55 AM [facility]ing [facility] Note Sinus rhythm Left axis deviation Electronic Signature: PEACE BRIGGS MD 09/26/2023 04:43:53[facility] 03-06-2024 Hospital Discharge instructions Patient Education 09/20/2023 02:13:17 Paraesthesias Paraesthesias Paraesthesia is a burning or prickling sensation that is sometimes felt in the hands, arms, legs orfeet. It can also occur in other parts of the body. It can also feel like tingling or numbness, skin crawling, or itching. The feeling is not comfortable, but it is not painful. (The "pins and needles" feeling that happens when a foot or hand "falls asleep" is a temporary paraesthesia.) Paraesthesias that last [...] medicines you take. This includes prescription and qkuf-str-xhscgfb medicines, vitamins, and herbs. Ask if any [...] Open wound with redness, swelling, or pus [phone] [employer]. [address] [place] [address]. All rights reserved. This information is not intended as a substitute for professional medical care. Always follow yourhealthcare professional's instructions. 09/20/2023 02:13:10 MDMA Drug Screen (Urine) MDMA Drug Screen (Urine) Does this test have other names? MDMA urine screening test What is this test? This is a urine test to screen for MDMA, the abbreviation for methylenedioxymethamphetamine (FDMI-hby-gs-BNQ-sa-fl-WTFV-qe-QJV-tuh-meen). This is a street drug also called [...] healthcare provider about whether the prescription and twvh-qzd-vybcihb (OTC) medicines you take could cause a [...] and any illicit drugs you may use. 1790-0900 [employer]. [address] [place] [address]. All rights reserved. This information is not intended as a substitute for professional medical care. Always follow [facility] professional's instructions. Follow Up Care 09/20/2023 02:02:00 With:Go to emergency room if symptoms worsen Address:Unknown When:2-4 days With:LEISA WINSLOW DO Address: [address] [facility] [place] [phone] When:2-4 days [facility] 03-06-2024 Note Discharge Instructions Thank you for allowing [facility] to assist you with your healthcare needs. [...] Within 2-4 days Follow Up with LEISA WINSLOW DO When Within 2-4 days Where: [address] [place] [address] [place] [phone] Allergies Bactrim (Rash) Medications Please ask your [...] comfortable, but it is not painful. (The "pins and needles" feeling that happens when a foot or hand "falls asleep" is a temporary paraesthesia.) Paraesthesias that last [...] medicines you take. This includes prescription and plut-zji-aacsdds medicines, vitamins, and herbs. Ask if any [...] Open wound with redness, swelling, or pus [phone] [employer]. [address] [place] [address]. All rights reserved. This information is not intended as a substitute for professional medical care. Always follow yourhealthcare professional's instructions. MDMA Drug Screen (Urine) Does this test have other names? MDMA urine screening test What is this test? This is a urine test to screen for MDMA, the abbreviation for methylenedioxymethamphetamine (GNFZ-iyt-zt-ZYR-ko-rr-ZYKU-vx-JNA-tuh-meen). This is a street drug also called [...] healthcare provider about whether the prescription and glmn-vxe-zguimzw (OTC) medicines you take could cause a [...] and any illicit drugs you may use. 0936-2770 [employer]. [address] [place] [address], [place] [id number]. All rights reserved. This information is not intended as a substitute for professional medical care. Always follow yourhealthcare professional's instructions. Additional Information VACCINATE! IT SAVES LIVES! Members of the community who have not yet received the COVID-19 vaccine and would like to receive it can visit one of [facility] vaccine clinics. There are many vaccine clinic locations within the [facility]. For locations and available times, please visit www.[email or web address].[place].gov/. It is important to note that some COVID mobile vaccine clinics are held outdoors and may be canceled in rainy or stormy conditions. To learn more about pediatric vaccinations (ages 5-11), we invite you to visit the [facility] webpage. https://www.[facility].org/pages/5872-Jaipx-Gmblryuaxpr-Uixgrpoagq-Oieqt-Zzf stions.htmlTo learn more about the COVID-19 vaccine, we invite you to visit the CDC website for a list of frequently asked questions. https://www.cdc.gov/coronavirus/2019-ncov/vaccines/faq.html [facility] Patient Portal Access Instructions: Stay connected with your healthcare team and access your personal medical information anytime with the [employer] Patient Portal. If you would like a full copy of your medical records please contact the [facility] Records Department Monday through Monday between 8a.m. and 4:30p.m. Please follow the directions below to access the portal: 1.Access the email account you provided upon registration to the [facility].2.Look for an invitation email from [facility].3.Open the email and access the invitation link: Accept Invitation to [facility]4.Fill in the required coe to create your account. Sign into www.[employer] [facility] with your username and password that you [...] you will allow to register on the [facility] Patient Portal for access to your information. You can also access the [facility] Patient Portal on the [employer] Simply click on "Health Records" under "HealthData" and then click on the Clear [employer] logo. HOW TO SAFELY DISPOSE OF PRESCRIPTION [...] Call your local pharmacy or go to http://bit.raymond/4S9Gg1k to find one close to you.3.Make use of household items: Use cat litter or old coffee grounds to dispose medications if other options arenot available. Mix your drugs with these household products, seal them in an airtight container andthrow it into the garbage. Call [facility]: [phone] to be sure your drugs can be [...] aware that I should contact my doctor. Patient/Die Technician Signature: Date/Time: Relationship to Patient: Witness Name/Signature: Date/Time: [facility]03-06-2024 NoteSinus rhythm LAD, consider left anterior fascicular block Electronic Signature: BINH COBB DO 09/20/2023 02:24:13[facility] 12-30-2023 Hospital Discharge instructions Patient Education 07/15/2023 [...] products Chemicals or dyes in clothing, linen, straightedge machine operator helper, hair dyes, soaps, iodine Many viruses and [...] damage the skin. Oral diphenhydramine is an cdpl-hca-hepbrvk antihistamine sold at pharmacy and grocery stores. [...] hours, or as directed by your provider 5193-0813 [employer]. [address] [place] [address]. All rights reserved. This information is not intended as a substitute for professional medical care. Always follow yourhealthcare professional's instructions. Follow Up Care 07/15/2023 00:43:33 With:LEISA WINSLOW DO Address: [address] [place] [phone] When:2-4 days [facility] 12-30-2023 Note Discharge Instructions Thank you for allowing [facility] to assist you with your healthcare needs. The following is importantdischarge information regarding your hospital visit. Diagnosis from Today's Visit Allergic reaction Rash What to Do Next Instructions from Your Care Team No qualifying data available. Post Acute Orders No qualifying data available. You Need to Schedule the Following Appointments Follow Up with LEISA WINSLOW DO When Within 2-4 days Where: [address] [place] [phone]- [phone] Allergies Bactrim (Rash) Medications Please ask your [...] pharmacies. Medication Leaflets diphenhydramine (DYE fen RL dra kwan) Allergy (Diphenhydramine HCl), Allergy Relief (Diphenhydramine [...] may report side effects to FDA at 4-211-VCQ-9833. What other drugs will affect diphenhydramine? Ask a doctor or pharmacist before using diphenhydramine with any other medicines, especially drugs that can cause drowsiness (such as opioid medication, sleep medicine, a muscle relaxer, or medicine for anxiety or seizures). Tell your doctor about all your current medicines and any medicine you start or stop using. This includes prescription and hqiw-voz-dcoryls medicines, vitamins, and herbal products. Not all [...] to ensure that the information provided by [employer]. ('[employer]') is accurate, up-to-date, and complete, but no guarantee is made to that effect. Drug information contained herein may be time sensitive. [employer] information has been compiled for use by healthcare practitioners and consumers in the [place] and therefore [employer] does not warrant that uses outside of the [place] are appropriate, unless specifically indicated otherwise. [employer] drug information does not endorse drugs, diagnose patients or recommend therapy. [employer] drug information isan informational resource designed to [...] effective or appropriate for any given patient. [employer] does not assume any responsibility for any aspect of healthcare administered with the aid of information [employer] provides. The information contained herein is not intended to cover all possible uses, directions, precautions, warnings, drug interactions, allergic reactions, or adverse effects. If you have questions about the drugs you are taking, check with your doctor, nurse or pharmacist. Copyright 1656-1530 [employer]. Version: 9.. Revision Date: 02/14/2023. prednisone (PRED antelmo gómez) Zane What is the most important information I [...] may report side effects to FDA at 0-382-SJH-3797. What other drugs will affect prednisone? Sometimes [...] may affect prednisone. This includes prescription and vswg-zmw-pdshkmj medicines, vitamins, and herbal products. Not all [...] to ensure that the information provided by [employer]. ('[employer]') is accurate, up-to-date, and complete, but no guarantee is made to that effect. Drug information contained herein may be time sensitive. [employer] information has been compiled for use by healthcare practitioners and consumers in the [place] and therefore [employer] does not warrant that uses outside of the [place] are appropriate, unless specifically indicated otherwise. [employer] drug information does not endorse drugs, diagnose patients or recommend therapy. [employer] drug information isan informational resource designed to [...] effective or appropriate for any given patient. [employer] does not assume any responsibility for any aspect of healthcare administered with the aid of information [employer] provides. The information contained herein is not intended to cover all possible uses, directions, precautions, warnings, drug interactions, allergic reactions, or adverse effects. If you have questions about the drugs you are taking, check with your doctor, nurse or pharmacist. Copyright 6559-6643 [employer]. Version: 10.. Revision Date: 10/11/2018. Education Materials [...] products Chemicals or dyes in clothing, linen, straightedge machine operator helper, hair dyes, soaps, iodine Many viruses and [...] damage the skin. Oral diphenhydramine is an huoc-zyr-wkvdwca antihistamine sold at pharmacy and grocery stores. [...] hours, or as directed by your provider 5800-0960 [employer]. [address] [place] [address]. All rights reserved. This information is not intended as a substitute for professional medical care. Always follow yourhealthcare professional's instructions. Additional Information VACCINATE! IT SAVES LIVES! Members of the community who have not yet received the COVID-19 vaccine and would like to receive it can visit one of [facility] vaccine clinics. There are many vaccine clinic locations within the [facility]. For locations and available times, please visit www.[email or web address].[place].gov/. It is important to note that some COVID mobile vaccine clinics are held outdoors and may be canceled in rainy or stormy conditions. To learn more about pediatric vaccinations (ages 5-11), we invite you to visit the [facility] webpage. [email or web address]/[email or web address] learn more about the COVID-19 vaccine, we invite you to visit the CDC website for a list of frequently asked questions. https://www.cdc.gov/coronavirus/2019-ncov/vaccines/faq.html [facility] Patient Portal Access Instructions: Stay connected with your healthcare team and access your personal medical information anytime with the [facility] Patient Portal. If you would like a full copy of your medical records please contact the [facility] Medical Records Department Monday through Monday between 8a.m. and 4:30p.m. Please follow the directions below to access the portal: 1.Access the email account you provided upon registration to the [facility].2.Look for an invitation email from [facility].3.Open the email and access the invitation link: Accept Invitation to [facility]4.Fill in the required coe to create your account. Sign into www.[facility] with your username and password that you [...] you will allow to register on the [facility] Patient Portal for access to your information. You can also access the [facility] Patient Portal on the [employer] Simply click on "Health Records" under "HealthData" and then click on the [facility] logo. [...] Call your local pharmacy or go to http://bit.Hello Universe/4J7Fx3e to find one close to you.3.Make use of household items: Use cat litter or old coffee grounds to dispose medications if other options arenot available. Mix your drugs with these household products, seal them in an airtight container andthrow it into the garbage. Call [facility]: [phone] to be sure your drugs can be [...] aware that I should contact my doctor. Patient/Die Technician Signature: Date/Time: Relationship to Patient: Witness Name/Signature: Date/Time: [facility]10-31-2021 Hospital Discharge instructions Patient Education 05/16/2021 15:55:21 [...] or water and you are getting dehydrated [id number] [employer]. [address] [place] [address]. All rights reserved. This information is not intended as a substitute for professional medical care. Always follow yourhealthcare professional's instructions. 05/16/2021 15:55:06 VOMITING (6y-Adult) Vomiting [6Yr-Adult] Vomiting is a common symptom that may be due to different causes. These include gastroenteritis ("stomach flu"), food poisoning and gastritis. There are other [...] Yellow color of the eyes or skin [employer]. [address] [place] [address]. All rights reserved. This information is not [...] you feel better and your symptoms lessen. [employer]. [address] [place] [address]. All rights reserved. This information is not intended as a substitute for professional medical care. Always follow yourhealthcare professional's instructions. Follow Up Care 05/16/2021 10:41:04 With:LEISA WINSLOW DO Address: When:2-4 days With:Go to emergency room if symptoms worsen Address:Unknown When:2-4 days [facility] 10-31-2021 Evaluation + Plan note Diagnostic Tests Pending * Urine Culture 05/16/21 [facility] Discharge summary Author David Morris [facility] Note Date/Time April 29, 2025 1 2:51am [facility] Medical Records Department [address] [place] [address] Emergency Department Summary 04/29/25 MR#: [id number] Acct: [id number] Name: GERARDO ATKINS Rep #:[id number] : 2005 20 From: David Morris DO PCP: Dr. Leisa Winslow DO Status:DEP ER Location: ED HPI History of Present Illness Chief Complaint: Anxiety Informant: patient Narrative Narrative: Patient is a 20-year-old female with past medical history of anxiety. She states she takes paroxetine daily and hydroxyzine for breakthrough symptoms. She states that this evening she did use meth and after doing so began to feel like her heart was racing and her anxiety was worsening. She states that she took hydroxyzine without any symptom improvement. She states symptoms are improving but not gone and secondary to this she comes in for evaluation. She admits to the methamphetamine use but states there is no excessive nicotine or caffeine use. [facility] Medical History Anxiety Home Medications ?Medication ?Instructions ?Recorded ?Last Taken ?Type hydroxyzine pamoate 25 mg capsule 25 mg PO 4X/DAY PRN PRN anxiety 02/24/25 02/23/25 History paroxetine HCl 40 mg tablet 40 mg PO DAILY mood 02/23/25 History hydroxyzine pamoate 25 mg capsule 25 mg PO Q6H PRN anx iety #20 caps 03/17/25 Unknown Rx (Vistaril) Allergy/AdvReac Type Severity Reaction Status Date / Time sulfamethoxazole (From Allergy Rash Verified 04/28/25 23:52 Bactrim) trimethoprim (From Bactrim) Allergy Rash Verified 04/28/25 23:52 Surgical History Hx of tonsillectomy Social History Smoking Status: Current every day smoker tobacco type: e-cigarettes ROS ROS ED Constitutional Constitutional ED: Denies chills or fever(s) Eyes Eyes: Denies blurry vision or change in vision ENT ENT ED: Denies sore throat Cardiovascular Cardiovascular: Reports palpitations and racing heartbeat; Denies chest pain Respiratory/Chest Respiratory/Chest: Denies cough or dyspnea Gastrointestinal Gastrointestinal: Denies abdominal pain, diarrhea, nausea or vomiting Genitourinary Genitourinary ED: Denies dysuria Musculoskeletal Musculoskeletal: Denies myalgias Integumentary Denies rash Neurologic Neurologic: Reports paresthesias; Denies headache(s) Psychiatric Psychiatric: Reports anxiety; Denies suicidal ideation or suicidal thoughts Hematologic/Lymphatic Hematologic/Lymphatic: Denies easy bleeding or easy bruising EXAM Physical Exam Const Vital Signs: 04/28/25 23:52 04/29/25 00:50 Temperature 98 F 98.0 F Temperature Source Temporal Pulse Rate 146 H 110 H Respiratory Rate 24 H 18 Blood Pressure 133/96 H 128/60 H Blood Pressure Mean 108 82 Pulse Ox 99 100 Oxygen Delivery Method Room Air Positive well nourished and well developed General Appearance ED: well developed; Negative for pallor HEENT HEENT Narrative: Normocephalic atraumatic No tongue or lip swelling no oral lesions no airway edema or compromise Eyes PERRL and EOMs intact bilaterally General Eye ED: Negative for scleral icterus Neck supple and no JVD Resp normal respiratory effort and clear to auscultation bilaterally Resp Narrative: No nasal flaring retractions tachypnea accessory muscle use or stridor noted Cardio regular rhythm Rate: tachycardic and other Other Details: Tachycardic rate with regular rhythm Radial and carotid pulses are equal and symmetric GI normal to inspection, nondistended, normoactive bowel sounds, non-tender, non-distended and no masses Auscultation: normoactive bowel sounds Palpation: soft Extremity normal to inspection Extremity Narrative: No asymmetric edema no pitting edema negative Homans' sign bilaterally Neuro oriented x3, CN's II-XII intact bilaterally and no sensory deficits noted Neuro Narrative: GCS of 15 Cranial nerves II through XII are grossly intact without focal neurologic deficit No pronator drift no dysmetria no truncal ataxia NIH stroke scale score of 0 Sensorium / Orientation: alert Motor Exam: strength 5/5 throughout Psych Psych Narrative: Positive anxious affect without homicidal or suicidal ideation Mood & Affect: anxious Skin no rashes or lesions noted and no wounds General Skin Exam: Negative for jaundice or pallor MDM MDM MDM Narrative Medical decision making narrative: Patient arrived to the ER tachycardic and mildly tachypneic but otherwise with stable vitals and no signs of hypoxia. She has a known history of anxiety and states she did use methamphetamine prior to the onset of her symptoms. The factthat she reported paresthesias and contractures would correlate with hyperventilation. At this time she has had spontaneous improvement of symptoms. And vital signs are improved. We discussed placing an IV given IV hydration and checking basic labs such as blood volume and electrolytes and thyroid markerto rule out any other potential causes as well as an EKG. the patient's rate is still tachycardic but it is regular going against A-fib or a flutter. She states she feels like she needs something stronger than her hydroxyzine to calm down. Therefore I provided IM Ativan. On reevaluation she reports improvement of symptoms. She is not homicidal or suicidal so there is no need for psychiatric evaluation. Therefore with a cause for her breakthrough anxiety andthe methamphetamine and improvement of symptoms with time as well as medication I do not feel need for further workup and she is otherwise safe for discharge. History & Record Review Discussion w/independent historian: Patient and Friend Discharge Plan Triage Chief Complaint: Anxiety ED Provider: David Morris Dx/Rx/DC Orders Clinical Impression: Anxiety reaction, Methamphetamine use Instructions: ED Anxiety Reaction Prescriptions: No Action paroxetine HCl 40 mg tablet 40 mg PO DAILY hydroxyzine pamoate 25 mg capsule 25 mg PO 4X/DAY PRN PRN (Reason: anxiety) hydroxyzine pamoate [Vistaril] 25 mg capsule 25 mg PO Q6H PRN (Reason: anxiety) Qty: 20 0RF Primary Care Provider: Leisa Winslow Referrals: Leisa Winslow DO [Primary Care Provider, Medical] Activity Restrictions/Additional Instructions: Your history and exam is consistent with anxiety exacerbation. Your fast breathing caused you to blow off a waste product of carbon dioxide which led to numbness and tingling and contracture. Please continue all of your home medication as directed by your doctor. The symptoms that you had this evening will resolve with time. Return to the ER should you have any further concerns Print Language: Trinidadian Disposition Disposition: Home, Self Care Discharge Date/Time: 04/29/25 00:51 What to do if you have Problems For any increased pain, shortness of breath, bleeding, nausea or vomiting, chestpain, or any unexpected problems, contact your Primary Care Provider. Call [facility] ([phone]) or report to the closest Emergency Room. Call 911 if necessary. 04/29/25 0154 <Electronically signed by David Morris DO> Cosigner Signature (if applicable): CC: Dr. Leisa Winslow, ~ Signed [facility] Work Phone: Evaluation + Plan note Future Appointments Appointment Date:09/28/2023 11:00:00 AM Scheduled Provider:LEISA WINSLOW DO Location:[facility] Appointment Type: OV ED Follow Up [facility] Evaluation + Plan note Future Appointments Appointment Date:09/29/2023 02:00:00 PM Scheduled Provider:LEISA WINSLOW DO Location:[facility] Appointment Type: OV [facility] Evaluation + Plan note Future Appointments Appointment Date:01/23/2025 02:00:00 PM Scheduled Provider:LEISA WINSLOW DO Location:[facility] Appointment Type: OV ED Follow Up Future Scheduled Tests Laboratory* Thyroid Stimulating Hormone 02/21/24 * Lipid Profile 02/21/24 * Hepatitis C Antibody IgG 02/21/24 * Vitamin D Level 02/21/24 * Complete Metabolic Panel 02/21/24 Radiology* US OB Limited 09/30/24 [facility] Evaluation + Plan note Future Appointments Appointment Date:03/06/2025 12:30:00 PM Scheduled Provider:LEISA WINSLOW DO Location:[facility] Appointment Type: OV Future Scheduled Tests Laboratory* Thyroid Stimulating Hormone 02/21/24 * Lipid Profile 02/21/24 * Hepatitis C Antibody IgG 02/21/24 * Vitamin D Level 02/21/24 * Complete Metabolic Panel 02/21/24 Radiology* US OB Limited 09/30/24 [facility] Evaluation + Plan note Future Appointments Appointment Date:05/27/2025 08:30:00 AM Scheduled Provider:LEISA WINSLOW DO Location:[facility] Appointment Type:PC OV Future Scheduled Tests Radiology* US OB Limited 09/30/24 [facility] Evaluation noteNo assessment information available [facility] Work Phone: Hospital course Narrative No data available for this section [facility] Hospital Discharge instructionsAdditional Instructions Avoid excessive alcohol use. This can make panic attacks worse. Follow-up with your family doctor as well as the counseling center.[facility] Work Phone: Hospital Discharge instructionsAdditional Instructions Your history and exam is consistent with anxiety exacerbation. Your fast breathing caused you to blow off a waste product of carbon dioxide which led to numbness and tingling and contracture. Please continue all of your home medication as directed by your doctor. The symptoms that you had this evening will resolve with time. Return to the ER should you have any further concernsWFisher-[facility] Work Phone: Reason for referral (narrative)No reason for referral information availableWFisher-[facility] Work Phone: Summary Purpose Family History No [...] Family History Records FoundNo Family History Records FoundNo Family History Records Found Advance Directives No Advanced Directives Records Found Advance Directive Response Recorded Date/ Time Do you have a Healthcare Power of Felt Washing Machine Tender? No February 11, 2025 1:30am Advance Directive Response Recorded Date/ Time Do you have a Healthcare Power of Felt Washing Machine Tender? No February 24, 2025 11:48am Do you have a Healthcare Power of Felt Washing Machine Tender? No February 11, 2025 1:30am Advance Directive Response Recorded Date/ Time Do you have a Healthcare Power of Felt Washing Machine Tender? No February 24, 2025 11:48am Do you have a Healthcare Power of Felt Washing Machine Tender? No March 03, 2025 10:25pm Do you have a Healthcare Power of Felt Washing Machine Tender? No February 11, 2025 1:30am Advance Directive Response Recorded Date/ Time Do you have a Healthcare Power of Felt Washing Machine Tender? No February 24, 2025 11:48am Do you have a Healthcare Power of Felt Washing Machine Tender? No March 03, 2025 10:25pm Do you have a Healthcare Power of Felt Washing Machine Tender? No February 11, 2025 1:30am Do you have a Healthcare Power of Felt Washing Machine Tender? No March 17, 2025 12:13am Advance Directive Response Recorded Date/ Time Do you have a Healthcare Power of Felt Washing Machine Tender? No February 24, 2025 11:48am Do you have a Healthcare Power of Felt Washing Machine Tender? No March 03, 2025 10:25pm Do you have a Healthcare Power of Felt Washing Machine Tender? No April 28, 2025 11:58pm Do you have a Healthcare Power of Felt Washing Machine Tender? No February 11, 2025 1:30am Do you have a Healthcare Power of Felt Washing Machine Tender? No March 17, 2025 12:13am Chief Complaint and Reason for Visit Chief Complaint Admit Date ANXIETY February 11, 2025 1:26 am Chief Complaint Admit Date ANXIETY February 11, 2025 1:26 am ANXIETY February 24, 2025 11 :39am Chief Complaint Admit Date ANXIETY February 11, 2025 1:26 am ANXIETY February 24, 2025 11 :39am ANXITEY March 03, 2025 9: 34pm Chief Complaint Admit Date ANXIETY February 11, 2025 1:26 am ANXIETY February 24, 2025 11 :39am ANXITEY March 03, 2025 9: 34pm anxiety March 17, 2025 12:12am Chief Complaint Admit Date ANXIETY February 11, 2025 1:26 am ANXIETY February 24, 2025 11 :39am ANXITEY March 03, 2025 9: 34pm anxiety March 17, 2025 12:12am anxiety April 28, 2025 1 1:51pm Additional Source Comments INFORMATION SOURCE (unrecogn ized section and content) DATE CREATED AUTHOR 05/18/2018 [facility] DATE CREATED AUTHOR AUTHOR'S ORGANIZ ATION 10/02/2023 [facility] ([place]) DATE CREATED AUTHOR AUTHOR'S ORGANIZ ATION 05/09/2025 [facility] DATE CREATED AUTHOR AUTHOR'S ORGANIZ ATION 05/12/[address] [facility] DATE CREATED AUTHOR AUTHOR'S ORGANIZ ATION 05/13/2025 [facility] DATE CREATED AUTHOR AUTHOR'S ORGANIZ ATION 05/13/2025 [facility] Patient Care team informatio n (unrecognized section and content) Team Status: Active Member Role/Relationship Status Dates Dr. Leisa Winslow DO Primary Care Provider Active Team Status: Inactive Member Role/Relationship Status Dates Dr. Tonny Vallejo MD Emergency Provider Active Start: February 11, 2025 End: February 11, 2025 Dr. Leisa Winslow DO Primary Care Provider Active Start: February 11, 2025 End: February 11, 2025 Team Status: Inactive Member Role/Relationship Status Dates Dr. Tonny Vallejo MD Attending Provider Active Start: February 11, 2025 End: February 11, 2025 Dr. Tonny Vallejo MD Emergency Provider Active Start: February 11, 2025 End: February 11, 2025 Dr. Leisa Winslow DO Primary Care Provider Active Start: February 11, 2025 End: February 11, 2025 Team Status: Inactive Member Role/Relationship Status Dates Dr. Leisa Winslow DO Primary Care Provider Active Start: February 24, 2025 End: February 24, 2025 Dr. Gutierrez Yee MD Emergency Provider Active Sta rt: February 24, 2025 End: February 24, 2025 Team Status: Inactive Member Role/Relationship Status Dates Dr. Leisa Winslow DO Primary Care Provider Active Start: February 24, 2025 End: February 24, 2025 Dr. Gutierrez Yee MD Attending Provider Active Sta rt: February 24, 2025 End: February 24, 2025 Dr. Gutierrez Yee MD Emergency Provider Active Sta rt: February 24, 2025 End: February 24, 2025 Team Status: Inactive Member Role/Relationship Status Dates Dr. Leisa Winslow DO Primary Care Provider Active Start: March 03, 2025 End: March 04, 2025 Dr. Alex Marino DO Emergency Provider Active Start: March 03, 2025 End: March 04, 2025 Team Status: Inactive Member Role/Relationship Status Dates Dr. Leisa Winslow DO Primary Care Provider Active Start: March 03, 2025 End: March 04, 2025 Dr. Alex Marino DO Attending Provider Active Start: March 03, 2025 End: March 04, 2025 Dr. Alex Marino DO Emergency Provider Active Start: March 03, 2025 End: March 04, 2025 Team Status: Inactive Member Role/Relationship Status Dates Dr. Leisa Winslow DO Primary Care Provider Active Start: March 17, 2025 End: March 17, 2025 Dr. Susu Vasquez DO Emergency Provider Active Start: March 17, 2025 End: March 17, 2025 Team Status: Active Member Role/Relationship Status Dates Dr. Leisa Winslow DO Primary care physician Active Team Status: Inactive Member Role/Relationship Status Dates Dr. Tonny Vallejo MD Attending physician Active Start: February 11, 2025 End: February 11, 2025 Dr. Tonny Vallejo MD Emergency Department Physician Active Start: February 11, 2025 End: February 11, 2025 Dr. Leisa Winslow DO Primary care physician Active Start: February 11, 2025 End: February 11, 2025 Team Status: Inactive Member Role/Relationship Status Dates Dr. Leisa Winslow DO Primary care physician Active Start: February 24, 2025 End: February 24, 2025 Dr. Gutierrez Yee MD Attending physician Active St art: February 24, 2025 End: February 24, 2025 Dr. Gutierrez Yee MD Emergency Department Physician Active Start: February 24, 2025 End: February 24, 2025 Team Status: Inactive Member Role/Relationship Status Dates Dr. Leisa Winslow DO Primary care physician Active Start: March 03, 2025 End: March 04, 2025 Dr. Alex Marino DO Attending physician Active Start: March 03, 2025 End: March 04, 2025 Dr. Alex Marino , DO Emergency Departm ent Physician Active Start: March 03, 2025 End: March 04, 2025 Team Status: Inactive Member Role/Relationship Status Dates Dr. Leisa Winslow , DO Primary care physician Active Start: March 17, 2025 End: March 17, 2025 Dr. Susu Vasquez , DO Attending physician Active Start: March 17, 2025 End: March 17, 2025 Dr. Susu Vasquez , DO Emergency Departm ent Physician Active Start: March 17, 2025 End: March 17, 2025 Team Status: Inactive Member Role/Relationship Status Dates Dr. Leisa Winslow , DO Primary care physician Active Start: April 28, 2025 End: April 29, 2025 Dr. David Morris , DO Attending physician Active Start: April 28, 2025 End: April 29, 2025 Dr. David Morris , DO Emergency Departal nt Physician Active Start: April 28, 2025 End: April 29, 2025 Goals (unrecognized section and content) Goals [...] BE BASED ON THE PRIMARY CLINICAL RECORDS. [employer] provides no warranty or guarantee of the accuracy or completeness of information in this document.
== END 2025-06-05 15:32 | disposition home or self-care (01) ==
PROVIDERS: Emergency Provider Emergency Medicine; PCP Family Medicine; Visit Provider Emergency Medicine
DX: J04.0 Acute laryngitis (principal); F17.290 Nicotine dependence, other tobacco product, uncomplicated
CPT/HCPCS: 87631; 87651; 99282